=== PATIENT | male | born 1945 | race Caucasian/White ===

== ENCOUNTER 2018-06-13 05:30 | Inpatient (IN) | payer MEDICARE ==
[2018-06-13] MEDS ORDERED: NS 0.9% 1000 ML* 1,000 ML IV ONE ×2 (05:37→06:42)
--- NOTE | 2018-06-13 06:09 | ED ---
Abdominal Pain/Male - HPI Summary HPI Summary: Patient is a 72-year-old [id number] diabetic presenting to the ED with a five-day history of feeling ill. Symptoms began after eating some shrimp , however no one else who ate shrimp ended up until. His symptoms began as lower abdominal cramping and improved after 1 day. He then ate the shrimp again 2 days later and again started having lower abdominal cramping, however had a normal bowel movement that day. Denied any nausea or vomiting. Denies any worsening symptoms with food intake. Over the past 2 days he continues to have abdominal cramping with one loose stool early this morning around 2 AM. 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 He also is endorsing diaphoresis, but denies any chills or subjective fevers. is at bedside stating he has been breathing fairly shallowly. Patient is also endorsing urination every 1 hour for the past several days which is also not normal for him. Medications include Glucophage and metformin. He is also on a baby aspirin every other day. He states he has not taken his medications over the past few days. He does not check his sugars regularly and follows up with his PCP approximately every 2 years. He has not seen his PCP in a year and a half. He denies any burning with urination, urgency or hematuria. Denies any blood in the stool. He has never had anything like this before, denies any abdominal surgeries and denies any known allergies. Endorses decreased by mouth intake over the past 2 days. is also stating he has been coughing over the past few days with yellow productive sputum. - History of Current Complaint Chief Complaint: EDGeneral Stated Complaint: GENERAL ILLNESS Time Seen by Provider: 06/13/18 05:40 Hx Obtained From: Patient Onset/Duration: Gradual Onset Timing: Constant Severity Initially: Moderate Severity Currently: Moderate Pain Intensity: 0 Pain Scale Used: 0-10 Numeric Location: Other - diffuse lower abdominal pain and cramping without discrete tenderness Radiates: No Character: Cramping Aggravating Factor(s): Nothing Associated Signs And Symptoms: Positive: Diaphoresis, Urinary Symptoms, Decreased Appetite, Diarrhea - 1 episode early this morning. Negative: Fever, Cough, Chest Pain, Constipation, Blood in Stool, Nausea, Vomiting - Risk Factors Testicular Torsion: Negative Cardiac Risk Factors: Negative - Allergies/Home Medications Allergies/Adverse Reactions: Allergies Allergy/AdvReac Type Severity Reaction Status Date / Time No Known Allergies Allergy Verified 06/13/18 05:35 Home Medications: Home Medications Aspirin 81 mg CHEW TAB* [Aspirin Low Dose TAB*] 81 mg PO EVERY OTHER DAY [History Confirmed 06/13/18] glipiZIDE TAB* [Glucotrol TAB*] 5 mg PO BID 06/13/18 [History Confirmed 06/13/18 ] metFORMIN* [Glucophage 500 MG TAB *] 500 mg PO BID 06/13/18 [History Confirmed 06/13/18] PMH/Surg Hx/FS Hx/Imm Hx Previously Healthy: Yes - Immunization History Hx Pertussis Vaccination: No Immunizations Up to Date: Yes Infectious Disease History: No Infectious Disease History: Denies: Traveled Outside the [place] in Last 30 Days - Social History Occupation: Employed Full-time - patient is a burnette- works long hours Lives: With Family Alcohol Use: None Hx Substance Use: No Substance Use Type: Reports: None Hx Tobacco Use: No Smoking Status (MU): Never Smoked Tobacco Review of Systems Positive: Fatigue, Skin Diaphoresis. Negative: Fever - no known subjective fevers, Chills Negative: Erythema Negative: Sore Throat, Nasal Discharge Negative: Palpitations, Chest Pain Positive: Cough - cough with yellow sputum x 2 days. Negative: Shortness Of Breath Positive: Abdominal Pain - cramping, Diarrhea - 1 episode this morning. Negative: Vomiting, Nausea Positive: see HPI, frequency - every 1 hour. Negative: burning, dysuria, discharge, flank pain, incontinence, pain Positive: Arthralgia, Myalgia Negative: Rash, Bruising Positive: Weakness. Negative: Headache, Paresthesia, Numbness Negative: Anxious, Depressed All Other Systems Reviewed And Are Negative: Yes Physical Exam Triage Information Reviewed: Yes Vital Signs On Initial Exam: Initial Vitals Temp Pulse Resp BP Pulse Ox 100.1 F 123 18 132/70 94 06/13/18 05:32 06/13/18 05:32 06/13/18 05:32 06/13/18 05:32 06/13/18 05:32 Vital Signs Reviewed: Yes Appearance: Positive: Ill-Appearing, Pain Distress Skin: Positive: Diaphoretic Head/Face: Positive: Normal Head/Face Inspection Eyes: Positive: EOMI, VALERIE, Conjunctiva Clear Neck: Positive: Supple, No Lymphadenopathy Respiratory/Lung Sounds: Positive: Clear to Auscultation, Decreased Breath Sounds Cardiovascular: Positive: Pulses are Symmetrical in both Upper and Lower Extremities, Tachycardia Abdomen Description: Positive: Soft, Other: - tenderness throughout. Negative: No Organomegaly, CVA Tenderness (R), CVA Tenderness (L), Distended, McBurney's Point Tenderness, Splenomegaly Musculoskeletal: Positive: Normal, Strength/ROM Intact Neurological: Positive: Speech Normal Psychiatric: Positive: Normal, Affect/Mood Appropriate AVPU Assessment: Alert Diagnostics - Vital Signs Vital Signs Temp Pulse Resp BP Pulse Ox 06/13/18 05:32 100.1 F 123 18 132/70 94 - Laboratory Result Diagrams: 06/13/18 05:57 06/13/18 05:57 Lab Statement: Any lab studies that have been ordered have been reviewed, and results considered in the medical decision making process. Abdominal Pain Fem Course/Dx - Course Course Of Treatment: During the course of treatment, the patient is evaluated for lower abdominal cramping over the past 5 days after eating some shrimp. He endorses one loose stool. He endorses diaphoresis and urination every 1 hour. On arrival his vital signs show a temperature of 100.1, pulse rate of 123, respirations 18, PP 132/70 and O2 sat at 94. He is a known diabetic and takes metformin and Glucophage, however has not taken his medications in the past 2 days. 1 L fluids given and BG obtained which was 232. UA obtained. Chest x- ray obtained: No evidence of acute cardiopulmonary disease. Blood cultures obtained and are pending. Labs show: Elevated WBC at 17,000 with elevated CRP, BUN/CR and Lactic. On physical examination, patient appears slightly uncomfortable, but is pleasant and alert. Soft moist skin. Diffuse diaphoresis , no lesions. Conjunctiva pink with no redness or exudates. Dry mucosa. No lymphadenopathy throughout. Lungs are clear to auscultation but seemed diminished. No adventitious sounds. No JVD noted. Heart sounds present. RRR. Normal S1 and single S2. Carotids 2+ bilaterally without bruits. Bowel sounds diminished in all 4 quadrants. Slight pain on deep palpation of all 4 quadrants, negative obturators. Psoas not performed. No pain over McBurneys point. No abdominal distention or guarding. Peritoneal signs present. Discussed case with Dr. Mills. Dr. Mills agrees to a surgical consult. Discussed with Dr. Marcos who agrees to admit. Dr. Contreras, ED attending to see patient as well and a US of the gallbladder is ordered. GB US shows: The constellation of findings of the gallbladder is consistent with acute cholecystitis. Repeat troponin 0.11. - Diagnoses Differential Diagnosis/HQI/PQRI: Other - Acute cholecystitis, cholelithiasis, choledocholithiasis, gallbladder perforation Provider Diagnoses: Acute cholecystitis - Provider Notifications Discussed Care Of Patient With: Varghese Griffith - Surgical consult after admission Instructed by Provider To: Admit As Inpatient - Critical Care Time Critical Care Time: 30-74 min Discharge - Sign-Out/Discharge Documenting (check all that apply): Patient Departure - Discharge Plan Condition: Fair Disposition: ADMITTED TO [facility] Referrals: Papi Kaiser MD [Primary Care Provider] - - Billing Disposition and Condition Condition: FAIR Disposition: Admitted to [facility]
[2018-06-13 06:11] LABS: Hematocrit 41 % (42-52); Hemoglobin 13.5 g/dl (14.0-18.0); Mean Corpuscular HGB Conc 33 g/dl (31-36); Mean Corpuscular Hemoglobin 28 pg (27-31); Mean Corpuscular Volume 85 fL (80-94); Mean Platelet Volume 9.9 fL (7.4-10.4); Platelet Count 102 10^3/ul (150-450); Red Blood Count 4.78 10^6/ul (4.00-5.40); Red Cell Distribution Width 14 % (10.5-15); White Blood Count 16.9 10^3/ul (3.5-10.8)
[2018-06-13] MEDS ORDERED: Ciprofloxacin 400MG IVPREMIX(* 400 MG/200 ML BAG IVPB ONE (06:21)
[2018-06-13 06:23] LABS: INR 1.23 (0.77-1.02)
[2018-06-13 06:36] LABS: EGFR Non-African American 29.8 (>60)
[2018-06-13 06:46] LABS: ABS Basophils 0.1 10^3/ul (0-0.2); ABS Eosinophils 0.1 10^3/ul (0-0.6); ABS Lymphocytes 0.5 10^3/ul (1.0-4.8); ABS Monocytes 0.5 10^3/ul (0-0.8); ABS Neutrophils 15.7 10^3/ul (1.5-7.7); ABS Nucleated RBC 0 10^3/ul; Eosinophil % 0.7 %; Lymphocyte % 2.7 %; Nucleated Red Blood Cells % 0
[2018-06-13] MEDS ORDERED: metroNIDAZOLE IV 500 MG/100ML* 500 MG/100 ML BAG IVPB ONE (07:18)
[2018-06-13] MEDS ORDERED: Piperacillin/Tazobac ADVAN(*) 3.375 GM in NS 0.9% 100 ML* 100 ML IVPB ONE (07:23)
[2018-06-13] MEDS ORDERED: NS 0.9% 1000 ML* 1,300 ML IV ONE (07:46)
[2018-06-13] MEDS ORDERED: Dextrose 50% Syringe 50 ML* 25 GM/50 ML SYRINGE IV PUSH PRN (09:19)
[2018-06-13] MEDS: Piperacillin/Tazobac ADVAN(*) 3.375 GM in NS 0.9% 100 ML* 100 ML IVPB ONE ×2 (09:31→09:43)
[2018-06-13 09:53] LABS: Urine Appearance Clear; Urine Blood 2+ (Negative); Urine Color Amber; Urine Ketones Negative (Negative); Urine Protein 1+(30 mg/dL) (Negative); Urine Red Blood Cell 1+(3-5/hpf) (Absent); Urine Urobilinogen Negative (Negative); Urine White Blood Cell 1+(6-10/hpf) (Absent)
[2018-06-13] MEDS ORDERED: Magnesium Hydroxide LIQ* 30 ML UDC PO PRN (09:59)
[2018-06-13] MEDS ORDERED: Ondansetron INJ* 2 MG/ML VIAL IV PRN (09:59)
[2018-06-13] MEDS ORDERED: Al Hydrox/Mg Hydrox/Simet LIQ* 30 ML UDC PO PRN (09:59)
[2018-06-13] MEDS ORDERED: Zosyn per Pharmacy* NOTE FOLLOW UP SCH (10:00)
[2018-06-13] MEDS ORDERED: Magnesium Sulfate 2 GM IV* 2 GM/50 ML BAG IVPB ONE (10:09)
[2018-06-13] MEDS: Pantoprazole IV* 40 MG IV SCH (11:05)
[2018-06-13] MEDS: NS 0.9% 1000 ML* 1,000 ML IV SCH ×2 (11:06→20:24)
--- NOTE | 2018-06-13 11:47 | ECHO ---
Patient: MARIELA MICHAUD [facility] Rec#: [id number] : 1945 Date: 06/13/2018 Age: 72y Height: 180.34 cm / 71.0 in Weight: 108.86 kg / 239.9 lbs Sex: M BSA: 2.28 Room#: ED 3 Admit Date#: 06/13/2018 Type: Inpatient Referring: Yamilex Marcos MD Reading: Samson Bain MD Community Artist: Megan Amanda,ARYACS,RDMS CC: Papi Kaiser MD Transthoracic Echocardiogram Indication: Valvular disease, Elevated TROP BP: 129/73 HR: 95 Rhythm: NSR Findings History: DM, bicuspid AOV, trace , dilated AO. Technical Comments: The study quality is good. Left Ventricle: The left ventricular chamber size is normal. Mild concentric left ventricular hypertrophy is observed. Basal interventricular septum shows moderate thickening. Mild global hypokinesis of the left ventricle is observed. There is mildly decreased left ventricular systolic function. The estimated ejection fraction is 40-45%. There is a left ventricular septal wall motion abnormality observed, possibly due to the presence of a left bundle branch block. There is an E to A reversal in the mitral valve flow pattern suggestive of diastolic dysfunction. Left Atrium: The left atrial chamber size is normal. Right Ventricle: The right ventricular chamber size and systolic function are within normal limits. Right Atrium: The right atrial cavity size is normal. Aortic Valve: The aortic valve appears bicuspid. The aortic valve leaflets are moderately thickened. There is no evidence of aortic regurgitation. There is mild aortic stenosis. The mean gradient of the aortic valve is 8 mmHg. Mitral Valve: The mitral valve leaflets are mildly thickened. There is no evidence of mitral regurgitation. There is no evidence of mitral stenosis. Tricuspid Valve: The tricuspid valve leaflets are normal. There is trace tricuspid regurgitation. No pulmonary hypertension is noted. Pulmonic Valve: The pulmonic valve appears normal. There is a trace pulmonic regurgitation. Pericardium: There is no significant pericardial effusion. Aorta: There is no dilatation of the ascending aorta. There is mild dilatation of the aortic arch. There is moderate dilatation of the aortic root. Pulmonary Artery: The main pulmonary artery appears normal. Venous: The inferior vena cava appears normal in size. There is a greater than 50% respiratory change in the inferior vena cava dimension. Conclusions Mild concentric left ventricular hypertrophy is observed. Mild global hypokinesis of the left ventricle is observed. There is mildly decreased left ventricular systolic function. The estimated ejection fraction is 40-45%. There is a left ventricular septal wall motion abnormality observed, possibly due to the presence of a left bundle branch block. The right ventricular chamber size and systolic function are within normal limits. The aortic valve appears bicuspid. There is no evidence of aortic regurgitation. There is mild aortic stenosis. The mean gradient of the aortic valve is 8 mmHg. There is no evidence of mitral regurgitation. There is trace tricuspid regurgitation. There is no significant pericardial effusion. Compared to study of 10/25/14, there is little change. Previously to EF had been reported as normal but direct review of the 2 studies shows no difference. Mild LV dysfunction in both Measurements Name Value Normal Range RVIDd (AP) 2D 3.3 cm (0.9 - 2.6) RVDdMajor (2D) 3.5 cm (2.2 - 4.4) RAd ISD 4CH 4.7 cm (3.4 - 4.9) RA (A4C)W 4.5 cm (2.9 - 4.6) IVSd (2D) 1.6 cm (0.6 - 1) LVPWd (2D) 1.2 cm (0.6 - 1) LVIDd (2D) 4.8 cm (3.6 - 5.4) LVIDs (2D) 3.8 cm - LV FS (2D) 22 % (25 - 45) Aortic Annulus 2.7 cm (1.4 - 2.6) Ao root diameter (2D) 4.9 cm (2.1 - 3.5) Ascending Ao 3.3 cm (2.1 - 3.4) Aortic arch 3.9 cm (1.8 - 3.4) LA dimension (AP) 2D 3.7 cm (2.3 - 3.8) LAd ISD 4CH 4.9 cm (2.9 - 5.3) LA ISD 4CH W 4.6 cm (2.5 - 4.5) Name Value Normal Range LA ESV SP 4CH (A/L) 61.9 ml - LA ESV SP 2CH (A/L) 62.59 ml - LA ESV BP (A/L) 62.27 ml - LA ESV BP (A/L) index 27 ml/m2 - LA ESV SP 4CH (MOD) 57.35 ml - LA ESV SP 2CH (MOD) 58.48 ml - Name Value Normal Range MV E-wave Vmax 0.6 m/sec - MV deceleration time 92 msec - MV A-wave Vmax 1 m/sec - MV E:A ratio 0.6 ratio - LV septal e' Vmax 0.06 m/sec - LV lateral e' Vmax 0.06 m/sec - LV E:e' septal ratio 10 ratio - LV E:e' lateral ratio 10 ratio - Name Value Normal Range AV Vmax 1.8 m/sec - AV VTI 35 cm - AV peak gradient 13.5 mmHg - AV mean gradient 8 mmHg - LVOT diameter 2.3 cm - LVOT Vmax 0.7 m/sec - LVOT VTI 17.5 cm - LVOT peak gradient 2 mmHg - LVOT mean gradient 1.1 mmHg - DOI (VTI) 0.5 ratio - MONIKA (continuity Vmax) 1.6 cm2 - MONIKA (continuity VTI) 2.1 cm2 - KATIE Vmax 0.6 m/sec - Name Value Normal Range TR Vmax 2.5 m/sec - TR peak gradient 25 mmHg - RAP 3 mmHg - RVSP 28 mmHg - IVC diameter 2.1 cm - Name Value Normal Range PV Vmax 0.6 m/sec - PV peak gradient 1.4 mmHg -
[2018-06-13] MEDS: Insulin LISPRO* 1 UNITS UNIT SUBCUT SCH ×2 (12:07→16:33)
[2018-06-13] MEDS: ZOSYN 3.375 GM Q8H per EXTENDED INFUSION IVPB SCH ×4 (12:07→19:28)
--- NOTE | 2018-06-13 12:48 | PN ---
Sepsis Event Evaluation Date of Evaluation: 06/13/18 Time of Evaluation: 11:00 Current Stage of Sepsis: Severe Sepsis Vital Signs - Last 12 Hours: Vital Signs - 12 hr Temp Pulse Resp BP Pulse Ox 06/13/18 10:30 98.4 F 97 18 132/69 96 06/13/18 10:20 100 F 95 19 117/64 94 06/13/18 09:44 95 117/64 93 06/13/18 09:14 95 123/72 92 06/13/18 09:00 99 94 06/13/18 08:44 96 129/71 92 06/13/18 08:14 100 139/82 93 06/13/18 08:00 99 93 06/13/18 07:44 103 129/73 93 06/13/18 07:14 105 136/74 92 06/13/18 07:00 109 94 06/13/18 06:45 112 119/82 91 06/13/18 06:14 116 131/75 91 06/13/18 06:00 116 92 06/13/18 05:46 120 93 06/13/18 05:44 117 139/71 92 06/13/18 05:32 100.1 F 123 18 132/70 94 Lactic Acid: 06/13/18 06/13/18 05:57 11:05 Lactic Acid 2.4 H* 1.3 - Cardiopulmonary Exam Capillary Refill: Immediate Respiratory: Symmetrical Chest Expansion and Respiratory Effort Cardiovascular: NL Sounds; No Murmurs; No JVD, RRR - Peripheral Pulse Exam Radial Pulses: Bilateral Normal Pedal Pulses: Bilateral Normal Posterior Tibial Pulse: Bilateral Normal Femoral Pulses: Bilateral Normal - Skin Exam Skin Exam: Normal Turgor, Unremarkable - [place] Coma Scale Best Eye Response: 4 - Spontaneous Best Motor Response: 6 - Obeys Commands Best Verbal Response: 5 - Oriented - pt feels well, denies abd pain. Seen by surgical consult Coma Scale Total: 15 Assess/Plan/Problems-Billing Assessment:
[2018-06-13] MEDS: Acetaminophen TAB* 325 MG PO PRN (13:26)
[2018-06-13] MEDS: Heparin VIAL(*) 5000 UNITS/ML VIAL (FIVE THOUSAND) SUBCUT SCH (13:29)
--- NOTE | 2018-06-13 17:33 | PN ---
Progress Note - Progress Note Date of Service: 06/13/18 Note: See Consult from earlier today. Patient seen and examined. Studies reviewed. He has had symptoms for 5 days. He reports being "sore" but does not c/o abdominal pain. Vital Signs Temp 99.7 F 06/13/18 15:22 Pulse 117 06/13/18 15:22 Resp 28 06/13/18 15:22 BP 135/66 06/13/18 15:22 Pulse Ox 89 06/13/18 15:22 Gen: awake, alert Abd: obese, no scars, palpable RUQ mass c/w gallbladder. No peritoneal findings. Intake & Output 06/12/18 06/13/18 06/13/18 18:59 06:59 18:59 Intake Total 4038 Output Total 300 Balance 3738 Weight 240 lb 251 lb 14.4 oz Intake: IV Fluids 3553 IV FLUIDS AND ABX 253 IVPB 25 IV FLUIDS AND ABX 25 Oral 460 Output: Urine 300 Other: Estimated Void Small # Voids 1 A/P: 72 yo M with acute cholecystitis, sepsis. He appears somewhat improved after initial antibiotics and resuscitation. As he is not felt to be a candidate for GETA at this time, and given the duration of symptoms and initial septic picture, a percutaneous cholecystostomy seems the best option should his condition worsen or if he fails to improve.
[2018-06-13] MEDS ORDERED: Acetaminophen TAB* 325 MG PO ONE (19:10)
--- NOTE | 2018-06-13 19:19 | PN ---
Hospitalist Progress Note Date of Service: 06/13/18 Called to bedside by RN for change in status. Patient is tachypneic with temp > 103 rectal with increased WOB. No tachycardia noted, BP slightly lower than earlier. No changes in mentation, no lethargy noted. Placed on O2 2LNC for support, ABG ordered, no rales or rhonchi noted on exam. Will give 975mg tylenol now, continue IVF at 125ml/hr. Patient is on appropriate atbx therapy ( zosyn) for gram negative bacteremia with 2 of 4 bottles positive. Will redraw lactic acid now, cold packs applied to neck and axilla, appears more comfortable now. Discussed POC with patient and his and all questions answered. Will follow gas and labs. Coordinated with primary RN and staff.
[2018-06-13] MEDS: Propofol* 100 ML IV SCH ×2 (20:10→23:25)
--- NOTE | 2018-06-13 20:24 | HP ---
CC: Dr. Papi Kaiser; Dr. Griffith * HISTORY AND PHYSICAL: DATE OF ADMISSION: 06/13/18. PRIMARY CARE PROVIDER: Dr. Papi Kaiser. CHIEF COMPLAINT: Abdominal pain, and nausea and vomiting. 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 He got sick and threw up about 4 or 5 times on the Tuesday after Thanksgiving dinner, but then he somewhat recovered. He went to the same home to be a guest for another family dinner on Tuesday, 2 days after Thanksgiving, ate a roll shrimp again. Since then, he has been having abdominal cramping and intractable nausea and vomiting. He stated that he vomited all of the evening of Tuesday and all of Tuesday. On Tuesday, he was dry heaving mostly. Today, he came in to be evaluated after his was concerned that he has not been eating well despite that that his vomiting resolved. He has had loose bowel movements on a daily basis and denies diarrhea. He is going to be admitted with diagnosis of acute renal failure and dehydration , and likely sepsis due to gastrointestinal infection. PAST MEDICAL HISTORY: 1. History of bicuspid valve. 2. History of cataract surgery. 3. History of right ankle fracture in 2007, treated with a cast. 4. Diabetes type 2 since 1996. 5. Bicuspid aortic valve. 6. History of surgery on his scrotum likely hydrocele approximately over 20 years ago. MEDICATIONS: At home include: 1. Aspirin 81 mg every other day. 2. Metformin 500 mg b.i.d. 3. Glipizide 5 mg b.i.d. ALLERGIES: No known drug allergies. FAMILY HISTORY: Positive for father who of acute [place] at age of 78. Mother who had a history of diabetes and of old age at the age of 84. SOCIAL HISTORY: The patient denies any tobacco, alcohol or drug use. 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 His , Milli, is a surrogate. REVIEW OF SYSTEMS: Please see history of present illness. In addition to the above-mentioned, the patient stated that he had been going to the bathroom frequently to urinate, but he feels that it had been happening because he was restless and he could not sleep and every time he would get up, he decided to go to the bathroom to urinate just in case. He denies urinary urgency or burning with urination or pain with urination. He denies fevers. Currently, he denies abdominal pain, but he states that it is "sore." The patient denies any chest pain or shortness of breath. The noted that the patient had been coughing frequently after he was throwing up a lot. The cough had been nonproductive. All the remaining 12 systems were reviewed with the patient and were otherwise negative. PHYSICAL EXAMINATION GENERAL: The patient is a very pleasant 72-year-old male, who is in no acute distress. Alert, awake, and oriented x3. VITAL SIGNS: Blood pressure of 117/64, heart rate of 95 and regular, respiratory rate 18, oxygen saturation 93% on room air, temperature of 100.1. HEENT: Head: Atraumatic, normocephalic. Eyes: Pupils are equal, reactive to light and accommodation. Oropharynx is clear. Mucosa dry. NECK: Supple. No JVD. No bruits bilaterally. RESPIRATORY: Clear to auscultation bilaterally. CARDIOVASCULAR: Regular rate and rhythm. Tachycardia. No murmur. ABDOMEN: Slightly distended. Soft. Minimally tender in the right upper quadrant with no rebound, no guarding. Bowel sounds are present in all 4 quadrants. EXTREMITIES: There is trace bilateral ankle edema. Pulses are +2 bilaterally. There is no clubbing or cyanosis. NEUROLOGIC: On neuro evaluation, speech clear. Cranial nerves II through XII grossly intact. Motor strength is 5/5 bilaterally. PSYCHIATRIC EVALUATION: Oriented x3, with no evidence of anxiety or depression. SKIN: On evaluation of the skin, no ecchymotic areas or rashes noted. DIAGNOSTIC STUDIES/LAB DATA: Laboratory data showed a sodium of 128, potassium of 4.2, chloride 92, carbon dioxide 22, BUN is 45, creatinine 2.19. Lactic acid was 2.4, magnesium of 1.7, bilirubin of 1.2, troponin initially 0.51 , 3 hours later was 0.11. AST of 27, ALT of 31, alkaline phosphatase of 107, CPK 196, lipase 12. C-reactive protein 370. Urinalysis, positive blood, +1 protein, negative for esterase and nitrates, +1 wbc's, absent bacteria, positive for squamous epithelial cells. Gallbladder ultrasound, impression: "The constellation of findings that the gallbladder consistent with acute cholecystitis. Hepatomegaly, and hepatosteatosis." Furthermore, in the body of the report, it was noted that the patient has negative sonographic Mistry sign and there were noted to be dependent stones and sludge, and small volume of pericholecystic fluid, and the distended gallbladder wall, with thickened wall measuring up to 80 mm. There was also gas with the dependent portion of the gallbladder. CT of the abdomen and pelvis, impression, "Findings suggestive of acute calculous cholecystitis complicated with perforation. Colonic diverticulosis with pericolic fat colon stranding in the hepatic flexure, which may be originated from gallbladder, worsened acute diverticulitis. Enlarged prostate gland." The patient's EKG showed sinus tachycardia with a heart rate of 194 minutes with criteria for LVH as well as nonspecific intraventricular conduction delay. No significant ST changes. There were no old EKGs available for comparison. ASSESSMENT AND PLAN: A 72-year-old male with history of nausea, vomiting after eating a roll shrimp, presents to the hospital with complaints of mild abdominal cramping. 1. The patient is markedly dehydrated and has acute renal failure likely due to dehydration. That is also proven by hyponatremia and hypomagnesemia. We will institute intravenous hydration and monitor the patient's renal function in the morning. 2. The patient has tachycardia, leukocytosis, acute renal failure, and elevated troponin likely due to demand ischemia. At this point, a severe sepsis likely related to gastrointestinal infection. At this point, the patient 's abdominal tenderness is minimal on evaluation today. It appears that the CT of the abdomen showing a ruptured gallbladder may not be entirely correct. The gallbladder ultrasound shows thickened gallbladder wall and gallbladder stones. It is possible that the patient has cholecystitis, although once again his liver function tests are not indicative of acute cholecystitis and his tenderness on exam is minimal. It is also possible that the constellation of findings is related to an ongoing gastrointestinal infection. At this point, we will ask Dr. Griffith to see the patient for surgical evaluation. As per preliminary discussion, there was no indication for acute surgical intervention. The patient is going to be treated conservatively with intravenous fluids and Zosyn for antibiotics. Stool cultures and blood cultures are going to be obtained. The patient's lactic acid is going to be repeated. 3. In regard to the patient's elevated troponin, the patient denies any chest pain. His EKG shows no acute changes. It is likely related to demand ischemia. His troponin already peaked at 0.5 at admission. We will follow up with transesophageal echocardiogram and continue monitoring on ekg monitor bed. 4. The patient's hypomagnesemia is going to be replaced intravenously. 5. The patient is going to be placed currently on sips of clears. For GI prophylaxis, he is going to be placed on Protonix on a daily basis. 6. For DVT prophylaxis, the patient is going to be placed on heparin subcutaneously. 7. For his diabetes, we will place him on insulin sliding scale and hold his oral diabetic agents. 8. The patient's code status is full and his surrogate is his . TIME SPENT: Approximately 70 minutes was spent on the admission of this patient , more than half of that time was spent [id number] with the patient during the interview and physical exam. [id number]/[facility] #: [id number] TEJA
--- NOTE | 2018-06-13 20:42 | CONS ---
CC: Papi Kaiser MD * CONSULTATION NOTE: DATE OF CONSULT: 06/13/18 ATTENDING SURGEON: Dr. Varghese Griffith. (DICTATED BY JARRED CAMARENA) CHIEF COMPLAINT: Abdominal pain. 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 He was without symptoms on Tuesday, but had some additional shrimp on Tuesday and about 15 minutes later was experiencing the same lower abdominal crampy pain with associated vomiting. The vomiting continued through Tuesday and into part of Tuesday. He felt very weak. He slept through most of the day on Tuesday. He has been anorexic and had little to eat, though has been drinking fluids. He has felt a mild fever and/or chills. He states he has had normal bowel movement as recently as early this morning. His only other recent new symptom is some cough productive of dark phlegm. He does not recall having any similar symptoms in the past, though his reminds him that he did have similar symptoms about two years ago after ingesting shellfish. There is no known family history of gallbladder disease. He has not had any prior abdominal surgeries. He has not had a prior screening colonoscopy. PAST MEDICAL HISTORY: Type 2 diabetes for at least 10 years. He is unsure of his last A1c. He is obese. His only surgeries have been tonsillectomy, spermatocelectomy, and bilateral cataract surgery. CURRENT MEDICATIONS: Aspirin 81 mg every other day, glipizide 5 mg b.i.d., metformin 500 mg b.i.d. ALLERGIES: Drug allergies none known. FAMILY HISTORY: Negative for anesthesia problems, bleeding or clotting disorders. SOCIAL HISTORY: The patient is . His accompanies him. He continues to work as a burnette. He denies use of tobacco or alcohol. REVIEW OF SYSTEMS: General: No additions to the HPI. HEENT: No problems reported. No recent changes in vision. Cardiovascular: No chest pain, palpitations. He states that he has been told that he has a two leaflet valve, presumably aortic from evaluation many years ago related to a murmur. No other recent cardiology evaluations. No history of hypertension. Respiratory: No history of asthma, chronic cough, COPD, or shortness of breath, though he does state that with the acute episode he has noticed some difficulty catching his breath. GI: As above per HPI. No additions. : He states that he had been urinating frequently, but without dysuria or hematuria. I did not ask him regarding the color of urine. Musculoskeletal: No problems reported. Neurological: No problems reported. PHYSICAL EXAMINATION: Height 6 feet, weight 240 pounds, temperature 100.2, blood pressure 117/64, pulse ranging from 95 to 100, and respirations 18, room air saturation 92 to 94%. General: Well-nourished obese male sitting up in the chair and in no acute distress. He appears fairly comfortable. Skin: Warm and dry. No suspicious rashes or lesions noted. HEENT: Pupils equal, round, reactive. EOMs intact. No conjunctival pallor, scleral icterus. Oropharynx: Mucous membranes moist. Teeth in fair to good repair. No intraoral lesions. Neck: No lymphadenopathy, thyromegaly or masses. Heart: Mildly tachycardic. There is a systolic murmur heard best at the right second interspace. Lungs: Clear to auscultation with decreased breath sounds at both bases, right greater than left. No wheezes. Abdomen: Obese. Bowel sounds hypoactive, soft with only very mild tenderness in the right upper quadrant and no tenderness elsewhere. No palpable masses or organomegaly, though exam is limited. Negative Mistry's sign. Genitalia: Not examined. Rectal: Not done. Back: No spinous processes or CVA tenderness. Extremities: No edema. Neurological: Grossly intact. LABORATORY DATA: White blood cell count 16,900, hemoglobin 13.5, platelets 102. Chemistries: Sodium and chloride both slightly low at 128 and 92. Potassium normal at 4.2. BUN and creatinine are elevated at 45 and 2.19. Glucose is elevated at 287. Lactic acid mildly elevated at 2.4. Magnesium slightly low at 1.7. Total bilirubin mildly elevated at 1.7. Total bilirubin mildly elevated 1.2, but normal on repeat. Alkaline phosphatase mildly elevated at 107. Transaminases are normal. Troponin mildly elevated at 0.51 with repeat 0.11. CRP 371. Amylase and lipase were normal. IMAGING: Includes CT scan which was reviewed personally and by Dr. Griffith, showing air within the gallbladder and apparent gallbladder wall thickening and pericholecystic inflammation. There is a question of some free air outside of the gallbladder. There is apparent colonic diverticulosis, but without clear diverticulitis. Ultrasound confirms the presence of stones and sludge in the gallbladder, as well as air and pericholecystic fluid. Gallbladder wall was thickened at 8 mm. The ducts were of normal size. Liver was enlarged with fatty changes. IMPRESSION: Acute calculous cholecystitis. PLAN: Case was discussed with Dr. Griffith and Dr. Marcos. For the present time, he will be hydrated and treated with IV Zosyn with minimal oral intake. He will also be seen by Cardiology. Plan will likely include recommendation for cholecystectomy pending outcome of the additional evaluations. We will follow closely. JARRED CAMARENA [id number]/[facility] #: [id number] MTDJorge Luis
[2018-06-13] MEDS ORDERED: NS 0.9% 1000 ML* 1,000 ML IV SCH (20:50)
[2018-06-13 21:11] LABS: EGFR Non-African American 24.8 (>60)
[2018-06-13 21:14] LABS: Hematocrit 34 % (42-52); Hemoglobin 11.3 g/dl (14.0-18.0); Mean Corpuscular HGB Conc 33 g/dl (31-36); Mean Corpuscular Hemoglobin 28 pg (27-31); Mean Corpuscular Volume 85 fL (80-94); Mean Platelet Volume 10.4 fL (7.4-10.4); Platelet Count 65 10^3/ul (150-450); Red Blood Count 3.98 10^6/ul (4.00-5.40); Red Cell Distribution Width 14 % (10.5-15); White Blood Count 19.4 10^3/ul (3.5-10.8)
--- NOTE | 2018-06-13 21:21 | PN ---
Progress Note - Progress Note Date of Service: 06/13/18 Note: Dr. Griffith reached out regarding concern that this patient needed IR guided drainage this evening due to concern for his clinical deterioration. Patient transferred to ICU earlier by Marie Rosas NP. On my evaluation, patient more tachpyneic. CXR shows pulmonary edema. Patient on vapotherm. Denying Shortness of breath. States is abdominal pain somewhat improved. Discussed with Dr. Brito that patient requires IR guided drainage for sepsis/bacteremia , lactic acidosis and clinically deteriorating. Spoke with Dr. Martin regarding his cardiac risk and discussed if procedure is urgent and potentially life saving then Dr. Brito should proceed. Due to patients tenuous respiratory status he will require intubation for moderate sedation and we will leave him intubated overnight to allow for aggressive fluid rescucitation. Repeat labs are pending. I spoke with Dr. Baker who is in agreement of this plan. Patient awake and able to answer questions and speak full sentences. His is also at the bedside. Both are agreeable and aware of plan.
[2018-06-13] MEDS ORDERED: Succinylcholine* 20 MG/ML 10 ML VIAL ONE ×2 (21:42→22:05)
[2018-06-13 21:43] LABS: ABS Basophils 0 10^3/ul (0-0.2); ABS Neutrophils 17.8 10^3/ul (1.5-7.7); Monocytes % 5 %
[2018-06-13] MEDS ORDERED: Propofol* 100 ML ONE ×2 (22:03→23:27)
[2018-06-13] MEDS ORDERED: Etomidate* 2 MG/ML 20 ML VIAL (40 MG) ONE (22:05)
[2018-06-13] MEDS ORDERED: fentaNYL* 50 MCG/ML 2 ML VIAL (100 MCG VIAL) ONE (22:58)
[2018-06-13] MEDS ORDERED: Norepinephrine VIAL* 4 MG in NS 0.9% 250 ML* 246 ML IV SCH (23:00)
[2018-06-13] MEDS ORDERED: fentaNYL* 50 MCG/ML 2 ML VIAL (100 MCG VIAL) IV SLOW PU PRN (23:07)
[2018-06-13] MEDS ORDERED: NS 0.9% 250 ML* 246 ML with Norepinephrine VIAL* 4 MG IV SCH ×2 (23:45)
--- NOTE | 2018-06-13 23:47 | CONS ---
CARDIOLOGY CONSULTATION: DATE OF CONSULT: 06/13/18 INDICATION FOR CONSULTATION: Bicuspid aortic valve, abnormal troponin, preop for gallbladder. HISTORY OF PRESENT ILLNESS: The patient is a 72-year-old gentleman with a very little past medical history, who came to the emergency room because of 3 days of nausea and vomiting. The patient states that he ate some shrimp that he thought was bad at Thanksgiving and he has been vomiting ever since. He has been having right upper quadrant pain and fevers. In speaking with the patient , the patient does have a history of a bicuspid aortic valve. The patient denies any cardiac symptoms in the past 2 years. He denies any chest pain, shortness of breath, no orthopnea or PND, no palpitations, no lightheadedness, dizziness or syncope. The patient did have an echocardiogram in 2014, which showed a bicuspid aortic valve with minimal aortic stenosis and what was reported his ejection fraction is 60%; however, in reevaluation of those original images in 2015, his ejection fraction then was 45%. PAST MEDICAL HISTORY: Unremarkable. He does have a history of diabetes. PAST SURGICAL HISTORY: Cataract surgery. OUTPATIENT MEDICATIONS: 1. Aspirin 81 mg a day. 2. Glipizide 5 mg b.i.d. 3. Metformin 500 mg b.i.d. ALLERGIES: No known drug allergies. FAMILY HISTORY: No family history of early coronary artery disease or cardiac arrhythmias. 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 REVIEW OF SYSTEMS: Positive for fevers and chills, positive for nausea and vomiting, positive for changes in weight. Negative for rash, negative for shortness of breath. PHYSICAL EXAM: Height is 5 feet 11 inches, weight 251 pounds, temperature of 100.4, heart rate 97, respiratory rate 28, oxygen saturation 96% on room air, blood pressure 132/69. Sclerae anicteric. Oropharynx is pink without erythema. Carotids are 2+ without bruits. JVD is normal. Thyroid is normal. Cardiac Exam: S1, S2 with a faint 1/6 systolic ejection murmur. No diastolic murmur. PMI is normal. Lungs have mildly decreased breath sounds at the bases. Upper lung rosas were clear. There is no dullness to percussion. Abdomen is mildly tender, decreased bowel sounds. Extremity showed no edema. He has 2+ pulses throughout. The patient is awake, alert, and oriented. He moves all 4 extremities equally. DIAGNOSTIC STUDIES/LAB DATA: EKG demonstrates normal sinus rhythm with LVH and interventricular conduction delay. Laboratory studies: Sodium 128, potassium 4.2, BUN 45, creatinine 2.1, AST and ALT are within normal limits. Initial troponin level is 0.51, second troponin 0.11. Lipase is normal. White count is 16.9, hemoglobin 13, hematocrit 41, platelet count 102. IMPRESSION AND PLAN: This is a 72-year-old gentleman with a little past medical history except for diabetes. He is admitted to the hospital with what presumed to be cholecystitis. The patient is potentially going to the operating room tomorrow for a cholecystectomy. The patient has a known bicuspid aortic valve. His echocardiogram today does not show any significant change in his aortic stenosis. He has a [id number] aortic stenosis. The patient has mildly decreased LV systolic function. Ejection fraction of 45%. The patient's baseline EKG is abnormal. Given his history of diabetes, abnormal troponin level, and abnormal EKG, it is my recommendation that the patient undergo chemical nuclear stress test tomorrow morning prior to going to the operating room. I want to make sure he does not have any large areas of ischemia prior to going to the operating room. Further recommendations pending results of his testing. Case was discussed with Dr. Yamilex Marcos. [id number]/[facility] #: [id number] TEJA
[2018-06-14] MEDS ORDERED: Magnesium Sulfate 2 GM IV* 2 GM/50 ML BAG IVPB ONE (00:43)
[2018-06-14] MEDS ORDERED: KCL 20 MEQ/100 ML IVPREMIX* 20 MEQ/100 ML BAG IV ONE (00:43)
[2018-06-14] MEDS: Heparin VIAL(*) 5000 UNITS/ML VIAL (FIVE THOUSAND) SUBCUT SCH ×4 (01:50→21:12)
[2018-06-14] MEDS: Propofol* 100 ML IV SCH ×5 (01:55→20:35)
[2018-06-14] MEDS: ZOSYN 3.375 GM Q8H per EXTENDED INFUSION IVPB SCH ×2 (03:44)
[2018-06-14] MEDS: Chlorhexidine MOUTHWASH 0.12%* 15 ML UDC TOPICAL SCH ×6 (03:44→20:00)
[2018-06-14] MEDS ORDERED: NS 0.9% 1000 ML* 1,000 ML IV SCH (06:19)
[2018-06-14 06:22] LABS: ABS Basophils 0.1 10^3/ul (0-0.2); ABS Eosinophils 0.1 10^3/ul (0-0.6); ABS Monocytes 1.3 10^3/ul (0-0.8); ABS Neutrophils 21.1 10^3/ul (1.5-7.7); ABS Nucleated RBC 0 10^3/ul; Eosinophil % 0.3 %; Hematocrit 39 % (42-52); Hemoglobin 12.6 g/dl (14.0-18.0); Lymphocyte % 4.1 %; Mean Corpuscular HGB Conc 32 g/dl (31-36); Mean Corpuscular Hemoglobin 28 pg (27-31); Mean Corpuscular Volume 88 fL (80-94); Mean Platelet Volume 10.7 fL (7.4-10.4); Nucleated Red Blood Cells % 0; Platelet Count 73 10^3/ul (150-450); Red Blood Count 4.45 10^6/ul (4.00-5.40); Red Cell Distribution Width 15 % (10.5-15); White Blood Count 23.5 10^3/ul (3.5-10.8)
[2018-06-14] MEDS ORDERED: Sodium Bicarbonate 8.4% IV* 75 MEQ in NS 0.45% 1000 ML BAG* 1,000 ML IV SCH ×2 (07:30→08:00)
--- NOTE | 2018-06-14 07:55 | PN ---
Progress Note - Progress Note Date of Service: 06/14/18 SOAP: Subjective: Intubated and sedated. at bedside. He had perc drain placed at bedside by Dr. Brito. On Levophed at 5 mcg. Objective: Vital Signs Temp 99.1 F 06/14/18 07:30 Pulse 92 06/14/18 07:30 Resp 20 06/14/18 07:00 BP 123/73 06/14/18 07:30 Pulse Ox 98 06/14/18 07:39 Gen: on vent Abd: obese, soft, pigtail in RUQ draining brown-red thin fluid. Intake & Output 06/13/18 06/14/18 06/14/18 18:59 06:59 18:59 Intake Total 4038 3079 Output Total 300 362 50 Balance 3738 2717 -50 Weight 251 lb 14.4 oz 262 lb 12.656 oz Intake: IV Fluids 3553 2190 K 110 Mag 73 NS 253 2007 IVPB 25 223 NS 25 223 Medicated IV 666 CC - Norepinephrine/ 313 Levophed CC - Propofol/Diprivan 353 Oral 460 Output: Abdominal Drain 40 Urine 300 20 Rubio 302 50 Other: Estimated Void Small # Voids 1 Active Medications Generic Name Dose Route Start Last Admin Trade Name Freq PRN Reason Stop Dose Admin Acetaminophen 650 mg 06/13/18 09:59 06/13/18 13:26 Tylenol Tab* PO 650 mg Q4H PRN Administration FEVER/PAIN Al Hydrox/Mg Hydrox/Simethicone 30 ml 06/13/18 09:59 Maalox Plus* PO Q6H PRN INDIGESTION Aspirin 81 mg 06/15/18 09:00 Aspirin 81 Mg Chew Tab* PO EVERY OTHER DAY NAVEEN Chlorhexidine Gluconate 15 ml 06/13/18 23:45 06/14/18 03:44 Peridex Mouth Wash 0.12%* TOPICAL 15 ml Q4H NAVEEN Administration Dextrose 12.5 gm 06/13/18 09:19 D50w Syringe 50 Ml* IV PUSH .FOR FS < 60 - SS PRN FS < 60 Fentanyl Citrate 50 mcg 06/13/18 23:07 Fentanyl* IV SLOW PU Q2H PRN PAIN Heparin Sodium (Porcine) 5,000 units 06/13/18 14:00 06/14/18 06:38 Heparin Vial(*) SUBCUT 5,000 units Q8HR NAVEEN Administration Piperacillin Sod/Tazobactam 100 mls @ 25 mls/hr 06/13/18 12:00 06/14/18 03:44 Sod 3.375 gm/ Sodium Chloride IVPB 25 mls/hr Q8H NAVEEN Administration Norepinephrine Bitartrate 4 mg 250 mls @ 18.75 mls/hr 06/13/18 23:45 03:45 / Sodium Chloride IV 18.75 mls/hr .INITIAL RATE NAVEEN Administration Protocol 5 MCG/MIN Propofol 100 mls @ 13.711 mls/hr 06/13/18 23:45 06/14/18 05:59 Diprivan* IV 20.5 mls/hr .(Initial Rate) NAVEEN Administration Protocol 20 MCG/KG/MIN Sodium Chloride 1,000 mls @ 100 mls/hr 06/14/18 06:19 Ns 0.9% 1000 Ml* IV PER RATE [facility] Sodium Bicarbonate 75 meq/ 1,075 mls @ 75 mls/hr 06/14/18 08:00 Sodium Chloride IV Q14H [facility] Insulin Human Lispro 0 units 06/13/18 11:30 06/13/18 16:33 Humalog* SUBCUT Not Given AC [facility] Protocol Magnesium Hydroxide 30 ml 06/13/18 09:59 Milk Of Magnesia Liq* PO Q4H PRN CONSTIPATION Ondansetron HCl 4 mg 06/13/18 09:59 06/13/18 13:29 Zofran Inj* IV 4 mg Q6H PRN Administration NAUSEA/VOMITING Pantoprazole Sodium 40 mg 06/13/18 11:00 06/13/18 11:05 Protonix Iv* IV 40 mg DAILY [facility] Administration Pharmacy Consult 1 note 06/13/18 10:00 Zosyn Per Pharmacy* FOLLOW UP .ZOSYN PER PHARMACY [facility] Laboratory Results - last 24 hr 06/13/18 06/13/18 06/13/18 05:57 07:39 09:36 WBC RBC Hgb Hct MCV MCH MCHC RDW Plt Count MPV Neut % (Auto) Lymph % (Auto) [place] % (Auto) Eos % (Auto) Baso % (Auto) Absolute Neuts (auto) Absolute Lymphs (auto) Absolute Monos (auto) Absolute Eos (auto) Absolute Basos (auto) Absolute Nucleated RBC Neutrophils % Lymphocytes % Monocytes % Eosinophils % Basophils % Nucleated RBC % Abs Neuts (Manual) Abs Lymphs (Manual) Abs Monocytes (Manual) Absolute Eos (Manual) Abs Basophils (Manual) Normal RBC Morphology Patient Temperature ABG pH ABG pH (Temp Correct) ABG pCO2 ABG pCO2 (Temp Corrct ABG pO2 ABG pO2 (Temp Correct ABG HCO3 ABG O2 Saturation ABG Base Excess Respiration Rate O2 Delivery Device Ventilator Type Vent Mode FiO2 Inspiratory Time PEEP Pressure Support Pressure Control EPAP IPAP BiPAP Sodium 128 L Potassium 4.2 Chloride 92 L Carbon Dioxide 22 Anion Gap 14 H BUN 45 H Creatinine 2.19 H Est GFR ( Amer) 36.1 Est GFR (Non-Af Amer) 29.8 BUN/Creatinine Ratio 20.5 H Glucose 287 H POC Glucose (mg/dL) Lactic Acid Calcium 8.7 Magnesium 1.7 L Total Bilirubin 1.20 H 0.90 Direct Bilirubin 0.20 H Indirect Bilirubin 0.7 AST 27 ALT 31 Alkaline Phosphatase 107 H Total Creatine Kinase 196 Troponin I 0.51 H* 0.11 H* C-Reactive Protein 370.72 H Total Protein 6.4 Albumin 3.3 Globulin 3.1 Albumin/Globulin Ratio 1.1 Amylase 10 L Lipase 12 Urine Color [place] Urine Appearance Clear Urine pH 5.0 Ur Specific [place] 1.010 Urine Protein 1+(30 mg/dl) A Urine Ketones Negative Urine Blood 2+ A Urine Nitrate Negative Urine Bilirubin Negative Urine Urobilinogen Negative Ur Leukocyte Esterase Negative Urine WBC (Auto) 1+(6-10/hpf) A Urine RBC (Auto) 1+(3-5/hpf) A Ur Squamous Epith Cells Present A Amorphous Crystals Present A Urine Bacteria Absent Urine Glucose 1+(50 mg/dl) A 06/13/18 06/13/18 06/13/18 11:05 11:21 16:29 WBC RBC Hgb Hct MCV MCH MCHC RDW Plt Count MPV Neut % (Auto) Lymph % (Auto) [place] % (Auto) Eos % (Auto) Baso % (Auto) Absolute Neuts (auto) Absolute Lymphs (auto) Absolute Monos (auto) Absolute Eos (auto) Absolute Basos (auto) Absolute Nucleated RBC Neutrophils % Lymphocytes % Monocytes % Eosinophils % Basophils % Nucleated RBC % Abs Neuts (Manual) Abs Lymphs (Manual) Abs Monocytes (Manual) Absolute Eos (Manual) Abs Basophils (Manual) Normal RBC Morphology Patient Temperature ABG pH ABG pH (Temp Correct) ABG pCO2 ABG pCO2 (Temp Corrct ABG pO2 ABG pO2 (Temp Correct ABG HCO3 ABG O2 Saturation ABG Base Excess Respiration Rate O2 Delivery Device Ventilator Type Vent Mode FiO2 Inspiratory Time PEEP Pressure Support Pressure Control EPAP IPAP BiPAP Sodium Potassium Chloride Carbon Dioxide Anion Gap BUN Creatinine Est GFR ( Amer) Est GFR (Non-Af Amer) BUN/Creatinine Ratio Glucose POC Glucose (mg/dL) 228 H 150 H Lactic Acid 1.3 Calcium Magnesium Total Bilirubin Direct Bilirubin Indirect Bilirubin AST ALT Alkaline Phosphatase Total Creatine Kinase Troponin I C-Reactive Protein Total Protein Albumin Globulin Albumin/Globulin Ratio Amylase Lipase Urine Color Urine Appearance Urine pH Ur Specific [place] Urine Protein Urine Ketones Urine Blood Urine Nitrate Urine Bilirubin Urine Urobilinogen Ur Leukocyte Esterase Urine WBC (Auto) Urine RBC (Auto) Ur Squamous Epith Cells Amorphous Crystals Urine Bacteria Urine Glucose 06/13/18 06/13/18 06/13/18 19:03 19:17 20:05 WBC RBC Hgb Hct MCV MCH MCHC RDW Plt Count MPV Neut % (Auto) Lymph % (Auto) [place] % (Auto) Eos % (Auto) Baso % (Auto) Absolute Neuts (auto) Absolute Lymphs (auto) Absolute Monos (auto) Absolute Eos (auto) Absolute Basos (auto) Absolute Nucleated RBC Neutrophils % Lymphocytes % Monocytes % Eosinophils % Basophils % Nucleated RBC % Abs Neuts (Manual) Abs Lymphs (Manual) Abs Monocytes (Manual) Absolute Eos (Manual) Abs Basophils (Manual) Normal RBC Morphology Patient Temperature Not Reportable ABG pH 7.46 H ABG pH (Temp Correct) Not Reportable ABG pCO2 24 L ABG pCO2 (Temp Corrct Not Reportable ABG pO2 56 L* ABG pO2 (Temp Correct Not Reportable ABG HCO3 20.9 ABG O2 Saturation 93.7 L ABG Base Excess -5.0 L Respiration Rate Not Reportable O2 Delivery Device nasal cannula Ventilator Type Not Reportable Vent Mode Not Reportable FiO2 28 Inspiratory Time Not Reportable PEEP Not Reportable Pressure Support Not Reportable Pressure Control Not Reportable EPAP Not Reportable IPAP Not Reportable BiPAP Not Reportable Sodium Potassium Chloride Carbon Dioxide Anion Gap BUN Creatinine Est GFR ( Amer) Est GFR (Non-Af Amer) BUN/Creatinine Ratio Glucose POC Glucose (mg/dL) 170 H Lactic Acid 3.0 H* Calcium Magnesium Total Bilirubin Direct Bilirubin Indirect Bilirubin AST ALT Alkaline Phosphatase Total Creatine Kinase Troponin I C-Reactive Protein Total Protein Albumin Globulin Albumin/Globulin Ratio Amylase Lipase Urine Color Urine Appearance Urine pH Ur Specific [place] Urine Protein Urine Ketones Urine Blood Urine Nitrate Urine Bilirubin Urine Urobilinogen Ur Leukocyte Esterase Urine WBC (Auto) Urine RBC (Auto) Ur Squamous Epith Cells Amorphous Crystals Urine Bacteria Urine Glucose 06/13/18 06/13/18 06/14/18 20:57 20:57 00:40 WBC 19.4 H RBC 3.98 L Hgb 11.3 L Hct 34 L MCV 85 MCH 28 MCHC 33 RDW 14 Plt Count 65 L MPV 10.4 Neut % (Auto) Not Reportable Lymph % (Auto) Not Reportable [place] % (Auto) Not Reportable Eos % (Auto) Not Reportable Baso % (Auto) Not Reportable Absolute Neuts (auto) Not Reportable Absolute Lymphs (auto) Not Reportable Absolute Monos (auto) Not Reportable Absolute Eos (auto) Not Reportable Absolute Basos (auto) Not Reportable Absolute Nucleated RBC Not Reportable Neutrophils % 92 Lymphocytes % 3 Monocytes % 5 Eosinophils % 0 Basophils % 0 Nucleated RBC % Not Reportable Abs Neuts (Manual) 17.8 H Abs Lymphs (Manual) 0.6 L Abs Monocytes (Manual) 1.0 H Absolute Eos (Manual) 0 Abs Basophils (Manual) 0 Normal RBC Morphology Normal Patient Temperature Not Reportable ABG pH 7.20 L ABG pH (Temp Correct) Not Reportable ABG pCO2 33 L ABG pCO2 (Temp Corrct Not Reportable ABG pO2 179 H ABG pO2 (Temp Correct Not Reportable ABG HCO3 14.0 L ABG O2 Saturation 98.5 H ABG Base Excess -14.0 L Respiration Rate 12 O2 Delivery Device vent Ventilator Type 500 Vent Mode cmv FiO2 60 Inspiratory Time Not Reportable PEEP 5 Pressure Support Not Reportable Pressure Control Not Reportable EPAP Not Reportable IPAP Not Reportable BiPAP Not Reportable Sodium 135 Potassium 3.1 L Chloride 104 Carbon Dioxide 14 L* Anion Gap 17 H BUN 51 H Creatinine 2.57 H Est GFR ( Amer) 30.0 Est GFR (Non-Af Amer) 24.8 BUN/Creatinine Ratio 19.8 Glucose 179 H POC Glucose (mg/dL) Lactic Acid Calcium 6.8 L Magnesium 1.7 L Total Bilirubin Direct Bilirubin Indirect Bilirubin AST ALT Alkaline Phosphatase Total Creatine Kinase Troponin I C-Reactive Protein Total Protein Albumin Globulin Albumin/Globulin Ratio Amylase Lipase Urine Color Urine Appearance Urine pH Ur Specific [place] Urine Protein Urine Ketones Urine Blood Urine Nitrate Urine Bilirubin Urine Urobilinogen Ur Leukocyte Esterase Urine WBC (Auto) Urine RBC (Auto) Ur Squamous Epith Cells Amorphous Crystals Urine Bacteria Urine Glucose 06/14/18 06/14/18 06/14/18 01:26 05:40 05:40 WBC 23.5 H RBC 4.45 Hgb 12.6 L Hct 39 L MCV 88 MCH 28 MCHC 32 RDW 15 Plt Count 73 L MPV 10.7 H Neut % (Auto) 89.8 Lymph % (Auto) 4.1 [place] % (Auto) 5.5 Eos % (Auto) 0.3 Baso % (Auto) 0.3 Absolute Neuts (auto) 21.1 H Absolute Lymphs (auto) 1.0 Absolute Monos (auto) 1.3 H Absolute Eos (auto) 0.1 Absolute Basos (auto) 0.1 Absolute Nucleated RBC 0 Neutrophils % Lymphocytes % Monocytes % Eosinophils % Basophils % Nucleated RBC % 0 Abs Neuts (Manual) Abs Lymphs (Manual) Abs Monocytes (Manual) Absolute Eos (Manual) Abs Basophils (Manual) Normal RBC Morphology Patient Temperature ABG pH ABG pH (Temp Correct) ABG pCO2 ABG pCO2 (Temp Corrct ABG pO2 ABG pO2 (Temp Correct ABG HCO3 ABG O2 Saturation ABG Base Excess Respiration Rate O2 Delivery Device Ventilator Type Vent Mode FiO2 Inspiratory Time PEEP Pressure Support Pressure Control EPAP IPAP BiPAP Sodium 128 L Potassium TNP Chloride 99 L Carbon Dioxide 12 L* Anion Gap 17 H BUN 64 H Creatinine 3.56 H Est GFR ( Amer) 20.6 Est GFR (Non-Af Amer) 17.0 BUN/Creatinine Ratio 18.0 Glucose 287 H POC Glucose (mg/dL) Lactic Acid 2.1 H* Calcium 7.9 L Magnesium Total Bilirubin 1.20 H Direct Bilirubin TNP Indirect Bilirubin Not Reportable AST TNP ALT 61 H Alkaline Phosphatase 88 Total Creatine Kinase Troponin I C-Reactive Protein Total Protein 5.7 L Albumin 2.9 L Globulin 2.8 Albumin/Globulin Ratio 1.0 Amylase Lipase Urine Color Urine Appearance Urine pH Ur Specific [place] Urine Protein Urine Ketones Urine Blood Urine Nitrate Urine Bilirubin Urine Urobilinogen Ur Leukocyte Esterase Urine WBC (Auto) Urine RBC (Auto) Ur Squamous Epith Cells Amorphous Crystals Urine Bacteria Urine Glucose 06/14/18 06:20 WBC RBC Hgb Hct MCV MCH MCHC RDW Plt Count MPV Neut % (Auto) Lymph % (Auto) [place] % (Auto) Eos % (Auto) Baso % (Auto) Absolute Neuts (auto) Absolute Lymphs (auto) Absolute Monos (auto) Absolute Eos (auto) Absolute Basos (auto) Absolute Nucleated RBC Neutrophils % Lymphocytes % Monocytes % Eosinophils % Basophils % Nucleated RBC % Abs Neuts (Manual) Abs Lymphs (Manual) Abs Monocytes (Manual) Absolute Eos (Manual) Abs Basophils (Manual) Normal RBC Morphology Patient Temperature ABG pH ABG pH (Temp Correct) ABG pCO2 ABG pCO2 (Temp Corrct ABG pO2 ABG pO2 (Temp Correct ABG HCO3 ABG O2 Saturation ABG Base Excess Respiration Rate O2 Delivery Device Ventilator Type Vent Mode FiO2 Inspiratory Time PEEP Pressure Support Pressure Control EPAP IPAP BiPAP Sodium Potassium 4.7 Chloride Carbon Dioxide Anion Gap BUN Creatinine Est GFR ( Amer) Est GFR (Non-Af Amer) BUN/Creatinine Ratio Glucose POC Glucose (mg/dL) Lactic Acid Calcium Magnesium Total Bilirubin Direct Bilirubin 0.70 H Indirect Bilirubin AST 70 H ALT Alkaline Phosphatase Total Creatine Kinase Troponin I C-Reactive Protein Total Protein Albumin Globulin Albumin/Globulin Ratio Amylase Lipase Urine Color Urine Appearance Urine pH Ur Specific [place] Urine Protein Urine Ketones Urine Blood Urine Nitrate Urine Bilirubin Urine Urobilinogen Ur Leukocyte Esterase Urine WBC (Auto) Urine RBC (Auto) Ur Squamous Epith Cells Amorphous Crystals Urine Bacteria Urine Glucose Assessment: Acute cholecystitis with sepsis appears improved after drain placement and ventilator support. Poorly controlled diabetes. Cardiac disease. Plan: Continue drain and IV abx. Should he fail to improve further, surgical intervention may yet be required. Await Cardiology and CCM input. Will continue to follow.
[2018-06-14] MEDS: Insulin LISPRO* 1 UNITS UNIT SUBCUT SCH ×4 (08:01→20:00)
[2018-06-14] MEDS: Pantoprazole IV* 40 MG IV SCH (08:02)
[2018-06-14] MEDS ORDERED: D5W 1000 ML BAG* 850 ML with Sodium Bicarbonate 8.4% IV* 150 MEQ IV SCH ×2 (11:00)
[2018-06-14] MEDS: Sodium Bicarbonate 8.4% IV* 150 MEQ in D5W 1000 ML BAG* 850 ML IV SCH ×2 (11:44→21:18)
[2018-06-14] MEDS ORDERED: Insulin NPH(*) 1 UNITS UNIT SUBCUT ONE (12:05)
[2018-06-14] MEDS: fentaNYL* 50 MCG/ML 2 ML VIAL (100 MCG VIAL) IV SLOW PU PRN ×4 (12:22→21:38)
[2018-06-14] MEDS ORDERED: Albuterol 2.5 MG/3 ML NEB.SOL* (0.083%) INH PRN (12:39)
--- NOTE | 2018-06-14 13:18 | CONSULT ---
Consult Consult: Consultation Note -- Critical Care Requesting Physician: Dr Irina Nichole Reason for consult: respiratory failure, septic shock Limitations in history/physical: intubated, history from family and chart Date of consult: 06/14/2018 HPI: 72y M w/pmhx of DM, Bicuspid aortic valve; comes to ER 06/13 by for abd pain x6 days, episodes of nausea/vom. Started with eating shrimp 7 days back , then reoccurred after eating shrimp again. No fever/chills/cough/sputum. No diarrhea. After increasing abd pain for days, brought to ER and found to have Acute calculous cholecystitis on CT imaging. He was admitted to medical floor. Surgery consult done. He developed increasing fever, tachycardia, hypotension, respiratory distress, started on sepsis protocol, IV pressors. He was deemed a candidate for percutaneous ade drain as surgery may be higher risk at this time. He was intubated for the procedure. A bedside Ade drain was placed by IR. Overnight remains intubated, sedated, off levophed this morning. Family at bedside. ROS: limited ROS due to intubated state PMHx: DM, Bicuspid aortic valve PSHx: cataract surgery, right ankle fracture, surgery on scrotum Family History: Father of [place] 78yrs; mother - [place] Social History: Alcohol-none, Smoking-none, Drug use-none; [place], lives with family Allergies: NKDA Home Medications: Aspirin 81 mg CHEW TAB* [Aspirin Low Dose TAB*] 81 mg PO EVERY OTHER DAY [History Confirmed 06/13/18] glipiZIDE TAB* [Glucotrol TAB*] 5 mg PO BID 06/13/18 [History Confirmed 06/13/18 ] metFORMIN* [Glucophage 500 MG TAB *] 500 mg PO BID 06/13/18 [History Confirmed 06/13/18] Tele: NSR Vitals: Vital Signs Temp 99.1 F 06/14/18 13:15 Pulse 93 06/14/18 13:15 Resp 22 06/14/18 13:00 BP 104/63 06/14/18 13:15 Pulse Ox 99 06/14/18 13:15 Intake & Output 06/13/18 06/14/18 06/14/18 18:59 06:59 18:59 Intake Total 4038 3079 817 Output Total 300 362 231 Balance 0348 8222 586 Weight 114.26 kg 119.2 kg Intake: IV Fluids 3553 2190 817 K 110 Mag 73 NS 253 2007 611 Sodium Bicarb 139 zosyn 67 IVPB 25 223 NS 25 223 Medicated IV 666 CC - Norepinephrine/ 313 Levophed CC - Propofol/Diprivan 353 Oral 460 Output: Abdominal Drain 40 Urine 300 20 Rubio 302 231 Other: Estimated Void Small # Voids 1 O2/Vent: AC 40% Infusions: d5+bicarb, propofol Current Medications: Acetaminophen (Tylenol Tab*) 650 mg PO Q4H PRN PRN Reason: FEVER/PAIN Last Admin: 06/13/18 13:26 Dose: 650 mg Al Hydrox/Mg Hydrox/Simethicone (Maalox Plus*) 30 ml PO Q6H PRN PRN Reason: INDIGESTION Albuterol (Ventolin 2.5 Mg/3 Ml Neb.Freya*) 2.5 mg INH Q4H PRN PRN Reason: SOB/WHEEZING Aspirin (Aspirin 81 Mg Chew Tab*) 81 mg PO EVERY OTHER DAY [facility] Chlorhexidine Gluconate (Peridex Mouth Wash 0.12%*) 15 ml TOPICAL Q4H [facility] Last Admin: 06/14/18 11:44 Dose: 15 ml Dextrose (D50w Syringe 50 Ml*) 12.5 gm IV PUSH .FOR FS < 60 - SS PRN PRN Reason: FS < 60 Fentanyl Citrate (Fentanyl*) 25 mcg IV SLOW PU Q1H PRN PRN Reason: PAIN Last Admin: 06/14/18 12:22 Dose: 25 mcg Heparin Sodium (Porcine) (Heparin Vial(*)) 5,000 units SUBCUT Q8HR [facility] Last Admin: 06/14/18 06:38 Dose: 5,000 units Norepinephrine Bitartrate 4 mg (/ Sodium Chloride) 250 mls @ 18.75 mls/hr IV .INITIAL RATE [facility]; Protocol Last Admin: 06/14/18 03:45 Dose: 18.75 mls/hr Propofol (Diprivan*) 100 mls @ 13.711 mls/hr IV .(Initial Rate) [facility]; Protocol Last Admin: 06/14/18 09:25 Dose: 30.8 mls/hr Piperacillin Sod/Tazobactam (Sod 3.375 gm/ Sodium Chloride) 100 mls @ 25 mls/ hr IVPB Q12H [facility] Sodium Bicarbonate 150 meq/ (Dextrose) 1,000 mls @ 100 mls/hr IV Q10H [facility] Last Admin: 06/14/18 11:44 Dose: 100 mls/hr Insulin Human Lispro (Humalog*) 0 units SUBCUT Q6H [facility]; Protocol Magnesium Hydroxide (Milk Of Magnesia Liq*) 30 ml PO Q4H PRN PRN Reason: CONSTIPATION Ondansetron HCl (Zofran Inj*) 4 mg IV Q6H PRN PRN Reason: NAUSEA/VOMITING Last Admin: 06/13/18 13:29 Dose: 4 mg Pantoprazole Sodium (Protonix Iv*) 40 mg IV DAILY [facility] Last Admin: 06/14/18 08:02 Dose: 40 mg Pharmacy Consult (Zosyn Per Pharmacy*) 1 note FOLLOW UP .ZOSYN PER PHARMACY [facility] Physical Exam: General: intubated, sedated, no diaphoresis Head: normocephalic, atraumatic HEENT: no pallor, no icterus, moist mucous membranes Neck: soft, supple, no jvd CVS: normal rate, regular, no murmur Resp: bilateral air entry, no rhales, no wheeze, no rhonchi, no acc muscle use Abdomen: soft, RUQ ade drain+, nontender, nondistended, bowel sounds present Ext: pulses+, warm, no edema Skin: intact Neuro: intubated, sedated; more alert on less sedation, follows commands, moves all ext Labs: Laboratory Results - last 24 hr 06/13/18 06/13/18 06/13/18 05:57 16:29 19:03 WBC RBC Hgb Hct MCV MCH MCHC RDW Plt Count MPV Neut % (Auto) Lymph % (Auto) Wilkin % (Auto) Eos % (Auto) Baso % (Auto) Absolute Neuts (auto) Absolute Lymphs (auto) Absolute Monos (auto) Absolute Eos (auto) Absolute Basos (auto) Absolute Nucleated RBC Neutrophils % Lymphocytes % Monocytes % Eosinophils % Basophils % Nucleated RBC % Abs Neuts (Manual) Abs Lymphs (Manual) Abs Monocytes (Manual) Absolute Eos (Manual) Abs Basophils (Manual) Normal RBC Morphology Hem Pathologist Commnt Patient Temperature ABG pH ABG pH (Temp Correct) ABG pCO2 ABG pCO2 (Temp Corrct ABG pO2 ABG pO2 (Temp Correct ABG HCO3 ABG O2 Saturation ABG Base Excess Respiration Rate O2 Delivery Device Ventilator Type Vent Mode FiO2 Inspiratory Time PEEP Pressure Support Pressure Control EPAP IPAP BiPAP Sodium 128 L Potassium 4.2 Chloride 92 L Carbon Dioxide 22 Anion Gap 14 H BUN 45 H Creatinine 2.19 H Est GFR ( Amer) 36.1 Est GFR (Non-Af Amer) 29.8 BUN/Creatinine Ratio 20.5 H Glucose 287 H POC Glucose (mg/dL) 150 H 170 H Lactic Acid Calcium 8.7 Magnesium 1.7 L Total Bilirubin 1.20 H Direct Bilirubin Indirect Bilirubin AST 27 ALT 31 Alkaline Phosphatase 107 H Total Creatine Kinase 196 Troponin I 0.51 H* C-Reactive Protein 370.72 H Total Protein 6.4 Albumin 3.3 Globulin 3.1 Albumin/Globulin Ratio 1.1 Amylase 10 L Lipase 12 06/13/18 06/13/18 06/13/18 19:17 20:05 20:57 WBC RBC Hgb Hct MCV MCH MCHC RDW Plt Count MPV Neut % (Auto) Lymph % (Auto) Wilkin % (Auto) Eos % (Auto) Baso % (Auto) Absolute Neuts (auto) Absolute Lymphs (auto) Absolute Monos (auto) Absolute Eos (auto) Absolute Basos (auto) Absolute Nucleated RBC Neutrophils % Lymphocytes % Monocytes % Eosinophils % Basophils % Nucleated RBC % Abs Neuts (Manual) Abs Lymphs (Manual) Abs Monocytes (Manual) Absolute Eos (Manual) Abs Basophils (Manual) Normal RBC Morphology Hem Pathologist Commnt Patient Temperature Not Reportable ABG pH 7.46 H ABG pH (Temp Correct) Not Reportable ABG pCO2 24 L ABG pCO2 (Temp Corrct Not Reportable ABG pO2 56 L* ABG pO2 (Temp Correct Not Reportable ABG HCO3 20.9 ABG O2 Saturation 93.7 L ABG Base Excess -5.0 L Respiration Rate Not Reportable O2 Delivery Device nasal cannula Ventilator Type Not Reportable Vent Mode Not Reportable FiO2 28 Inspiratory Time Not Reportable PEEP Not Reportable Pressure Support Not Reportable Pressure Control Not Reportable EPAP Not Reportable IPAP Not Reportable BiPAP Not Reportable Sodium 135 Potassium 3.1 L Chloride 104 Carbon Dioxide 14 L* Anion Gap 17 H BUN 51 H Creatinine 2.57 H Est GFR ( Amer) 30.0 Est GFR (Non-Af Amer) 24.8 BUN/Creatinine Ratio 19.8 Glucose 179 H POC Glucose (mg/dL) Lactic Acid 3.0 H* Calcium 6.8 L Magnesium 1.7 L Total Bilirubin Direct Bilirubin Indirect Bilirubin AST ALT Alkaline Phosphatase Total Creatine Kinase Troponin I C-Reactive Protein Total Protein Albumin Globulin Albumin/Globulin Ratio Amylase Lipase 06/13/18 06/14/18 06/14/18 20:57 00:40 01:26 WBC 19.4 H RBC 3.98 L Hgb 11.3 L Hct 34 L MCV 85 MCH 28 MCHC 33 RDW 14 Plt Count 65 L MPV 10.4 Neut % (Auto) Not Reportable Lymph % (Auto) Not Reportable Wilkin % (Auto) Not Reportable Eos % (Auto) Not Reportable Baso % (Auto) Not Reportable Absolute Neuts (auto) Not Reportable Absolute Lymphs (auto) Not Reportable Absolute Monos (auto) Not Reportable Absolute Eos (auto) Not Reportable Absolute Basos (auto) Not Reportable Absolute Nucleated RBC Not Reportable Neutrophils % 92 Lymphocytes % 3 Monocytes % 5 Eosinophils % 0 Basophils % 0 Nucleated RBC % Not Reportable Abs Neuts (Manual) 17.8 H Abs Lymphs (Manual) 0.6 L Abs Monocytes (Manual) 1.0 H Absolute Eos (Manual) 0 Abs Basophils (Manual) 0 Normal RBC Morphology Normal Hem Pathologist Commnt Patient Temperature Not Reportable ABG pH 7.20 L ABG pH (Temp Correct) Not Reportable ABG pCO2 33 L ABG pCO2 (Temp Corrct Not Reportable ABG pO2 179 H ABG pO2 (Temp Correct Not Reportable ABG HCO3 14.0 L ABG O2 Saturation 98.5 H ABG Base Excess -14.0 L Respiration Rate 12 O2 Delivery Device vent Ventilator Type 500 Vent Mode cmv FiO2 60 Inspiratory Time Not Reportable PEEP 5 Pressure Support Not Reportable Pressure Control Not Reportable EPAP Not Reportable IPAP Not Reportable BiPAP Not Reportable Sodium Potassium Chloride Carbon Dioxide Anion Gap BUN Creatinine Est GFR ( Amer) Est GFR (Non-Af Amer) BUN/Creatinine Ratio Glucose POC Glucose (mg/dL) Lactic Acid 2.1 H* Calcium Magnesium Total Bilirubin Direct Bilirubin Indirect Bilirubin AST ALT Alkaline Phosphatase Total Creatine Kinase Troponin I C-Reactive Protein Total Protein Albumin Globulin Albumin/Globulin Ratio Amylase Lipase 06/14/18 06/14/18 06/14/18 05:40 05:40 06:20 WBC 23.5 H RBC 4.45 Hgb 12.6 L Hct 39 L MCV 88 MCH 28 MCHC 32 RDW 15 Plt Count 73 L MPV 10.7 H Neut % (Auto) 89.8 Lymph % (Auto) 4.1 Wilkin % (Auto) 5.5 Eos % (Auto) 0.3 Baso % (Auto) 0.3 Absolute Neuts (auto) 21.1 H Absolute Lymphs (auto) 1.0 Absolute Monos (auto) 1.3 H Absolute Eos (auto) 0.1 Absolute Basos (auto) 0.1 Absolute Nucleated RBC 0 Neutrophils % Lymphocytes % Monocytes % Eosinophils % Basophils % Nucleated RBC % 0 Abs Neuts (Manual) Abs Lymphs (Manual) Abs Monocytes (Manual) Absolute Eos (Manual) Abs Basophils (Manual) Normal RBC Morphology Hem Pathologist Commnt Patient Temperature ABG pH ABG pH (Temp Correct) ABG pCO2 ABG pCO2 (Temp Corrct ABG pO2 ABG pO2 (Temp Correct ABG HCO3 ABG O2 Saturation ABG Base Excess Respiration Rate O2 Delivery Device Ventilator Type Vent Mode FiO2 Inspiratory Time PEEP Pressure Support Pressure Control EPAP IPAP BiPAP Sodium 128 L Potassium TNP 4.7 Chloride 99 L Carbon Dioxide 12 L* Anion Gap 17 H BUN 64 H Creatinine 3.56 H Est GFR ( Amer) 20.6 Est GFR (Non-Af Amer) 17.0 BUN/Creatinine Ratio 18.0 Glucose 287 H POC Glucose (mg/dL) Lactic Acid Calcium 7.9 L Magnesium Total Bilirubin 1.20 H Direct Bilirubin TNP 0.70 H Indirect Bilirubin Not Reportable AST TNP 70 H ALT 61 H Alkaline Phosphatase 88 Total Creatine Kinase Troponin I C-Reactive Protein Total Protein 5.7 L Albumin 2.9 L Globulin 2.8 Albumin/Globulin Ratio 1.0 Amylase Lipase 06/14/18 06/14/18 06/14/18 07:54 10:17 10:38 WBC RBC Hgb Hct MCV MCH MCHC RDW Plt Count MPV Neut % (Auto) Lymph % (Auto) Wilkin % (Auto) Eos % (Auto) Baso % (Auto) Absolute Neuts (auto) Absolute Lymphs (auto) Absolute Monos (auto) Absolute Eos (auto) Absolute Basos (auto) Absolute Nucleated RBC Neutrophils % Lymphocytes % Monocytes % Eosinophils % Basophils % Nucleated RBC % Abs Neuts (Manual) Abs Lymphs (Manual) Abs Monocytes (Manual) Absolute Eos (Manual) Abs Basophils (Manual) Normal RBC Morphology Hem Pathologist Commnt Patient Temperature Not Reportable ABG pH 7.29 L ABG pH (Temp Correct) Not Reportable ABG pCO2 35 ABG pCO2 (Temp Corrct Not Reportable ABG pO2 201 H ABG pO2 (Temp Correct Not Reportable ABG HCO3 18.0 L ABG O2 Saturation 98.6 H ABG Base Excess -8.9 L Respiration Rate 20 O2 Delivery Device Ventilator Type Not Reportable Vent Mode cmv FiO2 50 Inspiratory Time 0.8 PEEP 5 Pressure Support Not Reportable Pressure Control Not Reportable EPAP Not Reportable IPAP Not Reportable BiPAP Not Reportable Sodium Potassium Chloride Carbon Dioxide Anion Gap BUN Creatinine Est GFR ( Amer) Est GFR (Non-Af Amer) BUN/Creatinine Ratio Glucose POC Glucose (mg/dL) 252 H Lactic Acid 1.1 Calcium Magnesium Total Bilirubin Direct Bilirubin Indirect Bilirubin AST ALT Alkaline Phosphatase Total Creatine Kinase Troponin I C-Reactive Protein Total Protein Albumin Globulin Albumin/Globulin Ratio Amylase Lipase 06/14/18 11:30 WBC RBC Hgb Hct MCV MCH MCHC RDW Plt Count MPV Neut % (Auto) Lymph % (Auto) Wilkin % (Auto) Eos % (Auto) Baso % (Auto) Absolute Neuts (auto) Absolute Lymphs (auto) Absolute Monos (auto) Absolute Eos (auto) Absolute Basos (auto) Absolute Nucleated RBC Neutrophils % Lymphocytes % Monocytes % Eosinophils % Basophils % Nucleated RBC % Abs Neuts (Manual) Abs Lymphs (Manual) Abs Monocytes (Manual) Absolute Eos (Manual) Abs Basophils (Manual) Normal RBC Morphology Hem Pathologist Commnt Patient Temperature ABG pH ABG pH (Temp Correct) ABG pCO2 ABG pCO2 (Temp Corrct ABG pO2 ABG pO2 (Temp Correct ABG HCO3 ABG O2 Saturation ABG Base Excess Respiration Rate O2 Delivery Device Ventilator Type Vent Mode FiO2 Inspiratory Time PEEP Pressure Support Pressure Control EPAP IPAP BiPAP Sodium Potassium Chloride Carbon Dioxide Anion Gap BUN Creatinine Est GFR ( Amer) Est GFR (Non-Af Amer) BUN/Creatinine Ratio Glucose POC Glucose (mg/dL) 230 H Lactic Acid Calcium Magnesium Total Bilirubin Direct Bilirubin Indirect Bilirubin AST ALT Alkaline Phosphatase Total Creatine Kinase Troponin I C-Reactive Protein Total Protein Albumin Globulin Albumin/Globulin Ratio Amylase Lipase Microbiology 06/13/18 05:57 Aerobic Blood Culture - Preliminary Blood Venous Citrobacter Koseri Anaerobic Blood Culture - Preliminary Citrobacter Koseri#2 Escherichia Coli 06/13/18 06:10 Aerobic Blood Culture - Preliminary Blood Venous Citrobacter Koseri Anaerobic Blood Culture - Preliminary Citrobacter Koseri#2 06/13/18 09:36 Urine Culture - Final Urine No Growth (<1,000 CFU/mL) 06/13/18 23:30 Gram Stain - Final Gallbladder Fluid 06/13/18 20:57 Nasal Screen MRSA (PCR) - Final Nasal Mrsa Not Detected Imaging: TTE 06/13 bicuspid aortic valve, LVEF 40-45% CT abd/pelvis 1`08/13 acute calc ade, ?perforation; reviewed report cxr 06/13 ett above nayely, no infiltrate noted Assessment: 72y M w/pmhx of DM, Bicuspid aortic valve; comes to ER 06/13 by for abd pain x6 days, episodes of nausea/vom. Started with eating shrimp 7 days back, then reoccurred after eating shrimp again. No fever/chills/cough/ sputum. No diarrhea. After increasing abd pain for days, brought to ER and found to have Acute calculous cholecystitis on CT imaging. He was admitted to medical floor. Surgery consult done. He developed increasing fever, tachycardia , hypotension, respiratory distress, started on sepsis protocol, IV pressors. He was deemed a candidate for percutaneous ade drain as surgery may be higher risk at this time. He was intubated for the procedure. A bedside Ade drain was placed 06/13 by IR. -Severe Sepsis with Shock -Acute calculous cholecystitis -Gram negative bacteremia with E.coli and Citrobacter -Acute Respiratory failure 2/2 to increased metabolic demands -JUAN -Metabolic acidosis -Thrombocytopenia Bicuspid Aortic Valve Mild-Mod LV systolic dysfunction DM Plan: Neuro- on propofol; weaned and off and follows all commands. Mild sedation while intubated. Pain control. Delirium prec. CVS- Severe Sepsis with Shock 2/2 to cholecystitis. Off levophed. IVF d5w+ bicarb. HR/BP/Maps stable. Making urine but slow. IV abx for bacteremia. TTE noted bicuspid aortic valve without vegetations, mild/mod LV dysfunction. Repeat Blood cultures tomorrow. EKG noted without overt ischemic changes. No immediate plan for OR; may need cardiology clearance in the future. Cont asa. Resp- intubated on 40% fio2. CPAP trial performed but remains tachypneic to 30. ABG with more metabolic acidosis with some resp compenstation. No plan on extubation today 2/2 to metabolic demands/tachypnea. Minimal secretions being suctioned. VAP bundle. Bronchodilators PRN. ID- tmax 103, now 99. Wbc upto 23. LA improved. Blood culture /2 Citrobacter+, E.coli+. s/p Right Ade drain 06/13 for acute calculous cholecystitis. IV zosyn (day#2). Will repeat Blood cultures tomorrow. GI- NPO. NGT+. Right Ade drain+. Mild Right sided tenderness+. No bowel movements today. IV abx. Surgery consult reviewed. Reviewed CT images, no clear perforation noted. Renal- JUAN, likely from hypovolemia + septic ATN + hypotension. Metabolic acidosis+, LA normalized. Potassium ok. Borderline oliguria. Off pressors. Cont d5w + 150meq bicarn at 100cc/hr. Rubio+. Check BMP 6pm. Heme- hg stable. Thrombocytopenia+, may be from sepsis. No bleeding noted. Cont heparin sq/SCDs Endo- fingerstick q6h; lispro sq q6h. NPH 5u x1 now. Musculsk- pressure ulcer prophylaxis. Bedrest. Wounds- none Nutrition- NPO DVT prophylaxis: scds/heparin sq GI prophylaxis: ppi Central Line: no Arterial Line: no Rubio Cathetor: yes Disposition: ICU Code Status: full code Total Critical Care time is 60 minutes, excluding procedures/teaching Jeferson Hawkins MD Type Disk Quality Control Supervisor (Electronically Signed)
[2018-06-14 13:58] LABS: INR 1.05 (0.77-1.02)
[2018-06-14] MEDS: ZOSYN 3.375 GM Q12H per EXTENDED INFUSION IVPB SCH ×2 (15:34)
[2018-06-14] MEDS ORDERED: Haloperidol INJ IV/IM* 5 MG/ML AMP IV SLOW PU PRN (18:19)
[2018-06-14 18:41] LABS: EGFR Non-African American 13.5 (>60)
[2018-06-15] MEDS: Propofol* 100 ML IV SCH ×2 (01:44→04:55)
[2018-06-15] MEDS: fentaNYL* 50 MCG/ML 2 ML VIAL (100 MCG VIAL) IV SLOW PU PRN (01:53)
[2018-06-15] MEDS: Insulin LISPRO* 1 UNITS UNIT SUBCUT SCH ×4 (03:10→23:51)
[2018-06-15] MEDS: Chlorhexidine MOUTHWASH 0.12%* 15 ML UDC TOPICAL SCH ×3 (03:12→08:37)
[2018-06-15] MEDS: ZOSYN 3.375 GM Q12H per EXTENDED INFUSION IVPB SCH ×4 (03:55→16:00)
[2018-06-15] MEDS: Heparin VIAL(*) 5000 UNITS/ML VIAL (FIVE THOUSAND) SUBCUT SCH ×3 (04:55→21:09)
[2018-06-15 05:25] LABS: Hematocrit 33 % (42-52); Hemoglobin 10.9 g/dl (14.0-18.0); Mean Corpuscular HGB Conc 33 g/dl (31-36); Mean Corpuscular Hemoglobin 28 pg (27-31); Mean Corpuscular Volume 85 fL (80-94); Mean Platelet Volume 10.5 fL (7.4-10.4); Platelet Count 64 10^3/ul (150-450); Red Blood Count 3.85 10^6/ul (4.00-5.40); Red Cell Distribution Width 14 % (10.5-15); White Blood Count 11.8 10^3/ul (3.5-10.8)
[2018-06-15] MEDS: Sodium Bicarbonate 8.4% IV* 150 MEQ in D5W 1000 ML BAG* 850 ML IV SCH (08:34)
[2018-06-15] MEDS: Pantoprazole IV* 40 MG IV SCH (08:36)
[2018-06-15] MEDS: Aspirin 81 mg CHEW TAB* 81 MG TAB.CHEW PO SCH (08:42)
[2018-06-15] MEDS ORDERED: Insulin GLARGINE(*) 1 UNITS UNIT SUBCUT SCH (10:00)
--- NOTE | 2018-06-15 11:37 | PN ---
Progress Note - Progress Note Date of Service: 06/15/18 Note: Progress Note -- Critical Care 24hour events: -remains intubated; off prop and awake/alert -tmax 99 -making urine, no pressors -no other events noted; family at bedside Tele: NSR Vitals: Vital Signs Temp 99.1 F 06/15/18 10:01 Pulse 80 06/15/18 10:01 Resp 22 06/15/18 10:00 BP 117/67 06/15/18 10:00 Pulse Ox 97 06/15/18 10:01 Intake & Output 06/14/18 06/15/18 06/15/18 18:59 06:59 18:59 Intake Total 1304 1969 40 Output Total 416 595 290 Balance 888 1374 -250 Weight 119.9 kg Intake: IV Fluids 1021 1537 D5 Sodium bicarb 204 1537 NS 611 Sodium Bicarb 139 zosyn 67 IVPB 130 zosyn 130 Medicated IV 283 302 CC - Norepinephrine/ 86 Levophed CC - Propofol/Diprivan 197 302 Tube Feeding Flush Amount 40 Output: [place] 416 595 290 O2/Vent: AC 40% Infusions: d5+bicarb, propofol Current Medications: Acetaminophen (Tylenol Tab*) 650 mg PO Q4H PRN PRN Reason: FEVER/PAIN Last Admin: 06/13/18 13:26 Dose: 650 mg Al Hydrox/Mg Hydrox/Simethicone (Maalox Plus*) 30 ml PO Q6H PRN PRN Reason: INDIGESTION Albuterol (Ventolin 2.5 Mg/3 Ml Neb.Freya*) 2.5 mg INH Q4H PRN PRN Reason: SOB/WHEEZING Aspirin (Aspirin 81 Mg Chew Tab*) 81 mg PO EVERY OTHER DAY [facility] Last Admin: 06/15/18 08:42 Dose: 81 mg Chlorhexidine Gluconate (Peridex Mouth Wash 0.12%*) 15 ml TOPICAL Q4H [facility] Last Admin: 06/15/18 08:37 Dose: 15 ml Dextrose (D50w Syringe 50 Ml*) 12.5 gm IV PUSH .FOR FS < 60 - SS PRN PRN Reason: FS < 60 Fentanyl Citrate (Fentanyl*) 25 mcg IV SLOW PU Q1H PRN PRN Reason: PAIN Last Admin: 06/15/18 01:53 Dose: 25 mcg Haloperidol Lactate (Haldol Inj Iv/Im*) 5 mg IV SLOW PU Q6H PRN PRN Reason: AGITATION Heparin Sodium (Porcine) (Heparin Vial(*)) 5,000 units SUBCUT Q8HR [facility] Last Admin: 06/15/18 04:55 Dose: 5,000 units Norepinephrine Bitartrate 4 mg (/ Sodium Chloride) 250 mls @ 18.75 mls/hr IV .INITIAL RATE NAVEEN; Protocol Last Admin: 06/14/18 03:45 Dose: 18.75 mls/hr Propofol (Diprivan*) 100 mls @ 13.711 mls/hr IV .(Initial Rate) NAVEEN; Protocol Last Admin: 06/15/18 04:55 Dose: 20.5 mls/hr Piperacillin Sod/Tazobactam (Sod 3.375 gm/ Sodium Chloride) 100 mls @ 25 mls/ hr IVPB Q12H [facility] Last Admin: 06/15/18 03:55 Dose: 25 mls/hr Sodium Bicarbonate 150 meq/ (Dextrose) 1,000 mls @ 100 mls/hr IV Q10H [facility] Last Admin: 06/15/18 08:34 Dose: 100 mls/hr Insulin Glargine (Lantus(*)) 8 units SUBCUT Q24H [facility] Last Admin: 06/15/18 10:43 Dose: 8 units Insulin Human Lispro (Humalog*) 0 units SUBCUT Q6HR [facility]; Protocol Last Admin: 06/15/18 10:46 Dose: 2 units Magnesium Hydroxide (Milk Of Magnesia Liq*) 30 ml PO Q4H PRN PRN Reason: CONSTIPATION Ondansetron HCl (Zofran Inj*) 4 mg IV Q6H PRN PRN Reason: NAUSEA/VOMITING Last Admin: 06/13/18 13:29 Dose: 4 mg Pantoprazole Sodium (Protonix Iv*) 40 mg IV DAILY [facility] Last Admin: 06/15/18 08:36 Dose: 40 mg Pharmacy Consult (Zosyn Per Pharmacy*) 1 note FOLLOW UP .ZOSYN PER PHARMACY [facility] Physical Exam: General: intubated, no diaphoresis Head: normocephalic, atraumatic HEENT: no pallor, no icterus, moist mucous membranes Neck: soft, supple, no jvd CVS: normal rate, regular, no murmur Resp: bilateral air entry, no rhales, no wheeze, no rhonchi, no acc muscle use Abdomen: soft, RUQ ade drain+, RUQ tenderness+ nondistended, bowel sounds present Ext: pulses+, warm, no edema Skin: intact Neuro: intubated, alert , follows commands, moves all ext Labs: Laboratory Results - last 24 hr 06/14/18 06/14/18 06/14/18 11:30 13:29 13:29 WBC RBC Hgb Hct MCV MCH MCHC RDW Plt Count MPV INR (Anticoag Therapy) 1.05 H Patient Temperature ABG pH ABG pH (Temp Correct) ABG pCO2 ABG pCO2 (Temp Corrct ABG pO2 ABG pO2 (Temp Correct ABG HCO3 ABG O2 Saturation ABG Base Excess Respiration Rate Ventilator Type Vent Mode FiO2 Inspiratory Time PEEP Pressure Support Pressure Control EPAP IPAP BiPAP Sodium Potassium Chloride Carbon Dioxide Anion Gap BUN Creatinine Est GFR ( Amer) Est GFR (Non-Af Amer) BUN/Creatinine Ratio Glucose POC Glucose (mg/dL) 230 H Lactic Acid 1.1 Calcium Magnesium Total Bilirubin Direct Bilirubin Indirect Bilirubin AST ALT Alkaline Phosphatase Total Protein Albumin Globulin Albumin/Globulin Ratio 06/14/18 06/14/18 06/14/18 13:30 17:45 19:53 WBC RBC Hgb Hct MCV MCH MCHC RDW Plt Count MPV INR (Anticoag Therapy) Patient Temperature ABG pH ABG pH (Temp Correct) ABG pCO2 ABG pCO2 (Temp Corrct ABG pO2 ABG pO2 (Temp Correct ABG HCO3 ABG O2 Saturation ABG Base Excess Respiration Rate Ventilator Type Vent Mode FiO2 Inspiratory Time PEEP Pressure Support Pressure Control EPAP IPAP BiPAP Sodium 132 L Potassium 3.9 Chloride 101 Carbon Dioxide 19 L Anion Gap 12 H BUN 76 H Creatinine 4.34 H Est GFR ( Amer) 16.4 Est GFR (Non-Af Amer) 13.5 BUN/Creatinine Ratio 17.5 Glucose 238 H POC Glucose (mg/dL) 216 H 226 H Lactic Acid Calcium 7.4 L Magnesium Total Bilirubin Direct Bilirubin Indirect Bilirubin AST ALT Alkaline Phosphatase Total Protein Albumin Globulin Albumin/Globulin Ratio 06/15/18 06/15/18 06/15/18 03:07 05:12 05:12 WBC 11.8 H RBC 3.85 L Hgb 10.9 L Hct 33 L MCV 85 MCH 28 MCHC 33 RDW 14 Plt Count 64 L MPV 10.5 H INR (Anticoag Therapy) Patient Temperature ABG pH ABG pH (Temp Correct) ABG pCO2 ABG pCO2 (Temp Corrct ABG pO2 ABG pO2 (Temp Correct ABG HCO3 ABG O2 Saturation ABG Base Excess Respiration Rate Ventilator Type Vent Mode FiO2 Inspiratory Time PEEP Pressure Support Pressure Control EPAP IPAP BiPAP Sodium 131 L Potassium 3.7 Chloride 101 Carbon Dioxide 22 Anion Gap 8 BUN 92 H Creatinine 4.82 H Est GFR ( Amer) 14.5 Est GFR (Non-Af Amer) 12.0 BUN/Creatinine Ratio 19.1 Glucose 256 H POC Glucose (mg/dL) 253 H Lactic Acid Calcium 7.3 L Magnesium 3.1 H Total Bilirubin 1.10 H Direct Bilirubin 0.70 H Indirect Bilirubin 0.4 AST 36 ALT 44 Alkaline Phosphatase 222 H Total Protein 4.9 L Albumin 2.3 L Globulin 2.6 Albumin/Globulin Ratio 0.9 L 06/15/18 06/15/18 06:15 10:33 WBC RBC Hgb Hct MCV MCH MCHC RDW Plt Count MPV INR (Anticoag Therapy) Patient Temperature Not Reportable ABG pH 7.41 ABG pH (Temp Correct) Not Reportable ABG pCO2 35 ABG pCO2 (Temp Corrct Not Reportable ABG pO2 128 H ABG pO2 (Temp Correct Not Reportable ABG HCO3 23.3 ABG O2 Saturation 98.0 ABG Base Excess -2.0 Respiration Rate 20 Ventilator Type 500 Vent Mode Cmv FiO2 40 Inspiratory Time Not Reportable PEEP 5 Pressure Support Not Reportable Pressure Control Not Reportable EPAP Not Reportable IPAP Not Reportable BiPAP Not Reportable Sodium Potassium Chloride Carbon Dioxide Anion Gap BUN Creatinine Est GFR ( Amer) Est GFR (Non-Af Amer) BUN/Creatinine Ratio Glucose POC Glucose (mg/dL) 235 H Lactic Acid Calcium Magnesium Total Bilirubin Direct Bilirubin Indirect Bilirubin AST ALT Alkaline Phosphatase Total Protein Albumin Globulin Albumin/Globulin Ratio Microbiology 06/13/18 05:57 Aerobic Blood Culture - Preliminary Blood Venous Citrobacter Koseri Anaerobic Blood Culture - Preliminary Citrobacter Koseri#2 Escherichia Coli 06/13/18 06:10 Aerobic Blood Culture - Preliminary Blood Venous Citrobacter Koseri Anaerobic Blood Culture - Preliminary Citrobacter Koseri#2 06/13/18 09:36 Urine Culture - Final Urine No Growth (<1,000 CFU/mL) 06/13/18 23:30 Gram Stain - Final Gallbladder Fluid Imaging: TTE 06/13 bicuspid aortic valve, LVEF 40-45% CT abd/pelvis 1`08/13 acute calc ade, ?perforation; reviewed report cxr 06/13 ett above nayely, no infiltrate noted Assessment: 72y M w/pmhx of DM, Bicuspid aortic valve; comes to ER 06/13 by for abd pain x6 days, episodes of nausea/vom. Started with eating shrimp 7 days back, then reoccurred after eating shrimp again. No fever/chills/cough/ sputum. No diarrhea. After increasing abd pain for days, brought to ER and found to have Acute calculous cholecystitis on CT imaging. He was admitted to medical floor. Surgery consult done. He developed increasing fever, tachycardia , hypotension, respiratory distress, started on sepsis protocol, IV pressors. He was deemed a candidate for percutaneous ade drain as surgery may be higher risk at this time. He was intubated for the procedure. A bedside Ade drain was placed 06/13 by IR. -Severe Sepsis with Shock -Acute calculous cholecystitis -Gram negative bacteremia with E.coli and Citrobacter -Acute Respiratory failure 2/2 to increased metabolic demands -JUAN -Metabolic acidosis -Thrombocytopenia Bicuspid Aortic Valve Mild-Mod LV systolic dysfunction DM Plan: Neuro- off propofol; follows commands, moves all ext. Pain control. Delirium prec. CVS- Severe Sepsis with Shock 2/2 to cholecystitis. BP stable, no pressors. change d5-bicarb to NS. Good urine output. IV abx for bacteremia. TTE 06/13 noted bicuspid aortic valve without vegetations, mild/mod LV dysfunction. Repeat blood cultures today. No immediate plan for OR; may need cardiology clearance in the future. Cont asa. Resp- intubated on 40% fio2. doing well on CPAP trial, for extubation this mroning. Minimal secretions being suctioned. VAP bundle. Bronchodilators PRN. ID- tmax 99, now 99. Wbc jun to 11. Blood culture 2/2 Citrobacter+, E.coli+. s /p Right Ade drain 06/13 for acute calculous cholecystitis. IV zosyn (day#3). Repeat Blood cultures today. Pending sensitivities for organisms. GI- NPO. NGT+. Right Ade drain+. Mild Right sided tenderness+. No bowel movements today. IV abx. Surgery followup. no immediate plan for OR. Possible clear liquid if okay with surgery later today/tomorrow. Renal- JUAN, CR still rising, Bicarb improved, K okay. Making more urine now. likely ATN resolving. Change bicarb to NS 75cc/hr. magaña+_ Heme- hg stable. Thrombocytopenia+, 60s, may be from sepsis. No bleeding noted. Cont heparin sq/SCDs Endo- fingerstick q6h; lispro sq q6h. Start lantus 8u qdaily for now. Musculsk- pressure ulcer prophylaxis. Bedrest. Wounds- none Nutrition- NPO DVT prophylaxis: scds/heparin sq GI prophylaxis: ppi Central Line: no Arterial Line: no [place] Cathetor: yes Disposition: ICU Code Status: full code Total Critical Care time is 40 minutes, excluding procedures/teaching Jeferson Hawkins MD Trouble Locater (Electronically Signed)
[2018-06-15] MEDS: NS 0.9% 1000 ML* 1,000 ML IV SCH (12:02)
[2018-06-15] MEDS: Melatonin 3 MG TAB PO PRN (21:09)
[2018-06-16] MEDS: NS 0.9% 1000 ML* 1,000 ML IV SCH (00:51)
[2018-06-16] MEDS: ZOSYN 3.375 GM Q12H per EXTENDED INFUSION IVPB SCH ×2 (03:33)
[2018-06-16 05:03] LABS: Hematocrit 36 % (42-52); Mean Corpuscular HGB Conc 33 g/dl (31-36); Mean Corpuscular Hemoglobin 28 pg (27-31); Mean Corpuscular Volume 85 fL (80-94); Mean Platelet Volume 9.9 fL (7.4-10.4); Platelet Count 92 10^3/ul (150-450); Red Blood Count 4.26 10^6/ul (4.00-5.40); Red Cell Distribution Width 14 % (10.5-15); White Blood Count 13.8 10^3/ul (3.5-10.8)
[2018-06-16 05:18] LABS: EGFR Non-African American 12.1 (>60)
[2018-06-16] MEDS: Heparin VIAL(*) 5000 UNITS/ML VIAL (FIVE THOUSAND) SUBCUT SCH ×3 (06:40→23:09)
[2018-06-16] MEDS: Insulin LISPRO* 1 UNITS UNIT SUBCUT SCH ×5 (06:40→23:09)
[2018-06-16] MEDS ORDERED: Furosemide IV* 10 MG/ML 2 ML VIAL (20 MG) IV ONE (08:38)
[2018-06-16] MEDS: Pantoprazole IV* 40 MG IV SCH (08:46)
--- NOTE | 2018-06-16 09:06 | PN ---
Progress Note - Progress Note Date of Service: 06/16/18 Note: Progress Note -- Critical Care 24hour events: -extubated yesterday; awake, alert -overnight progressive hypoxia requiring increasing O2 requirements, placed on NC, then hiflow, now on NIV 80% 04/21 -awake,alert, mild tachypnea, sats 98%; no cough/sputum -denies abd pain/n/v; tolerating po liquids yesterday Tele: NSR Vitals: Vital Signs Temp 99.1 F 06/16/18 08:01 Pulse 84 06/16/18 08:01 Resp 31 06/16/18 08:01 BP 132/78 06/16/18 08:00 Pulse Ox 97 06/16/18 08:01 Intake & Output 06/15/18 06/16/18 06/16/18 18:59 06:59 18:59 Intake Total 763 2012 Output Total 1220 1450 225 Balance -457 563 -225 Weight 122.3 kg Intake: IV Fluids 653 1419 D5 Sodium bicarb 653 NS 1353 zosyn 66 IVPB 114 zosyn 114 Medicated IV 70 CC - Propofol/Diprivan 70 Oral 480 Tube Feeding Flush Amount 40 Output: Abdominal Drain 70 50 Urine 350 [place] 1150 1050 225 O2/Vent: NIV 04/21 80% Infusions: NS infusion now stopped Current Medications: Acetaminophen (Tylenol Tab*) 650 mg PO Q4H PRN PRN Reason: FEVER/PAIN Last Admin: 06/13/18 13:26 Dose: 650 mg Al Hydrox/Mg Hydrox/Simethicone (Maalox Plus*) 30 ml PO Q6H PRN PRN Reason: INDIGESTION Albuterol (Ventolin 2.5 Mg/3 Ml Neb.Freya*) 2.5 mg INH Q4H PRN PRN Reason: SOB/WHEEZING Aspirin (Aspirin 81 Mg Chew Tab*) 81 mg PO EVERY OTHER DAY [facility] Last Admin: 06/15/18 08:42 Dose: 81 mg Dextrose (D50w Syringe 50 Ml*) 12.5 gm IV PUSH .FOR FS < 60 - SS PRN PRN Reason: FS < 60 Furosemide (Lasix Iv*) 40 mg IV BID [facility] Heparin Sodium (Porcine) (Heparin Vial(*)) 5,000 units SUBCUT Q8HR [facility] Last Admin: 06/16/18 06:40 Dose: 5,000 units Ceftriaxone Sodium 1 gm/ (Sodium Chloride) 50 mls @ 200 mls/hr IVPB Q24H [facility] Insulin Glargine (Lantus(*)) 8 units SUBCUT Q24H [facility] Last Admin: 06/15/18 10:43 Dose: 8 units Insulin Human Lispro (Humalog*) 0 units SUBCUT Q6HR [facility]; Protocol Last Admin: 06/16/18 06:40 Dose: 1 units Magnesium Hydroxide (Milk Of Magndoris Liq*) 30 ml PO Q4H PRN PRN Reason: CONSTIPATION Melatonin (Melatonin) 3 mg PO BEDTIME PRN; Protocol PRN Reason: SLEEP Last Admin: 06/15/18 21:09 Dose: 3 mg Ondansetron HCl (Zofran Inj*) 4 mg IV Q6H PRN PRN Reason: NAUSEA/VOMITING Last Admin: 06/13/18 13:29 Dose: 4 mg Pantoprazole Sodium (Protonix Iv*) 40 mg IV DAILY [facility] Last Admin: 06/16/18 08:46 Dose: 40 mg Physical Exam: General: awake, alert, mild tachypnea, no diaphoresis Head: normocephalic, atraumatic HEENT: no pallor, no icterus, moist mucous membranes Neck: soft, supple, no jvd CVS: normal rate, regular, no murmur Resp: bilateral air entry, + bilateral rhales, no wheeze, no rhonchi, no acc muscle use Abdomen: soft, RUQ ade drain+, RUQ tenderness+, nondistended, bowel sounds present Ext: pulses+, warm, no edema Skin: intact Neuro: awake/alert, oriented x3, moving all ext alert , follows commands Labs: Laboratory Results - last 24 hr 06/13/18 06/15/18 06/15/18 05:57 10:33 17:24 WBC RBC Hgb Hct MCV MCH MCHC RDW Plt Count MPV Sodium 128 L Potassium 4.2 Chloride 92 L Carbon Dioxide 22 Anion Gap 14 H BUN 45 H Creatinine 2.19 H Est GFR ( Amer) 36.1 Est GFR (Non-Af Amer) 29.8 BUN/Creatinine Ratio 20.5 H Glucose 287 H POC Glucose (mg/dL) 235 H 283 H Calcium 8.7 Magnesium 1.7 L Total Bilirubin 1.20 H AST 27 ALT 31 Alkaline Phosphatase 107 H Total Creatine Kinase 196 Troponin I 0.51 H* C-Reactive Protein 370.72 H Total Protein 6.4 Albumin 3.3 Globulin 3.1 Albumin/Globulin Ratio 1.1 Amylase 10 L Lipase 12 06/15/18 06/16/18 06/16/18 23:44 04:50 04:50 WBC 13.8 H RBC 4.26 Hgb 12.0 L Hct 36 L MCV 85 MCH 28 MCHC 33 RDW 14 Plt Count 92 L MPV 9.9 Sodium 134 L Potassium 3.8 Chloride 102 Carbon Dioxide 21 L Anion Gap 11 BUN 100 H Creatinine 4.79 H Est GFR ( Amer) 14.6 Est GFR (Non-Af Amer) 12.1 BUN/Creatinine Ratio 20.9 H Glucose 207 H POC Glucose (mg/dL) 248 H Calcium 7.4 L Magnesium 3.0 H Total Bilirubin AST ALT Alkaline Phosphatase Total Creatine Kinase Troponin I C-Reactive Protein Total Protein Albumin Globulin Albumin/Globulin Ratio Amylase Lipase 06/16/18 06:13 WBC RBC Hgb Hct MCV MCH MCHC RDW Plt Count MPV Sodium Potassium Chloride Carbon Dioxide Anion Gap BUN Creatinine Est GFR ( Amer) Est GFR (Non-Af Amer) BUN/Creatinine Ratio Glucose POC Glucose (mg/dL) 195 H Calcium Magnesium Total Bilirubin AST ALT Alkaline Phosphatase Total Creatine Kinase Troponin I C-Reactive Protein Total Protein Albumin Globulin Albumin/Globulin Ratio Amylase Lipase Imaging: TTE 06/13 bicuspid aortic valve, LVEF 40-45% CT abd/pelvis 1`08/13 acute calc ade, ?perforation; reviewed report cxr 06/13 ett above nayely, no infiltrate noted cxr 06/16 - bilateral infiltrates noted, consistent with pulm edema (reviewed official report) Assessment: 72y M w/pmhx of DM, Bicuspid aortic valve; comes to ER 06/13 by for abd pain x6 days, episodes of nausea/vom. Started with eating shrimp 7 days back, then reoccurred after eating shrimp again. No fever/chills/cough/ sputum. No diarrhea. After increasing abd pain for days, brought to ER and found to have Acute calculous cholecystitis on CT imaging. He was admitted to medical floor. Surgery consult done. He developed increasing fever, tachycardia , hypotension, respiratory distress, started on sepsis protocol, IV pressors. He was deemed a candidate for percutaneous ade drain as surgery may be higher risk at this time. He was intubated for the procedure. A bedside Ade drain was placed 06/13 by IR. -Severe Sepsis with Shock. improved -Acute calculous cholecystitis -E.coli and Citrobacter Bacteremia -acute hypoxic respiratory failure -Pulmonary edema -acute decompensated LV systolic/diastolic heart failure -JUAN -Metabolic acidosis -Thrombocytopenia Bicuspid Aortic Valve Mild-Mod LV systolic dysfunction DM Plan: Neuro- awake/alert. Pain control prn. Delirium prec. CVS- Severe Sepsis; BP stable. d/c IVF. Pulm congestion on CXR with increased oxygen requirements. IV lasix 60mg x1, then 40mg IV bid. Improving urine output. IV abx for bacteremia. TTE 06/13 noted bicuspid aortic valve without vegetations, mild/mod LV dysfunction. Cont asa. Resp- on NIV 80%, peep 5; comfortable, no immediate need for intubation. CXR with bilateral interstitial congestion/edema. IV lasix. Maintain NIV and wean to NC/hiflow as tolerated. Bronchodilators PRN. ID- tmax 99. Wbc 13. Blood culture 2/2 Citrobacter+, E.coli+. Repeat cultures today. s/p Right Ade drain 06/13 for acute calculous cholecystitis. IV zosyn ( day#4), change to Ceftriaxone 1gm daily. GI- -NPO while on NIV. If off NIV and resp status stable, resume clear liquid diet, can attempt advancement alter to full liquid. -Right Ade drain+. Mild Right sided tenderness+. No bowel movements today. IV abx. Surgery followup. No immediate plan for OR. Renal- JUAN, CR plateued. K okay, mild nongap acidosis. Pulm edema on CXR, positive fluid balance. D/C IVF. IV lasix 60mg x1, then 40mg IV bid. Heme- hg stable. Thrombocytopenia+ improving, 90s. No bleeding noted. Cont heparin sq/SCDs Endo- fingerstick q6h; lispro sq q6h. increase lantus to 12u daily; plan to restart metformin/glipizide once discharged, but may need some insulin also. Musculsk- pressure ulcer prophylaxis. Bedrest, oob to chair today. Wounds- none Nutrition- NPO, clear liquid once off NIV, possible advancement to full liquid DVT prophylaxis: scds/heparin sq GI prophylaxis: h2b Central Line: no Arterial Line: no [place] Cathetor: yes Disposition: ICU Code Status: full code Total Critical Care time is 40 minutes, excluding procedures/teaching Jeferson Hawkins MD Pediatric Nephrologist (Electronically Signed)
[2018-06-16] MEDS: Furosemide IV* 10 MG/ML VIAL (40 MG) IV SCH ×2 (09:08→20:04)
[2018-06-16] MEDS ORDERED: Insulin GLARGINE(*) 1 UNITS UNIT SUBCUT SCH (09:10)
[2018-06-16] MEDS ORDERED: Morphine VIAL* 4 MG/ML VIAL (1 ml vial) IV ONE (09:30)
[2018-06-16] MEDS ORDERED: Morphine VIAL* 4 MG/ML VIAL (1 ml vial) ONE (09:32)
--- NOTE | 2018-06-16 12:37 | PN ---
Progress Note - Progress Note Date of Service: 06/16/18 SOAP: Subjective:s/p ultrasound guided percutaneous cholecystostomy 06/13/18;acute calculous cholecystitis with sepsis no abdominal pain at present,tolerated liquids yesterday [] Objective: Vital Signs Temp 99.1 F 06/16/18 11:01 Pulse 82 06/16/18 11:01 Resp 26 06/16/18 11:01 BP 124/68 06/16/18 11:00 Pulse Ox 96 06/16/18 11:01 Intake & Output 06/15/18 06/16/18 06/16/18 18:59 06:59 18:59 Intake Total 763 2012 Output Total 1220 1450 990 Balance -457 563 -990 Weight 269 lb 10.005 oz Intake: IV Fluids 653 1419 D5 Sodium bicarb 653 NS 1353 zosyn 66 IVPB 114 zosyn 114 Medicated IV 70 CC - Propofol/Diprivan 70 Oral 480 Tube Feeding Flush Amount 40 Output: Abdominal Drain 70 50 Urine 350 Rubio 1150 1050 990 Abd:+bs,soft,nondistended,drain RUQ with bilious fluid,mild tenderness,no guarding [] Assessment:continue perc drain for approximately [address] Griffith [] Plan:outpatient followup with Dr Griffith after discharge []
[2018-06-16] MEDS: cefTRIAXone(*) 1 GM in NS 0.9% 50 ML* 50 ML IVPB SCH (17:15)
[2018-06-16] MEDS: Melatonin 3 MG TAB PO PRN (20:04)
[2018-06-17 05:54] LABS: Hematocrit 35 % (42-52); Hemoglobin 11.9 g/dl (14.0-18.0); Mean Corpuscular HGB Conc 34 g/dl (31-36); Mean Corpuscular Hemoglobin 28 pg (27-31); Mean Corpuscular Volume 84 fL (80-94); Mean Platelet Volume 9.7 fL (7.4-10.4); Platelet Count 114 10^3/ul (150-450); Red Blood Count 4.21 10^6/ul (4.00-5.40); Red Cell Distribution Width 14 % (10.5-15)
[2018-06-17 06:10] LABS: EGFR Non-African American 13.7 (>60)
[2018-06-17] MEDS: Heparin VIAL(*) 5000 UNITS/ML VIAL (FIVE THOUSAND) SUBCUT SCH ×3 (06:32→21:29)
[2018-06-17] MEDS: Insulin LISPRO* 1 UNITS UNIT SUBCUT SCH ×4 (06:32→22:49)
[2018-06-17] MEDS: Famotidine TAB* 20 MG PO SCH (08:53)
[2018-06-17] MEDS: Furosemide IV* 10 MG/ML VIAL (40 MG) IV SCH ×2 (08:54→21:29)
[2018-06-17] MEDS: Aspirin 81 mg CHEW TAB* 81 MG TAB.CHEW PO SCH (08:54)
[2018-06-17] MEDS ORDERED: Potassium Chlor TAB* 20 MEQ TAB.ER PO ONE ×2 (08:55→22:35)
[2018-06-17] MEDS: Insulin GLARGINE(*) 1 UNITS UNIT SUBCUT SCH (09:25)
--- NOTE | 2018-06-17 10:04 | PN ---
Progress Note - Progress Note Date of Service: 06/17/18 Note: Surgery progress note S: Patient is a 72 yo M with acute cholecystitis, sepsis, s/p placement of cholecystostomy tube. Doing well. Tolerating diet. Has no complaints of pain. O: Vital Signs - 24 hr 06/16/18 06/16/18 06/16/18 11:00 11:01 12:00 Temperature 99.1 F 99.1 F 99.3 F Pulse Rate 83 82 88 Respiratory 32 26 32 Rate Blood Pressure 124/68 126/79 (mmHg) O2 Sat by Pulse 95 96 88 Oximetry 06/16/18 06/16/18 06/16/18 12:01 12:58 13:00 Temperature 99.3 F 99.3 F Pulse Rate 87 84 Respiratory 34 33 36 Rate Blood Pressure 140/76 (mmHg) O2 Sat by Pulse 89 94 Oximetry 06/16/18 06/16/18 06/16/18 13:01 14:00 14:01 Temperature 99.3 F 99.7 F 99.7 F Pulse Rate 85 86 83 Respiratory 35 30 30 Rate Blood Pressure 130/76 (mmHg) O2 Sat by Pulse 94 93 94 Oximetry 06/16/18 06/16/18 06/16/18 15:00 15:01 16:00 Temperature 100.2 F 100.2 F 100.2 F Pulse Rate 87 86 86 Respiratory 34 32 34 Rate Blood Pressure 135/68 134/72 (mmHg) O2 Sat by Pulse 97 98 96 Oximetry 06/16/18 06/16/18 06/16/18 16:01 17:00 17:01 Temperature 100.2 F 100.4 F 100.4 F Pulse Rate 86 87 88 Respiratory 30 33 35 Rate Blood Pressure 138/72 (mmHg) O2 Sat by Pulse 96 97 96 Oximetry 06/16/18 06/16/18 06/16/18 18:00 18:01 19:00 Temperature Pulse Rate 89 87 Respiratory 42 35 25 Rate Blood Pressure 148/78 (mmHg) O2 Sat by Pulse 96 94 Oximetry 06/16/18 06/16/18 06/16/18 19:01 19:25 20:00 Temperature 100.6 F 100.4 F Pulse Rate 91 90 90 Respiratory 34 43 33 Rate Blood Pressure 114/54 142/76 (mmHg) O2 Sat by Pulse 94 93 95 Oximetry 06/16/18 06/16/1818 21:00 22:00 23:00 Temperature 100.6 F 100.0 F 100.0 F Pulse Rate 89 89 83 Respiratory 35 29 35 Rate Blood Pressure 131/78 117/55 141/71 (mmHg) O2 Sat by Pulse 98 96 98 Oximetry 06/17/18 06/17/18 06/17/18 00:00 01:00 02:00 Temperature 99.9 F 99.9 F 99.7 F Pulse Rate 86 92 85 Respiratory 32 20 32 Rate Blood Pressure 130/68 142/72 144/74 (mmHg) O2 Sat by Pulse 95 96 94 Oximetry 06/17/18 06/17/18 06/17/18 03:00 04:00 04:01 Temperature 99.7 F 99.7 F Pulse Rate 84 78 Respiratory 23 23 31 Rate Blood Pressure 135/72 118/85 (mmHg) O2 Sat by Pulse 95 97 Oximetry 06/17/18 06/17/18 06/17/18 05:00 05:52 06:00 Temperature 99.7 F 99.7 F Pulse Rate 77 79 Respiratory 23 27 27 Rate Blood Pressure 125/64 126/72 (mmHg) O2 Sat by Pulse 99 93 Oximetry 06/17/18 06/17/18 06/17/18 07:00 07:01 08:00 Temperature 99.5 F 99.5 F 99.3 F Pulse Rate 76 77 82 Respiratory 24 24 28 Rate Blood Pressure 133/70 (mmHg) O2 Sat by Pulse 97 96 91 Oximetry 06/17/18 08:02 Temperature 99.3 F Pulse Rate 82 Respiratory 26 Rate Blood Pressure 140/79 (mmHg) O2 Sat by Pulse 92 Oximetry Intake & Output 06/16/18 06/17/18 06/17/18 22:59 06:59 14:59 Intake Total 50 1600 Output Total 2802014 Balance -2750 -415 -675 Weight 272 lb 4.334 oz Intake: IVPB 50 Rocephin 50 Oral 1600 Output: Abdominal Drain 20 Rubio [id number] Other: Date of Last Bowel 06/17/18 06/17/18 Movement # Bowel Movements 1 1 Estimated Stool Amount Large Large Laboratory Results - last 24 hr 06/16/18 06/16/18 06/16/18 04:50 12:00 18:04 WBC RBC Hgb Hct MCV MCH MCHC RDW Plt Count MPV Sodium Potassium Chloride Carbon Dioxide Anion Gap BUN Creatinine Est GFR ( Amer) Est GFR (Non-Af Amer) BUN/Creatinine Ratio Glucose POC Glucose (mg/dL) 215 H 242 H Hemoglobin A1c 7.9 H Calcium Magnesium 06/16/18 06/17/18 06/17/18 23:03 05:42 05:42 WBC 14.0 H RBC 4.21 Hgb 11.9 L Hct 35 L MCV 84 MCH 28 MCHC 34 RDW 14 Plt Count 114 L MPV 9.7 Sodium 133 L Potassium 3.5 Chloride 101 Carbon Dioxide 23 Anion Gap 9 BUN 103 H Creatinine 4.29 H Est GFR ( Amer) 16.6 Est GFR (Non-Af Amer) 13.7 BUN/Creatinine Ratio 24.0 H Glucose 223 H POC Glucose (mg/dL) 274 H Hemoglobin A1c Calcium 7.5 L Magnesium 2.7 Objective: Abd- soft, non tender, cholecystostomy tube in place with bilious drainage A/P: 72 M with acute cholecystitis, sepsis recovering after placement of cholecystostomy tube. - Advance diet to regular - Continue abx - Continue cholecystostomy tube to gravity drainage - Continue to trend WBC, remains stable - Patient to follow up with Dr. Griffith as an outpatient
--- NOTE | 2018-06-17 10:21 | PN ---
Progress Note - Progress Note Date of Service: 06/17/18 Note: Progress Note -- Critical Care 24hour events: -on hiflow 70% 40lpm; feels better; taking po intake -in chair, no cough/cp/sputum prod -tolerating po intake -no abd pain; tmax 99 Tele: NSR Vitals: Vital Signs Temp 99.3 F 06/17/18 08:02 Pulse 82 06/17/18 08:02 Resp 26 06/17/18 08:02 BP 140/79 06/17/18 08:02 Pulse Ox 92 06/17/18 08:02 Intake & Output 06/16/18 06/17/18 06/17/18 18:59 06:59 18:59 Intake Total 50 1600 Output Total 3325 3880 673 Balance -6975 -8972 -139 Weight 123.5 kg Intake: IVPB 50 Rocephin 50 Oral 1600 Output: Abdominal Drain 20 [place] [phone] Other: Date of Last Bowel 06/17/18 06/17/18 Movement # Bowel Movements 1 1 Estimated Stool Amount Large Large O2/Vent: hiflow 70% 40lpm Infusions: heplock Current Medications: Acetaminophen (Tylenol Tab*) 650 mg PO Q4H PRN PRN Reason: FEVER/PAIN Last Admin: 06/13/18 13:26 Dose: 650 mg Al Hydrox/Mg Hydrox/Simethicone (Maalox Plus*) 30 ml PO Q6H PRN PRN Reason: INDIGESTION Albuterol (Ventolin 2.5 Mg/3 Ml Neb.Freya*) 2.5 mg INH Q4H PRN PRN Reason: SOB/WHEEZING Aspirin (Aspirin 81 Mg Chew Tab*) 81 mg PO EVERY OTHER DAY [facility] Last Admin: 06/17/18 08:54 Dose: 81 mg Dextrose (D50w Syringe 50 Ml*) 12.5 gm IV PUSH .FOR FS < 60 - SS PRN PRN Reason: FS < 60 Famotidine (Pepcid Tab*) 20 mg PO DAILY [facility] Last Admin: 06/17/18 08:53 Dose: 20 mg Furosemide (Lasix Iv*) 40 mg IV BID [facility] Last Admin: 06/17/18 08:54 Dose: 40 mg Heparin Sodium (Porcine) (Heparin Vial(*)) 5,000 units SUBCUT Q8HR [facility] Last Admin: 06/17/18 06:32 Dose: 5,000 units Ceftriaxone Sodium 1 gm/ (Sodium Chloride) 50 mls @ 200 mls/hr IVPB Q24H [facility] Last Admin: 06/16/18 17:15 Dose: 200 mls/hr Insulin Glargine (Lantus(*)) 20 units SUBCUT Q24H [facility] Last Admin: 06/17/18 09:25 Dose: 20 units Insulin Human Lispro (Humalog*) 0 units SUBCUT Q6HR [facility]; Protocol Last Admin: 06/17/18 06:32 Dose: 2 units Magnesium Hydroxide (Milk Of Magndoris Liq*) 30 ml PO Q4H PRN PRN Reason: CONSTIPATION Melatonin (Melatonin) 3 mg PO BEDTIME PRN; Protocol PRN Reason: SLEEP Last Admin: 06/16/18 20:04 Dose: 3 mg Ondansetron HCl (Zofran Inj*) 4 mg IV Q6H PRN PRN Reason: NAUSEA/VOMITING Last Admin: 06/13/18 13:29 Dose: 4 mg Physical Exam: General: awake, alert, mild tachypnea, no diaphoresis Head: normocephalic, atraumatic HEENT: no pallor, no icterus, moist mucous membranes Neck: soft, supple, no jvd CVS: normal rate, regular, no murmur Resp: bilateral air entry, + bilateral rhales, no wheeze, no rhonchi, no acc muscle use Abdomen: soft, RUQ ade drain+, RUQ tenderness+ mild, nondistended, bowel sounds present Ext: pulses+, warm, no edema Skin: intact Neuro: awake/alert, oriented x3, moving all ext alert , follows commands Labs: Laboratory Results - last 24 hr 06/16/18 06/16/18 06/16/18 04:50 12:00 18:04 WBC RBC Hgb Hct MCV MCH MCHC RDW Plt Count MPV Sodium Potassium Chloride Carbon Dioxide Anion Gap BUN Creatinine Est GFR ( Amer) Est GFR (Non-Af Amer) BUN/Creatinine Ratio Glucose POC Glucose (mg/dL) 215 H 242 H Hemoglobin A1c 7.9 H Calcium Magnesium 06/16/18 06/17/18 06/17/18 23:03 05:42 05:42 WBC 14.0 H RBC 4.21 Hgb 11.9 L Hct 35 L MCV 84 MCH 28 MCHC 34 RDW 14 Plt Count 114 L MPV 9.7 Sodium 133 L Potassium 3.5 Chloride 101 Carbon Dioxide 23 Anion Gap 9 BUN 103 H Creatinine 4.29 H Est GFR ( Amer) 16.6 Est GFR (Non-Af Amer) 13.7 BUN/Creatinine Ratio 24.0 H Glucose 223 H POC Glucose (mg/dL) 274 H Hemoglobin A1c Calcium 7.5 L Magnesium 2.7 Imaging: TTE 06/13 bicuspid aortic valve, LVEF 40-45% CT abd/pelvis 1 acute calc ade, ?perforation; reviewed report cxr 06/13 ett above nayely, no infiltrate noted cxr 06/16 - bilateral infiltrates noted, consistent with pulm edema (reviewed official report) cxr 06/17 - bilater pulm congestion, similar/improved slightly from yesterday Assessment: 72y M w/pmhx of DM, Bicuspid aortic valve; comes to ER 06/13 by for abd pain x6 days, episodes of nausea/vom. Started with eating shrimp 7 days back, then reoccurred after eating shrimp again. No fever/chills/cough/ sputum. No diarrhea. After increasing abd pain for days, brought to ER and found to have Acute calculous cholecystitis on CT imaging. He was admitted to medical floor. Surgery consult done. He developed increasing fever, tachycardia , hypotension, respiratory distress, started on sepsis protocol, IV pressors. He was deemed a candidate for percutaneous ade drain as surgery may be higher risk at this time. He was intubated for the procedure. A bedside Ade drain was placed 06/13 by IR. -Severe Sepsis with Shock. improved -Acute calculous cholecystitis -E.coli and Citrobacter Bacteremia -acute hypoxic respiratory failure -Pulmonary edema -acute decompensated LV systolic/diastolic heart failure -JUAN -Metabolic acidosis -Thrombocytopenia Bicuspid Aortic Valve Mild-Mod LV systolic dysfunction DM Plan: Neuro- awake/alert. Pain control prn. Delirium prec. CVS- Severe Sepsis; BP stable. d/c IVF. Pulm congestion on CXR. GOod urine output, cont lasix 40mg IV bid. IV abx for bacteremia. TTE 06/13 noted bicuspid aortic valve without vegetations, mild/mod LV dysfunction. Cont asa. Resp- on hiflow 70% 40lpm; cont to wean donw. no immediate need for intubation. CXR with bilateral interstitial congestion/edema. IV lasix. Bronchodilators PRN. ID- tmax 99. Wbc 14. Blood culture /2 Citrobacter+, E.coli+. Repeat cultures sent, neg so far 1 day. s/p Right Ade drain 06/13 for acute calculous cholecystitis. IV Ceftriaxone 1gm daily (day#5) GI- -toelrating full liquid diet; advance to diabetic regular consistency. -Right Ade drain+. Mild Right sided tenderness+. No bowel movements yet. IV abx. Surgery followup, plan for cholecystectomy in 2 weeks, maintain Ade drain -IV abx Renal- JUAN, CR dwontrending. K okay, no acidosis. Cont lasix 40mg IV bid today. good urine output, neg balance. Pulm edema on CXR. maintain magaña today. Heme- hg stable. Thrombocytopenia+ improving. No bleeding noted. Cont heparin sq /SCDs Endo- fingerstick achs; lispro sq achs. increase lantus to 20u daily; plan to restart metformin/glipizide once discharged, but may need insulin also at home. Musculsk- pressure ulcer prophylaxis. oob to chair Wounds- none Nutrition- diabetic, regular consistency. DVT prophylaxis: scds/heparin sq GI prophylaxis: h2b Central Line: no Arterial Line: no [place] Cathetor: yes Disposition: ICU Code Status: full code Total Critical Care time is 40 minutes, excluding procedures/teaching Jeferson Hawkins MD Manager [employer] (Electronically Signed)
[2018-06-17] MEDS: cefTRIAXone(*) 1 GM in NS 0.9% 50 ML* 50 ML IVPB SCH (15:57)
[2018-06-17] MEDS: Acetaminophen TAB* 325 MG PO PRN (19:39)
[2018-06-17 22:11] LABS: EGFR Non-African American 15.3 (>60)
[2018-06-18] MEDS: Heparin VIAL(*) 5000 UNITS/ML VIAL (FIVE THOUSAND) SUBCUT SCH ×3 (05:37→23:08)
[2018-06-18] MEDS: Insulin LISPRO* 1 UNITS UNIT SUBCUT SCH ×4 (05:37→20:34)
[2018-06-18 05:56] LABS: Hematocrit 34 % (42-52); Hemoglobin 11.4 g/dl (14.0-18.0); Mean Corpuscular HGB Conc 34 g/dl (31-36); Mean Corpuscular Hemoglobin 28 pg (27-31); Mean Corpuscular Volume 84 fL (80-94); Mean Platelet Volume 9.8 fL (7.4-10.4); Platelet Count 185 10^3/ul (150-450); Red Blood Count 4.05 10^6/ul (4.00-5.40); Red Cell Distribution Width 14 % (10.5-15); White Blood Count 18.9 10^3/ul (3.5-10.8)
[2018-06-18 06:16] LABS: EGFR Non-African American 15.8 (>60)
[2018-06-18] MEDS: Famotidine TAB* 20 MG PO SCH (09:30)
[2018-06-18] MEDS: Furosemide IV* 10 MG/ML VIAL (40 MG) IV SCH ×2 (09:53→19:04)
[2018-06-18] MEDS: Insulin GLARGINE(*) 1 UNITS UNIT SUBCUT SCH ×2 (09:53→19:04)
--- NOTE | 2018-06-18 10:49 | PN ---
Progress Note - Progress Note Date of Service: 06/18/18 Note: Progress Note -- Critical Care 24hour events: -off hiflow, on NC 5L; no resp distress/cough/sob/cp -feels good, tolerating po intake -watery stool now -tmax 100.8 yesterday, but downtrended back to 98 now -no abd pain/n/v -ade drain in place but no tmuch output from yesterday to today Tele: NSR Vitals: Vital Signs Temp 98.8 F 06/18/18 10:01 Pulse 84 06/18/18 10:01 Resp 22 06/18/18 10:01 BP 142/73 06/18/18 10:00 Pulse Ox 96 06/18/18 10:01 Intake & Output 06/17/18 06/18/18 06/18/18 18:59 06:59 18:59 Intake Total 440 1433 Output Total 3675 2715 550 Balance -3235 -1282 -550 Weight 117.9 kg Intake: IV Fluids 23 NS 23 IVPB 50 Rocephin 50 Oral 440 1360 Output: Urine 350 [place] 3325 2715 550 Other: Date of Last Bowel 06/17/18 Movement # Bowel Movements 1 Estimated Stool Amount Large O2/Vent: NC 5 L Infusions: heplock Current Medications: Acetaminophen (Tylenol Tab*) 650 mg PO Q4H PRN PRN Reason: FEVER/PAIN Last Admin: 06/17/18 19:39 Dose: 650 mg Al Hydrox/Mg Hydrox/Simethicone (Maalox Plus*) 30 ml PO Q6H PRN PRN Reason: INDIGESTION Albuterol (Ventolin 2.5 Mg/3 Ml Neb.Freya*) 2.5 mg INH Q4H PRN PRN Reason: SOB/WHEEZING Aspirin (Aspirin 81 Mg Chew Tab*) 81 mg PO EVERY OTHER DAY [facility] Last Admin: 06/17/18 08:54 Dose: 81 mg Dextrose (D50w Syringe 50 Ml*) 12.5 gm IV PUSH .FOR FS < 60 - SS PRN PRN Reason: FS < 60 Famotidine (Pepcid Tab*) 20 mg PO DAILY [facility] Last Admin: 06/18/18 09:30 Dose: 20 mg Furosemide (Lasix Iv*) 40 mg IV DAILY [facility] Last Admin: 06/18/18 09:53 Dose: 40 mg Heparin Sodium (Porcine) (Heparin Vial(*)) 5,000 units SUBCUT Q8HR [facility] Last Admin: 06/18/18 05:37 Dose: 5,000 units Ceftriaxone Sodium 1 gm/ (Sodium Chloride) 50 mls @ 200 mls/hr IVPB Q24H [facility] Last Admin: 06/17/18 15:57 Dose: 200 mls/hr Insulin Glargine (Lantus(*)) 26 units SUBCUT QAM [facility] Last Admin: 06/18/18 09:53 Dose: 26 units Insulin Human Lispro (Humalog*) 0 units SUBCUT Q6HR [facility]; Protocol Last Admin: 06/18/18 05:37 Dose: 2 units Magnesium Hydroxide (Milk Of Magndoris Liq*) 30 ml PO Q4H PRN PRN Reason: CONSTIPATION Melatonin (Melatonin) 3 mg PO BEDTIME PRN; Protocol PRN Reason: SLEEP Last Admin: 06/16/18 20:04 Dose: 3 mg Ondansetron HCl (Zofran Inj*) 4 mg IV Q6H PRN PRN Reason: NAUSEA/VOMITING Last Admin: 06/13/18 13:29 Dose: 4 mg Physical Exam: General: awake, alert, no distress Head: normocephalic, atraumatic HEENT: no pallor, no icterus, moist mucous membranes Neck: soft, supple, no jvd CVS: normal rate, regular, no murmur Resp: bilateral air entry, minimal/no rhales, no wheeze, no rhonchi, no acc muscle use Abdomen: soft, RUQ ade drain+, no tenderness, nondistended, bowel sounds present Ext: pulses+, warm, no edema Skin: intact Neuro: awake/alert, oriented x3, moving all ext alert , follows commands Labs: Laboratory Results - last 24 hr 06/17/18 06/17/18 06/17/18 11:51 18:35 21:45 WBC RBC Hgb Hct MCV MCH MCHC RDW Plt Count MPV Sodium 131 L Potassium 3.4 L Chloride 98 L Carbon Dioxide 23 Anion Gap 10 BUN 109 H Creatinine 3.90 H Est GFR ( Amer) 18.5 Est GFR (Non-Af Amer) 15.3 BUN/Creatinine Ratio 27.9 H Glucose 332 H POC Glucose (mg/dL) 254 H 220 H Calcium 7.5 L Magnesium 2.6 06/18/18 06/18/18 06/18/18 05:27 05:30 05:47 WBC 18.9 H RBC 4.05 Hgb 11.4 L Hct 34 L MCV 84 MCH 28 MCHC 34 RDW 14 Plt Count 185 MPV 9.8 Sodium 134 L Potassium 3.6 Chloride 100 L Carbon Dioxide 24 Anion Gap 10 BUN 108 H Creatinine 3.80 H Est GFR ( Amer) 19.1 Est GFR (Non-Af Amer) 15.8 BUN/Creatinine Ratio 28.4 H Glucose 230 H POC Glucose (mg/dL) 221 H Calcium 7.5 L Magnesium Imaging: TTE 06/13 bicuspid aortic valve, LVEF 40-45% CT abd/pelvis 1 acute calc ade, ?perforation; reviewed report cxr 06/13 ett above nayely, no infiltrate noted cxr 06/16 - bilateral infiltrates noted, consistent with pulm edema (reviewed official report) cxr 06/17 - bilater pulm congestion, similar/improved slightly from yesterday Assessment: 72y M w/pmhx of DM, Bicuspid aortic valve; comes to ER 06/13 by for abd pain x6 days, episodes of nausea/vom. Started with eating shrimp 7 days back, then reoccurred after eating shrimp again. No fever/chills/cough/ sputum. No diarrhea. After increasing abd pain for days, brought to ER and found to have Acute calculous cholecystitis on CT imaging. He was admitted to medical floor. Surgery consult done. He developed increasing fever, tachycardia , hypotension, respiratory distress, started on sepsis protocol, IV pressors. He was deemed a candidate for percutaneous ade drain as surgery may be higher risk at this time. He was intubated for the procedure. A bedside Ade drain was placed 06/13 by IR. -Severe Sepsis with Shock. improved -Acute calculous cholecystitis -E.coli and Citrobacter Bacteremia -acute hypoxic respiratory failure -Pulmonary edema -acute decompensated LV systolic/diastolic heart failure -JUAN -Metabolic acidosis -Thrombocytopenia Bicuspid Aortic Valve Mild-Mod LV systolic dysfunction DM Plan: Neuro- awake/alert. Pain control prn. Delirium prec. CVS- Severe Sepsis; BP stable. no ivf. Pulm congestion on CXR. GOod urine output , cont lasix 40mg IV daily. IV abx for bacteremia. TTE 06/13 noted bicuspid aortic valve without vegetations, mild/mod LV dysfunction. Cont asa. Resp- on NC 5 L; cont to wean down. IV diuretics. Bronchodilators PRN. ID- tmax 100.8->98. Wbc 18. Blood culture /2 Citrobacter+, E.coli+. Repeat cultures neg so far. s/p Right Ade drain 06/13 for acute calculous cholecystitis. Now with loose/watery stool, but abd pain resolved/not distended. IV Ceftriaxone 1gm daily (day#6). Send stool c.diff given wbc elevation/low grade temps/watery stools. GI- -toelrating regular diabetic diet. -loose watery stool; abd soft; send c.diff. Ade drain+ but minimal output, will have surgery eval to see if obstructed. -Surgery followup, plan for cholecystectomy in 2 weeks -IV abx Renal- JUAN, CR downtrending. K okay, no acidosis. Cont lasix 40mg IV daily. good urine output, neg balance. maintain magaña today, possible d/c tomorrow. Heme- hg stable. Thrombocytopenia+ improved, likely from sepsis. Cont heparin sq /SCDs Endo- fingerstick achs; lispro sq achs. increase lantus to 26u daily; holding metformin/glipizide. diabetic diet. no steroids. Musculsk- pressure ulcer prophylaxis. oob to chair/ambulate. pt/ot Wounds- none Nutrition- diabetic, regular consistency. DVT prophylaxis: scds/heparin sq GI prophylaxis: h2b Central Line: no Arterial Line: no [place] Cathetor: yes Disposition: ICU, if improving, possible transfer to surgical floor tomorrow. Code Status: full code Total Critical Care time is 40 minutes, excluding procedures/teaching Jeferson Hawkins MD [employer]maker [employer] (Electronically Signed)
[2018-06-18] MEDS: cefTRIAXone(*) 1 GM in NS 0.9% 50 ML* 50 ML IVPB SCH (15:45)
[2018-06-18] MEDS ORDERED: Dextrose 50% Syringe 50 ML* 25 GM/50 ML SYRINGE IV PUSH PRN (19:58)
[2018-06-19] MEDS: Heparin VIAL(*) 5000 UNITS/ML VIAL (FIVE THOUSAND) SUBCUT SCH ×3 (06:11→21:52)
[2018-06-19 06:20] LABS: EGFR Non-African American 16.3 (>60)
[2018-06-19 06:41] LABS: Hematocrit 33 % (42-52); Hemoglobin 11.3 g/dl (14.0-18.0); Mean Corpuscular HGB Conc 34 g/dl (31-36); Mean Corpuscular Hemoglobin 28 pg (27-31); Mean Corpuscular Volume 84 fL (80-94); Mean Platelet Volume 9.1 fL (7.4-10.4); Platelet Count 276 10^3/ul (150-450); Red Blood Count 3.98 10^6/ul (4.00-5.40); Red Cell Distribution Width 14 % (10.5-15); White Blood Count 23.2 10^3/ul (3.5-10.8)
[2018-06-19] MEDS: Insulin GLARGINE(*) 1 UNITS UNIT SUBCUT SCH (08:49)
[2018-06-19] MEDS: Famotidine TAB* 20 MG PO SCH (08:50)
[2018-06-19] MEDS: Furosemide IV* 10 MG/ML VIAL (40 MG) IV SCH (08:50)
[2018-06-19] MEDS: Aspirin 81 mg CHEW TAB* 81 MG TAB.CHEW PO SCH (08:50)
[2018-06-19] MEDS: Insulin LISPRO* 1 UNITS UNIT SUBCUT SCH ×4 (08:50→21:22)
[2018-06-19] MEDS ORDERED: Furosemide IV* 10 MG/ML VIAL (40 MG) IV SCH (09:00)
[2018-06-19] MEDS: metroNIDAZOLE TAB* 250 MG PO SCH ×2 (12:45→21:21)
[2018-06-19] MEDS: Cefepime 2 GM in Dextrose(*) 2 GM/50 ML BAG IV SCH (13:07)
--- NOTE | 2018-06-19 16:00 | CONS ---
CONSULTATION REPORT: DATE OF CONSULT: 06/19/18 REQUESTING PROVIDER: Velma Rosas NP CONSULTING SERVICE: Infectious Disease. REASON FOR CONSULT: Cholecystitis, leukocytosis. IMPRESSION: 1. Septic shock due to calculous cholecystitis and gangrenous cholecystitis with Citrobacter and E. coli bacteremia, status post cholecystostomy tube, gallbladder cultures growing Citrobacter, Enterococcus, and E. coli. Blood cultures cleared rapidly. His symptoms improved rapidly after drainage and he is recovering currently. 2. Leukocytosis. White count originally was 17,000 on admission, up to 23,000 the next day, down to 11,000 after procedure and is up to 23,000 again. He is asymptomatic. He is having some loose stools. He had a C. diff test that was negative. It is possible he has developed a small abscess. 3. Obesity. RECOMMENDATIONS: 1. I will add Flagyl 500 mg by mouth twice daily to cover some of the anaerobes that can be associated with cholecystitis and change ceftriaxone to cefepime as there is inducible resistance with Citrobacter that expresses an AmpC enzyme to ceftriaxone. 2. If his white count keep rising, we will consider CT abdomen to evaluate for abscess formation. HISTORY OF PRESENT ILLNESS: This 72-year-old man admitted on 06/13/18 with a few days of right upper quadrant pain, anorexia, found to have a perforated and infected gallbladder. Blood cultures results as above. He was started on Zosyn. He is initially on pressors. Had a percutaneous drain of the gallbladder with significant improvement. He was intubated initially, extubated successfully. He feels well today. He has no abdominal pain. He had had some loose stools for the past 2 to 3 days that was liquid and multiple times per day. His C. diff test was negative. Today, he has had soft, semi- formed stools. No abdominal pain. No fevers in the last 48 hours. His white count had come down after the drainage procedure, but has got back up to about 23,000 today, mostly neutrophils. PAST MEDICAL HISTORY: 1. Bicuspid aortic valve. 2. Status post cataract surgery. 3. Right ankle fracture 2017, treated with casting . 4. Type 2 diabetes. 5. Status post hydrocele repair. MEDICATIONS: 1. Albuterol. 2. Aspirin. 3. Ceftriaxone 1 g a day. 4. Melatonin. 5. Insulin glargine. 6. Heparin subcutaneous injection. 7. Lasix. ALLERGIES: No known drug allergies. SOCIAL HISTORY: [place] is [place], [place]. No travel or sick contacts. Nonsmoker. FAMILY HISTORY: Father of heart attack at 78. Mother had diabetes and at age 84. REVIEW OF SYSTEMS: A 14-point review of systems was all negative, except as noted above in the history of present illness. PHYSICAL EXAM: Vital Signs: Temperature 37, heart rate 80, respiratory rate 18 , blood pressure 142/72, oxygen saturation 95% on room air. In general, he is awake, not in distress. Neurologic: He is oriented x3. Follows all commands. Moves all his extremities. HEENT: There is no conjunctival hemorrhage. Oropharynx: Without lesions. Neck is supple without mass. Heart is regular rate and rhythm with 2/6 systolic murmur. Lungs are clear to auscultation bilaterally. Abdomen: Soft, nontender, nondistended. There are bowel sounds present, though decreased. There is a right upper quadrant drain with serous fluid. Skin: There are no rashes or splinter hemorrhages. Musculoskeletal: There is no spine tenderness to palpation. There is +1 bilateral lower extremity edema. LABORATORY DATA: White blood cell count 23, hemoglobin 11, platelets 276. Creatinine 3.7, BUN 109, creatinine down from 4.8 on 06/16/18. Please see impressions and recommendations outlined above. Thanks for asking me to see Mr. Cordero in consultation. [id number]/[facility] #: [id number] [facility] DIVISIONJorge Luis
--- NOTE | 2018-06-19 17:38 | PN ---
Subjective Date of Service: 06/19/18 Interval History: Patient seen and examined. Ambulatory with walker, denies fevers or chills, no SOB, no abdominal pain, no n/v/d. Objective Active Medications: Acetaminophen (Tylenol Tab*) 650 mg PO Q4H PRN PRN Reason: FEVER/PAIN Last Admin: 06/17/18 19:39 Dose: 650 mg Al Hydrox/Mg Hydrox/Simethicone (Maalox Plus*) 30 ml PO Q6H PRN PRN Reason: INDIGESTION Albuterol (Ventolin 2.5 Mg/3 Ml Neb.Freya*) 2.5 mg INH Q4H PRN PRN Reason: SOB/WHEEZING Aspirin (Aspirin 81 Mg Chew Tab*) 81 mg PO EVERY OTHER DAY [facility] Last Admin: 06/19/18 08:50 Dose: 81 mg Dextrose (D50w Syringe 50 Ml*) 12.5 gm IV PUSH .FOR FS < 60 - SS PRN PRN Reason: FS < 60 Famotidine (Pepcid Tab*) 20 mg PO DAILY [facility] Last Admin: 06/19/18 08:50 Dose: 20 mg Furosemide (Lasix Iv*) 40 mg IV DAILY [facility] Last Admin: 06/19/18 08:50 Dose: 40 mg Heparin Sodium (Porcine) (Heparin Vial(*)) 5,000 units SUBCUT Q8HR [facility] Last Admin: 06/19/18 14:23 Dose: 5,000 units Cefepime HCl (Maxipime 2 Gm In Dextrose Duplex (*)) 2 gm in 50 mls @ 100 mls/ hr IV Q24H [facility] Last Admin: 06/19/18 13:07 Dose: 100 mls/hr Insulin Glargine (Lantus(*)) 30 units SUBCUT QAM [facility] Insulin Human Lispro (Humalog*) 0 units SUBCUT FS ACHS ICU [facility]; Protocol Last Admin: 06/19/18 12:45 Dose: 10 unit Magnesium Hydroxide (Milk Of Magnesia Liq*) 30 ml PO Q4H PRN PRN Reason: CONSTIPATION Melatonin (Melatonin) 3 mg PO BEDTIME PRN; Protocol PRN Reason: SLEEP Last Admin: 06/16/18 20:04 Dose: 3 mg Metronidazole (Flagyl Tab*) 500 mg PO BID [facility] Last Admin: 06/19/18 12:45 Dose: 500 mg Ondansetron HCl (Zofran Inj*) 4 mg IV Q6H PRN PRN Reason: NAUSEA/VOMITING Last Admin: 06/13/18 13:29 Dose: 4 mg Vital Signs - 8 hr 06/19/18 06/19/18 06/19/18 11:20 15:20 16:00 Temperature 97.7 F 98.0 F Pulse Rate 92 84 Respiratory 18 18 Rate Blood Pressure 138/62 136/67 (mmHg) O2 Sat by Pulse 96 97 97 Oximetry Oxygen Devices in Use Now: None Appearance: alert, well appearing, NAD Eyes: No Scleral Icterus, PERRLA Ears/Nose/Mouth/Throat: NL Teeth, Lips, Gums, Mucous Membranes Moist Neck: NL Appearance and Movements; NL JVP, Trachea Midline Respiratory: Symmetrical Chest Expansion and Respiratory Effort, Clear to Auscultation Cardiovascular: NL Sounds; No Murmurs; No JVD, RRR Abdominal: NL Sounds; No Tenderness; No Distention, - - perc drain dressing CDI Extremities: No Edema, No Clubbing, Cyanosis Skin: No Rash or Ulcers Neurological: Alert and Oriented x 3, - Nutrition: Taking PO's Result Diagrams: 06/19/18 06:27 06/19/18 05:29 Microbiology and Other Data: Microbiology 06/16/18 09:04 Aerobic Blood Culture - Preliminary Blood Venous No Growth Day 3 Anaerobic Blood Culture - Preliminary No Growth Day 3 06/16/18 09:04 Aerobic Blood Culture - Preliminary Blood Venous No Growth Day 3 Anaerobic Blood Culture - Preliminary No Growth Day 3 06/18/18 10:15 Stool Gross Appearance - Final Stool C. difficile DNA Amplification - Final 027 Presumptive NEGATIVE Toxigenic C.diff NEGATIVE Stool Lactoferrin - Final 06/13/18 23:30 Gram Stain - Final Gallbladder Fluid Body Fluid Culture - Final Citrobacter Koseri Enterococcus Faecium Escherichia Coli 06/13/18 05:57 Aerobic Blood Culture - Final Blood Venous Citrobacter Koseri Escherichia Coli Anaerobic Blood Culture - Final Citrobacter Koseri#2 Escherichia Coli 06/13/18 06:10 Aerobic Blood Culture - Final Blood Venous Citrobacter Koseri Escherichia Coli Anaerobic Blood Culture - Final Citrobacter Koseri#2 Escherichia Coli 06/13/18 09:36 Urine Culture - Final Urine No Growth (<1,000 CFU/mL) 06/13/18 20:57 Nasal Screen MRSA (PCR) - Final Nasal Mrsa Not Detected Assess/Plan/Problems-Billing Assessment: 72y M w/pmhx of DM, Bicuspid aortic valve; presenting to the ER 06/13 by for abd pain x6 days with concurrent nausea/vomiting, diagnosed with acute calculous cholecystitis on CT imaging. Hospital course complicated by fever, tachycardia, hypotension, respiratory distress, started on sepsis protocol, and IV pressors. Percutaneous rene drain placed in 06/13 by IR. - Patient Problems (1) Acute calculous cholecystitis Code(s): K80.00 - CALCULUS OF GALLBLADDER W ACUTE CHOLECYST W/O OBSTRUCTION SNOMED Code(s): 86220451 Comment: - Perc drain placed - Surgery and ID following - Will need cholecystectomy in a few weeks - Continue cefepime and flagyl as per ID - May need repeat US in AM, and WBCs rising (2) Septic shock Current Visit: Yes Status: Acute Code(s): A41.9 - SEPSIS, UNSPECIFIED ORGANISM; R65.21 - SEVERE SEPSIS WITH SEPTIC SHOCK SNOMED Code(s): 65690160 Comment: - Ecoli and citrobacter bacteremia, now resolved - Required pressors in ICU - Subsequent respiratory failure, renal failure and acute heart failure all resolving - Now on room air - Continue atbx as per ID (3) JUAN (acute kidney injury) Code(s): N17.9 - ACUTE KIDNEY FAILURE, UNSPECIFIED SNOMED Code(s): 91646455 Comment: - In setting of septic shock/hypoperfusion with pulmonary edema - Follow renal function, beginning to trend down - Continue lasix (4) Diabetes Code(s): E11.9 - TYPE 2 DIABETES MELLITUS WITHOUT COMPLICATIONS SNOMED Code(s) : 96560886 Comment: - Sugars high today - Increased lantus today, continue lispro SS (5) DVT prophylaxis Code(s): ABW8389 - SNOMED Code(s): 064997011 Comment: - Continue heparin SQ (6) Full code status Code(s): Z78.9 - OTHER SPECIFIED HEALTH STATUS SNOMED Code(s): 848263976 Status and Disposition: Inpatient, dispo TBD, likely home, may need IV atbx at discharge. Will defer to ID for recs.
[2018-06-20 05:36] LABS: Hematocrit 34 % (42-52); Hemoglobin 11.4 g/dl (14.0-18.0); Mean Corpuscular HGB Conc 34 g/dl (31-36); Mean Corpuscular Hemoglobin 29 pg (27-31); Mean Corpuscular Volume 85 fL (80-94); Mean Platelet Volume 8.7 fL (7.4-10.4); Platelet Count 351 10^3/ul (150-450); Red Blood Count 4.02 10^6/ul (4.00-5.40); Red Cell Distribution Width 14 % (10.5-15); White Blood Count 22.7 10^3/ul (3.5-10.8)
[2018-06-20] MEDS: Heparin VIAL(*) 5000 UNITS/ML VIAL (FIVE THOUSAND) SUBCUT SCH ×3 (05:51→21:29)
[2018-06-20 05:54] LABS: EGFR Non-African American 18.3 (>60)
[2018-06-20] MEDS: Furosemide IV* 10 MG/ML VIAL (40 MG) IV SCH (08:32)
[2018-06-20] MEDS: Famotidine TAB* 20 MG PO SCH (08:33)
[2018-06-20] MEDS: metroNIDAZOLE TAB* 250 MG PO SCH ×2 (08:33→21:30)
[2018-06-20] MEDS: Insulin GLARGINE(*) 1 UNITS UNIT SUBCUT SCH (10:07)
[2018-06-20] MEDS: Insulin LISPRO* 1 UNITS UNIT SUBCUT SCH ×4 (10:10→21:27)
[2018-06-20] MEDS: Cefepime 2 GM in Dextrose(*) 2 GM/50 ML BAG IV SCH (12:25)
--- NOTE | 2018-06-20 20:03 | PN ---
Subjective Date of Service: 06/20/18 Interval History: Patient seen and examined. WBC remain elevated, per patient, drain with no output. He is frustrated and wants to go home. Explained at length to him and his that US will be completed to assess for abscess and evaluate drain. He denies fever or chills, no nausea or vomiting. Tolerating meals. Objective Active Medications: Acetaminophen (Tylenol Tab*) 650 mg PO Q4H PRN PRN Reason: FEVER/PAIN Last Admin: 06/17/18 19:39 Dose: 650 mg Al Hydrox/Mg Hydrox/Simethicone (Maalox Plus*) 30 ml PO Q6H PRN PRN Reason: INDIGESTION Albuterol (Ventolin 2.5 Mg/3 Ml Neb.Freya*) 2.5 mg INH Q4H PRN PRN Reason: SOB/WHEEZING Aspirin (Aspirin 81 Mg Chew Tab*) 81 mg PO EVERY OTHER DAY [facility] Last Admin: 06/19/18 08:50 Dose: 81 mg Dextrose (D50w Syringe 50 Ml*) 12.5 gm IV PUSH .FOR FS < 60 - SS PRN PRN Reason: FS < 60 Famotidine (Pepcid Tab*) 20 mg PO DAILY [facility] Last Admin: 06/20/18 08:33 Dose: 20 mg Heparin Sodium (Porcine) (Heparin Vial(*)) 5,000 units SUBCUT Q8HR [facility] Last Admin: 06/20/18 15:20 Dose: 5,000 units Cefepime HCl (Maxipime 2 Gm In Dextrose Duplex (*)) 2 gm in 50 mls @ 100 mls/ hr IV Q24H [facility] Last Admin: 06/20/18 12:25 Dose: 100 mls/hr Insulin Glargine (Lantus(*)) 30 units SUBCUT QAM [facility] Last Admin: 06/20/18 10:07 Dose: 30 units Insulin Human Lispro (Humalog*) 0 units SUBCUT FS ACHS ICU [facility]; Protocol Last Admin: 06/20/18 18:25 Dose: 6 unit Magnesium Hydroxide (Milk Of Magnesia Liq*) 30 ml PO Q4H PRN PRN Reason: CONSTIPATION Melatonin (Melatonin) 3 mg PO BEDTIME PRN; Protocol PRN Reason: SLEEP Last Admin: 06/16/18 20:04 Dose: 3 mg Metronidazole (Flagyl Tab*) 500 mg PO BID [facility] Last Admin: 06/20/18 08:33 Dose: 500 mg Ondansetron HCl (Zofran Inj*) 4 mg IV Q6H PRN PRN Reason: NAUSEA/VOMITING Last Admin: 06/13/18 13:29 Dose: 4 mg Vital Signs - 8 hr 06/20/18 06/20/18 16:00 16:26 Temperature 97.6 F Pulse Rate 81 Respiratory 18 Rate Blood Pressure 137/62 (mmHg) O2 Sat by Pulse 96 96 Oximetry Oxygen Devices in Use Now: None Appearance: alert, NAD Eyes: No Scleral Icterus, PERRLA Ears/Nose/Mouth/Throat: NL Teeth, Lips, Gums, Mucous Membranes Moist Neck: NL Appearance and Movements; NL JVP, Trachea Midline Respiratory: Symmetrical Chest Expansion and Respiratory Effort, Clear to Auscultation Cardiovascular: NL Sounds; No Murmurs; No JVD, RRR, No Edema Abdominal: NL Sounds; No Tenderness; No Distention, - - dressing CDI Extremities: No Edema, No Clubbing, Cyanosis Skin: No Rash or Ulcers Neurological: Alert and Oriented x 3, NL Gait Nutrition: Taking PO's Result Diagrams: 06/20/18 05:00 06/20/18 05:00 Microbiology and Other Data: Microbiology 06/16/18 09:04 Aerobic Blood Culture - Preliminary Blood Venous No Growth Day 3 Anaerobic Blood Culture - Preliminary No Growth Day 3 06/16/18 09:04 Aerobic Blood Culture - Preliminary Blood Venous No Growth Day 3 Anaerobic Blood Culture - Preliminary No Growth Day 3 06/18/18 10:15 Stool Gross Appearance - Final Stool C. difficile DNA Amplification - Final 027 Presumptive NEGATIVE Toxigenic C.diff NEGATIVE Stool Lactoferrin - Final 06/13/18 23:30 Gram Stain - Final Gallbladder Fluid Body Fluid Culture - Final Citrobacter Koseri Enterococcus Faecium Escherichia Coli 06/13/18 05:57 Aerobic Blood Culture - Final Blood Venous Citrobacter Koseri Escherichia Coli Anaerobic Blood Culture - Final Citrobacter Koseri#2 Escherichia Coli 06/13/18 06:10 Aerobic Blood Culture - Final Blood Venous Citrobacter Koseri Escherichia Coli Anaerobic Blood Culture - Final Citrobacter Koseri#2 Escherichia Coli 06/13/18 09:36 Urine Culture - Final Urine No Growth (<1,000 CFU/mL) 06/13/18 20:57 Nasal Screen MRSA (PCR) - Final Nasal Mrsa Not Detected Diagnostic Imaging: Patient Name: MARIELA MICHAUD Medical Record#: [id number] Ordering Physician: Velma Rosas NP Acct.#: [id number] : 1945 Age: 73 Sex: M Location: SURGICAL STAY UNIT Exam Date: 06/20/18 1258 ADM Status: ADM IN Order Information: US GALL BLADDER Accession Number: [id number] CPT: 74435 Indication: Leukocytosis. Real-time sonography of the right upper quadrant was performed. The liver is enlarged measuring 22 cm in length. It is diffusely increased in echogenicity consistent with hepatic steatosis. There may be an area of focal fatty sparing adjacent to the gallbladder fossa. The previously identified cholecystostomy tube is now present. The gallbladder demonstrates multiple gallstones with gallbladder wall thickening measuring up to 6 mm. Common duct measures up to 0.4 cm. The right kidney measures 12.8 x 5.5 x 5.6 cm. No hydronephrosis is noted. Evaluation of the pancreas is limited. Aorta and inferior vena cava are otherwise unremarkable. IMPRESSION: Enlarged echogenic liver consistent with hepatic steatosis. There is thickened gallbladder wall with cholelithiasis. Previously identified cholecystostomy tube is not identified. Underlying infection is not excluded. <Electronically signed by Dorota Barriga MD in [place]> 06/20/18 1543 Dictated By: Dorota Barriga MD Dictated Date/Time: 06/20/18 1543 Transcribed Date/Time: 06/20/18 1538 Copy to: Assess/Plan/Problems-Billing Assessment: 72y M w/pmhx of DM, Bicuspid aortic valve; presenting to the ER 06/13 by for abd pain x6 days with concurrent nausea/vomiting, diagnosed with acute calculous cholecystitis on CT imaging. Hospital course complicated by fever, tachycardia, hypotension, respiratory distress, started on sepsis protocol, and IV pressors. Percutaneous rene drain placed in 06/13 by IR. - Patient Problems (1) Acute calculous cholecystitis Code(s): K80.00 - CALCULUS OF GALLBLADDER W ACUTE CHOLECYST W/O OBSTRUCTION SNOMED Code(s): 14196481 Comment: - Perc drain placed but not identified on today's US - Surgery and ID following - Will need cholecystectomy in a few weeks - Continue cefepime and flagyl as per ID - Plan for reinsertion tomorrow (2) Septic shock Current Visit: Yes Status: Acute Code(s): A41.9 - SEPSIS, UNSPECIFIED ORGANISM; R65.21 - SEVERE SEPSIS WITH SEPTIC SHOCK SNOMED Code(s): 97083417 Comment: - Ecoli and citrobacter bacteremia, now resolved - Required pressors in ICU - Subsequent respiratory failure, renal failure and acute heart failure all resolving - DC lasix, patient euvolemic - Now on room air - Continue atbx as per ID (3) JUAN (acute kidney injury) Code(s): N17.9 - ACUTE KIDNEY FAILURE, UNSPECIFIED SNOMED Code(s): 26284022 Comment: - In setting of septic shock/hypoperfusion with pulmonary edema - Follow renal function, beginning to trend down - Lasix DCd today (4) Diabetes Code(s): E11.9 - TYPE 2 DIABETES MELLITUS WITHOUT COMPLICATIONS SNOMED Code(s) : 50143866 Comment: - Sugars high today - Increased lantus, continue lispro SS - Consider consult with endocrine before discharge to plan outpatient diabetes management (5) DVT prophylaxis Code(s): UHH2660 - SNOMED Code(s): 914295470 Comment: - Continue heparin SQ (6) Full code status Code(s): Z78.9 - OTHER SPECIFIED HEALTH STATUS SNOMED Code(s): 741763933 Status and Disposition: Inpatient, plan for DC to home when clear by surgery and ID and antibiotic plan in place (infusion vs. oral).
[2018-06-21] MEDS: Heparin VIAL(*) 5000 UNITS/ML VIAL (FIVE THOUSAND) SUBCUT SCH (05:52)
[2018-06-21 06:02] LABS: Hematocrit 34 % (42-52); Hemoglobin 11.2 g/dl (14.0-18.0); Mean Corpuscular HGB Conc 33 g/dl (31-36); Mean Corpuscular Hemoglobin 28 pg (27-31); Mean Corpuscular Volume 84 fL (80-94); Mean Platelet Volume 8.6 fL (7.4-10.4); Platelet Count 420 10^3/ul (150-450); Red Blood Count 3.97 10^6/ul (4.00-5.40); Red Cell Distribution Width 14 % (10.5-15); White Blood Count 24.5 10^3/ul (3.5-10.8)
[2018-06-21 07:42] LABS: Monocytes % 8 %
[2018-06-21 07:48] LABS: ABS Neutrophils 17.4 10^3/ul (1.5-7.7)
[2018-06-21] MEDS: Insulin LISPRO* 1 UNITS UNIT SUBCUT SCH ×4 (08:40→22:16)
[2018-06-21] MEDS: Insulin GLARGINE(*) 1 UNITS UNIT SUBCUT SCH (08:40)
[2018-06-21] MEDS: Famotidine TAB* 20 MG PO SCH (08:41)
[2018-06-21] MEDS: Aspirin 81 mg CHEW TAB* 81 MG TAB.CHEW PO SCH (08:41)
[2018-06-21] MEDS: metroNIDAZOLE TAB* 250 MG PO SCH ×2 (08:41→22:16)
--- NOTE | 2018-06-21 08:57 | PN ---
Subjective Date of Service: 06/21/18 Interval History: Pt reports he feels well. He denies any fever/chills. No abdominal pain, nausea , vomiting, diarrhea. Tolerating PO well. He hopes to go home soon. We discussed the need for replacement of drain - at bedside. They agree with the plan. Objective Active Medications: Acetaminophen (Tylenol Tab*) 650 mg PO Q4H PRN PRN Reason: FEVER/PAIN Last Admin: 06/17/18 19:39 Dose: 650 mg Al Hydrox/Mg Hydrox/Simethicone (Maalox Plus*) 30 ml PO Q6H PRN PRN Reason: INDIGESTION Albuterol (Ventolin 2.5 Mg/3 Ml Neb.Freya*) 2.5 mg INH Q4H PRN PRN Reason: SOB/WHEEZING Aspirin (Aspirin 81 Mg Chew Tab*) 81 mg PO EVERY OTHER DAY [facility] Last Admin: 06/21/18 08:41 Dose: 81 mg Dextrose (D50w Syringe 50 Ml*) 12.5 gm IV PUSH .FOR FS < 60 - SS PRN PRN Reason: FS < 60 Famotidine (Pepcid Tab*) 20 mg PO DAILY [facility] Last Admin: 06/21/18 08:41 Dose: 20 mg Heparin Sodium (Porcine) (Heparin Vial(*)) 5,000 units SUBCUT Q8HR [facility] Last Admin: 06/21/18 05:52 Dose: 5,000 units Cefepime HCl (Maxipime 2 Gm In Dextrose Duplex (*)) 2 gm in 50 mls @ 100 mls/ hr IV Q24H [facility] Last Admin: 06/20/18 12:25 Dose: 100 mls/hr Insulin Glargine (Lantus(*)) 30 units SUBCUT QAM [facility] Last Admin: 06/21/18 08:40 Dose: 30 units Insulin Human Lispro (Humalog*) 0 units SUBCUT FS ACHS ICU [facility]; Protocol Last Admin: 06/21/18 08:40 Dose: 4 unit Magnesium Hydroxide (Milk Of Magnesia Liq*) 30 ml PO Q4H PRN PRN Reason: CONSTIPATION Melatonin (Melatonin) 3 mg PO BEDTIME PRN; Protocol PRN Reason: SLEEP Last Admin: 06/16/18 20:04 Dose: 3 mg Metronidazole (Flagyl Tab*) 500 mg PO BID [facility] Last Admin: 06/21/18 08:41 Dose: 500 mg Ondansetron HCl (Zofran Inj*) 4 mg IV Q6H PRN PRN Reason: NAUSEA/VOMITING Last Admin: 06/13/18 13:29 Dose: 4 mg Vital Signs - 8 hr 06/21/18 06/21/18 06/21/18 03:43 04:41 07:27 Temperature 98.6 F 97.3 F Pulse Rate 77 80 78 Respiratory 18 20 16 Rate Blood Pressure 145/76 134/58 (mmHg) O2 Sat by Pulse 96 98 98 Oximetry Oxygen Devices in Use Now: None Appearance: well developed 73 yo male sitting up in a chair A+Ox3 in NAD Eyes: No Scleral Icterus, PERRLA Ears/Nose/Mouth/Throat: Clear Oropharnyx, Mucous Membranes Moist Neck: NL Appearance and Movements; NL JVP Respiratory: Symmetrical Chest Expansion and Respiratory Effort, Clear to Auscultation Cardiovascular: NL Sounds; No Murmurs; No JVD, RRR, No Edema Abdominal: NL Sounds; No Tenderness; No Distention, - - no guarding - drain in place - no drainage noted. Extremities: No Edema, No Clubbing, Cyanosis Skin: No Rash or Ulcers, No Nodules or Sclerosis Neurological: Alert and Oriented x 3, NL Sensation, NL Gait, NL Muscle Strength and Tone Lines/Tubes/Other Access: Clean, Dry and Intact Peripheral IV, Clean, Dry and Intact Other Access - GB drain placed - small amount of bile noted in bag Result Diagrams: 06/21/18 05:49 06/21/18 05:49 Microbiology and Other Data: Microbiology 06/16/18 09:04 Aerobic Blood Culture - Preliminary Blood Venous No Growth Day 3 Anaerobic Blood Culture - Preliminary No Growth Day 3 06/16/18 09:04 Aerobic Blood Culture - Preliminary Blood Venous No Growth Day 3 Anaerobic Blood Culture - Preliminary No Growth Day 3 06/18/18 10:15 Stool Gross Appearance - Final Stool C. difficile DNA Amplification - Final 027 Presumptive NEGATIVE Toxigenic C.diff NEGATIVE Stool Lactoferrin - Final 06/13/18 23:30 Gram Stain - Final Gallbladder Fluid Body Fluid Culture - Final Citrobacter Koseri Enterococcus Faecium Escherichia Coli 06/13/18 05:57 Aerobic Blood Culture - Final Blood Venous Citrobacter Koseri Escherichia Coli Anaerobic Blood Culture - Final Citrobacter Koseri#2 Escherichia Coli 06/13/18 06:10 Aerobic Blood Culture - Final Blood Venous Citrobacter Koseri Escherichia Coli Anaerobic Blood Culture - Final Citrobacter Koseri#2 Escherichia Coli 06/13/18 09:36 Urine Culture - Final Urine No Growth (<1,000 CFU/mL) 06/13/18 20:57 Nasal Screen MRSA (PCR) - Final Nasal Mrsa Not Detected Diagnostic Imaging: Patient Name: MARIELA MICHAUD Medical Record#: [id number] Ordering Physician: Velma Rosas BILLING CONTROL CLERK Acct.#: [id number] : 1945 Age: 73 Sex: M Location: SURGICAL STAY UNIT Exam Date: 06/20/18 1258 ADM Status: ADM IN Order Information: US GALL BLADDER Accession Number: [id number] CPT: 93900 Indication: Leukocytosis. Real-time sonography of the right upper quadrant was performed. The liver is enlarged measuring 22 cm in length. It is diffusely increased in echogenicity consistent with hepatic steatosis. There may be an area of focal fatty sparing adjacent to the gallbladder fossa. The previously identified cholecystostomy tube is now present. The gallbladder demonstrates multiple gallstones with gallbladder wall thickening measuring up to 6 mm. Common duct measures up to 0.4 cm. The right kidney measures 12.8 x 5.5 x 5.6 cm. No hydronephrosis is noted. Evaluation of the pancreas is limited. Aorta and inferior vena cava are otherwise unremarkable. IMPRESSION: Enlarged echogenic liver consistent with hepatic steatosis. There is thickened gallbladder wall with cholelithiasis. Previously identified cholecystostomy tube is not identified. Underlying infection is not excluded. <Electronically signed by Dorota Barriga MD in [place]> 06/20/18 154 Dictated By: Dorota Barriga MD Dictated Date/Time: 06/20/181542 Transcribed Date/Time: 06/20/18 1538 Copy to: Assess/Plan/Problems-Billing Assessment: 72y M w/pmhx of DM, Bicuspid aortic valve; presenting to the ER 06/13 by for abd pain x6 days with concurrent nausea/vomiting, diagnosed with acute calculous cholecystitis on CT imaging. Hospital course complicated by fever, tachycardia, hypotension, respiratory distress, started on sepsis protocol, and IV pressors. Percutaneous rene drain placed in 06/13 by IR. Patient now improving. - Patient Problems (1) Acute calculous cholecystitis Comment: - Perc drain placed but not identified on US yesterday - Surgery and ID following - Will need cholecystectomy in a 6-8 weeks - will need cardiac work-up prior to surgery - Continue cefepime and flagyl as per ID - Plan for reinsertion today - NPO - last dose of heparin at 0600 and was given baby ASA this am - discussed with radiology practitioner assistant. (2) Septic shock Comment: - Ecoli and citrobacter bacteremia, now resolved - repeat BC negative - Required pressors in ICU - Subsequent respiratory failure, renal failure and acute heart failure all resolving - DC lasix, patient euvolemic - Now on room air - Continue atbx as per ID (3) JUAN (acute kidney injury) Comment: - In setting of septic shock/hypoperfusion with pulmonary edema - Follow renal function, beginning to trend down - Lasix DCd (4) Diabetes Comment: - Sugars improving - continue lantus, continue lispro SS - Consider consult with endocrine before discharge to plan outpatient diabetes management (5) Full code status (6) DVT prophylaxis Comment: - Continue heparin SQ - hold HSQ for IR procedure Status and Disposition: Inpatient, plan for DC to home when clinically stable.
--- NOTE | 2018-06-21 10:09 | PN ---
Progress Note - Progress Note Date of Service: 06/21/18 SOAP: Subjective: Feeling well. Denies N/V/abd pain. NPO now in anticipation of perc drain. Objective: Vital Signs Temp 97.3 F 06/21/18 07:27 Pulse 78 06/21/18 07:27 Resp 16 06/21/18 08:00 BP 134/58 06/21/18 07:27 Pulse Ox 98 06/21/18 07:27 Gen: sitting in chair; NAD. Abd: Obese, soft, NT, no mass; drain in RUQ c\ bile in bag. US images reviewed and drain not visible. Intake & Output 06/20/18 06/21/18 06/21/18 18:59 06:59 18:59 Intake Total 440 1160 Output Total 350 Balance 440 810 Intake: Oral 440 1160 Output: Urine 350 Other: Estimated Void Medium Small # Voids 3 1 Laboratory Results - last 24 hr 06/20/18 06/20/18 06/20/18 12:55 16:53 21:11 WBC RBC Hgb Hct MCV MCH MCHC RDW Plt Count MPV Neut % (Auto) Lymph % (Auto) Haakon % (Auto) Eos % (Auto) Baso % (Auto) Absolute Neuts (auto) Absolute Lymphs (auto) Absolute Monos (auto) Absolute Eos (auto) Absolute Basos (auto) Absolute Nucleated RBC Immature Gran % Neutrophils % Band Neutrophils % Lymphocytes % Monocytes % Eosinophils % Metamyelocytes % Myelocytes % Nucleated RBC % Abs Neuts (Manual) Abs Lymphs (Manual) Abs Monocytes (Manual) Absolute Eos (Manual) Normal RBC Morphology Sodium Potassium Chloride Carbon Dioxide Anion Gap BUN Creatinine Est GFR ( Amer) Est GFR (Non-Af Amer) BUN/Creatinine Ratio Glucose POC Glucose (mg/dL) 291 H 259 H 276 H Calcium Total Bilirubin AST ALT Alkaline Phosphatase Total Protein Albumin Globulin Albumin/Globulin Ratio 06/21/18 06/21/18 06/21/18 05:49 05:49 07:56 WBC 24.5 H RBC 3.97 L Hgb 11.2 L Hct 34 L MCV 84 MCH 28 MCHC 33 RDW 14 Plt Count 420 MPV 8.6 Neut % (Auto) Not Reportable Lymph % (Auto) Not Reportable Haakon % (Auto) Not Reportable Eos % (Auto) Not Reportable Baso % (Auto) Not Reportable Absolute Neuts (auto) Not Reportable Absolute Lymphs (auto) Not Reportable Absolute Monos (auto) Not Reportable Absolute Eos (auto) Not Reportable Absolute Basos (auto) Not Reportable Absolute Nucleated RBC Not Reportable Immature Gran % 10 H Neutrophils % 71 Band Neutrophils % 1 Lymphocytes % 10 Monocytes % 8 Eosinophils % 1 Metamyelocytes % 4 H Myelocytes % 5 H Nucleated RBC % Not Reportable Abs Neuts (Manual) 17.4 H Abs Lymphs (Manual) 2.5 Abs Monocytes (Manual) 2.0 H Absolute Eos (Manual) 0.2 Normal RBC Morphology Normal Sodium 139 Potassium 4.1 Chloride 109 Carbon Dioxide 21 L Anion Gap 9 BUN 90 H Creatinine 2.74 H Est GFR ( Amer) 27.8 Est GFR (Non-Af Amer) 23.0 BUN/Creatinine Ratio 32.8 H Glucose 215 H POC Glucose (mg/dL) 218 H Calcium 7.9 L Total Bilirubin 0.60 AST 12 L ALT 18 Alkaline Phosphatase 69 Total Protein 5.2 L Albumin 2.4 L Globulin 2.8 Albumin/Globulin Ratio 0.9 L Assessment: Acute calculous cholecystitis, sepsis=> better after perc drain. Incr WBCs over past few days likely due to drain having been displaced from GB. Non- toxic. Plan: Perc drain to be replaced today. Home with drain when able, on abx as per ID. Outpatient f/u at [facility] 1 week after d/c; for consideration of lap rene (6- 8weeks). Decision on surgery will depend on Cardiac testing/eval.
[2018-06-21 11:23] LABS: INR 1.11 (0.77-1.02)
[2018-06-21] MEDS: Cefepime 2 GM in Dextrose(*) 2 GM/50 ML BAG IV SCH (11:25)
[2018-06-21] MEDS ORDERED: Midazolam* 1 MG/ML 2 ML VIAL (2 MG) ONE (12:51)
[2018-06-21] MEDS ORDERED: fentaNYL* 50 MCG/ML 2 ML VIAL (100 MCG VIAL) ONE (12:51)
[2018-06-21] MEDS ORDERED: ceFAZolin 1 GM* X ONE DOSE (AddVan) IVPB ×2 (15:00)
[2018-06-22 06:10] LABS: Hematocrit 34 % (42-52); Hemoglobin 11.2 g/dl (14.0-18.0); Mean Corpuscular HGB Conc 33 g/dl (31-36); Mean Corpuscular Hemoglobin 28 pg (27-31); Mean Corpuscular Volume 85 fL (80-94); Mean Platelet Volume 8.5 fL (7.4-10.4); Platelet Count 461 10^3/ul (150-450); Red Blood Count 3.94 10^6/ul (4.00-5.40); Red Cell Distribution Width 14 % (10.5-15); White Blood Count 24.1 10^3/ul (3.5-10.8)
[2018-06-22 06:26] LABS: EGFR Non-African American 30.9 (>60)
[2018-06-22 06:49] LABS: ABS Basophils 0.1 10^3/ul (0-0.2); ABS Eosinophils 0.4 10^3/ul (0-0.6); ABS Lymphocytes 2.3 10^3/ul (1.0-4.8); ABS Monocytes 1.5 10^3/ul (0-0.8); ABS Neutrophils 19.8 10^3/ul (1.5-7.7); ABS Nucleated RBC 0 10^3/ul; Eosinophil % 1.7 %; Lymphocyte % 9.7 %; Nucleated Red Blood Cells % 0
[2018-06-22] MEDS: Insulin LISPRO* 1 UNITS UNIT SUBCUT SCH ×4 (08:43→21:06)
[2018-06-22] MEDS: metroNIDAZOLE TAB* 250 MG PO SCH ×2 (08:44→21:05)
[2018-06-22] MEDS: Insulin GLARGINE(*) 1 UNITS UNIT SUBCUT SCH (08:44)
[2018-06-22] MEDS: Famotidine TAB* 20 MG PO SCH (08:45)
--- NOTE | 2018-06-22 09:11 | PN ---
Subjective Date of Service: 06/22/18 Interval History: Patient reports he slept well and feels good this morning. He has some "mild tenderness" to RUQ where the drain was replaced but otherwise states he is doing well. Reports noted light brown drainage from bag. Good appetite. Denies any fever/chills. No nausea/vomiting/diarrhea. feels steady on his feet Objective Active Medications: Acetaminophen (Tylenol Tab*) 650 mg PO Q4H PRN PRN Reason: FEVER/PAIN Last Admin: 06/17/18 19:39 Dose: 650 mg Al Hydrox/Mg Hydrox/Simethicone (Maalox Plus*) 30 ml PO Q6H PRN PRN Reason: INDIGESTION Albuterol (Ventolin 2.5 Mg/3 Ml Neb.Freya*) 2.5 mg INH Q4H PRN PRN Reason: SOB/WHEEZING Aspirin (Aspirin 81 Mg Chew Tab*) 81 mg PO EVERY OTHER DAY [facility] Last Admin: 06/21/18 08:41 Dose: 81 mg Dextrose (D50w Syringe 50 Ml*) 12.5 gm IV PUSH .FOR FS < 60 - SS PRN PRN Reason: FS < 60 Famotidine (Pepcid Tab*) 20 mg PO DAILY [facility] Last Admin: 06/22/18 08:45 Dose: 20 mg Cefepime HCl (Maxipime 2 Gm In Dextrose Duplex (*)) 2 gm in 50 mls @ 100 mls/ hr IV Q24H [facility] Last Admin: 06/21/18 11:25 Dose: 100 mls/hr Insulin Glargine (Lantus(*)) 30 units SUBCUT QAM [facility] Last Admin: 06/22/18 08:44 Dose: 30 units Insulin Human Lispro (Humalog*) 0 units SUBCUT FS ACHS ICU [facility]; Protocol Last Admin: 06/22/18 08:43 Dose: 2 unit Magnesium Hydroxide (Milk Of Magnesia Liq*) 30 ml PO Q4H PRN PRN Reason: CONSTIPATION Melatonin (Melatonin) 3 mg PO BEDTIME PRN; Protocol PRN Reason: SLEEP Last Admin: 06/16/18 20:04 Dose: 3 mg Metronidazole (Flagyl Tab*) 500 mg PO BID [facility] Last Admin: 06/22/18 08:44 Dose: 500 mg Ondansetron HCl (Zofran Inj*) 4 mg IV Q6H PRN PRN Reason: NAUSEA/VOMITING Last Admin: 06/13/18 13:29 Dose: 4 mg Vital Signs - 8 hr 06/22/18 06/22/18 06/22/18 03:09 04:25 08:00 Temperature 98.7 F Pulse Rate 76 74 Respiratory 22 16 16 Rate Blood Pressure 145/70 (mmHg) O2 Sat by Pulse 96 100 100 Oximetry 06/22/18 08:06 Temperature 97.3 F Pulse Rate 72 Respiratory 17 Rate Blood Pressure 144/66 (mmHg) O2 Sat by Pulse 98 Oximetry Oxygen Devices in Use Now: None Appearance: 73 yo male A+O x3 in NAD Eyes: No Scleral Icterus, PERRLA Ears/Nose/Mouth/Throat: NL Teeth, Lips, Gums, Mucous Membranes Moist Respiratory: Symmetrical Chest Expansion and Respiratory Effort, Clear to Auscultation Cardiovascular: NL Sounds; No Murmurs; No JVD, RRR, - - trace edema to feet b/l Abdominal: - - obese, round abdomen, drain noted in RUQ draining light brown fluid, no noted blood or exudate. Soft, mild tenderness around drain site. No erythema noted around site. dressing CD+I. Extremities: No Edema, No Clubbing, Cyanosis Neurological: Alert and Oriented x 3, NL Muscle Strength and Tone Lines/Tubes/Other Access: Clean, Dry and Intact Peripheral IV, Clean, Dry and Intact Other Access - GB drain - see above Nutrition: Taking PO's Result Diagrams: 06/22/18 05:40 06/22/18 05:40 Microbiology and Other Data: Microbiology 06/16/18 09:04 Aerobic Blood Culture - Preliminary Blood Venous No Growth Day 3 Anaerobic Blood Culture - Preliminary No Growth Day 3 06/16/18 09:04 Aerobic Blood Culture - Preliminary Blood Venous No Growth Day 3 Anaerobic Blood Culture - Preliminary No Growth Day 3 06/18/18 10:15 Stool Gross Appearance - Final Stool C. difficile DNA Amplification - Final 027 Presumptive NEGATIVE Toxigenic C.diff NEGATIVE Stool Lactoferrin - Final 06/13/18 23:30 Gram Stain - Final Gallbladder Fluid Body Fluid Culture - Final Citrobacter Koseri Enterococcus Faecium Escherichia Coli 06/13/18 05:57 Aerobic Blood Culture - Final Blood Venous Citrobacter Koseri Escherichia Coli Anaerobic Blood Culture - Final Citrobacter Koseri#2 Escherichia Coli 06/13/18 06:10 Aerobic Blood Culture - Final Blood Venous Citrobacter Koseri Escherichia Coli Anaerobic Blood Culture - Final Citrobacter Koseri#2 Escherichia Coli 06/13/18 09:36 Urine Culture - Final Urine No Growth (<1,000 CFU/mL) 06/13/18 20:57 Nasal Screen MRSA (PCR) - Final Nasal Mrsa Not Detected Diagnostic Imaging: Patient Name: MARIELA MICHAUD Medical Record#: [id number] Ordering Physician: Velma Rosas NP Acct.#: [id number] : 1945 Age: 73 Sex: M Location: SURGICAL STAY UNIT Exam Date: 06/20/18 1258 ADM Status: ADM IN Order Information: GALL BLADDER Accession Number: [id number] CPT: 55702 Indication: Leukocytosis. Real-time sonography of the right upper quadrant was performed. The liver is enlarged measuring 22 cm in length. It is diffusely increased in echogenicity consistent with hepatic steatosis. There may be an area of focal fatty sparing adjacent to the gallbladder fossa. The previously identified cholecystostomy tube is now present. The gallbladder demonstrates multiple gallstones with gallbladder wall thickening measuring up to 6 mm. Common duct measures up to 0.4 cm. The right kidney measures 12.8 x 5.5 x 5.6 cm. No hydronephrosis is noted. Evaluation of the pancreas is limited. Aorta and inferior vena cava are otherwise unremarkable. IMPRESSION: Enlarged echogenic liver consistent with hepatic steatosis. There is thickened gallbladder wall with cholelithiasis. Previously identified cholecystostomy tube is not identified. Underlying infection is not excluded. <Electronically signed by Dorota Barriga MD in OV> 06/20/18 1543 Dictated By: Dorota Barriga MD Dictated Date/Time: 06/20/18 1543 Transcribed Date/Time: 06/20/18 1538 Copy to: Assess/Plan/Problems-Billing Assessment: 72y M w/pmhx of DM, Bicuspid aortic valve; presenting to the ER 06/13 by for abd pain x6 days with concurrent nausea/vomiting, diagnosed with acute calculous cholecystitis on CT imaging. Hospital course complicated by fever, tachycardia, hypotension, respiratory distress, started on sepsis protocol, and IV pressors. Percutaneous rene drain placed in 06/13 by IR. Patient now improving. - Patient Problems (1) Acute calculous cholecystitis Comment: - Perc drain placed replaced yesterday by IR - now draining - Surgery and ID following - Will need cholecystectomy in a 6-8 weeks - will need cardiac work-up prior to surgery - Continue cefepime and flagyl as per ID; at dischargeAugmentin 500 BID x 14 days - Pt to f/u in surgical office in 1-2 weeks. (2) Septic shock Comment: - Ecoli and citrobacter bacteremia, now resolved - repeat BC negative - Required pressors in ICU - Subsequent respiratory failure, renal failure and acute heart failure all resolving - DC lasix, patient euvolemic - Now on room air - Continue atbx as per ID (3) JUAN (acute kidney injury) Comment: - In setting of septic shock/hypoperfusion with pulmonary edema - Follow renal function, beginning to trend down - Lasix DCd (4) Diabetes Comment: - Sugars improving - continue lantus, continue lispro SS (5) Full code status (6) DVT prophylaxis Comment: - Continue heparin SQ Status and Disposition: Inpatient, plan for DC to home when clinically stable, tentative plan for DC tomorrow
[2018-06-22] MEDS: Cefepime 2 GM in Dextrose(*) 2 GM/50 ML BAG IV SCH (11:47)
[2018-06-22] MEDS: Heparin VIAL(*) 5000 UNITS/ML VIAL (FIVE THOUSAND) SUBCUT SCH ×2 (12:46→21:07)
[2018-06-23 06:15] LABS: Hematocrit 34 % (42-52); Hemoglobin 11.1 g/dl (14.0-18.0); Mean Corpuscular HGB Conc 33 g/dl (31-36); Mean Corpuscular Hemoglobin 28 pg (27-31); Mean Corpuscular Volume 85 fL (80-94); Mean Platelet Volume 8.3 fL (7.4-10.4); Platelet Count 473 10^3/ul (150-450); Red Blood Count 3.98 10^6/ul (4.00-5.40); Red Cell Distribution Width 14 % (10.5-15); White Blood Count 20.2 10^3/ul (3.5-10.8)
[2018-06-23 06:29] LABS: EGFR Non-African American 35.9 (>60)
[2018-06-23 07:12] LABS: ABS Basophils 0.1 10^3/ul (0-0.2); ABS Eosinophils 0.4 10^3/ul (0-0.6); ABS Lymphocytes 2.1 10^3/ul (1.0-4.8); ABS Monocytes 1.4 10^3/ul (0-0.8); ABS Neutrophils 16.2 10^3/ul (1.5-7.7); ABS Nucleated RBC 0 10^3/ul; Eosinophil % 1.9 %; Lymphocyte % 10.6 %; Nucleated Red Blood Cells % 0
[2018-06-23] MEDS: Famotidine TAB* 20 MG PO SCH (08:35)
[2018-06-23] MEDS: Aspirin 81 mg CHEW TAB* 81 MG TAB.CHEW PO SCH (08:35)
[2018-06-23] MEDS: metroNIDAZOLE TAB* 250 MG PO SCH (08:36)
[2018-06-23] MEDS: Insulin LISPRO* 1 UNITS UNIT SUBCUT SCH ×2 (09:29→13:27)
[2018-06-23] MEDS: Insulin GLARGINE(*) 1 UNITS UNIT SUBCUT SCH (09:30)
[2018-06-23] MEDS: Heparin VIAL(*) 5000 UNITS/ML VIAL (FIVE THOUSAND) SUBCUT SCH (09:31)
--- NOTE | 2018-06-23 12:03 | PN ---
Progress Note - Progress Note Date of Service: 06/23/18 SOAP: Subjective:S/P ultrasound guided percutaneous cholecystostomy for acute calculous cholecystitis with sepsis feels well,wants to go home,no abd pain [] Objective:afeb;VSS;abd:+bs,large,soft;percutaneous drain RUQ patent with clear yellow fluid;nontender [] Assessment:stable for discharge from surgical standpoint [] Plan:pt instructed and is comfortable in method of flushing drain bid;VNS will be involved followup ov 06/29/[address] Griffith discharge per Hospitalist service today;I spoke with YOON Marina []
[2018-06-23] MEDS: Cefepime 2 GM in Dextrose(*) 2 GM/50 ML BAG IV SCH (12:19)
[2018-06-23 12:37] VITALS: BP 133/53
--- NOTE | 2018-06-23 13:14 | DCNOTE ---
Subjective Date of Service: 06/23/18 Interval History: . Patient reports he is ready to go home. He states he feels well. He denies any pain. No fevers or chills. Discussed DC plan. Objective Active Medications: Acetaminophen (Tylenol Tab*) 650 mg PO Q4H PRN PRN Reason: FEVER/PAIN Last Admin: 06/17/18 19:39 Dose: 650 mg Al Hydrox/Mg Hydrox/Simethicone (Maalox Plus*) 30 ml PO Q6H PRN PRN Reason: INDIGESTION Albuterol (Ventolin 2.5 Mg/3 Ml Neb.Freya*) 2.5 mg INH Q4H PRN PRN Reason: SOB/WHEEZING Aspirin (Aspirin 81 Mg Chew Tab*) 81 mg PO EVERY OTHER DAY [facility] Last Admin: 06/23/18 08:35 Dose: 81 mg Dextrose (D50w Syringe 50 Ml*) 12.5 gm IV PUSH .FOR FS < 60 - SS PRN PRN Reason: FS < 60 Famotidine (Pepcid Tab*) 20 mg PO DAILY [facility] Last Admin: 06/23/18 08:35 Dose: 20 mg Heparin Sodium (Porcine) (Heparin Vial(*)) 5,000 units SUBCUT Q12HR [facility] Last Admin: 06/23/18 09:31 Dose: Not Given Cefepime HCl (Maxipime 2 Gm In Dextrose Duplex (*)) 2 gm in 50 mls @ 100 mls/ hr IV Q24H [facility] Last Admin: 06/23/18 12:19 Dose: 100 mls/hr Insulin Glargine (Lantus(*)) 30 units SUBCUT QAM [facility] Last Admin: 06/23/18 09:30 Dose: 30 units Insulin Human Lispro (Humalog*) 0 units SUBCUT FS ACHS ICU [facility]; Protocol Last Admin: 06/23/18 09:29 Dose: 2 unit Magnesium Hydroxide (Milk Of Magnesia Liq*) 30 ml PO Q4H PRN PRN Reason: CONSTIPATION Melatonin (Melatonin) 3 mg PO BEDTIME PRN; Protocol PRN Reason: SLEEP Last Admin: 06/16/18 20:04 Dose: 3 mg Metronidazole (Flagyl Tab*) 500 mg PO BID [facility] Last Admin: 06/23/18 08:36 Dose: 500 mg Ondansetron HCl (Zofran Inj*) 4 mg IV Q6H PRN PRN Reason: NAUSEA/VOMITING Last Admin: 06/13/18 13:29 Dose: 4 mg Vital Signs - 8 hr 06/23/18 06/23/18 06/23/18 07:39 08:00 11:36 Temperature 98.0 F 97.5 F Pulse Rate 72 65 Respiratory 17 17 18 Rate Blood Pressure 140/68 133/53 (mmHg) O2 Sat by Pulse 97 97 99 Oximetry Oxygen Devices in Use Now: None Appearance: 73 yo male sitting up in a chair dressed A+O x3 in NAD Eyes: No Scleral Icterus, PERRLA Ears/Nose/Mouth/Throat: NL Teeth, Lips, Gums, Mucous Membranes Moist Neck: NL Appearance and Movements; NL JVP Respiratory: Symmetrical Chest Expansion and Respiratory Effort, Clear to Auscultation Abdominal: - - obese, soft, drain intact draining straw color fluid - no erythema surround drain insertion site Skin: No Rash or Ulcers, No Nodules or Sclerosis Neurological: Alert and Oriented x 3, NL Muscle Strength and Tone Lines/Tubes/Other Access: Clean, Dry and Intact Peripheral IV Nutrition: Taking PO's Result Diagrams: 06/23/18 05:53 06/23/18 05:53 Microbiology and Other Data: Microbiology 06/16/18 09:04 Aerobic Blood Culture - Preliminary Blood Venous No Growth Day 3 Anaerobic Blood Culture - Preliminary No Growth Day 3 06/16/18 09:04 Aerobic Blood Culture - Preliminary Blood Venous No Growth Day 3 Anaerobic Blood Culture - Preliminary No Growth Day 3 06/18/18 10:15 Stool Gross Appearance - Final Stool C. difficile DNA Amplification - Final 027 Presumptive NEGATIVE Toxigenic C.diff NEGATIVE Stool Lactoferrin - Final 06/13/18 23:30 Gram Stain - Final Gallbladder Fluid Body Fluid Culture - Final Citrobacter Koseri Enterococcus Faecium Escherichia Coli 06/13/18 05:57 Aerobic Blood Culture - Final Blood Venous Citrobacter Koseri Escherichia Coli Anaerobic Blood Culture - Final Citrobacter Koseri#2 Escherichia Coli 06/13/18 06:10 Aerobic Blood Culture - Final Blood Venous Citrobacter Koseri Escherichia Coli Anaerobic Blood Culture - Final Citrobacter Koseri#2 Escherichia Coli 06/13/18 09:36 Urine Culture - Final Urine No Growth (<1,000 CFU/mL) 06/13/18 20:57 Nasal Screen MRSA (PCR) - Final Nasal Mrsa Not Detected Assess/Plan/Problems-Billing Assessment: 72y M w/pmhx of DM, Bicuspid aortic valve; presenting to the ER 06/13 by for abd pain x6 days with concurrent nausea/vomiting, diagnosed with acute calculous cholecystitis on CT imaging. Hospital course complicated by fever, tachycardia, hypotension, respiratory distress, started on sepsis protocol, and IV pressors. Percutaneous rene drain placed in 06/13 by IR, replced on 06/21. Patient now improving and stable to go home. - Patient Problems (1) Acute calculous cholecystitis Comment: - Perc drain placed replaced 06/21 by IR - draining well - Surgery and ID following - surgery gave DC instructions today - will follow up with surgery next week - Will most likely need cholecystectomy in a 6-8 weeks - will need cardiac work-up prior to surgery - Per ID Augmentin 500 BID x 14 days (2) Septic shock Comment: - Ecoli and citrobacter bacteremia, now resolved - repeat BC negative - Required pressors in ICU - Subsequent respiratory failure, renal failure and acute heart failure all resolving - DC lasix, patient euvolemic - Now on room air - Continue atbx as per ID (3) JUAN (acute kidney injury) Comment: - In setting of septic shock/hypoperfusion with pulmonary edema - Follow renal function, beginning to trend down - Lasix DCd (4) Diabetes Comment: - Sugars improving - continue lantus, continue lispro SS (5) Full code status (6) DVT prophylaxis Comment: - Continue heparin SQ Status and Disposition: Inpatient, plan for DC home today
--- NOTE | 2018-06-26 11:11 | DS ---
DISCHARGE SUMMARY: DATE OF ADMISSION: 06/13/18. DATE OF DISCHARGE: 06/23/18 PROVIDER: Tonio Perez NP ATTENDING PHYSICIAN: Dr. Marcos * (report dictated by Eron Perez NP). PRIMARY CARE DOCTOR: No primary care doctor. The patient has been referred to [facility]. CONSULTING SURGEON: Dr. Griffith. CONSULTING PROCUREMENT TECHNICIAN: Dr. Bain. DISCHARGE DIAGNOSES: 1. Septic shock secondary to acute cholecystitis with E. coli and Citrobacter bacteremia requiring IV vasopressors. 2. Status post percutaneous drain placed by Interventional Radiology. 3. Acute hypoxic respiratory failure. 4. Acute renal failure. 5. Acute congestive heart failure. SECONDARY DIAGNOSES: 1. Type 2 diabetes. 2. Bicuspid aortic valve. HISTORY OF PRESENT ILLNESS AND HOSPITAL COURSE: Please see history and physical by Dr. Marcos, for full admission details, but in summary, this is a 72- year-old male with a past medical history of diabetes and bicuspid aortic valve , who stated that on Thanksgiving dinner approximately 5 days ago, he had rolled shrimp, he got sick and threw up 4 to 5 times on the Tuesday after Thanksgiving dinner, but he reports that he did feel recovered. He then went back to the same home to be a guest for another family dinner on Tuesday and ate a rolled shrimp again and noticed since then he has been having abdominal cramping and intractable nausea and vomiting. He reported that he vomited for 2 days and then with dry heaving and came into the emergency department for further evaluation. He also reported he has been having loose bowel movements, but denied diarrhea. He was noted to have acute renal failure on admission, thought to be secondary to dehydration, presenting creatinine of 2.19 on admission. He also noted to have a lactic acid of 2.4 and was found to be hyponatremic with a sodium of 128. He had a C-reactive protein of 370 and a leukocytosis of 18.9. It was thought initially the patient had severe sepsis, likely related to the gastrointestinal infection. On admission, the patient's abdominal tenderness was minimal. On admission CT of the abdomen, it showed a ruptured gallbladder, but thought maybe it was not entirely correct and then gallbladder ultrasound was obtained showing thickened gallbladder wall and gallbladder stones, thought possibly he had cholecystitis, although his liver function tests were not indicative of acute cholecystitis and he again was noted to have minimal tenderness on exam. Surgical consult was placed in which he was seen on the day of admission by JARRED Moreira, who did think that possibly most likely the patient had acute cholecystitis due to the sepsis as well as the patient had a troponin on admission of 0.51. The recommendation was for a percutaneous drain to be placed. The patient was reevaluated by surgeon, Dr. Griffith, the evening on the day of admission. At that point, the patient seemed to improve after initial antibiotics and resuscitation; however, the patient started to clinically deteriorate and Dr. Griffith felt that the patient needed an IR guided percutaneous drain placed, which was done by Dr. Brito, radiologist, in the ICU at the bedside. It was felt that the patient required intubation due to his tenuous respiratory status. The patient required Levophed overnight, however, this was titrated off by the next morning. The patient remained intubated due to metabolic demands and tachypnea and ABG showing more metabolic acidosis with some respiratory compensation. The patient was given fluid resuscitation and broad-spectrum antibiotics. Max temp of 103. Blood culture did result with 2/2 cultures positive for Citrobacter and E. coli. Diaphragm Builder, Dr. Hawkins, took over of the patient's medical care. He was able to be extubated on 06/15/18 and continued to have good clinical improvement. The patient was high flow oxygen for several days; however, this was able to be titrated down. It was felt that the patient's percutaneous drain had been possibly pulled and was out of place as it was noted not be draining. On 06/21/18, he underwent a catheter patency by Dr. Kelvin Vizcarra, interventional radiologist, who pulled the drain and replaced the biliary drain. The patient since has been having small amount of bile- appearing drain. The patient was transferred to the medical floor on 06/19/18 and has done very well with no further fevers. Leukocytosis trending down, today on discharge his white count of 16.9. His creatinine has greatly improved over hospitalization, it peaked at 4.82 and is down to 1.86, which is still above his baseline, but much improved. Clinically, the patient has been doing extremely well. He reports overall, he initially did not even feel that he was that sick and reports that he has not been feeling "that terrible" throughout his hospitalization. He appears nontoxic. He has been ambulating around the unit and has remained hemodynamically stable. He was seen in consultation by Infectious Disease, Dr. Watkins, who recommended discharging home on Augmentin 500 mg p.o. b.i.d. x14 days. Please note, his repeat blood cultures did result as negative. In regards to the patient's acute respiratory failure, he did receive multiple doses of IV Lasix, it is possible there was a combination of some heart failure. He did undergo a transthoracic echocardiogram, which showed conclusion , "mild concentric left ventricular hypertrophy is observed. Mild global hypokinesis of the left ventricle observed. There is mild decreased left ventricular systolic function. The estimated EF is 40% to 45%. There is left ventricular septal wall motion abnormality observed possibly due to the presence of left bundle branch block. The right ventricular chamber size and systolic functions are within normal limits. The aortic valve appears bicuspid. There is no evidence of aortic regurgitation. Mild aortic stenosis. No evidence of mitral regurgitation. Trace tricuspid regurgitation. There is no significant pericardial fusion. Compared to the study of 10/25/14, there is little change. There is concern that the patient initially having elevated an troponin on admission of 0.51, however, within an hour and a half it was down to 0.11, it is possible that the initial one was incorrect. The patient was seen in consultation by manufacturing millwright, Dr. Bain, who felt that the patient should undergo a cardiac nuclear stress test. However, due to his critical state, the patient did not undergo cardiac nuclear stress test throughout his hospitalization and this was recommended that he undergo a cardiac nuclear stress as an outpatient prior to having his gallbladder removed. The patient is to follow up with Dr. Griffith as an outpatient. He was seen by Macey Padilla, Surgical UROLOGY PHYSICIAN, who provided education and teaching regarding the patient going home with percutaneous drain. The patient has a followup appointment on 06/29/[address] Griffith. The patient was instructed to call Dr. Bain's office for followup appointment as he will need a cardiac stress test prior to surgery. This could also be set up by the primary care provider. Due to not having a primary care physician, he has been set up with [facility] for follow up. The [facility] will call him with the date and time. The patient's primary care provider used to be Dr. Papi Kaiser who has recently retired. DISCHARGE MEDICATIONS: 1. Aspirin 81 mg p.o. daily. 2. Metformin 1000 mg p.o. b.i.d. (Please note that this is increased from 500 mg p.o. b.i.d.) 3. Glipizide 5 mg p.o. b.i.d. 4. Pepcid 20 mg p.o. daily. 5. Augmentin 500 mg p.o. b.i.d. x 14 days. DISCHARGE PLAN: 1. [facility] will call the patient for followup appointment. 2. Follow up with Dr. Griffith, [facility], at scheduled appointment time as stated above. 3. The patient will need an outpatient cardiac nuclear stress test to be scheduled prior to surgery. Surgery will be planned for 6 to 8 weeks per [facility]. 4. The patient and his were given instructions for care for the percutaneous drain, which includes normal saline 10 mL flushes up to twice a day. 5. The patient was instructed to return to the emergency department with any further worsening symptoms. TIME SPENT: Approximately 60 minutes were spent on this discharge. ERON PEREZ NP [id number]/[facility] #: [id number] TEJA
== END 2018-06-23 15:00 | disposition home health service (06) | DRG 853 ==
LOC: ED 05:30 → MEDTELE 09:14 → ICU 20:22 → SSU 06-18 21:47
PROVIDERS: ADMIT Internal Medicine; ATTEND Internal Medicine Critical Care Medicine
PROC: 0BH17EZ Insertion of Endotracheal Airway into Trachea, Via Natural or Artificial Opening (ICD-10-PCS; principal; 2018-06-13)
PROC: 3E033XZ Introduction of Vasopressor into Peripheral Vein, Percutaneous Approach (ICD-10-PCS; 2018-06-13)
PROC: 0F9430Z Drainage of Gallbladder with Drainage Device, Percutaneous Approach (ICD-10-PCS; 2018-06-13)
PROC: 5A1945Z Respiratory Ventilation, 24-96 Consecutive Hours (ICD-10-PCS; 2018-06-13)
PROC: 0FP430Z Removal of Drainage Device from Gallbladder, Percutaneous Approach (ICD-10-PCS; 2018-06-16)
PROC: 0BP1XDZ Removal of Intraluminal Device from Trachea, External Approach (ICD-10-PCS; 2018-06-16)
PROC: 5A09357 Assistance with Respiratory Ventilation, Less than 24 Consecutive Hours, Continuous Positive Airway Pressure (ICD-10-PCS; 2018-06-16)
PROC: 0F9430Z Drainage of Gallbladder with Drainage Device, Percutaneous Approach (ICD-10-PCS; 2018-06-21)
DX: A41.81 Sepsis due to Enterococcus (principal); R65.21 Severe sepsis with septic shock; J96.01 Acute respiratory failure with hypoxia; I50.43 Acute on chronic combined systolic (congestive) and diastolic (congestive) heart failure; N17.9 Acute kidney failure, unspecified; E87.1 Hypo-osmolality and hyponatremia; K80.00 Calculus of gallbladder with acute cholecystitis without obstruction; E87.2 Acidosis; K80.51 Calculus of bile duct without cholangitis or cholecystitis with obstruction; J81.1 Chronic pulmonary edema; E11.9 Type 2 diabetes mellitus without complications; E86.0 Dehydration; E83.42 Hypomagnesemia; E66.9 Obesity, unspecified; D69.6 Thrombocytopenia, unspecified; I35.0 Nonrheumatic aortic (valve) stenosis; R40.2414 Glasgow coma scale score 13-15, 24 hours or more after hospital admission; Z82.49 Family history of ischemic heart disease and other diseases of the circulatory system; Z83.3 Family history of diabetes mellitus; Z98.42 Cataract extraction status, left eye; Z98.41 Cataract extraction status, right eye; Z68.36 Body mass index [BMI] 36.0-36.9, adult
CPT/HCPCS: 36415; 36598; 36600; 47533; 49406; 71045; 71046; 74018; 74150; 74176; 76705; 80048; 80053; 80076; 81003; 81015; 82150; 82247; 82248; 82550; 82803; 82947; 83036; 83605; 83630; 83690; 83735; 84484; 85025; 85027; 85060; 85610; 85730; 86140; 87040; 87045; 87046; 87070; 87077; 87086; 87186; 87205; 87493; 87641; 87899; 93005; 93306; 94002; 94003; 94660; 99156; 99157; 99283; A9270-GY; G8978-GP-CI; G8979-GP-CI; G8980-GP-CI; G8987-GO-CI; G8988-GO-CI; G8989-GO-CI; J0330; J0690; J0692; J0696; J0744; J1644; J1940; J2250; J2270; J2405; J2543; J2704; J3010; J3475; J3480; J7060; Q9967

== ENCOUNTER 2018-07-14 12:00 | Observation (INO) | payer MEDICARE ==
[~2018-07-14 12:00] MED LIST: Buffered Lidocaine 0.9% SYRIN* 5 ML/SYR SYRINGE INTRADERM ONE
[2018-07-14] MEDS ORDERED: Lidocaine 2% PF * 5 ML VIAL ONE (13:57)
[2018-07-14] MEDS ORDERED: Rocuronium* 10 MG/ML VIAL ONE (13:57)
[2018-07-14] MEDS ORDERED: Propofol* 10 MG/ML 20 ML BTL ONE (13:57)
[2018-07-14] MEDS ORDERED: Midazolam* 1 MG/ML 2 ML VIAL (2 MG) ONE (13:59)
[2018-07-14] MEDS ORDERED: fentaNYL* 50 MCG/ML 2 ML VIAL (100 MCG VIAL) ONE (13:59)
[2018-07-14] MEDS: Lactated Ringers 1000 ML Bag* 1,000 ML IV SCH ×2 (14:16→18:01)
[2018-07-14] MEDS ORDERED: Levofloxacin 500 MG IVPREMIX(* 500 MG/100 ML BAG IVPB ONE (14:46)
[2018-07-14] MEDS ORDERED: Phenylephrine INJ* 10 MG/ML 1 ML VIAL (10 MG) ONE (15:11)
[2018-07-14] MEDS ORDERED: Dexamethasone IV* 4 MG/ML 1 ML (4 MG) ONE (16:00)
[2018-07-14] MEDS ORDERED: Ketorolac INJ* 30 MG/ML 1 ML VIAL ONE (16:00)
[2018-07-14] MEDS ORDERED: Metoclopramide IV* 5 MG/ML 2 ML VIAL ONE (16:00)
[2018-07-14] MEDS ORDERED: Ondansetron INJ* 2 MG/ML VIAL ONE (16:00)
[2018-07-14] MEDS ORDERED: Glycopyrrolate IV* 0.2 MG/ML 1 ML VIAL ONE (16:18)
[2018-07-14] MEDS ORDERED: Neostigmine Methylsulfate* 1 MG/ML 10 ML VIAL (1 mg/ml) ONE (16:18)
[2018-07-14] MEDS ORDERED: Ondansetron INJ* 2 MG/ML VIAL IV PRN (17:53)
[2018-07-14] MEDS ORDERED: Acetaminophen TAB* 325 MG PO PRN (17:53)
[2018-07-14] MEDS ORDERED: Dextrose 50% Syringe 50 ML* 25 GM/50 ML SYRINGE IV PUSH PRN (17:54)
[2018-07-14 19:16] LABS: ABS Basophils 0.1 10^3/ul (0-0.2); ABS Eosinophils 0.1 10^3/ul (0-0.6); ABS Lymphocytes 0.8 10^3/ul (1.0-4.8); ABS Monocytes 0.3 10^3/ul (0-0.8); ABS Neutrophils 11.9 10^3/ul (1.5-7.7); ABS Nucleated RBC 0 10^3/ul; Eosinophil % 0.4 %; Hematocrit 34 % (42-52); Hemoglobin 11.3 g/dl (14.0-18.0); Lymphocyte % 6.5 %; Mean Corpuscular HGB Conc 34 g/dl (31-36); Mean Corpuscular Hemoglobin 29 pg (27-31); Mean Corpuscular Volume 85 fL (80-94); Mean Platelet Volume 8.4 fL (7.4-10.4); Nucleated Red Blood Cells % 0; Platelet Count 330 10^3/ul (150-450); Red Blood Count 3.95 10^6/ul (4.00-5.40); Red Cell Distribution Width 14 % (10.5-15); White Blood Count 13.1 10^3/ul (3.5-10.8)
[2018-07-14 19:33] LABS: Albumin 3.4 g/dL (3.2-5.2); Albumin/Globulin Ratio 1.1 (1-3); BUN/Creatinine Ratio 16.3 (8-20); C Reactive Protein 14.32 mg/L (<8.01); Calcium 8.9 mg/dL (8.6-10.3); EGFR Non-African American 70.2 (>60); Potassium 4.7 mmol/L (3.5-5.0); Total Bilirubin 0.5 mg/dL (0.2-1.0); Total Protein 6.4 g/dL (6.4-8.9)
[2018-07-14] MEDS ORDERED: Amoxicillin/Clavulanate TAB* 500 MG PO SCH (21:00)
[2018-07-14] MEDS: Heparin VIAL(*) 5000 UNITS/ML VIAL (FIVE THOUSAND) SUBCUT SCH (22:07)
--- NOTE | 2018-07-14 22:17 | HP ---
CC: Dr. Ashly Davenport* [facility] MEDICINE HISTORY AND PHYSICAL: DATE OF ADMISSION: 07/14/18 PRIMARY CARE PHYSICIAN: Ashly Davenport DO ATTENDING PHYSICIAN: Anastacio Marsh MD* (dictation provided by Nohemy Friedman NP) CHIEF COMPLAINT: Status post ERCP. HISTORY OF PRESENT ILLNESS: Mr. Cordero is a 73-year-old male with a past medical history of diabetes, which is [id number], and a recent admission to our hospital with discharge on 06/23/18 after being treated for a septic shock secondary to acute cholecystitis with E. coli and citrobacter bacteremia, status post percutaneous drain placement by Interventional Radiology. At that time, the patient also had acute hypoxic respiratory failure , acute renal failure, and acute congestive heart failure and was in the hospital for a total of 10 days. Mr. Cordero was discharged to home and has been following up with Dr. Lara and Dr. Davenport regarding continued management of his case. The patient saw Dr. Davenport on 07/12/18 at which time he was feeling well and the plans were for him to see Dr. Lara, which was done on 07/13/18 and then plans were made for an ERCP, which is accomplished today, 07/14/18. The patient was noted to have pus in the common bile duct at the time of the stone removal. He continues to have the drain which was placed during the previous hospitalization with very minimal amount of pus noted in the drainage tubing. He has denied any fevers. He states he has been eating and drinking normally, although his appetite has been diminished. He denies any other complaints including chest pain, shortness of breath, nausea, abdominal pain. PAST MEDICAL HISTORY: 1. Admission to hospital with discharge on 06/23/18 after treatment for a septic shock due to cholecystitis and E. coli and citrobacter bacteremia associated with acute hypoxic respiratory failure, acute renal failure, and acute CHF. 2. Type 2 diabetes, [id number]. 3. Bicuspid aortic valve. MEDICATIONS: 1. Flomax 0.4 mg p.o. daily. 2. Metformin 1000 mg p.o. b.i.d. 3. Glipizide 5 mg p.o. b.i.d. 4. Famotidine 20 mg p.o. daily. 5. Aspirin 81 mg p.o. daily. Please note the patient completed his course of Augmentin 4 days ago. ALLERGIES: No known drug allergies. FAMILY HISTORY: The patient states his father of an [place] at age 78 and his mother ; mother had diabetes, but described as due to old age at age 84. SOCIAL HISTORY: No report of alcohol, tobacco, or drug use. The patient lives with his who is his healthcare proxy. REVIEW OF SYSTEMS: A 14-point review of systems was completed with Mr. Cordero and all those not mentioned above were negative. PHYSICAL EXAMINATION GENERAL: Mr. Cordero is lying on the bed with his family at the bedside. He is in no acute distress. VITAL SIGNS: Temperature 97.5, pulse rate 71, respiratory rate 15, O2 saturation 93% on room air, blood pressure 142/79. LUNGS: Clear to auscultation bilaterally with no accessory muscle use and good aeration. HEART: S1, S2. No murmur, rub, or gallop and regular. ABDOMEN: Soft, nontender. There is a percutaneous drain exiting from the right upper quadrant. There is no drainage in the bag, but there is very small amount what appears to be purulent drainage in the tubing. EXTREMITIES: No edema. SKIN: Intact other than the percutaneous drain. NEURO: He is alert. He is oriented x3. He moves all extremities equally. There is no facial asymmetry or focal weakness. Extraocular movements are intact. LABORATORY DATA/DIAGNOSTIC STUDIES: On 07/13/18, the patient's white blood cell count of 13.1. He had a hemoglobin 12.2, hematocrit 37, platelet count 331. Sodium 139, potassium 4.6, chloride 103, serum bicarbonate 27, BUN 19, creatinine 1.04, glucose 223. His AST was 344, ALT 260, alk phos 528. Total bilirubin 1. CRP has not been checked since his previous admission and on , it was 370.72. ASSESSMENT AND PLAN: Mr. Cordero is a 73-year-old male with a past medical history of recent admission to our hospital with discharge on 06/03/18 for which he was treated for septic shock related to cholecystitis requiring intubation for respiratory failure, who presents to the hospital today after an endoscopic retrograde cholangiopancreatography with Dr. Lara during which time there was a purulent drainage found in the common bile duct with concern for cholangitis. Our plans are for observation in the hospital for the followin. Status post endoscopic retrograde cholangiopancreatography with concern for persistent infection: Appreciate consultation with Dr. Lara and he will be seeing the patient again tomorrow. He has recommended that the patient go on Levaquin as he is concerned the patient could have developed Augmentin-related cholestasis. The patient did have elevated liver function tests yesterday, which he had not had during the previous admission. Plan to recheck now and in the a.m. He shows no current signs of sepsis. His vitals are stable. He denies any symptoms whatsoever. The patient continues to have the percutaneous drain. Plans are for consultation with Surgery tomorrow and Dr. Noguera has been contacted by Dr. Lara directly and she will be seeing the patient tomorrow regarding question of timing of removal of his gallbladder. A previous plan had been for the patient to see Dr. Bain on Tuesday for cardiac clearance prior to the cholecystectomy, but there is a concern now that we may need to speed up this time on events. Dr. Lara states that he would like to wait to see the plan from Dr. Noguera before consulting with Cardiology inpatient for cardiac clearance or an evaluation. 2. Type 2 diabetes. Plan to hold glipizide and metformin. The patient will have blood glucoses q.a.c. and a consistent carbohydrate diet. 3. Code status is full code. TIME SPENT: Approximately 60 minutes was spent on the admission of this patient , more than half of the time was spent with the patient at the bedside reviewing the events leading up to this hospitalization, performing the physical examination and reviewing the plan of care. NOHEMY FRIEDMAN, YOON [id number]/CPS #: [id number] TEJA
[2018-07-15] MEDS: Lactated Ringers 1000 ML Bag* 1,000 ML IV SCH ×2 (02:15→10:46)
[2018-07-15] MEDS: Heparin VIAL(*) 5000 UNITS/ML VIAL (FIVE THOUSAND) SUBCUT SCH ×2 (05:30→13:07)
--- NOTE | 2018-07-15 05:31 | PRO ---
DATE: 07/14/18 REFERRING PHYSICIAN: Varghese Griffith MD PROCEDURE: ERCP and sphincterotomy with removal of 4 mm common bile duct stone INDICATION: This 73-year-old burnette comes in for further assessment of an illness beginning a month ago marked by biliary sepsis with shock requiring pressors, intubation and then placement of a cholecystostomy tube - spending two weeks in the hospital. The tube, which was placed around 06/20/18, was replaced on 07/07/18. That replacement included cholangiogram placed through the tube, with the common duct was slender and normal and duodenum visualized, though there was a filling defect at the CBD end suspicious for a common duct stone and this was confirmed by a second radiologist. That tube replacement a week ago seemed to go well, but flushing of the T-tube became difficult on and there is now extreme resistance. No overt yanking or stress occurred with the tube and it has not appeared to dislodge. The patient denies any pain and he has been able to eat. He has been having somewhat of a sense of diaphoresis and chilliness in the evening, but no rigors and no documented fever. When seen in the office yesterday, followup liver function tests showed high elevation of alkaline phosphatase of about 520 and ALT in the 100s. Bilirubin was still 1.0. With the apparent mechanical dysfunction of the tube externally, radiographic appearance of probable stone and cholestatic trend to the LFTs, ERCP was arranged. Informed consent was obtained with the assistance of a diagram and all questions were answered. This was re-reviewed today immediately pre-procedure. ENDOSCOPIST: Dr. Lara MEDICATIONS: General anesthesia per Dr. Carmichael; Levaquin 500 mg pre-procedure FINDINGS: He is a mildly overweight older man, in no overt distress this time. His abdomen is soft. There is a T-tube exiting the right flank. It was positioned in the semi-prone position with slight elevation of the right shoulder. ERCP: Esophagus - 20% views were normal. Stomach - 40% to 50% views, especially of the antrum were normal. Duodenum - normal mucosa and contour and then large diverticula are seen. A 4 o 'clock aspect of the left hand diverticulum had the papilla just slightly projecting inside the diverticulum. Its surface appears normal and a minimal amount of bile was coming through and then wisps of apparent white purulent material. With the sphincterotome, the papilla was teased into a position facing the scope and a gentle curving cannulation was done reaching the bile duct and preliminary injection confirmed placement in the bile duct. Attempting to pass the wire upstream had it becoming jammed in a side branch mid CBD and it was finally decided this was probably the cystic duct. The wire could not negotiate the curve. The cannulating assembly was brought back down distally and the sphincterotome itself just advanced and this provided an alternate route for the wire and free cannulation deep into the liver was obtained. The wire and sphincterotome were positioned down low and sphincterotomy done at a noon orientation. Some increased flow of bile was seen. A 4-mm filling defect that was deep brown color came through. A little bit of grit came through. A small 9 to 12 mm balloon was then placed and brought through at about 10 mm several times and there were no further stones. Some pus was coming out in wisps though there was also clear bile. The bile duct drained readily with each injection independent of balloon sweeps. It, therefore, did not appear necessary to place the stent for effective drainage of the liver, which had not actually been compromised (bilirubin at worst 1.0). An x-ray was done of the T-tube projecting laterally and no obvious kink was seen. IMPRESSION: 1. Duodenal diverticula. 2. Status post endoscopic sphincterotomy - accomplished after cannulation on the first attempt. 3. Common bile duct stone - 4-mm miniscule and of doubtful relationship to any of the acute problems. 4. Purulent common bile duct secretions - suspected to be oozing slowly out of the gallbladder, which would appear to be obstructed as at no time did the cystic duct get fully traversed or opacified. The patient will be admitted, kept on antibiotics for a couple of doses intravenously and Surgery followup obtained tomorrow. [id number]/[facility] #: [id number] [facility] HEALTH SYSTEMJorge Luis
[2018-07-15 05:39] LABS: ABS Basophils 0 10^3/ul (0-0.2); ABS Eosinophils 0 10^3/ul (0-0.6); ABS Lymphocytes 1.4 10^3/ul (1.0-4.8); ABS Neutrophils 8.5 10^3/ul (1.5-7.7); ABS Nucleated RBC 0 10^3/ul; Eosinophil % 0.3 %; Hematocrit 33 % (42-52); Lymphocyte % 12.9 %; Mean Corpuscular HGB Conc 33 g/dl (31-36); Mean Corpuscular Hemoglobin 29 pg (27-31); Mean Corpuscular Volume 86 fL (80-94); Mean Platelet Volume 8.5 fL (7.4-10.4); Nucleated Red Blood Cells % 0; Platelet Count 337 10^3/ul (150-450); Red Blood Count 3.85 10^6/ul (4.00-5.40); Red Cell Distribution Width 14 % (10.5-15)
[2018-07-15] MEDS: Insulin LISPRO* 1 UNITS UNIT SUBCUT SCH ×2 (07:49→12:15)
[2018-07-15 08:24] LABS: Albumin 3.1 g/dL (3.2-5.2); Albumin/Globulin Ratio 1.5 (1-3); BUN/Creatinine Ratio 18.4 (8-20); Calcium 8.6 mg/dL (8.6-10.3); EGFR Non-African American 63.1 (>60); Globulin 2.1 g/dL (2-4); Total Bilirubin 0.4 mg/dL (0.2-1.0); Total Protein 5.2 g/dL (6.4-8.9)
[2018-07-15] MEDS ORDERED: Famotidine TAB* 20 MG PO SCH (09:00)
[2018-07-15] MEDS ORDERED: Tamsulosin CAP* 0.4 MG PO SCH (09:00)
[2018-07-15] MEDS ORDERED: Levofloxacin TAB* 750 MG PO SCH (09:00)
--- NOTE | 2018-07-15 10:45 | PN ---
Progress Note - Progress Note Date of Service: 07/15/18 Note: Surgery Progress Note S: Patient is a 73 yo M with a history of acute cholecystitis s/p placement of a cholecystostomy tube who underwent a prolonged ICU course, improved, was discharged and had tube study done as an outpatient that showed filling of the cystic duct and duodenum and a small filling defect of the CBD. He underwent ERCP yesterday with Dr. Lara. Findings were significant for a 4mm non obstructing stone, and sphincterotomy was done. Filling of the gallbladder was not seen. Today patient is doing well. He has had no abdominal pain. He is doing well at home, tolerating a diet. His cholecystostomy tube has not been flushing well for several days. He is tolerating a diet. Objective: Vital Signs: Temp Pulse Resp BP Pulse Ox 97.4 F 76 20 138/70 98 07/15/18 07:48 07/15/18 07:48 07/15/18 07:48 07/15/18 07:48 07/15/18 07:48 Laboratory Last Values WBC 11.0 10^3/ul (3.5-10.8) H 07/15/18 04:53 RBC 3.85 10^6/ul (4.00-5.40) L 07/15/18 04:53 Hgb 11.0 g/dl (14.0-18.0) L 07/15/18 04:53 Hct 33 % (42-52) L 07/15/18 04:53 MCV 86 fL (80-94) 07/15/18 04:53 MCH 29 pg (27-31) 07/15/18 04:53 MCHC 33 g/dl (31-36) 07/15/18 04:53 RDW 14 % (10.5-15) 07/15/18 04:53 Plt Count 337 10^3/ul (150-450) 07/15/18 04:53 MPV 8.5 fL (7.4-10.4) 07/15/18 04:53 Neut % (Auto) 77.5 % 07/15/18 04:53 Lymph % (Auto) 12.9 % 07/15/18 04:53 [place] % (Auto) 9.0 % 07/15/18 04:53 Eos % (Auto) 0.3 % 07/15/18 04:53 Baso % (Auto) 0.3 % 07/15/18 04:53 Absolute Neuts (auto) 8.5 10^3/ul (1.5-7.7) H 07/15/18 04:53 Absolute Lymphs (auto) 1.4 10^3/ul (1.0-4.8) 07/15/18 04:53 Absolute Monos (auto) 1.0 10^3/ul (0-0.8) H 07/15/18 04:53 Absolute Eos (auto) 0 10^3/ul (0-0.6) 07/15/18 04:53 Absolute Basos (auto) 0 10^3/ul (0-0.2) 07/15/18 04:53 Absolute Nucleated RBC 0 10^3/ul 07/15/18 04:53 Nucleated RBC % 0 07/15/18 04:53 Sodium 139 mmol/L (135-145) 07/15/18 04:53 Potassium 5.0 mmol/L (3.5-5.0) 07/15/18 04:53 Chloride 106 mmol/L (101-111) 07/15/18 04:53 Carbon Dioxide 26 mmol/L (22-32) 07/15/18 04:53 Anion Gap 7 mmol/L (2-11) 07/15/18 04:53 BUN 21 mg/dL (6-24) 07/15/18 04:53 Creatinine 1.14 mg/dL (0.67-1.17) 07/15/18 04:53 Est GFR ( Amer) 76.4 (>60) 07/15/18 04:53 Est GFR (Non-Af Amer) 63.1 (>60) 07/15/18 04:53 BUN/Creatinine Ratio 18.4 (8-20) 07/15/18 04:53 Glucose 168 mg/dL (70-100) H 07/15/18 04:53 POC Glucose (mg/dL) 127 mg/dL (70-100) H 07/15/18 07:38 Calcium 8.6 mg/dL (8.6-10.3) 07/15/18 04:53 Total Bilirubin 0.40 mg/dL (0.2-1.0) 07/15/18 04:53 AST 19 U/L (13-39) 07/15/18 04:53 ALT 86 U/L (7-52) H 07/15/18 04:53 Alkaline Phosphatase 252 U/L (34-104) H 07/15/18 04:53 C-Reactive Protein 14.32 mg/L (<8.01) H 07/14/18 19:07 Total Protein 5.2 g/dL (6.4-8.9) L 07/15/18 04:53 Albumin 3.1 g/dL (3.2-5.2) L 07/15/18 04:53 Globulin 2.1 g/dL (2-4) 07/15/18 04:53 Albumin/Globulin Ratio 1.5 (1-3) 07/15/18 04:53 Intake & Output 07/14/18 07/15/18 07/15/18 22:59 06:59 14:59 Intake Total 800 0 230 Output Total 200 Balance 600 0 230 Weight 229 lb 8 oz Intake: IV Fluids 800 lr 800 Oral 0 0 230 Output: Urine 200 Other: Estimated Void Small # Voids 1 0 Abd: soft, NTND, cholecystostomy tube in place A/P: 73 M with history of cholecystitis sp tube placement, one day post ERCP. - Cholecystostomy tube has not been flushing well or draining. Patient continues to do well, without clinical evidence of recurrent cholecystitis. I have removed the tube today. - Please follow up with Dr. Griffith in 1 week
[2018-07-15 11:38] VITALS: BP 128/67
--- NOTE | 2018-07-16 06:34 | DS ---
Amended report to enter cosigning physician. DISCHARGE SUMMARY: DATE OF ADMISSION: 07/14/18 DATE OF DISCHARGE: 07/15/18 PRIMARY CARE PROVIDER: Dr. Ashly Davenport CONSULTING PHYSICIAN: Dr. Lara ATTENDING PHYSICIAN: Dr. Gimenez* (dictated by Pavan Javier, YOON) PRIMARY DIAGNOSIS: Status post ERCP with concern for cholangitis. SECONDARY DIAGNOSES: 1. Admission to hospital with discharge on 06/23/18 after a treatment for septic shock due to cholecystitis and Escherichia coli and citrobacter bacteremia associated with acute hypoxic respiratory failure, acute renal failure, and acute congestive heart failure. 2. Type 2 diabetes, non-insulin dependent. 3. Bicuspid aortic valve. CONSULTATIONS WHILE IN THE HOSPITAL: Dr. Lara. PROCEDURES WHILE IN THE HOSPITAL: Endoscopic retrograde cholangiopancreatography with Dr. Lara. DISCHARGE HOME MEDICATIONS: New home medications: Cipro 500 mg p.o. b.i.d. x7 days. Continued home medications: 1. Flomax 0.4 mg p.o. daily. 2. Metformin 1000 mg p.o. b.i.d. 3. Glipizide 5 mg p.o. b.i.d. 4. Famotidine 20 mg p.o. daily. 5. Aspirin 81 mg p.o. daily. HISTORY OF PRESENT ILLNESS/HOSPITAL COURSE: Mr. Cordero is a 73-year-old male with a past medical history of septic shock, type 2 diabetes, bicuspid aortic valve; who presented to the hospital today for an endoscopic retrograde cholangiopancreatography. Please see history and physical dictated by Nohemy Friedman for complete summary of the events leading up to this hospitalization, but in short in June patient was treated for septic shock secondary to cholecystitis, at which time he had a percutaneous drain placed by Interventional Radiology. Patient recovered from his septicemia, acute hypoxic respiratory failure, acute renal failure, and acute congestive failure after a 10-day hospital stay. He has been following with Dr. Lara and Dr. Davenport. The patient saw Dr. Davenport on 07/12/18, at which time he was feeling well and the plans were for him to see Dr. Lara, which was done on 07/13/18 and the plans were made for an ERCP, which was completed yesterday 07/04/18. The patient was noted to have pus in his common bile duct at the time of the stone removal. Due to patient's medical history and purulent drainage found in the bile duct, the patient was admitted to the hospital for IV antibiotics and liver function monitoring. During the hospital stay, the patient's vital signs remain stable and he remained free from signs of septicemia. This morning, the patient was seen by Dr. Noguera, who removed the drain and placed the small dressing over site. The patient was also seen by Dr. Lara today and cleared for discharge. Mr. Cordero is stable for discharge. Vital signs as follows: Temp 97.3, HR 79, RR 20, O2 sat 97%, BP 128/67. REVIEW OF SYSTEMS: A 14-point review of systems was completed with the patient and all were negative. PHYSICAL EXAMINATION: General: Mr. Cordero is a 73-year-old male who was sitting in the bed. He is in no acute distress. Appears stated age. He is ready for discharge. is at bedside. HEENT: EOMs intact. PERRLA. Oral mucous membranes are moist without lesions. Tonsils without erythema or exudate. Pharynx clear. Neck: Full range of motion. No lymphadenopathy. Supple. Respiratory: Symmetrical chest expansion. No accessory muscle use. Lungs are clear to auscultation. No rhonchi, wheezes, or rubs. CV: Regular rate and rhythm. S1/S2 present. No murmurs, rubs, or gallops. Extremities: No edema. No clubbing or cyanosis. Pedal pulses 2+ bilaterally. Musculoskeletal: No pain. Full range of motion. Abdomen: Soft, nontender to palpation. Bowel sounds x4. Neuro: Alert, awake, oriented x4. Skin: Grossly intact without lesions. LABORATORY DATA: Obtained 07/15/18, WBC 11, hemoglobin 11, hematocrit 33. Sodium 139, potassium 5, chloride 106, carbon dioxide 26, BUN 21, creatinine 1.14, glucose 168, total bilirubin 0.40. AST 19, ALT 86, alk phos 242, total protein 5.2, albumin 3.1, globulin 2.1, albumin/globulin ratio 1.5. DISCHARGE PLAN/FOLLOWUP: 1. Status post endoscopic sphincterotomy: As previously mentioned, there were purulent secretions noted in the common bile duct. The patient received IV antibiotics here. The patient will be discharged on Cipro 500 mg p.o. b.i.d. x7 days per Dr. Lara's recommendations. The patient has been instructed to follow up with Dr. Griffith in 1 week. 2. Cardiac clearance: The patient has an appointment with Dr. Bain on Tuesday, which he is encouraged to keep for cardiac clearance for surgery with Dr. Griffith. 3. Type 2 diabetes: The patient is to continue home medications as same. 4. Bicuspid aortic valve: The patient is to continue aspirin as previously prescribed. 5. Education: I have discussed signs and symptoms of worsening condition with the patient and when to call 911, return to the emergency department. The patient and stated understanding. This is the summarized report of a complex medical history and hospital stay. For further details, please see the entire medical record. This plan was discussed with my attending, Dr. Gimenez, who agrees with my plan. TIME SPENT: Approximately 45 minutes were spent on this discharge, greater than half that time was spent [id number] with the patient discussing discharge plan and instructions. PAVAN JAVIER, YOON [id number]/[facility] #: [id number] TEJA
[2018-07-16] MEDS ORDERED: Aspirin 81 mg CHEW TAB* 81 MG TAB.CHEW PO SCH (09:00)
== END 2018-07-15 16:00 | disposition home or self-care (01) ==
LOC: OR 12:00 → MED 17:33
PROVIDERS: ADMIT Internal Medicine Gastroenterology; ATTEND Internal Medicine Gastroenterology
DX: A41.51 Sepsis due to Escherichia coli [E. coli] (principal); R65.21 Severe sepsis with septic shock; N17.9 Acute kidney failure, unspecified; J96.01 Acute respiratory failure with hypoxia; I50.9 Heart failure, unspecified; E11.9 Type 2 diabetes mellitus without complications; Q23.1 Congenital insufficiency of aortic valve; Z79.82 Long term (current) use of aspirin
CPT/HCPCS: 36415; 74328; 80053; 85025; 86140; 96372; 96374; 96375; A9270-GY; C1769; G0378; J1100; J1644; J1885; J1956; J2250; J2405; J2704; J2710; J2765; J3010

== ENCOUNTER 2018-07-22 16:16 | Inpatient (IN) | payer MEDICARE ==
--- OUTSIDE RECORDS SUMMARY | 2018-07-22 17:11 | XMS REPORT | Continuity of Care Document ---
:1945 External Reference #:[id number] Author Name Misti Norman Care Team Providers Name Role Phone Mayank Lara MD Care Team Information Instant Print Operator Unavailable Ashly Davenport DO Primary Care Physician Unavailable Payers Type Date Identification Numbers Payment Provider Subscriber Policy Number: [id number] Medicare Blue Ppo Mariela Cordero Group Number: [id number] [address] [address] PayID: [id number] MANUEL Angel [id number] Advance Directives Description No Information Available Problems Date Description Provider Status Onset: 07/13/2018 Acute gangrenous cholecystitis Trang Quintana NP Active Onset: 07/13/2018 Liver function tests abnormal Trang Quintana NP Active Onset: 07/13/2018 Obstruction of biliary tree Trang Quintana NP Active Family History Date Family Member(s) Problem(s) Comments General Diabetes Father due to MA () Mother Diabetes Mother due to Natural Causes () Social History Type Date Description Comments Sex Unknown Marital Status Lives With Spouse Occupation [employer] Use Denies alcohol use Tobacco Use Start: Unknown Patient has never smoked Recreational Drug Use Denies Drug Use Smoking Status Reviewed: 07/19/18 Patient has never smoked Exercise Type/Frequency Does not exercise but he is a [employer]! Allergies, Adverse Reactions, Alerts Description No Known Drug Allergies Medications Medication Date Status Form Strength Qnty SIG Indications Ordering Provider Amoxicillin/C Active Tablets 500-125mg 30tabs 1 by Trang lavulanatmario 018 mouth YOON Quintana Potassium twice a day Sodium Active Solution 0.9% 10ml 10cc Varghese Chloride 018 flush [place], Flush tube , FACS twice a day ( Stop ) Flomax Active Capsules 0.4mg 30caps take one Ashly 018 tab daily Senner, DO Glipizide XL Active Tablets ER 5mg 60tabs 1 tab E11.9 Ashly 018 24HR twice a Senner, DO day Aspirin Adult Active Tablets DR 81mg 1 by Unknown Low Strength 000 mouth every day ( Has not started taking as of 07/19/18 ) Metformin HCL Active Tablets 500mg 1 by Unknown 000 mouth twice a day Famotidine Active Tablets 20mg 30tabs 1 by Trang 000 mouth Quintana, MANAGER OF RADIOLOGY every day Glipizide Hx Tablets 5mg 30tabs take 1 Unknown 000 - tablet twice 018 daily Amoxicillin/C Hx Tablets 500-125mg 1 by Unknown lavulanate 000 mouth Potassium twice a day Immunizations Description No Information Available Vital Signs Date Vital Result Comment 07/19/2018 10:35am Height 72 inches 6'0" Weight 233.00 lb with shoes Heart Rate 88 /min BP Systolic Sitting 150 mmHg Lue reg cuff BP Diastolic Sitting 80 mmHg Lue reg cuff BP Systolic Standing 154 mmHg Lue lg cuff BP Diastolic Standing 80 mmHg Lue lg cuff Respiratory Rate 16 /min BMI (Body Mass Index) 31.6 kg/m2 Ejection Fraction 40-45% date 06/13/18 ECHO 07/13/2018 9:24am Height 72 inches 6'0" Weight 229.50 lb Heart Rate 96 /min BP Systolic 129 mmHg BP Diastolic 73 mmHg Respiratory Rate 20 /min Body Temperature 98.9 F O2 % BldC Oximetry 96 % BMI (Body Mass Index) 31.1 kg/m2 07/12/2018 10:34am Weight 226.00 lb Heart Rate 84 /min BP Systolic 138 mmHg BP Diastolic 76 mmHg Respiratory Rate 16 /min Body Temperature 97.8 F O2 % BldC Oximetry 98 % 07/10/2018 9:59am Heart Rate 86 /min Respiratory Rate 18 /min Body Temperature 96.2 F 07/06/2018 8:40am Heart Rate 80 /min Respiratory Rate 16 /min Body Temperature 97.3 F 06/29/2018 10:55am Height 72 inches 6'0" Weight 236.00 lb Heart Rate 80 /min BP Systolic 138 mmHg BP Diastolic 74 mmHg Respiratory Rate 18 /min Body Temperature 97.1 F BMI (Body Mass Index) 32.0 kg/m2 06/27/2018 10:24am Weight 236.00 lb Heart Rate 84 /min BP Systolic 122 mmHg BP Diastolic 74 mmHg Respiratory Rate 16 /min Body Temperature 97.7 F Pain Level 2 O2 % BldC Oximetry 98 % Results Test Date Facility Test Result H/L Range Note Laboratory test 07/14/2018 [facility] Point of Care 139 mg/dL High 70-[address] [place] [address] [phone] CBC No Diff 07/13/2018 [facility] White Blood 13.1 10^3/uL High 3.5-10.[address] [place] [address] [phone] Red Blood Count 4.32 10^6/uL N 4.00-5.40 Hemoglobin 12.2 g/dL Low 14.0-18.0 Hematocrit 37 % Low 42-52 Mean Corpuscular Volume 86 fL N 80-94 Mean Corpuscular Hemoglobin 28 pg N 27-31 Mean Corpuscular HGB Conc 33 g/dL N 31-36 Red Cell Distribution Width 14 % N 10.5-15 Platelet Count 331 10^3/uL N 150-450 Mean Platelet Volume 9.1 fL N 7.4-10.4 Inr/Protime 07/13/2018 [facility] Inr 1.07 High 0.77-1.[address] [place] [address] [phone] Laboratory test 07/13/2018 [facility] Troponin-I 0.02 <0.04 2 finding 101 (TnI) ng/[place] [address] [phone] Comp Metabolic 07/13/2018 [facility] Sodium 139 N 135-[address] mmol/[place] [address] [phone] Potassium 4.6 mmol/L N 3.5-5.0 Chloride 103 mmol/L N 101-111 Co2 Carbon Dioxide 27 mmol/L N 22-32 Anion Gap 9 mmol/L N 2-11 Glucose 223 mg/dL High 70-100 Blood Urea Nitrogen 19 mg/dL N 6-24 Creatinine 1.04 mg/dL N 0.67-1.17 BUN/Creatinine Ratio 18.3 N 8-20 Calcium 9.6 mg/dL N 8.6-10.3 Total Protein 6.7 g/dL N 6.4-8.9 Albumin 3.8 g/dL N 3.2-5.2 Globulin 2.9 g/dL N 2-4 Albumin/Globulin Ratio 1.3 N 1-3 Total Bilirubin 1.00 mg/dL N 0.2-1.0 Alkaline Phosphatase 528 U/L High 34-104 Alt 260 U/L High 7-52 Ast 344 U/L High 13-39 Egfr Non- 70.2 >60 Egfr 84.9 >60 3 CBC Auto 07/07/2018 [facility] White Blood 11.6 10^3/uL High 3.5-10.[address] [place] [address] [phone] Red Blood Count 4.28 10^6/uL N 4.00-5.40 Hemoglobin 12.4 g/dL Low 14.0-18.0 Hematocrit 37 % Low 42-52 Mean Corpuscular Volume 86 fL N 80-94 Mean Corpuscular Hemoglobin 29 pg N 27-31 Mean Corpuscular HGB Conc 34 g/dL N 31-36 Red Cell Distribution Width 14 % N 10.5-15 Platelet Count 254 10^3/uL N 150-450 Mean Platelet Volume 8.9 fL N 7.4-10.4 Abs Neutrophils 8.9 10^3/uL High 1.5-7.7 Abs Lymphocytes 1.5 10^3/uL N 1.0-4.8 Abs Monocytes 0.8 10^3/uL N 0-0.8 Abs Eosinophils 0.2 10^3/uL N 0-0.6 Abs Basophils 0.1 10^3/uL N 0-0.2 Abs Nucleated RBC 0 10^3/uL Granulocyte % 77.4 % Lymphocyte % 13.2 % Monocyte % 7.3 % Eosinophil % 1.3 % Basophil % 0.8 % Nucleated Red Blood Cells % 0 Basic Metabolic Panel 07/07/2018 [facility] Sodium 139 mmol/L N 135-[address] [place] [address] [phone] Potassium 4.2 mmol/L N 3.5-5.0 Chloride 105 mmol/L N 101-111 Co2 Carbon Dioxide 28 mmol/L N 22-32 Anion Gap 6 mmol/L N 2-11 Glucose 109 mg/dL High 70-100 Blood Urea Nitrogen 22 mg/dL N 6-24 Creatinine 1.12 mg/dL N 0.67-1.17 BUN/Creatinine Ratio 19.6 N 8-20 Calcium 9.4 mg/dL N 8.6-10.3 Egfr Non- 64.4 >60 Egfr 78.0 >60 4 Urinalysis Profile 06/27/2018 [facility] Urine Color Yellow [address] [place] [address] [phone] Urine Appearance Clear Urine Specific [place] 1.009 Low 1.010-1.030 Urine pH 5.0 N 5-9 Urine Urobilinogen Negative Negative Urine Ketones Negative Negative Urine Protein Negative Negative Urine Leukocytes Trace Abnormal Negative Urine Blood 1+ Abnormal Negative Urine Nitrite Negative Negative Urine Bilirubin Negative Negative Urine Glucose 1+(50 mg/dL) Abnormal Negative Urine White Blood Cell 1+(6-10/hpf) Abnormal Absent Urine Red Blood Cell Trace(0-2/hpf) Absent Urine Bacteria Absent Absent Urine Squamous Epithelial Cell Present Abnormal Absent Urine Culture And 06/27/2018 [facility] Urine Culture SEE RESULT [address] [place] [address] [phone] Basic Metabolic 06/27/2018 [facility] Sodium 140 mmol/L N 135- [address] [place] [address] [phone] Chloride 109 mmol/L N 101-111 Co2 Carbon Dioxide 25 mmol/L N 22-32 Glucose 135 mg/dL High 70-100 Blood Urea Nitrogen 28 mg/dL High 6-24 Creatinine 1.38 mg/dL High 0.67-1.17 BUN/Creatinine Ratio 20.3 High 8-20 Calcium 9.1 mg/dL N 8.6-10.3 Egfr Non- 50.6 >60 Egfr 61.3 >60 6 Potassium 5.2 mmol/L High 3.5-5.0 Anion Gap 6 mmol/L N 2-11 CBC Auto 06/27/2018 [facility] White Blood 17.1 10^3/uL High 3.5-10.[address] [place] [address] [phone] Red Blood Count 4.32 10^6/uL N 4.00-5.40 Hemoglobin 12.3 g/dL Low 14.0-18.0 Hematocrit 38 % Low 42-52 Mean Corpuscular Volume 87 fL N 80-94 Mean Corpuscular Hemoglobin 29 pg N 27-31 Mean Corpuscular HGB Conc 33 g/dL N 31-36 Red Cell Distribution Width 14 % N 10.5-15 Platelet Count 490 10^3/uL High 150-450 Mean Platelet Volume 8.6 fL N 7.4-10.4 Abs Neutrophils 13.8 10^3/uL High 1.5-7.7 Abs Lymphocytes 1.8 10^3/uL N 1.0-4.8 Abs Monocytes 1.4 10^3/uL High 0-0.8 Abs Eosinophils 0.1 10^3/uL N 0-0.6 Abs Basophils 0.1 10^3/uL N 0-0.2 Abs Nucleated RBC 0 10^3/uL Granulocyte % 80.3 % Lymphocyte % 10.7 % Monocyte % 7.9 % Eosinophil % 0.4 % Basophil % 0.7 % Nucleated Red Blood Cells % 0 Laboratory test finding 06/27/2018 Commissioning Agent In House Glucose Fingerstick 156 1 Cryogenics Repairer: [id number] 2 Troponin-I testing on Plasma Separator Tubes (PST) has a known false positive rate of 0.20-0.40%. All positive troponins reflex immediate secondary confirmatory testing. 3 Because ethnic data is not always readily available, this report includes an eGFR for both -Americans and non- Americans. The National Kidney Disease Education Program (NKDEP) does not endorse the use of the MDRD equation for patients that are not between the ages of 18 and 70, are , have extremes of body size, muscle mass, or nutritional status, or are non- or non-. According to the National Kidney Foundation, irrespective of diagnosis, the stage of the disease is based on the level of kidney function: Stage Description GFR(mL/min/1.73 m(2)) 1 Kidney damage with normal or decreased GFR 90 2 Kidney damage with mild decrease in GFR 60-89 3 Moderate decrease in GFR 30-59 4 Severe decrease in GFR 15-29 5 Kidney failure <15 (or dialysis) 4 Because ethnic data is not always readily available, this report includes an eGFR for both -Americans and non- Americans. The National Kidney Disease Education Program (NKDEP) does not endorse the use of the MDRD equation for patients that are not between the ages of 18 and 70, are , have extremes of body size, muscle mass, or nutritional status, or are non- or non-. According to the National Kidney Foundation, irrespective of diagnosis, the stage of the disease is based on the level of kidney function: Stage Description GFR(mL/min/1.73 m(2)) 1 Kidney damage with normal or decreased GFR 90 2 Kidney damage with mild decrease in GFR 60-89 3 Moderate decrease in GFR 30-59 4 Severe decrease in GFR 15-29 5 Kidney failure <15 (or dialysis) 5 SEE RESULT BELOW Name: CORDEROMARIELA : [address]: Ashly Davenport DO Acct: [id number] Unit: [id number] AGE: 73 Location: LAB Re06/27/18 SEX: M Status: REG REF SPEC: [id number] MIKA: 06/27/18-[address]: Ashly Davenport DO REQ: [id number] RECD: 06/27/18 STATUS: COMP _ SOURCE: URINE SPDESC: ORDERED: Urine Culture Procedure Result Reported Site Urine Culture Final 06/28/18- 1250 ML No Growth (<1,000 CFU/mL) * ML - Main Lab . END OF REPORT DEPARTMENT OF PATHOLOGY, [address] [place] [address] Venkat Taveras M.D. Director [facility] # [id number] 6 Because ethnic data is not always readily available, this report includes an eGFR for both -Americans and non- Americans. The National Kidney Disease Education Program (NKDEP) does not endorse the use of the MDRD equation for patients that are not between the ages of 18 and 70, are , have extremes of body size, muscle mass, or nutritional status, or are non- or non-. According to the National Kidney Foundation, irrespective of diagnosis, the stage of the disease is based on the level of kidney function: Stage Description GFR(mL/min/1.73 m(2)) 1 Kidney damage with normal or decreased GFR 90 2 Kidney damage with mild decrease in GFR 60-89 3 Moderate decrease in GFR 30-59 4 Severe decrease in GFR 15-29 5 Kidney failure <15 (or dialysis) Procedures Date Code Description Status 07/19/2018 72604 EKG Tracing & Interpretation Completed 06/13/2018 51955 ECHO Transthorasic Realtime 2D W Doppler & Color Flow Hosp Completed 10/25/2014 24199 ECHO Transthoracic, Real-Time 2D With Doppler And Color Completed Flow Encounters Type Date Location Provider Dx Diagnosis Office Visit 07/13/2018 [facility] Gastroenterology Trang Quintana, K80.37 Calculus of bile 9:00a MANAGER OF RADIOLOGY duct w acute and chronic cholangitis w obst K82.A1 Gangrene of gallbladder in cholecystitis Office Visit 07/12/2018 10:00a [facility] Ashly K81.0 Acute cholecystitis [facility] DO Ethel K80.37 Calculus of bile duct w acute and chronic cholangitis w obst Z01.810 Encounter for preprocedural cardiovascular examination N40.0 Benign prostatic hyperplasia without lower urinry tract symp E11.9 Type 2 diabetes mellitus without complications Office Visit 07/10/2018 10:00a Surgical Varghese Griffith K81.0 Acute cholecystitis [facility] K80.50 Calculus of bile duct w/o cholangitis or cholecyst w/o obst Office Visit 07/06/2018 8:30a Surgical Varghese Griffith K81.0 Acute cholecystitis [facility] Office Visit 06/29/2018 11:00a Surgical Dina Truong81.0 Acute cholecystitis [facility] E11.9 Type 2 diabetes mellitus without complications Office Visit 06/23/2018 Surgical Delia Hall K80.00 Calculus of 7:00a [facility] Valerie, MANAGER OF RADIOLOGY gallbladder w acute cholecyst w/o obstruction Office Visit 06/23/2018 [facility] Salas, K80.00 Calculus of 10:03a Assoc,pc MANAGER OF RADIOLOGY gallbladder w Hospitalists acute cholecyst w/o obstruction N17.9 Acute kidney failure, unspecified J96.90 Respiratory failure, unsp, unsp w hypoxia or hypercapnia Office Visit 06/22/2018 [facility] N17.9 Acute kidney 10:03a Assoc,pc Marina, MANAGER OF RADIOLOGY failure, Hospitalists unspecified R65.21 Severe sepsis with septic shock K80.00 Calculus of gallbladder w acute cholecyst w/o obstruction J96.90 Respiratory failure, unsp, unsp w hypoxia or hypercapnia E11.9 Type 2 diabetes mellitus without complications Office Visit 06/21/2018 [facility] K80.00 Calculus of 10:03a Assoc,pc Marina, MANAGER OF RADIOLOGY gallbladder w Hospitalists acute cholecyst w/o obstruction J96.90 Respiratory failure, unsp, unsp w hypoxia or hypercapnia N17.9 Acute kidney failure, unspecified E11.9 Type 2 diabetes mellitus without complications Office Visit 06/21/2018 Surgical Varghese Griffith, K80.00 Calculus of 7:00a [facility] Beata [facility]BY, FACS gallbladder w acute cholecyst w/o obstruction Office Visit 2018 [facility] K80.00 Calculus of 10:02a Assoc,[facility] Doto, gallbladder w Hospitalists MANAGER OF RADIOLOGY acute cholecyst w/o obstruction R65.21 Severe sepsis with septic shock N17.9 Acute kidney failure, unspecified E11.9 Type 2 diabetes mellitus without complications Office Visit 06/19/2018 [facility] Amol Lepe D72.829 Elevated white 12:17p For Infectious Bartolo Hemphill blood cell count, Diseases unspecified R19.7 Diarrhea, unspecified K80.00 Calculus of gallbladder w acute cholecyst w/o obstruction Office Visit 06/19/2018 10:01a [facility] N17.9 Acute kidney Assoc,[facility] Doto, failure, Hospitalists MANAGER OF RADIOLOGY unspecified E11.9 Type 2 diabetes mellitus without complications J96.90 Respiratory failure, unsp, unsp w hypoxia or hypercapnia K80.00 Calculus of gallbladder w acute cholecyst w/o obstruction R65.21 Severe sepsis with septic shock Office Visit 06/18/2018 9:59a Intensivists Jeferson Hawkins, J96.01 Acute respiratory MD failure with hypoxia N17.9 Acute kidney failure, unspecified K80.00 Calculus of gallbladder w acute cholecyst w/o obstruction 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 J81.0 Acute pulmonary edema D69.6 Thrombocytopenia, unspecified B96.29 Oth Escherichia coli as the cause of diseases classd elswhr Office Visit 06/17/2018 9:59a Intensivists Jeferson Hawkins, J96.01 Acute respiratory MD failure with hypoxia N17.9 Acute kidney failure, unspecified K80.00 Calculus of gallbladder w acute cholecyst w/o obstruction 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 J81.0 Acute pulmonary edema D69.6 Thrombocytopenia, unspecified B96.29 Oth Escherichia coli as the cause of diseases classd elswhr Office Visit 06/16/2018 9:58a Intensivists Jeferson Hawkins, K80.00 Calculus of MD gallbladder w acute cholecyst w/o obstruction J96.01 Acute respiratory failure with hypoxia N17.9 Acute kidney failure, unspecified 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 D69.6 Thrombocytopenia, unspecified J81.0 Acute pulmonary edema B96.29 Oth Escherichia coli as the cause of diseases classd elswhr Office Visit 06/16/2018 Surgical Delia Hall K81.0 Acute 7:00a [facility] Beata Padilla MANAGER OF RADIOLOGY cholecystitis Office Visit 06/15/2018 [facility] Jeferson Hawkins, R65.21 Severe sepsis with 9:58a septic shock N17.9 Acute kidney failure, unspecified J96.00 Acute respiratory failure, unsp w hypoxia or hypercapnia B96.29 Oth Escherichia coli as the cause of diseases classd elswhr K80.00 Calculus of gallbladder w acute cholecyst w/o obstruction D69.6 Thrombocytopenia, unspecified E87.2 Acidosis Office Visit 06/14/2018 9:55a Intensivists Jeferson Hawkins, B96.29 Oth Escherichia MD coli as the cause of diseases classd elswhr R65.21 Severe sepsis with septic shock J96.90 Respiratory failure, unsp, unsp w hypoxia or hypercapnia N17.9 Acute kidney failure, unspecified K81.0 Acute cholecystitis D69.6 Thrombocytopenia, unspecified E87.2 Acidosis Office Visit 06/14/2018 7:00a Surgical Varghese Griffith, K81.0 Acute cholecystitis [facility] Commissioning Agent A41.9 Sepsis, unspecified organism Office Visit 06/13/2018 [facility] Yamilex Priti, N17.9 Acute kidney 9:55a lynn Elliott M.D. failure, Hospitalists unspecified E86.0 Dehydration R00.0 Tachycardia, unspecified Office Visit 06/13/2018 [facility] Samson Lepe Z01.810 Encounter for 4:06p Cardiology Of Bartolo Bain preprocedural [facility] cardiovascular examination K81.0 Acute cholecystitis Q23.1 Congenital insufficiency of aortic valve E11.9 Type 2 diabetes mellitus without complications Office Visit 06/13/2018 Surgical Ruben Jewell K81.0 Acute 7:00a [facility] JARRED Noriega cholecystitis [facility] A41.9 Sepsis, unspecified organism Office Visit 06/13/2018 7:00a Surgical Varghese Griffith, K81.0 Acute cholecystitis Associates [facility] MD FACS [facility] A41.9 Sepsis, unspecified organism Plan of Treatment Future Appointment(s):08/02/2018 4:00 pm - Samson Bain M.D. at [facility]07/28/2018 11:00 am - Samson Bain M.D. at [facility]07/26/2018 9:00 am - Dominique Seals MD at [facility] Internal Medicine - [address]07/19/2018 - Samson Bain M.D.K81.0 Acute [id number] Encounter for preprocedural cardiovascular wpugmsydqqsR90.0 Nonrheumatic aortic (valve) rzgdjdorL23.31 Abnormal electrocardiogram [ECG] [EKG]New Orders:Stress Test, Pharmacologic Nuclear (Lexiscan), Scheduled: 07/28/18Follow up:2 weeksRecommendations:No Caffeine 24 hours before stress test
--- OUTSIDE RECORDS SUMMARY | 2018-07-22 17:12 | XMS REPORT | Continuity of Care Document ---
:1945 External Reference #:[id number] Author Name Petra Abdalla Care Team Providers Name Role Phone Mayank Lara MD Care Team Information Reeling Machine Operator Unavailable Ashly Davenport DO Primary Care Physician Unavailable Payers Type Date Identification Numbers Payment Provider Subscriber Policy Number: [id number] Medicare Blue o Mariela Cordero Group Number: [id number] [address] [address] PayID: [id number] [place]EL Angel [address] Advance Directives Description No Information Available Problems Description No Information Family History Date Family Member(s) Problem(s) Comments General Diabetes Father due to [place] () Mother Diabetes Mother due to Natural Causes () Social History Type Date Description Comments Sex Unknown Marital Status Lives With Spouse Occupation [employer] Use Denies alcohol use Tobacco Use Start: Unknown Patient has never smoked Recreational Drug Use Denies Drug Use Smoking Status Reviewed: 07/10/18 Patient has never smoked Exercise Type/Frequency Does not exercise Allergies, Adverse Reactions, Alerts Description No Known Drug Allergies Medications Medication Date Status Form Strength Qnty SIG Indications Ordering Provider Sodium Active Solution 0.9% 10ml 10cc Varghese Chloride 018 flush Mecenas, Flush tube , FACS twice a day Flomax Active Capsules 0.4mg 30caps take one Ashly 018 tab Senner, DO daily Glipizide XL Active Tablets ER 5mg 60tabs 1 tab E11.9 Ashly 018 24HR twice a Senner, DO day Aspirin Adult [address] 81mg 1 by Unknown Low Strength 000 mouth every day Metformin HCL 0 Active Tablets 500mg 1 by Unknown 000 mouth twice a day Famotidine 0 Active Tablets 20mg 1 by Unknown 000 mouth every day Glipizide 0 Hx Tablets 5mg 30tabs take 1 Unknown 000 - tablet twice 018 daily Amoxicillin/C 0 Hx Tablets 500-125mg 1 by Unknown lavulanate 000 mouth Potassium twice a day Immunizations Description No Information Available Vital Signs Date Vital Result Comment 07/10/2018 9:59am Heart Rate 86 /min Respiratory [...] Date Facility Test Result H/L Range Note CBC Auto Diff 07/07/2018 [facility] White Blood 11.6 10^3/uL High 3.5-10.[address] [place] [address] [phone] Red Blood Count 4.28 10^6/uL N 4.00-5.40 [...] Cells % 0 Basic Metabolic Panel 07/07/2018 [facility] Sodium 139 mmol/L N 135-[address] [place] [address] [phone] Potassium 4.2 mmol/L N 3.5-5.0 Chloride 105 mmol/L N 101-111 Co2 Carbon Dioxide 28 mmol/L N 22-32 Anion Gap 6 mmol/L N 2-11 Glucose 109 mg/dL High 70-100 Blood Urea Nitrogen 22 mg/dL N 6-24 Creatinine 1.12 mg/dL N 0.67-1.17 BUN/Creatinine Ratio 19.6 N 8-20 Calcium 9.4 mg/dL N 8.6-10.3 Egfr Non- 64.4 >60 Egfr 78.0 >60 1 Urinalysis Profile 06/27/2018 [facility] Urine Color Yellow [address] [place] [address] [phone] Urine Appearance Clear Urine Specific [place] 1.009 Low 1.010-1.030 Urine pH 5.0 N [...] Present Abnormal Absent Urine Culture And 06/27/2018 [facility] Urine Culture SEE RESULT [address] [place] [address] [phone] Basic Metabolic 06/27/2018 [facility] Sodium 140 mmol/L N 135- [address] [place] [address] [phone] Chloride 109 mmol/L N 101-111 Co2 Carbon Dioxide 25 mmol/L N 22-32 Glucose 135 mg/dL High 70-100 Blood Urea Nitrogen 28 mg/dL High 6-24 Creatinine 1.38 mg/dL High 0.67-1.17 BUN/Creatinine Ratio 20.3 High 8-20 Calcium 9.1 mg/dL N 8.6-10.3 Egfr Non- 50.6 >60 Egfr 61.3 >60 3 Potassium 5.2 mmol/L High 3.5-5.0 Anion Gap 6 mmol/L N 2-11 CBC Auto 06/27/2018 [facility] White Blood 17.1 10^3/uL High 3.5-10.[address] [place] [address] [phone] Red Blood Count 4.32 10^6/uL N 4.00-5.40 [...] Cells % 0 Laboratory test finding 06/27/2018 [facility] Glucose Fingerstick 156 1 Because ethnic data is not always readily [...] 15-29 5 Kidney failure <15 (or dialysis) 2 SEE RESULT BELOW Name: KEILYMARIELA : [address]: Ashly Davenport DO Acct: [id number] Unit: [id number] AGE: 73 Location: LAB Re06/27/18 SEX: M Status: REG REF SPEC: [id number] MIKA: 06/27/18-1215 [facility] DR: Ashly Davenport DO REQ: [id number] RECD: 06/27/18 STATUS: COMP _ SOURCE: URINE SPDESC: ORDERED: Urine Culture Procedure Result Reported Site Urine Culture Final 06/28/18- 1250 ML No Growth (<1,000 CFU/mL) * ML - Main Lab . END OF REPORT DEPARTMENT OF PATHOLOGY, [address] [place] [address] Venkat Taveras M.D. Director [facility] # [id number] 3 Because ethnic data is not always [...] (or dialysis) Procedures Date Code Description Status 06/13/2018 95306 ECHO Transthorasic Realtime 2D W Doppler & Color Flow Hosp Completed 10/25/2014 11242 ECHO Transthoracic, Real-Time 2D With Doppler And Color Completed Flow Encounters Type Date Location Provider Dx Diagnosis Office Visit 06/29/2018 Surgical Varghese Griffith, K81.0 Acute cholecystitis 11:00a [facility] ESAU COSBY E11.9 Type 2 diabetes mellitus without complications Office Visit 06/23/2018 Surgical Delia Hall K80.00 Calculus of 7:00a [facility] Rickirode, SMALL ENGINE TRAINER gallbladder w acute cholecyst w/o obstruction Office Visit 06/23/2018 [facility] Marina, K80.00 Calculus of 10:03a Assoc,pc SMALL ENGINE TRAINER gallbladder w Hospitalists acute cholecyst w/o obstruction N17.9 Acute kidney failure, unspecified J96.90 Respiratory failure, unsp, unsp w hypoxia or hypercapnia Office Visit 06/22/2018 [facility] N17.9 Acute kidney 10:03a Assoc,pc Marina, SMALL ENGINE TRAINER failure, Hospitalists unspecified R65.21 Severe sepsis with septic shock K80.00 Calculus of gallbladder w acute cholecyst w/o obstruction J96.90 Respiratory failure, unsp, unsp w hypoxia or hypercapnia E11.9 Type 2 diabetes mellitus without complications Office Visit 06/21/2018 [facility] K80.00 Calculus of 10:03a Assoc,pc Marina, SMALL ENGINE TRAINER gallbladder w Hospitalists acute cholecyst w/o obstruction J96.90 Respiratory failure, unsp, unsp w hypoxia or hypercapnia N17.9 Acute kidney failure, unspecified E11.9 Type 2 diabetes mellitus without complications Office Visit 06/21/2018 Surgical Varghese Griffith, K80.00 Calculus of 7:00a [facility] ESAU COSBY gallbladder w acute cholecyst w/o obstruction Office Visit 2018 [facility] K80.00 Calculus of 10:02a Assoc,pc Layne Doto, gallbladder w Hospitalists SMALL ENGINE TRAINER acute cholecyst w/o obstruction R65.21 Severe sepsis with septic shock N17.9 Acute kidney failure, unspecified E11.9 Type 2 diabetes mellitus without complications Office Visit 06/19/2018 [facility] Amol Lepe D72.829 Elevated white 12:17p For Infectious Ania Hemphill. blood cell count, Diseases unspecified R19.7 Diarrhea, unspecified K80.00 Calculus of gallbladder w acute cholecyst w/o obstruction Office Visit 06/19/2018 10:01a [facility] N17.9 Acute kidney Assoc,pc Layne Doto, failure, Hospitalists SMALL ENGINE TRAINER unspecified E11.9 Type 2 diabetes mellitus without [...] of diseases classd elswhr Office Visit 06/16/2018 Varun [facility] K81.0 Acute 7:00a [facility] NP cholecystitis Office Visit 06/15/2018 [facility] Jeferson Hawkins R65.21 Severe sepsis with 9:58a MD septic shock N17.9 Acute kidney failure, unspecified J96.00 Acute respiratory failure, unsp w hypoxia or hypercapnia B96.29 Oth Escherichia coli as the cause of diseases classd elsr K80.00 Calculus of gallbladder w acute cholecyst [...] Acidosis Office Visit 06/14/2018 7:00a Surgical Varghese Griffith K81.0 Acute cholecystitis [facility] A41.9 Sepsis, unspecified organism Office Visit 06/13/2018 [facility] Priti, N17.9 Acute kidney 9:55a Asslynn connell M.D. failure, Hospitalists unspecified E86.0 Dehydration R00.0 Tachycardia, unspecified Office Visit 06/13/2018 [place] Samson Lepe Z01.810 Encounter for 4:06p Cardiology Of Bartolo Bain preprocedural [facility] cardiovascular examination K81.0 Acute cholecystitis Q23.1 Congenital insufficiency of aortic valve E11.9 Type 2 diabetes mellitus without complications Office Visit 06/13/2018 Surgical Ruben Jewell K81.0 Acute 7:00a [facility] JARRED Noriega cholecystitis [facility] A41.9 Sepsis, unspecified organism Office Visit 06/13/2018 7:00a Surgical Varghese Griffith K81.0 Acute cholecystitis [facility] A41.9 Sepsis, unspecified organism Plan of Treatment Future Appointment(s):07/20/2018 10:00 am - Varghese Griffith MD, FACS at [facility]07/12/2018 10:00 am - Ashly Davenport DO at [facility]07/26/2018 9:00 am - Dominique Seals MD at [facility] Internal Medicine - [address]07/19/2018 10:45 am - Samson Bain M.D. at [place] [facility]07/10/2018 - Varghese Griffith MD, FACSK81.0 Acute cholecystitisFollow up:7-10 daysRecommendations:continue drain complete Cardiology evaluation as zdimmctwU16.50 Calculus of bile duct without cholangitis or cholecystitis wReferral:Mayank Lara MD, GastroenterologyRecommendations:endoscopic removal of stones (ERCP)
--- OUTSIDE RECORDS SUMMARY | 2018-07-22 17:12 | XMS REPORT | Continuity of Care Document ---
:1945 External Reference #:[id number] Author Name Gayatri Florencia Care Team Providers Name Role Phone Mayank Lara MD Care Team Information On Air Talent Unavailable Ashly Davenport DO Primary Care Physician Unavailable Payers Type Date Identification Numbers Payment Provider Subscriber Policy Number: [id number] Medicare Blue Ppo Mariela Cordero Group Number: [id number] [address] [address] PayID: [id number] [place] [address] Advance Directives Description No Information Available Problems Description No Information Family History Date Family Member(s) Problem(s) Comments General Diabetes Father due to [place] () Mother Diabetes Mother due to Natural Causes () Social History Type Date Description Comments Sex Unknown Marital Status Lives With Spouse Occupation [employer] Use Denies alcohol use Tobacco Use Start: Unknown Patient has never smoked Recreational Drug Use Denies Drug Use Smoking Status Reviewed: 07/13/18 Patient has never smoked Exercise Type/Frequency Does not exercise Allergies, Adverse Reactions, Alerts Description No Known Drug Allergies Medications Medication Date Status Form Strength Qnty SIG Indications Ordering Provider Amoxicillin/C Active Tablets 500-125mg 30tabs 1 by Trang lavulanatmario 018 mouth Quintana, INTERNAL REVIEW AND AUDIT COMPLIANCE Potassium twice a day Sodium Active Solution 0.9% 10ml 10cc Varghese Chloride 018 flush Mecenas, Flush tube , FACS twice a day Flomax Active Capsules 0.4mg 30caps take one Ashly 018 tab Senner, DO daily Glipizide XL Active Tablets ER 5mg 60tabs 1 tab E11.9 Ashly 018 24HR twice a Senner, DO day Aspirin Adult 00/00/[address] 81mg 1 by Unknown Low Strength 000 mouth every day Metformin HCL Active Tablets 500mg 1 by Unknown 000 mouth twice a day Famotidine Active Tablets 20mg 30tabs 1 by Trang 000 mouth YOON Quintana every day Glipizide 0 Hx Tablets 5mg 30tabs take 1 Unknown 000 - tablet twice 018 daily Amoxicillin/C Hx Tablets 500-125mg 1 by Unknown lavulanate 000 mouth Potassium twice a day Immunizations Description No Information Available Vital Signs Date Vital Result Comment 07/13/2018 9:24am Height 72 inches 6'0" Weight [...] H/L Range Note CBC Auto Diff 07/07/2018 [facility] White Blood 11.6 10^3/uL High 3.5-10.[address] [place] [address] [phone] Red Blood Count 4.28 10^6/uL N 4.00-5.40 [...] Cells % 0 Basic Metabolic Panel 07/07/2018 [facility] Sodium 139 mmol/L N 135-145 [address] [place] [address] [phone] Potassium 4.2 mmol/L N 3.5-5.0 Chloride 105 mmol/L N 101-111 Co2 Carbon Dioxide 28 mmol/L N 22-32 Anion Gap 6 mmol/L N 2-11 Glucose 109 mg/dL High 70-100 Blood Urea Nitrogen 22 mg/dL N 6-24 Creatinine 1.12 mg/dL N 0.67-1.17 BUN/Creatinine Ratio 19.6 N 8-20 Calcium 9.4 mg/dL N 8.6-10.3 Egfr Non- 64.4 >60 Egfr 78.0 >60 1 Urinalysis Profile 06/27/2018 [facility] Urine Color Yellow [address] [place] [address] [phone] Urine Appearance Clear Urine Specific [place] 1.009 Low 1.010-1.030 Urine pH 5.0 N [...] Present Abnormal Absent Urine Culture And 06/27/2018 [facility] Urine Culture SEE RESULT [address] [place] [address] [phone] Basic Metabolic 06/27/2018 [facility] Sodium 140 mmol/L N 135- [address] [place] [address] [phone] Chloride 109 mmol/L N 101-111 Co2 Carbon Dioxide 25 mmol/L N 22-32 Glucose 135 mg/dL High 70-100 Blood Urea Nitrogen 28 mg/dL High 6-24 Creatinine 1.38 mg/dL High 0.67-1.17 BUN/Creatinine Ratio 20.3 High 8-20 Calcium 9.1 mg/dL N 8.6-10.3 Egfr Non- 50.6 >60 Egfr 61.3 >60 3 Potassium 5.2 mmol/L High 3.5-5.0 Anion Gap 6 mmol/L N 2-11 CBC Auto 06/27/2018 [facility] White Blood 17.1 10^3/uL High 3.5-10.[address] [place] [address] [phone] Red Blood Count 4.32 10^6/uL N 4.00-5.40 [...] Cells % 0 Laboratory test finding 06/27/2018 [facility] House Glucose Fingerstick 156 1 Because [...] (or dialysis) 2 SEE RESULT BELOW Name: MARIELA CORDERO : [address]: Ashly Davenport DO Acct: [id number] Unit: [id number] AGE: 73 Location: LAB Re06/27/18 SEX: M Status: REG REF SPEC: [id number] MIKA: 06/27/18-[address] [facility] [address]: Ashly Davenport DO REQ: [id number] RECD: 06/27/18 STATUS: COMP _ SOURCE: URINE [facility]: ORDERED: Urine Culture Procedure Result Reported Site Urine Culture Final 06/28/18- 1250 ML No Growth (<1,000 CFU/mL) * ML - Main Lab . END OF REPORT DEPARTMENT OF PATHOLOGY, [address] [place] [address] Venkat Taveras M.D. Director [facility] # [id number] 3 Because ethnic data is not always [...] dialysis) Procedures Date Code Description Status 06/13/2018 31356 ECHO Transthorasic Realtime 2D W Doppler & Color Flow Hosp Completed 10/25/2014 46579 ECHO Transthoracic, Real-Time 2D With Doppler And Color Completed Flow Encounters Type Date Location Provider Dx Diagnosis Office Visit 06/29/2018 Surgical Varghese Griffith, K81.0 Acute cholecystitis 11:00a [facility] COBSY FACS E11.9 Type 2 diabetes mellitus without complications Office Visit 06/23/2018 [facility] Delia Hall K80.00 Calculus of 7:00a [facility] Padilla, INTERNAL REVIEW AND AUDIT COMPLIANCE gallbladder w acute cholecyst w/o obstruction Office Visit 06/23/2018 [facility] Salas K80.00 Calculus of 10:03a Assoc,pc INTERNAL REVIEW AND AUDIT COMPLIANCE gallbladder w Hospitalists acute cholecyst w/o obstruction N17.9 Acute kidney failure, unspecified J96.90 Respiratory failure, unsp, unsp w hypoxia or hypercapnia Office Visit 06/22/2018 [facility] N17.9 Acute kidney 10:03a Assoc,lynn Marina, INTERNAL REVIEW AND AUDIT COMPLIANCE failure, Hospitalists unspecified R65.21 Severe sepsis with septic shock K80.00 Calculus of gallbladder w acute cholecyst w/o obstruction J96.90 Respiratory failure, unsp, unsp w hypoxia or hypercapnia E11.9 Type 2 diabetes mellitus without complications Office Visit 06/21/2018 [facility] K80.00 Calculus of 10:03a Assoc,pc Salas, INTERNAL REVIEW AND AUDIT COMPLIANCE gallbladder w Hospitalists acute cholecyst w/o obstruction J96.90 Respiratory failure, unsp, unsp w hypoxia or hypercapnia N17.9 Acute kidney failure, unspecified E11.9 Type 2 diabetes mellitus without complications Office Visit 06/21/2018 Surgical Varghese Griffith K80.00 Calculus of 7:00a [facility] COSBY FACS gallbladder w acute cholecyst w/o obstruction Office Visit 2018 [facility] K80.00 Calculus of 10:02a Assoc,pc [facility] Doto, gallbladder w Hospitalists INTERNAL REVIEW AND AUDIT COMPLIANCE acute cholecyst w/o obstruction R65.21 Severe sepsis with septic shock N17.9 Acute kidney failure, unspecified E11.9 Type 2 diabetes mellitus without complications Office Visit 06/19/2018 [facility] Amol Lepe D72.829 Elevated white 12:17p For Infectious Bartolo Hemphill blood cell count, Diseases unspecified R19.7 Diarrhea, unspecified K80.00 Calculus of gallbladder w acute cholecyst w/o obstruction Office Visit 06/19/2018 10:01a [facility] N17.9 Acute kidney Assoc,[facility] Doto, failure, Hospitalists INTERNAL REVIEW AND AUDIT COMPLIANCE unspecified E11.9 Type 2 diabetes mellitus without complications J96.90 Respiratory failure, unsp, unsp w hypoxia or hypercapnia K80.00 Calculus of gallbladder w acute cholecyst w/o obstruction R65.21 Severe sepsis with septic shock Office Visit 06/18/2018 9:59a [facility] Jeferson Hawkins J96.01 Acute respiratory MD failure with hypoxia N17.9 Acute kidney failure, unspecified K80.00 Calculus of gallbladder w acute cholecyst w/o obstruction 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 J81.0 Acute pulmonary edema D69.6 Thrombocytopenia, unspecified B96.29 Oth Escherichia coli as the cause of diseases classd elswhr Office Visit 06/17/2018 9:59a [facility] Krupa Bhatti96.01 Acute respiratory MD failure with hypoxia N17.9 Acute kidney failure, unspecified K80.00 Calculus of gallbladder w acute cholecyst w/o obstruction 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 failure, Hospitalists unspecified E86.0 Dehydration R00.0 Tachycardia, unspecified Office Visit 06/13/2018 Danial Lepe Z01.810 Encounter for 4:06p Cardiology Angeles Bain M.D. preprocedural [facility] cardiovascular examination K81.0 Acute cholecystitis Q23.1 Congenital insufficiency of aortic valve E11.9 Type 2 diabetes mellitus without complications Office Visit 06/13/2018 Surgical Ruben Jewell K81.0 Acute 7:00a [facility] J[facility] Noriega cholecystitis Sequins Winder A41.9 Sepsis, unspecified organism Office Visit 06/13/2018 7:00a Surgical Varghese Griffith, K81.0 Acute cholecystitis [facility] Cma A41.9 Sepsis, unspecified organism Plan of Treatment Future Appointment(s):07/20/2018 10:00 am - Varghese Griffith MD, FACS at [facility]07/26/2018 9:00 am - Dominique Seals MD at [facility] Internal Medicine - [address]
--- OUTSIDE RECORDS SUMMARY | 2018-07-22 17:12 | XMS REPORT | Continuity of Care Document ---
:1945 External Reference #:[id number] Author Name Angle Hull Care Team Providers Name Role Phone Papi Kaiser MD Care Team Information Legal Assistant Unavailable Papi Kaiser MD Primary Care Physician Unavailable Payers Type Date Identification Numbers Payment Provider Subscriber Policy Number: [id number] Medicare Blue Ppo Spike Cordero Group Number: [id number] [address] [address] PayID: [id number] [place] [address] Advance Directives Description No Information Available Problems Description No Information Family History Date Family Member(s) Problem(s) Comments Father due to [place] () Mother Diabetes Mother due to Natural Causes () Social History Type Date Description Comments Sex Unknown Marital Status Occupation [employer] Use Denies alcohol use Tobacco Use Start: Unknown Patient has never smoked Smoking Status Reviewed: 06/27/18 Patient has never smoked Allergies, Adverse Reactions, Alerts Description No Known Drug Allergies Medications Medication Date Status Form Strength Qnty SIG Indications Ordering Provider Glipizide XL Active Tablets ER 5mg 60tabs 1 tab E11.9 Ashly 018 24HR twice a Senner, DO day Aspirin Adult [address] 81mg 1 by Unknown Low Strength 000 mouth every day Metformin HCL 0 Active Tablets 500mg 2 by Unknown 000 mouth twice a day Glipizide Active Tablets 5mg 30tabs take 1 Unknown 000 tablet twice daily Famotidine 0 Active Tablets 20mg 1 by Unknown 000 mouth every day Amoxicillin/C 0 Active Tablets 500-125mg 1 by Unknown lavulanate 000 mouth Potassium twice a day Immunizations Description No Information Available Vital Signs Date Vital Result Comment 06/27/2018 10:24am Weight 236.00 lb Heart Rate 84 /min BP Systolic 122 mmHg BP Diastolic 74 mmHg Respiratory Rate 16 /min Body Temperature 97.7 F Pain Level 2 O2 % BldC Oximetry 98 % Results Test Date Facility Test Result H/L Range Note Laboratory test 06/27/2018 [facility] In House Glucose Fingerstick 156 finding Procedures Date Code Description Status 06/13/2018 73629 ECHO Transthorasic Realtime 2D W Doppler & Color Flow Hosp Completed 10/25/2014 45707 ECHO Transthoracic, Real-Time 2D With Doppler And Color Completed Flow Encounters Type Date Location Provider Dx Diagnosis Office Visit 06/16/2018 Surgical Delia Hall K81.0 Acute cholecystitis 7:00a [facility] Eckenrodmario, INSIDE SALES REPRESENTATIVE Office Visit 06/14/2018 Surgical Varghese Griffith K81.0 Acute cholecystitis 7:00a [facility] ESAU COSBY A41.9 Sepsis, unspecified organism Office Visit 06/13/2018 Danial Lepe Z01.810 Encounter for 4:06p Cardiology Of Bartolo Bain preprocedural [facility] cardiovascular examination K81.0 Acute cholecystitis Q23.1 Congenital insufficiency of aortic valve E11.9 Type 2 diabetes mellitus without complications Office Visit 06/13/2018 Surgical Ruben Jewell K81.0 Acute 7:00a [facility] JARRED Noriega cholecystitis [facility] A41.9 Sepsis, unspecified organism Office Visit 06/13/2018 7:00a Surgical Varghese Griffith K81.0 Acute cholecystitis [facility] COSBY [facility] A41.9 Sepsis, unspecified organism Plan of Treatment 06/27/2018 - Ashly Davenport DOK81.0 Acute cholecystitisRecommendations:If the drain stops draining, call Dr. Griffith's office. If you have a fever >101, call Dr. Griffith's office. If it is in the evening and you cannot talk with the doctor application trainer, you should go the ED. Call Ines Mckeon to get scheduled with [facility] Internal Medicine.E11.9 Type 2 diabetes mellitus without complicationsNew Medication:Glipizide XL 5 mg - 1 tab twice a dayRecommendations:go back to metformin 500mg twice a dayZ01.810 Encounter for preprocedural cardiovascular examinationReferral:Samson Bain MD, Cardiovsclr DiseaseRecommendations:You will likely need a stress test before you get your gallbladder out. I am sending you to Dr. Bain for this.
--- OUTSIDE RECORDS SUMMARY | 2018-07-22 17:12 | XMS REPORT | Continuity of Care Document ---
:1945 External Reference #:[id number] Author Name JazDorota dobbins Care Team Providers Name Role Phone Papi Kiaser MD Primary Care Physician Unavailable Payers Type Date Identification Numbers Payment Provider Subscriber Policy Number: [id number] Medicare Blue Ppo Mariela Cordero Group Number: [id number] [address] [address] PayID: [id number] MANUEL Angel [id number] Advance Directives Description No Information Available Problems Description No Information Family History Date Family Member(s) Problem(s) Comments General Diabetes Father due to [place] () Mother Diabetes Mother due to Natural Causes () Social History Type Date Description Comments Sex Unknown Marital Status Lives With Spouse Occupation [employer] Use Denies alcohol use Tobacco Use Start: Unknown Patient has never smoked Recreational Drug Use Denies Drug Use Smoking Status Reviewed: 07/06/18 Patient has never smoked Exercise Type/Frequency Does [...] lavulanate 000 mouth Potassium twice a day Glipizide /0 Hx Tablets 5mg 30tabs take 1 Unknown 000 - tablet twice 018 daily Immunizations Description No Information Available Vital Signs Date Vital Result Comment 07/06/2018 8:40am Heart Rate 80 /min Respiratory [...] Date Facility Test Result H/L Range Note Urinalysis Profile 06/27/2018 [facility] Urine Color Yellow [address] [place] [address] [phone] Urine Appearance Clear Urine Specific [place] 1.009 Low 1.010-1.030 Urine pH 5.0 N [...] Present Abnormal Absent Urine Culture And 06/27/2018 [facility] Urine Culture SEE RESULT [address] [place] [address] [phone] Basic Metabolic 06/27/2018 [facility] Sodium 140 mmol/L N 135- [address] [place] [address] [phone] Chloride 109 mmol/L N 101-111 Co2 Carbon Dioxide 25 mmol/L N 22-32 Glucose 135 mg/dL High 70-100 Blood Urea Nitrogen 28 mg/dL High 6-24 Creatinine 1.38 mg/dL High 0.67-1.17 BUN/Creatinine Ratio 20.3 High 8-20 Calcium 9.1 mg/dL N 8.6-10.3 Egfr Non- 50.6 >60 Egfr 61.3 >60 2 Potassium 5.2 mmol/L High 3.5-5.0 Anion Gap 6 mmol/L N 2-11 CBC Auto 06/27/2018 [facility] White Blood 17.1 10^3/uL High 3.5-10.[address] Count [place], [place] [address] [phone] Red Blood Count 4.32 10^6/uL N 4.00-5.40 [...] Cells % 0 Laboratory test finding 06/27/2018 [facility] In House Glucose Fingerstick 156 1 SEE RESULT BELOW Name: MARIELA CORDERO : [address]: Ashly Davenport DO Acct: [id number] Unit: [id number] AGE: 73 Location: LAB Re06/27/18 SEX: M Status: REG REF SPEC: [id number] MIKA: 06/27/18-[address]: Ashly Davenport DO REQ: [id number] RECD: 06/27/18 STATUS: COMP _ SOURCE: URINE SPDESC: ORDERED: Urine Culture Procedure Result Reported Site Urine Culture Final 06/28/18- 1250 ML No Growth (<1,000 CFU/mL) * ML - Main Lab . END OF REPORT DEPARTMENT OF PATHOLOGY, [address] [place] [address] Venkat Taveras M.D. Director [facility] # [id number] 2 Because ethnic data is not always readily [...] dialysis) Procedures Date Code Description Status 06/13/2018 68542 ECHO Transthorasic Realtime 2D W Doppler & Color Flow Hosp Completed 10/25/2014 84334 ECHO Transthoracic, Real-Time 2D With Doppler And Color Completed Flow Encounters Type Date Location Provider Dx Diagnosis Office Visit 06/29/2018 [facility] Varghese Griffith, K81.0 Acute cholecystitis 11:00a [facility], FACS E11.9 Type 2 diabetes mellitus without complications Office Visit 06/23/2018 [facility] Delia Hall K80.00 Calculus of 7:00a [facility] [employer] MANAGER gallbladder w acute cholecyst w/o obstruction Office Visit 06/23/2018 [facility] Salas, K80.00 Calculus of 10:03a lynn Elliott [employer]PA[employer] MANAGER gallbladder w Hospitalists acute cholecyst w/o obstruction N17.9 Acute kidney failure, unspecified J96.90 Respiratory failure, unsp, unsp w hypoxia or hypercapnia Office Visit 06/22/2018 [facility] N17.9 Acute kidney 10:03a lynn Elliott NP failure, Hospitalists unspecified R65.21 Severe sepsis with septic shock K80.00 Calculus of gallbladder w acute cholecyst w/o obstruction J96.90 Respiratory failure, unsp, unsp w hypoxia or hypercapnia E11.9 Type 2 diabetes mellitus without complications Office Visit 06/21/2018 [facility] K80.00 Calculus of 10:03a Assoc,lynn Marina, INTEGRATED CAMPAIGN MANAGER gallbladder w Hospitalists acute cholecyst w/o obstruction J96.90 Respiratory failure, unsp, unsp w hypoxia or hypercapnia N17.9 Acute kidney failure, unspecified E11.9 Type 2 diabetes mellitus without complications Office Visit 06/21/2018 [facility], K80.00 Calculus of 7:00a [facility], FACS gallbladder w acute cholecyst w/o obstruction Office Visit 2018 [facility] K80.00 Calculus of 10:02a Assoc,lynn PengLayne Doto, gallbladder w Hospitalists INTEGRATED CAMPAIGN MANAGER acute cholecyst w/o obstruction R65.21 Severe sepsis with septic shock N17.9 Acute kidney failure, unspecified E11.9 Type 2 diabetes mellitus without complications Office Visit 06/19/2018 [facility] Amol Lepe D72.829 Elevated white 12:17p For Infectious Bartolo Hemphill blood cell count, Diseases unspecified R19.7 Diarrhea, unspecified K80.00 Calculus of gallbladder w acute cholecyst w/o obstruction Office Visit 06/19/2018 10:01a [facility] N17.9 Acute kidney Assoc, Layne Rosas, failure, Hospitalists INTEGRATED CAMPAIGN MANAGER unspecified E11.9 Type 2 diabetes mellitus without complications J96.90 Respiratory failure, unsp, unsp w hypoxia or hypercapnia K80.00 Calculus of gallbladder w acute cholecyst w/o obstruction R65.21 Severe sepsis with septic shock Office Visit 06/18/2018 9:59a Intensivists Krupa Bhatti96.01 Acute respiratory MD [...] K81.0 Acute cholecystitis [facility] Set Up Person A41.9 Sepsis, unspecified organism Office Visit 06/13/2018 [facility] Yamilex Marcos, N17.9 Acute kidney 9:55a Assoc,lynn MChikaDChika failure, Hospitalists unspecified E86.0 Dehydration R00.0 Tachycardia, unspecified Office Visit 06/13/2018 Danial Lepe Z01.810 Encounter for 4:06p [facility] Bartolo Bain preprocedural [facility] cardiovascular examination K81.0 Acute cholecystitis Q23.1 Congenital insufficiency of aortic valve E11.9 Type 2 diabetes mellitus without complications Office Visit 06/13/2018 [facility] Elmerralph Best K81.0 Acute 7:00a [facility] Noriega cholecystitis [facility] A41.9 Sepsis, unspecified organism Office Visit 06/13/2018 7:00a [facility] Varghese Griffith, K81.0 Acute cholecystitis [facility] , FACS [facility] A41.9 Sepsis, unspecified organism Plan of Treatment Future Appointment(s):07/12/2018 10:00 am - Ashly Davenport DO at [facility]07/26/2018 9:00 am - Dominique Seals MD at [facility] Internal Medicine - [address]07/19/2018 10:45 am - Samson Bain M.D. at [facility]07/06/2018 - Varghese Griffith MD, FACSK81.0 Acute cholecystitisNew Xrays:Fluoroscopy Up To One Hour, Ordered: 07/06/18ollow up: after testing is completed
--- OUTSIDE RECORDS SUMMARY | 2018-07-22 17:12 | XMS REPORT | Continuity of Care Document ---
:1945 External Reference #:[id number] Author Name Petra Abdalla Care Team Providers Name Role Phone Papi Kaiser MD Primary Care Physician Unavailable Payers Type Date Identification Numbers Payment Provider Subscriber Policy Number: [id number] Medicare Blue Ppo Mariela Cordero Group Number: [id number] [address] [address] PayID: [id number] MANUEL Angel [address] Advance Directives Description No Information Available Problems Description No Information Family History Date Family Member(s) Problem(s) Comments General Diabetes Father due to [place] () Mother Diabetes Mother due to Natural Causes () Social History Type Date Description Comments Sex Unknown Marital Status Lives With Spouse Occupation [employer] Use Denies alcohol use Tobacco Use Start: Unknown Patient has never smoked Recreational Drug Use Denies Drug Use Smoking Status Reviewed: 06/29/18 Patient has never smoked Exercise Type/Frequency Does [...] Unknown 000 mouth twice a day Glipizide 0 Active Tablets 5mg 30tabs take 1 Unknown 000 tablet twice daily Famotidine 0 Active Tablets 20mg 1 by Unknown 000 mouth every day Amoxicillin/C 0 Active Tablets 500-125mg 1 by Unknown lavulanate 000 mouth Potassium twice a day Immunizations Description No Information Available Vital Signs Date Vital Result Comment 06/29/2018 10:55am Height 72 inches 6'0" Weight [...] Result H/L Range Note Urinalysis Profile 06/27/2018 [facility] Urine Color Yellow [address] [place] [address] [phone] Urine Appearance Clear Urine Specific [place] 1.009 Low 1.010-1.030 Urine pH 5.0 N [...] Present Abnormal Absent Urine Culture And 06/27/2018 [facility] Urine Culture SEE RESULT [address] [place] [address] [phone] Basic Metabolic 06/27/2018 [facility] Sodium 140 mmol/L N 135- [address] [place] [address] [phone] Chloride 109 mmol/L N 101-111 Co2 Carbon Dioxide 25 mmol/L N 22-32 Glucose 135 mg/dL High 70-100 Blood Urea Nitrogen 28 mg/dL High 6-24 Creatinine 1.38 mg/dL High 0.67-1.17 BUN/Creatinine Ratio 20.3 High 8-20 Calcium 9.1 mg/dL N 8.6-10.3 Egfr Non- 50.6 >60 Egfr 61.3 >60 2 Potassium 5.2 mmol/L High 3.5-5.0 Anion Gap 6 mmol/L N 2-11 CBC Auto 06/27/2018 [facility] White Blood 17.1 10^3/uL High 3.5-10.[address] [place], [place] [id number] [phone] Red Blood Count 4.32 10^6/uL N 4.00-5.40 [...] Cells % 0 Laboratory test finding 06/27/2018 [facility] House Glucose Fingerstick 156 1 SEE RESULT BELOW Name: MARIELA CORDERO : [address]: Ashly Davenport DO Acct: [id number] Unit: [id number] AGE: 73 Location: LAB Re06/27/18 SEX: M Status: REG REF SPEC: [id number] MIKA: 06/27/18-[address]: Ashly Davenport DO REQ: [id number] RECD: 06/27/18 STATUS: COMP _ SOURCE: URINE SPDESC: ORDERED: Urine Culture Procedure Result Reported Site Urine Culture Final 06/28/18- 1250 ML No Growth (<1,000 CFU/mL) * ML - Main Lab . END OF REPORT DEPARTMENT OF PATHOLOGY, [address] [place] [address] Venkat Taveras M.D. Director [facility] # [id number] 2 Because ethnic data is not always [...] dialysis) Procedures Date Code Description Status 06/13/2018 38893 ECHO Transthorasic Realtime 2D W Doppler & Color Flow Hosp Completed 10/25/2014 58542 ECHO Transthoracic, Real-Time 2D With Doppler And Color Completed Flow Encounters Type Date Location Provider Dx Diagnosis Office Visit 06/23/2018 [facility] Salas, K80.00 Calculus of 10:03a Asslynn connell JEWEL BEARING TURNER gallbladder w Hospitalists acute cholecyst w/o obstruction N17.9 Acute kidney failure, unspecified J96.90 Respiratory failure, unsp, unsp w hypoxia or hypercapnia Office Visit 06/22/2018 [facility] N17.9 Acute kidney 10:03a lynn Elliott, YOON failure, Hospitalists unspecified R65.21 Severe sepsis with septic shock K80.00 Calculus of gallbladder w acute cholecyst w/o obstruction J96.90 Respiratory failure, unsp, unsp w hypoxia or hypercapnia E11.9 Type 2 diabetes mellitus without complications Office Visit 06/21/2018 [facility] K80.00 Calculus of 10:03a Asslynn connell, JEWEL BEARING TURNER gallbladder w Hospitalists acute cholecyst w/o obstruction J96.90 Respiratory failure, unsp, unsp w hypoxia or hypercapnia N17.9 Acute kidney failure, unspecified E11.9 Type 2 diabetes mellitus without complications Office Visit 06/21/2018 [facility] V[facility]se [facility], K80.00 Calculus of 7:00a [facility], FACS gallbladder w acute cholecyst w/o obstruction Office Visit 2018 [facility] Velma K80.00 Calculus of 10:02a Assoc,lynn Rosas, gallbladder w Hospitalists JEWEL BEARING TURNER acute cholecyst w/o obstruction R65.21 Severe sepsis with septic shock N17.9 Acute kidney failure, unspecified E11.9 Type 2 diabetes mellitus without complications Office Visit 06/19/2018 [facility] Amol Lepe D72.829 Elevated white 12:17p For Infectious Bartolo Hemphill blood cell count, Diseases unspecified R19.7 Diarrhea, unspecified K80.00 Calculus of gallbladder w acute cholecyst w/o obstruction Office Visit 06/19/2018 10:01a [facility] Velma N17.9 Acute kidney Assoc,[facility] Ralph, failure, Hospitalists JEWEL BEARING TURNER unspecified E11.9 Type 2 diabetes mellitus without complications J96.90 Respiratory failure, unsp, unsp w hypoxia or hypercapnia K80.00 Calculus of gallbladder w acute cholecyst w/o obstruction R65.21 Severe sepsis with septic shock Office Visit 06/16/2018 [facility] Delia Hall K81.0 Acute cholecystitis 7:00a [facility] YOON Padilla [facility] Office Visit 06/14/2018 [facility] Varghese Griffith K81.0 Acute cholecystitis 7:00a [facility] A41.9 Sepsis, unspecified organism Office Visit 06/13/2018 [facility] Yamilex Marcos, N17.9 Acute kidney 9:55a Assoc,lynn Mcfarland failure, Hospitalists unspecified E86.0 Dehydration R00.0 Tachycardia, unspecified Office Visit 06/13/2018 Danial Lepe Z01.810 Encounter for 4:06p [facility] Bartolo Bain preprocedural [facility] cardiovascular examination K81.0 Acute cholecystitis Q23.1 Congenital insufficiency of aortic valve E11.9 Type 2 diabetes mellitus without complications Office Visit 06/13/2018 Surgical Ruben Jewell K81.0 Acute 7:00a [facility] J[facility] Noriega cholecystitis Health Care Administrator A41.9 Sepsis, unspecified organism Office Visit 06/13/2018 7:00a [facility] Varghese Griffith K81.0 Acute cholecystitis [facility] Cma A41.9 Sepsis, unspecified organism Plan of Treatment Future Appointment(s):07/06/2018 8:30 am - Varghese Griffith MD, FACS at [facility]07/26/2018 9:00 am - Dominique Seals MD at [facility] Internal Medicine - [address]07/19/2018 10:45 am - Samson Bain M.D. at [facility]06/29/2018 - Varghese Griffith MD, FACSK81.0 Acute cholecystitisFollow up:7-10 daysInstructions:continue to flush and record drainage. complete antibiotics. for other concerns, contact the [facility] (Dr. Davenport)E11.9 Type 2 diabetes mellitus without complications
[2018-07-22] MEDS ORDERED: Piperacillin/Tazobac ADVAN(*) 3.375 GM in NS 0.9% 100 ML* 100 ML IVPB ONE (17:53)
[2018-07-22] MEDS ORDERED: NS 0.9% 1000 ML*IV.FLUID IV ONE (17:53)
--- NOTE | 2018-07-22 18:07 | ED ---
Sepsis HPI - HPI Summary HPI Summary: Patient is a 73 y/o M with hx type II DM presenting to ED with complaints of fever, N/V/D, chills, and burping today. is present in the room. Pt has hx of cholecystitis since 05/2018 where pt had septic shock, acute renal failure and CHF. Pt's cholecystitis was managed in hospital with cholecystotomy and biliary drain and IV antibiotics. Pt was DC'd home 06/23/18. Patient had ERCP for 4mm CBD stone and spinchterotomy done by Dr. Lara 07/14/18, was admitted overnight after this due to concern for purulent drainage, and the cholecystotomy tube was removed Dr. Noguera on 07/15/18. Patient was discharged to home 07/15/18 with Cipro which he completed this am. Dr. Griffith told patient that he had a gallbladder infection and pt was instructed to come to ED if he had fever, N/V/D, burping, all of which he had today. He notes that he had four bowel movements today, first two were normal, third was loose, fourth was diarrhea. He denies abdominal pain. reports that patient has appeared fatigued. Chest pain, SOB is denied. PMHx of [place] is denied, patient has upcoming stress test this month with Dr. Bain. The original plan was for pt to have full cardiologic evaluation prior to surgery. FMHx of diabetes, cardiac disease , [place], blood clots, breast CA, arthritis, gout, MS. On triage, pain is denied, nothing is noted to aggravate/alleviate Sx. Patient reports he is on Metformin 500 mg 2 tablets, 2 times daily, glipizide 5 mg twice daily, famotidine 20 mg once daily, Flomax .04 mg one per day. Home medications and allergies are reviewed. Allergies Allergy/AdvReac Type Severity Reaction Status Date / Time No Known Allergies Allergy Verified 07/14/18 13:59 - History of Current Complaint Chief Complaint: EDNauseaVomitDiarrh Time Seen by Provider: 07/22/18 17:52 Stated Complaint: FEVER/VOMITING/DIARRHEA Hx Obtained From: Patient, Family/Custodial Foreman - , Medical Records - [facility] Onset/Duration: Started Hours Ago, Still Present Timing: Constant, Lasting Hours Onset Severity: Moderate Current Severity: Moderate Pain Intensity: 0 - no abdominal pain Pain Scale Used: 0-10 Numeric - 0/10 Aggravating Symptom(s): Nothing Alleviating Factor(s): Nothing Associated Signs & Symptoms: Nausea, Vomiting, Chills, Recent Surgery, Other - Fatigue, burping, fever, vomiting, diarrhea endorsed; Abdominal pain, SOB, chest pain denied Similar Episode/Dx as: cholecystitis, sepsis - Additional Pertinent History Primary Care Physician: SNOW - Allergy/Home Medications Allergies/Adverse Reactions: Allergies Allergy/AdvReac Type Severity Reaction Status Date / Time No Known Allergies Allergy Verified 07/14/18 13:59 PMH/Surg Hx/FS Hx/Imm Hx Endocrine/Hematology History: Reports: Hx Diabetes - DM II Cardiovascular History: Reports: Hx Congestive Heart Failure - with sepsis and acute renal failure , Hx Valvular Heart Disease - congenital bicuspid aortic valve Denies: Hx Myocardial Infarction GI History: Reports: Hx Gall Bladder Disease - s/p cholecytitis with cholecystotomy tube and sepsis 05/2018 , Other GI Disorders - s/p ERCP 07/14/18 with 4mm CBD stone removed and spinchterotomy; History: Reports: Hx Acute Renal Failure - with sepsis 05/2018 Sensory History: Reports: Hx Contacts or Glasses - when driving Denies: Hx Hearing Aid Opthamlomology History: Reports: Hx Contacts or Glasses - when driving - Surgical History Surgery Procedure, Year, and Place: cataract surgery. surgery on scrotum, possibly hydrocele. cholecystotomy tube 05/2018, [facility]. ERCP 07/14/18 with CBD stone removal and spincterotomy Infectious Disease History: Yes - septic shock 05/2018 Infectious Disease History: Denies: Traveled Outside the [place] in Last 30 Days - Family History Known Family History: Positive: Cardiac Disease, Diabetes, Blood Disorder - blood clots , Other - breast CA, arthritis, gout, MS - Social History Lives: With Family Alcohol Use: Rare Hx Substance Use: No Substance Use Type: Reports: None Hx Tobacco Use: No Smoking Status (MU): Never Smoked Tobacco Review of Systems Positive: Fever, Chills, Fatigue, Other - burping Negative: Chest Pain Negative: Shortness Of Breath Positive: Vomiting, Diarrhea, Nausea. Negative: Abdominal Pain Positive: no symptoms reported Musculoskeletal: Negative Skin: Negative Neurological: Negative Psychological: Normal All Other Systems Reviewed And Are Negative: Yes Physical Exam - Summary Physical Exam Summary: Appearance: ill-appearing, no pain distress, well-nourished, febrile, meets SIRS criteria Skin: Warm, color reflects adequate perfusion, dry Head: Normal Head/Face inspection, atraumatic Eyes: Conjunctiva clear ENT: Normal inspection Neck: Supple, no nodes, no JVD Respiratory: Decreased breath sounds Cardio: RRR, No murmur, pulses normal, brisk capillary refill Abdomen: Soft, nontender, nondistended, no masses Bowel sounds: Present Musculoskeletal: Strength Intact/ROM intact, no calf tenderness, no edema. Psychological: Normal Neuro: Alert, muscle tone normal, no focal deficit Triage Information Reviewed: Yes Vital Signs On Initial Exam: Initial Vitals Temp Pulse Resp BP Pulse Ox 101.7 F 123 18 160/81 98 07/22/18 16:44 07/22/18 16:44 07/22/18 16:44 07/22/18 16:44 07/22/18 16:44 Vital Signs Reviewed: Yes Diagnostics - Vital Signs Vital Signs Temp Pulse Resp BP Pulse Ox 07/22/18 16:44 101.7 F 123 18 160/81 98 - Laboratory Result Diagrams: 07/28/18 05:45 07/28/18 05:45 Lab Statement: Any lab studies that have been ordered have been reviewed, and results considered in the medical decision making process. - Radiology CXR Radiology Interpretation Completed By: ED Physician Summary of Radiographic Findings: no acute process, pending official report - EKG 1843 Cardiac Rate: NL - rate of 97 BPM EKG Rhythm: Sinus Rhythm ST Segment: Non-Specific Ectopy: None EKG Comparison: No Significant Change - compared to 06/13/18 EKG Summary of EKG Findings: EKG showed sinus rhythm with rate of 97 BPM, nl AV, prolonged IVCT 116, left axis (-36), no acute changes, no significant change compared to 06/13/18 EKG Sepsis Re-assessment - Sepsis Re-Assessment First Eval Re-Evaluation Time: 19:35 - Pt advised that he will be admitted. Remains alert , no abd pain. Patient's Vitals Signs: Vital Signs Temp Pulse Resp BP Pulse Ox 07/22/18 21:00 95 25 93 07/22/18 20:59 94 24 146/72 93 07/22/18 20:29 93 5 140/70 94 07/22/18 20:00 92 35 95 07/22/18 19:59 92 39 144/74 96 07/22/18 19:00 94 29 97 07/22/18 18:59 96 29 159/83 95 07/22/18 18:29 101 29 159/79 95 07/22/18 18:10 94 07/22/18 18:00 106 23 95 07/22/18 17:59 102 26 157/80 95 07/22/18 17:29 107 27 161/79 93 07/22/18 17:00 110 31 95 07/22/18 16:59 111 40 160/77 94 07/22/18 16:44 101.7 F 123 18 160/81 98 Cardiovascular: Pulses are Symmetrical in both Upper and Lower Extremities, Tachycardia, S1, S2 Pulmonary: Other - no SOB Capillary Refill: Less than 3 Seconds Peripheral Pulses Present: Yes Course/Dx - Course Course Of Treatment: Patient is a 73 y/o M with hx DMII, cholecystitis, septic shock, CHF, renal failure s/p cholecystotomy tube 05/2018, presents to ED with complaints of fever, N/V/D, chills, and burping today. is present in the room. Pt was DC'd home 06/23/18. Patient had ERCP done by Dr. Lara 07/14/18, cholecystoomy tube removed 07/15/[address] Noguera. Patient was discharged to home 07/15/18 with Cipro which he completed today. Dr. Griffith told patient that he had a gallbladder infection and pt was instructed to come to ED if he had fever , N/V/D, burping, all of which he had today. He notes that he had four bowel movements today, first two were normal, third was loose, fourth was diarrhea. He denies abdominal pain. reports that patient has appeared fatigued. Chest pain, SOB is denied. PMHx of [place] is denied, patient has upcoming stress test this month with Dr. Bain, planned for prior to surgery. On physical exam , patient is noted to be febile at 101.7, tachycardic, ill-appearing, no pain distress, decreased breath sounds, with soft, nontender, nondistended abdomen. EKG showed sinus rhythm with rate of 97 BPM, nl AV, prolonged IVCT 116, left axis (-36), no acute changes, no significant change compared to 06/13/18 EKG. CXR showed no acute process. GB US ordered, results pending at time of admission. Labs showed WBC 17.7, Hgb 12.3, Hct 38, absolute neuts 16.1, absolute lymphs 0.5, absolute monos 1, INR 1.14, APTT 20.7, glucose 193, AST 8, trop 0.01, lactic acid 1.3, CRP 10.99, BNP 89, total protein 6.2. UA as negative. During ED course, pt was started on sepsis protocol. Patient received 30ml/kg IV fluids, piperacillin sod/tazobactam sod 3.375 gm. 1903 - Dr. Vazquez evaluated patient. Admission recommended and surgery will follow. 1928 - Dr. Chiu, hospitalist, was consulted on patient's case. Dr. Chiu accepts for admission. Dx of cholecytitis, fever, and sepsis. - Differential Dx/Clinical Impression Differential Diagnosis/HQI/PQRI: Metabolic Disorder, Sepsis Provider Diagnosis: Cholecystitis, Sepsis, Fever - Provider Notifications Discussed Care Of Patient With: Donny Vazquez Time Discussed With Above Provider: 19:04 Instructed by Provider To: Admit As Inpatient - 1903 - Dr. Vazquez evaluated patient. Admission recommended. 1928 - Dr. Chiu was consulted on patient's case. Dr. Chiu accepts for admission. Dx of cholecytitis, fever, and sepsis. - Critical Care Time Critical Care Time: 30-74 min - 30mins Discharge - Sign-Out/Discharge Documenting (check all that apply): Patient Departure - admit - Discharge Plan Condition: Good Disposition: ADMITTED TO [facility] - Billing Disposition and Condition Condition: GOOD Disposition: Admitted to [facility] - Attestation Statements Document Initiated by Scribe: Yes Documenting Scribe: DEA JAMISON Provider For Whom Bartolome is Documenting (Include Credential): ROGELIO COHEN MD Scribe Attestation: DEA Ricketts , scribed for ROGELIO COHEN MD on 07/30/18 at 1539. Scribe Documentation Reviewed: Yes Provider Attestation: The documentation as recorded by the DEA bynum accurately reflects the service I personally performed and the decisions made by me, ROGELIO COEHN MD Status of Scribe Document: Viewed
[2018-07-22 18:51] LABS: ABS Basophils 0.1 10^3/ul (0-0.2); ABS Eosinophils 0 10^3/ul (0-0.6); ABS Lymphocytes 0.5 10^3/ul (1.0-4.8); ABS Neutrophils 16.1 10^3/ul (1.5-7.7); ABS Nucleated RBC 0 10^3/ul; Eosinophil % 0.2 %; Hematocrit 38 % (42-52); Hemoglobin 12.3 g/dl (14.0-18.0); Lymphocyte % 3.1 %; Mean Corpuscular HGB Conc 33 g/dl (31-36); Mean Corpuscular Hemoglobin 28 pg (27-31); Mean Corpuscular Volume 86 fL (80-94); Nucleated Red Blood Cells % 0; Platelet Count 251 10^3/ul (150-450); Red Blood Count 4.39 10^6/ul (4.00-5.40); Red Cell Distribution Width 14 % (10.5-15); White Blood Count 17.7 10^3/ul (3.5-10.8)
[2018-07-22 18:58] LABS: Activated Partial Thrombo Time 20.7 seconds (26.0-36.3); INR 1.14 (0.77-1.02)
[2018-07-22 19:10] LABS: Albumin 3.7 g/dL (3.2-5.2); Albumin/Globulin Ratio 1.5 (1-3); BUN/Creatinine Ratio 15.2 (8-20); C Reactive Protein 10.99 mg/L (<8.01); EGFR Non-African American 69.4 (>60); Globulin 2.5 g/dL (2-4); Total Bilirubin 0.4 mg/dL (0.2-1.0); Total Protein 6.2 g/dL (6.4-8.9)
[2018-07-22 19:29] LABS: Erythrocyte Sed Rate 21 mm/Hr (0-40)
[2018-07-22] MEDS ORDERED: Acetaminophen TAB* 325 MG PO ONE (19:30)
[2018-07-22 19:51] LABS: Urine Appearance Clear; Urine Bilirubin Negative (Negative); Urine Blood Negative (Negative); Urine Color Yellow; Urine Glucose Negative (Negative); Urine Ketones Negative (Negative); Urine Nitrite Negative (Negative); Urine Protein Negative (Negative); Urine Urobilinogen Negative (Negative)
--- NOTE | 2018-07-22 21:52 | CONS ---
CC: Dr. Papi Kaiser; Dr. Mayank Lara; [facility] SURGICAL CONSULTATION REPORT: DATE OF CONSULT: 07/22/18 HISTORY OF PRESENT ILLNESS: I was contacted by the emergency room to evaluate Mr. Cordero a 73-year-old gentleman who is known to our service after being diagnosed with acute cholecystitis that was treated non-operatively with percutaneous cholecystotomy drain and IV antibiotics. This treatment option started at the end of May. The patient was hospitalized until 06/23/18, where he went home with a biliary drain. It had been exchanged during his time here. He had improved significantly with regards to patient's confusion and other correlating symptoms that did not seem to include abdominal pain. The patient had done well through mid portion of June and underwent a cholangiogram via the cholecystotomy drain and it was suggestive of a stone at the common bile duct. There were still continued stones in the gallbladder itself, but the cystic duct was patent. The patient then underwent an ERCP on 07/14/[address] Lara as well as sphincterotomy it included removal of 4 mm common bile duct stone. According to the report there was some pus drainage after the sphincterotomy and clearing occurred. No biliary stenting was performed. It was felt by the endoscopist that the common bile duct stone was not related to the patient's acute issues. The patient completed a course of ciprofloxacin after the ERCP procedure which was just completed this morning. Cholecystostomy drain was removed the day after ERCP. He now presents for evaluation and is already admitted to the hospital service due to elevated fever. Temperature this morning was 100 and this is why patient's family brought him in. He denies abdominal pain. Positive nausea, and 1 episode of vomiting. Temperature here in the emergency room is 101.7, also had an elevated white blood cell count of 17.7 with no left shift. PAST MEDICAL HISTORY: Unchanged. PAST SURGICAL HISTORY: Unchanged, please review previous consultation reports. MEDICATIONS: Medication list reviewed and does not include anticoagulants, but he does take 81 mg aspirin. REVIEW OF SYSTEMS: Fevers as described, but no chills. No dizziness, but he is weak. He denies shortness of breath. He denies any abdominal pain. His appetite has been fair up until recently. He is complaining of nausea and has had at least 1 episode of vomiting. The patient describes 4 bowel movements today after 2 days of none. The last two bowel movements were loose with the fourth being especially watery. Urine has been fine. He just was recently started on Flomax and this has been light in color. Labs reviewed; showed normal LFTs, CRP is 11 this is down from 14 from week ago , elevated blood sugar 193. PHYSICAL EXAM: Head, Eyes, Ears, Nose, and Throat: Normocephalic, atraumatic. Sclerae anicteric. Mucous membranes are moist. Neck: No lymphadenopathy. Abdomen is soft, nondistended, and nontender. No cholecystostomy drain at this time and this was removed prior to discharge after the ERCP. No CVA tenderness. Rectal exam not performed. Extremities: Within normal limits. DIAGNOSTIC STUDIES: Chest x-ray shows some haziness, but otherwise clear. There was no radiologic read at this point. Labs described as above. IMPRESSION: A 73-year-old gentleman who recently was treated non-operatively for acute cholecystitis with possibility of obstructive choledocholithiasis, who presents with nausea, vomiting, diarrhea and fevers after multiple courses of antibiotics. This patient may be suffering with acute cholecystitis at this point, but differential diagnosis includes C. diff colitis, PLAN: * IV fluids, admission. * stool samples to rule out C. diff * ultrasound of the gallbladder. * the hospitalist has already admitted him and I will reach out to them to discuss the case * We will follow closely. [id number] #: [id number] MTDD
[2018-07-22] MEDS: NS 0.9% 1000 ML* 1,000 ML IV SCH (22:48)
[2018-07-22] MEDS ORDERED: Insulin GLARGINE(*) 1 UNITS UNIT SUBCUT SCH (23:00)
--- NOTE | 2018-07-22 23:27 | ADMNOTE ---
Subjective Date of Service: 07/22/18 Interval History: HISTORY and PHYSICAL cc: diarrhea HPI: Mr Cordero is a 73 year old man with recent cholelithiasis and cholecystitis who presented to ER tonight with fever to 102 that developed this afternoon, associated with shaking chills. He had some nausea, and vomited once on the way to ER with his . He has no abdominal pain. He has moved his bowels 4 times today, 2 normal BMs, one loose stool, and one episode diarrhea. His recent history includes admssion to this hospital in May, with acute cholecystitis. He had a T-tube placed, was discharged on 06/23. On 07/14 he had the T-tube removed and had ERCP with Dr. Lara In the ER today prior to my assessment he was seen by Dr. Vazquez of general surgery. Family History: Findings - father of MD, mother of Alzheimers, mother and mother's brother had DM2 Social History: Findings - active as [employer], , 4 children, no tobacco, no alcohol, no drug use Past Medical History: Findings - cholelithiasis, Type 2 diabetes, BPH, GERD Review of Systems - Measurements Intake and Output: Intake and Output Last 24 Hours 07/20/18 07/21/18 07/22/18 07/23/18 06:59 06:59 06:59 06:59 Intake Total 3230 Balance 3230 Weight 104.326 kg Intake: IV Fluids 3230 - Review of Systems Constitutional Symptoms: Positive: Fever Negative: Weight Loss Dermatology: Positive: Normal HEENT: Positive: Normal Eyes: Positive: Normal Thyroid: Positive: Normal Pulmonary: Positive: Normal Cardiology: Positive: Normal Gastroenterology: Positive: Nausea, Vomiting, Anorexia, Diarrhea Negative: Abdominal Pain, Constipation Genital - Urinary: Positive: Normal Genitourinary - Male: Positive: Prostatism Endocrinology: Positive: Diabetes Mellitus Neurology: Positive: Normal Psychiatry: Positive: Normal Objective Active Medications: Famotidine (Pepcid Tab*) 20 mg PO DAILY NAVEEN Piperacillin Sod/Tazobactam (Sod 3.375 gm/ Sodium Chloride) 100 mls @ 25 mls/ hr IVPB Q8H [facility]AVEEN Sodium Chloride (Ns 0.9% 1000 Ml*) 1,000 mls @ 125 mls/hr IV PER RATE NAVEEN Insulin Glargine (Lantus(*)) 10 units SUBCUT Q24H [facility] Insulin Human Lispro (Humalog*) 0 units SUBCUT ACHS NAVEEN; Protocol Tamsulosin HCl (Flomax Cap*) 0.4 mg PO QPM [facility] Vital Signs - 8 hr 07/22/18 07/22/18 07/22/18 16:44 16:59 17:00 Temperature 38.7 C Pulse Rate 123 111 110 Respiratory 18 40 31 Rate Blood Pressure 160/81 160/77 (mmHg) O2 Sat by Pulse 98 94 95 Oximetry 07/22/18 07/22/18 07/22/18 17:29 17:59 18:00 Temperature Pulse Rate 107 102 106 Respiratory 27 26 23 Rate Blood Pressure 161/79 157/80 (mmHg) O2 Sat by Pulse 93 95 95 Oximetry 07/22/18 07/22/18 07/22/18 18:10 18:29 18:59 Temperature Pulse Rate 101 96 Respiratory 29 29 Rate Blood Pressure 159/79 159/83 (mmHg) O2 Sat by Pulse 94 95 95 Oximetry 07/22/18 07/22/18 07/22/18 19:00 19:59 20:00 Temperature Pulse Rate 94 92 92 Respiratory 29 39 35 Rate Blood Pressure 144/74 (mmHg) O2 Sat by Pulse 97 96 95 Oximetry 07/22/18 07/22/18 07/22/18 20:29 20:59 21:00 Temperature Pulse Rate 93 94 95 Respiratory 5 24 25 Rate Blood Pressure 140/70 146/72 (mmHg) O2 Sat by Pulse 94 93 93 Oximetry 07/22/18 22:29 Temperature 37.9 C Pulse Rate 78 Respiratory 15 Rate Blood Pressure 124/74 (mmHg) O2 Sat by Pulse 98 Oximetry Oxygen Devices in Use Now: None Appearance: no distress Eyes: No Scleral Icterus Ears/Nose/Mouth/Throat: NL Teeth, Lips, Gums Neck: NL Appearance and Movements; NL JVP Respiratory: Symmetrical Chest Expansion and Respiratory Effort, Clear to Auscultation Cardiovascular: NL Sounds; No Murmurs; No JVD, RRR, No Edema Abdominal: NL Sounds; No Tenderness; No Distention, No Hepatosplenomegaly Lymphatic: No Cervical Adenopathy Extremities: No Edema Skin: No Rash or Ulcers Neurological: Alert and Oriented x 3 Lines/Tubes/Other Access: Clean, Dry and Intact Peripheral IV Nutrition: Taking PO's Result Diagrams: 07/23/18 05:08 07/23/18 05:08 Additional Lab and Data: Laboratory Tests 07/22/18 07/22/18 07/22/18 18:36 18:36 18:36 INR (Anticoag Therapy) 1.14 H APTT 20.7 L Lactic Acid AST 8 L ALT 14 C-Reactive Protein 10.99 H B-Natriuretic Peptide 89 Total Protein 6.2 L Albumin 3.7 Urine Appearance Ur Specific [place] Urine Nitrate Ur Leukocyte Esterase 07/22/18 07/22/18 19:38 21:39 INR (Anticoag Therapy) APTT Lactic Acid 1.3 AST ALT C-Reactive Protein B-Natriuretic Peptide Total Protein Albumin Urine Appearance Clear Ur Specific [place] 1.010 Urine Nitrate Negative Ur Leukocyte Esterase Negative Diagnostic Imaging: RUQ ultrasound shows cholelithiasis, thickened GB wall EKG Data: normal sinus rhythm, normal axis, LVH, no ischemia Assess/Plan/Problems-Billing Assessment: 73 year old man with 6 weeks of symptomatic cholelithiasis and cholecystitis, presenting with sepsis - Patient Problems (1) Acute calculous cholecystitis Current Visit: No Status: Acute Priority: High Code(s): K80.00 - CALCULUS OF GALLBLADDER W ACUTE CHOLECYST W/O OBSTRUCTION SNOMED Code(s): 11998595 Comment: - patient not responding to conservative management of gallbladder disease - will need cholecystectomy once acute infection has improved - will need cardiac work-up prior to surgery - Treated w/ Zosyn (2) Sepsis Current Visit: Yes Status: Acute Priority: High Comment: - source could be gallbladder, or C-diff colitis due to recent antibiotic courses - awaiting stool testing - has had initial fluid resucitation, appears stable - continue Zosyn (3) Type 2 diabetes mellitus Current Visit: Yes Status: Chronic Priority: Medium Comment: - Off metformin due to risk of lactic acidosis and possible need for CT - off sulfonurea due to NPO status, risks of hypoglycemia - will give low-dose lantus and sliding scale humalog to maintain euglycemia (4) DVT prophylaxis Current Visit: No Status: Acute Code(s): [id number] - SNOMED Code(s): 302121289 Comment: - SCDs Status and Disposition: Requires inpatient stay for surgical management
[2018-07-22] MEDS: Piperacillin/Tazobac ADVAN(*) 3.375 GM in NS 0.9% 100 ML* 100 ML IVPB SCH (23:47)
[2018-07-23 05:33] LABS: ABS Basophils 0 10^3/ul (0-0.2); ABS Eosinophils 0 10^3/ul (0-0.6); ABS Lymphocytes 0.9 10^3/ul (1.0-4.8); ABS Monocytes 0.9 10^3/ul (0-0.8); ABS Neutrophils 7.9 10^3/ul (1.5-7.7); ABS Nucleated RBC 0 10^3/ul; Eosinophil % 0.5 %; Hematocrit 32 % (42-52); Hemoglobin 10.8 g/dl (14.0-18.0); Lymphocyte % 9.4 %; Mean Corpuscular HGB Conc 33 g/dl (31-36); Mean Corpuscular Hemoglobin 29 pg (27-31); Mean Corpuscular Volume 86 fL (80-94); Mean Platelet Volume 8.4 fL (7.4-10.4); Nucleated Red Blood Cells % 0; Platelet Count 224 10^3/ul (150-450); Red Blood Count 3.78 10^6/ul (4.00-5.40); Red Cell Distribution Width 14 % (10.5-15); White Blood Count 9.8 10^3/ul (3.5-10.8)
[2018-07-23 05:47] LABS: Albumin 2.9 g/dL (3.2-5.2); Albumin/Globulin Ratio 1.1 (1-3); BUN/Creatinine Ratio 13.1 (8-20); Calcium 8.2 mg/dL (8.6-10.3); EGFR Non-African American 74.3 (>60); Globulin 2.6 g/dL (2-4); Potassium 3.6 mmol/L (3.5-5.0); Total Bilirubin 0.4 mg/dL (0.2-1.0); Total Protein 5.5 g/dL (6.4-8.9)
[2018-07-23] MEDS: Piperacillin/Tazobac ADVAN(*) 3.375 GM in NS 0.9% 100 ML* 100 ML IVPB SCH ×3 (07:25→22:14)
[2018-07-23] MEDS: Insulin LISPRO* 1 UNITS UNIT SUBCUT SCH ×4 (07:29→21:26)
[2018-07-23] MEDS: Famotidine TAB* 20 MG PO SCH (07:45)
--- NOTE | 2018-07-23 09:58 | PN ---
Progress Note - Progress Note Date of Service: 07/23/18 SOAP: Subjective: Pt seen and examined. Feels well, no nausea. pos appetite. no additional BMs Objective: Temp Pulse Resp BP Pulse Ox 98.4 F 74 21 132/69 96 07/23/18 07:52 07/23/18 07:52 07/23/18 07:52 07/23/18 07:52 07/23/18 08:00 Intake & Output 07/22/18 07/23/18 07/23/18 22:59 06:59 14:59 Intake Total 3230 338 Balance 3230 338 Weight 230 lb 235 lb a and o x3, nad abdo: soft/ ND/ NT labs noted US reviewed Assessment: oswaldo acute on chronic cholecystitis Plan: OR for lap rene, early this week Pt was for planned stress test next tuesday. cont abx Po diet for now
[2018-07-23 11:24] LABS: INR 1.21 (0.77-1.02)
[2018-07-23] MEDS: NS 0.9% 1000 ML* 1,000 ML IV SCH ×2 (12:46→21:14)
[2018-07-23] MEDS: Heparin VIAL(*) 5000 UNITS/ML VIAL (FIVE THOUSAND) SUBCUT SCH ×2 (16:07→21:26)
[2018-07-23] MEDS: Tamsulosin CAP* 0.4 MG PO SCH (17:40)
--- NOTE | 2018-07-23 18:07 | PN ---
Subjective Date of Service: 07/23/18 Interval History: Pt seen and examined. Meds and labs reviewed. CC: N/A ROS: Denied ROBERTS/dizziness, F/C, N/V, CP, SOB, increased cough, sputum production , abd pain, diarrhea, constipation, dysuria, myalgias, arthralgias, throat pain , and new skin lesions. The rest of the 14 point ROS are unremarkable. PHYSICAL EXAM: GEN APPEARANCE: Awake, not in acute distress HEENT: NC/AT, PERRLA, moist oral mucosa, (-) throat erythema NECK: Soft, supple, (-) cervical LAD, (-)JVD HEART: S1S2 WNL, RRR, No MRG CHEST: CTA, BL, GAE, No W/R/R ABD: Soft, ND/tender RUQ, (-) [place] sign, NABS 4x Q EXT: No C/C/E SKIN: Warm to touch PSYCH: No active psychosis, hallucinations, depression, SI/HI Family History: Findings - father of [place], mother of Alzheimers, mother and mother's brother had DM2 Social History: Findings - active as burnette, , 4 children, no tobacco, no alcohol, no drug use Past Medical History: Findings - cholelithiasis, Type 2 diabetes, BPH, GERD Objective Active Medications: Famotidine (Pepcid Tab*) 20 mg PO DAILY [facility] Last Admin: 07/23/18 07:45 Dose: Not Given Heparin Sodium (Porcine) (Heparin Vial(*)) 5,000 units SUBCUT Q8HR [facility] Last Admin: 07/23/18 16:07 Dose: 5,000 units Piperacillin Sod/Tazobactam (Sod 3.375 gm/ Sodium Chloride) 100 mls @ 25 mls/ hr IVPB Q8H [facility] Last Admin: 07/23/18 16:30 Dose: 25 mls/hr Sodium Chloride (Ns 0.9% 1000 Ml*) 1,000 mls @ 125 mls/hr IV PER RATE [facility] Last Admin: 07/23/18 12:46 Dose: 125 mls/hr Insulin Glargine (Lantus(*)) 10 units SUBCUT Q24H [facility] Last Admin: 07/23/18 00:14 Dose: 10 unit Insulin Human Lispro (Humalog*) 0 units SUBCUT ACHS [facility]; Protocol Last Admin: 07/23/18 17:40 Dose: 2 units Tamsulosin HCl (Flomax Cap*) 0.4 mg PO QPM [facility] Last Admin: 07/23/18 17:40 Dose: 0.4 mg Vital Signs - 8 hr 07/23/18 07/23/18 11:46 15:38 Temperature 98.4 F 98.3 F Pulse Rate 79 73 Respiratory 20 18 Rate Blood Pressure 126/62 146/70 (mmHg) O2 Sat by Pulse 97 98 Oximetry Oxygen Devices in Use Now: None Result Diagrams: 07/23/18 05:08 07/23/18 05:08 Additional Lab and Data: Laboratory Tests 07/22/18 07/22/18 07/22/18 18:36 18:36 18:36 INR (Anticoag Therapy) 1.14 H APTT 20.7 L Lactic Acid AST 8 L ALT 14 C-Reactive Protein 10.99 H B-Natriuretic Peptide 89 Total Protein 6.2 L Albumin 3.7 Urine Appearance Ur Specific Section Urine Nitrate Ur Leukocyte Esterase 07/22/18 07/22/18 19:38 21:39 INR (Anticoag Therapy) APTT Lactic Acid 1.3 AST ALT C-Reactive Protein B-Natriuretic Peptide Total Protein Albumin Urine Appearance Clear Ur Specific Section 1.010 Urine Nitrate Negative Ur Leukocyte Esterase Negative Diagnostic Imaging: RUQ ultrasound shows cholelithiasis, thickened GB wall EKG Data: normal sinus rhythm, normal axis, LVH, no ischemia Assess/Plan/Problems-Billing Assessment: 73 year old man with 6 weeks of symptomatic cholelithiasis and cholecystitis, presenting with sepsis - Patient Problems (1) Acute calculous cholecystitis Current Visit: No Status: Acute Priority: High Code(s): K80.00 - CALCULUS OF GALLBLADDER W ACUTE CHOLECYST W/O OBSTRUCTION SNOMED Code(s): 98757403 Comment: #with sepsis: -Sepsis improved -Failed conservative management of gallbladder disease -D/W Dr. Vazquez who mentioned he is assembling team for planned lap rene this week -Continue Zosyn (2) Sepsis Current Visit: Yes Status: Acute Priority: High Comment: -As above -Continue Zosyn (3) Type 2 diabetes mellitus Current Visit: Yes Status: Chronic Priority: Medium Comment: - Continue low-dose lantus and sliding scale humalog to maintain euglycemia -Continue to monitor FS (4) DVT prophylaxis Current Visit: No Status: Acute Code(s): AZW1381 - SNOMED Code(s): 741186776 Comment: -Pt high risk and will place pt on Heparin SQ q8H given anticipated Sx that is still being planned -Continue SCDs Status and Disposition: -As above
[2018-07-23] MEDS ORDERED: Dextrose 50% Syringe 50 ML* 25 GM/50 ML SYRINGE IV PUSH PRN (21:51)
[2018-07-23] MEDS: Insulin GLARGINE(*) 1 UNITS UNIT SUBCUT SCH (22:11)
[2018-07-24] MEDS: Heparin VIAL(*) 5000 UNITS/ML VIAL (FIVE THOUSAND) SUBCUT SCH ×4 (05:32→21:29)
[2018-07-24 05:44] LABS: Hematocrit 30 % (42-52); Hemoglobin 10.2 g/dl (14.0-18.0); Mean Corpuscular HGB Conc 34 g/dl (31-36); Mean Corpuscular Hemoglobin 29 pg (27-31); Mean Corpuscular Volume 85 fL (80-94); Mean Platelet Volume 8.4 fL (7.4-10.4); Platelet Count 211 10^3/ul (150-450); Red Blood Count 3.56 10^6/ul (4.00-5.40); Red Cell Distribution Width 14 % (10.5-15); White Blood Count 5.7 10^3/ul (3.5-10.8)
[2018-07-24 06:06] LABS: Albumin 2.7 g/dL (3.2-5.2); Albumin/Globulin Ratio 1.1 (1-3); BUN/Creatinine Ratio 12.9 (8-20); Calcium 7.8 mg/dL (8.6-10.3); EGFR Non-African American 72.6 (>60); Globulin 2.4 g/dL (2-4); Magnesium 1.8 mg/dL (1.9-2.7); Phosphorus 3.4 mg/dL (2.5-5.0); Potassium 3.6 mmol/L (3.5-5.0); Total Bilirubin 0.3 mg/dL (0.2-1.0); Total Protein 5.1 g/dL (6.4-8.9)
[2018-07-24] MEDS: NS 0.9% 1000 ML* 1,000 ML IV SCH (07:29)
[2018-07-24] MEDS: Piperacillin/Tazobac ADVAN(*) 3.375 GM in NS 0.9% 100 ML* 100 ML IVPB SCH ×3 (07:29→23:50)
[2018-07-24] MEDS: Insulin LISPRO* 1 UNITS UNIT SUBCUT SCH ×4 (07:31→21:28)
[2018-07-24] MEDS: Famotidine TAB* 20 MG PO SCH (08:45)
[2018-07-24] MEDS ORDERED: Azithromycin IV(*) 500 MG in NS 0.9% 250 ML* 250 ML IVPB SCH (10:00)
[2018-07-24] MEDS ORDERED: Mometasone/Formoter 200/5 MDI INH SCH (10:00)
--- NOTE | 2018-07-24 12:29 | PN ---
Progress Note - Progress Note Date of Service: 07/24/18 SOAP: Subjective:denies abd pain,ate low fat breakfast,no n/v;urine light yellow; stools loose and brown [] Objective: Vital Signs Temp 98.1 F 07/24/18 07:36 Pulse 69 07/24/18 07:36 Resp 20 07/24/18 08:00 BP 143/70 07/24/18 07:36 Pulse Ox 96 07/24/18 08:00 Intake & Output 07/23/18 07/24/18 07/24/18 18:59 06:59 18:59 Intake Total 2414 1737 Output Total 0 0 Balance 2414 1737 Intake: IV Fluids 1824 1051 ABX - PIPERACILLIN 135 60 NS (0.9%) 1689 991 IVPB 206 ABX - PIPERACILLIN 206 Oral 590 480 Output: Urine 0 0 Other: Estimated Void Medium Date of Last Bowel 07/23/18 Movement # Bowel Movements 0 Estimated Stool Amount Medium # Voids 3 abd:+bs;soft;nondistended;nontender throughout;no guarding;no rebound;negative Mistry's sign skin:no jaundice;HEENT:no scleral icterus [] Assessment:afebrile,pain free,normal white count;normal LFTS;hx of cholecystitis [] Plan:Dr Santos spoke to Dr Bain who recommends nuclear stress test before lap rene;I spoke with Dr Marsh and he will order stress test for tomorrow and lap rene can be planned for Tuesday07/26/18;patient and his updated []
[2018-07-24] MEDS ORDERED: methylPREDNISolone SOD 40 MG* 1 ML VIAL IV SCH (16:00)
[2018-07-24] MEDS ORDERED: Magnesium Sulfate 2 GM IV* 2 GM/50 ML BAG IVPB ONE (17:54)
[2018-07-24] MEDS: Tamsulosin CAP* 0.4 MG PO SCH (18:19)
--- NOTE | 2018-07-24 19:47 | PN ---
Subjective Date of Service: 07/24/18 Interval History: Afebrile, hemodynamically stable. Eating. No abdominal pain/n/v. 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 Past Medical History: Findings - cholelithiasis, Type 2 diabetes, BPH, GERD Objective Active Medications: Dextrose (D50w Syringe 50 Ml*) 25 gm IV PUSH .FOR FS < 60 - SS PRN PRN Reason: FS < 60 Famotidine (Pepcid Tab*) 20 mg PO DAILY [facility] Last Admin: 07/24/18 08:45 Dose: 20 mg Heparin Sodium (Porcine) (Heparin Vial(*)) 5,000 units SUBCUT Q8HR [facility] Last Admin: 07/24/18 13:45 Dose: 5,000 units Piperacillin Sod/Tazobactam (Sod 3.375 gm/ Sodium Chloride) 100 mls @ 25 mls/ hr IVPB Q8H [facility] Last Admin: 07/24/18 15:51 Dose: 25 mls/hr Insulin Glargine (Lantus(*)) 6 units SUBCUT Q24H [facility] Last Admin: 07/23/18 22:11 Dose: 6 unit Insulin Human Lispro (Humalog*) 0 units SUBCUT ACHS [facility]; Protocol Last Admin: 07/24/18 17:40 Dose: Not Given Tamsulosin HCl (Flomax Cap*) 0.4 mg PO QPM [facility] Last Admin: 07/24/18 18:19 Dose: 0.4 mg Vital Signs - 8 hr 07/24/18 07/24/18 11:57 15:17 Temperature 97.3 F 98.3 F Pulse Rate 65 73 Respiratory 20 16 Rate Blood Pressure 139/62 146/88 (mmHg) O2 Sat by Pulse 98 99 Oximetry Oxygen Devices in Use Now: None Appearance: NAD Eyes: No Scleral Icterus, PERRLA Ears/Nose/Mouth/Throat: NL Teeth, Lips, Gums, Mucous Membranes Moist Respiratory: Symmetrical Chest Expansion and Respiratory Effort, Clear to Auscultation Cardiovascular: - - RRR JES no r/g Abdominal: NL Sounds; No Tenderness; No Distention, No Hepatosplenomegaly Lymphatic: No Cervical Adenopathy, No Axillary Adenopathy Extremities: No Edema Skin: No Rash or Ulcers Neurological: Alert and Oriented x 3 Nutrition: Taking PO's Result Diagrams: 07/24/18 05:22 07/24/18 05:22 Additional Lab and Data: Laboratory Results - last 24 hr 07/23/18 07/24/18 07/24/18 21:24 05:22 05:22 WBC 5.7 RBC 3.56 L Hgb 10.2 L Hct 30 L MCV 85 MCH 29 MCHC 34 RDW 14 Plt Count 211 MPV 8.4 Sodium 141 Potassium 3.6 Chloride 112 H Carbon Dioxide 23 Anion Gap 6 BUN 13 Creatinine 1.01 Est GFR ( Amer) 87.9 Est GFR (Non-Af Amer) 72.6 BUN/Creatinine Ratio 12.9 Glucose 109 H POC Glucose (mg/dL) 98 Calcium 7.8 L Phosphorus 3.4 Magnesium 1.8 L Total Bilirubin 0.30 AST 8 L ALT 9 Alkaline Phosphatase 67 Total Protein 5.1 L Albumin 2.7 L Globulin 2.4 Albumin/Globulin Ratio 1.1 07/24/18 07/24/18 07/24/18 06:59 11:59 17:11 WBC RBC Hgb Hct MCV MCH MCHC RDW Plt Count MPV Sodium Potassium Chloride Carbon Dioxide Anion Gap BUN Creatinine Est GFR ( Amer) Est GFR (Non-Af Amer) BUN/Creatinine Ratio Glucose POC Glucose (mg/dL) 122 H 201 H 121 H Calcium Phosphorus Magnesium Total Bilirubin AST ALT Alkaline Phosphatase Total Protein Albumin Globulin Albumin/Globulin Ratio Microbiology and Other Data: Microbiology 07/22/18 18:36 Aerobic Blood Culture - Preliminary Blood Venous No Growth Day 2 Anaerobic Blood Culture - Preliminary No Growth Day 2 07/23/18 19:45 Stool Gross Appearance - Final Stool Stool Occult Blood (REINIER) - Final Cryptosporidium/Giardia - Final Neg Cryptosporidium/Giardia 07/22/18 23:48 Aerobic Blood Culture - Preliminary Blood Venous No Growth Day 1 Anaerobic Blood Culture - Preliminary No Growth Day 1 Diagnostic Imaging: RUQ ultrasound shows cholelithiasis, thickened GB wall EKG Data: normal sinus rhythm, normal axis, LVH, no ischemia Assess/Plan/Problems-Billing Assessment: 73 year old man with 6 weeks on/off of symptomatic cholelithiasis and cholecystitis, presenting with sepsis - Patient Problems (1) Acute calculous cholecystitis Current Visit: No Status: Acute Priority: High Code(s): K80.00 - CALCULUS OF GALLBLADDER W ACUTE CHOLECYST W/O OBSTRUCTION SNOMED Code(s): 18745007 Comment: #with sepsis: -Sepsis resolved -Failed conservative management of gallbladder disease -Dr. Santos plans lap rene likely Tuesday after nuc stress test cardiac clearance Tuesday -Continue Zosyn (2) Sepsis Current Visit: Yes Status: Acute Priority: High Comment: resolved -Continue Zosyn (3) Type 2 diabetes mellitus Current Visit: Yes Status: Chronic Priority: Medium Comment: - Continue low-dose lantus and sliding scale humalog to maintain euglycemia -Continue to monitor FS (4) DVT prophylaxis Current Visit: No Status: Acute Code(s): FPD0847 - SNOMED Code(s): 034102107 Comment: -Pt high risk and will place pt on Heparin SQ q8H given anticipated Sx that is still being planned -Continue SCDs (5) Full code status Current Visit: No Status: Acute Code(s): Z78.9 - OTHER SPECIFIED HEALTH STATUS SNOMED Code(s): 799812203 (6) Systolic CHF Current Visit: Yes Status: Acute Code(s): I50.20 - UNSPECIFIED SYSTOLIC ( CONGESTIVE) HEART FAILURE SNOMED Code(s): 472664201 Comment: ECHO 06/13/18 with EF 40-45%, diastolic dysfunction not in exacerbation Status and Disposition: -As above
[2018-07-24] MEDS: Insulin GLARGINE(*) 1 UNITS UNIT SUBCUT SCH (21:28)
[2018-07-25] MEDS: Heparin VIAL(*) 5000 UNITS/ML VIAL (FIVE THOUSAND) SUBCUT SCH ×3 (05:51→22:36)
[2018-07-25] MEDS ORDERED: Piperacillin/Tazobac ADVAN(*) 3.375 GM in NS 0.9% 100 ML* 100 ML IVPB ONE (07:30)
[2018-07-25] MEDS: Famotidine TAB* 20 MG PO SCH (07:43)
[2018-07-25] MEDS: Insulin LISPRO* 1 UNITS UNIT SUBCUT SCH ×4 (07:47→20:46)
[2018-07-25] MEDS ORDERED: Regadenoson* 0.4 MG/5 ML SYRINGE ONE (10:42)
[2018-07-25] MEDS ORDERED: Aminophylline IV* 25 MG/ML 10 ML VIAL ONE (10:42)
[2018-07-25] MEDS: Piperacillin/Tazobac ADVAN(*) 3.375 GM in NS 0.9% 100 ML* 100 ML IVPB SCH ×4 (12:00→23:49)
[2018-07-25] MEDS ORDERED: ZOSYN 3.375 GM x ONE DOSE over 30 miuntes IVPB ×2 (12:00)
--- NOTE | 2018-07-25 15:26 | PN ---
Subjective Date of Service: 07/25/18 Interval History: Pt is feeling well today. He is happier now that he can eat. He denies any abdominal pain, SOB or CP. Objective Active Medications: Dextrose (D50w Syringe 50 Ml*) 25 gm IV PUSH .FOR FS < 60 - SS PRN PRN Reason: FS < 60 Famotidine (Pepcid Tab*) 20 mg PO DAILY [facility] Last Admin: 07/25/18 07:43 Dose: 20 mg Heparin Sodium (Porcine) (Heparin Vial(*)) 5,000 units SUBCUT Q8HR [facility] Last Admin: 07/25/18 05:51 Dose: 5,000 units Piperacillin Sod/Tazobactam (Sod 3.375 gm/ Sodium Chloride) 100 mls @ 25 mls/ hr IVPB 0000,0800,1600 [facility] Insulin Glargine (Lantus(*)) 6 units SUBCUT Q24H [facility] Last Admin: 07/24/18 21:28 Dose: 6 unit Insulin Human Lispro (Humalog*) 0 units SUBCUT ACHS [facility]; Protocol Last Admin: 07/25/18 12:26 Dose: Not Given Tamsulosin HCl (Flomax Cap*) 0.4 mg PO QPM [facility] Last Admin: 07/24/18 18:19 Dose: 0.4 mg Vital Signs - 8 hr 07/25/18 07:51 Respiratory 16 Rate O2 Sat by Pulse 98 Oximetry Oxygen Devices in Use Now: None Appearance: Elderly male sitting on the edge of the bed, NAD Eyes: No Scleral Icterus Ears/Nose/Mouth/Throat: Mucous Membranes Moist Respiratory: Symmetrical Chest Expansion and Respiratory Effort, Clear to Auscultation Cardiovascular: NL Sounds; No Murmurs; No JVD, RRR, No Edema Abdominal: NL Sounds; No Tenderness; No Distention Extremities: No Clubbing, Cyanosis Skin: No Nodules or Sclerosis Neurological: Alert and Oriented x 3 Result Diagrams: 07/24/18 05:22 07/24/18 05:22 Additional Lab and Data: Laboratory Results - last 24 hr 07/23/18 07/24/18 07/24/18 21:24 05:22 05:22 WBC 5.7 RBC 3.56 L Hgb 10.2 L Hct 30 L MCV 85 MCH 29 MCHC 34 RDW 14 Plt Count 211 MPV 8.4 Sodium 141 Potassium 3.6 Chloride 112 H Carbon Dioxide 23 Anion Gap 6 BUN 13 Creatinine 1.01 Est GFR ( Amer) 87.9 Est GFR (Non-Af Amer) 72.6 BUN/Creatinine Ratio 12.9 Glucose 109 H POC Glucose (mg/dL) 98 Calcium 7.8 L Phosphorus 3.4 Magnesium 1.8 L Total Bilirubin 0.30 AST 8 L ALT 9 Alkaline Phosphatase 67 Total Protein 5.1 L Albumin 2.7 L Globulin 2.4 Albumin/Globulin Ratio 1.1 07/24/18 07/24/18 07/24/18 06:59 11:59 17:11 WBC RBC Hgb Hct MCV MCH MCHC RDW Plt Count MPV Sodium Potassium Chloride Carbon Dioxide Anion Gap BUN Creatinine Est GFR ( Amer) Est GFR (Non-Af Amer) BUN/Creatinine Ratio Glucose POC Glucose (mg/dL) 122 H 201 H 121 H Calcium Phosphorus Magnesium Total Bilirubin AST ALT Alkaline Phosphatase Total Protein Albumin Globulin Albumin/Globulin Ratio Microbiology and Other Data: Microbiology 07/22/18 18:36 Aerobic Blood Culture - Preliminary Blood Venous No Growth Day 2 Anaerobic Blood Culture - Preliminary No Growth Day 2 07/23/18 19:45 Stool Gross Appearance - Final Stool Stool Occult Blood (REINIER) - Final Cryptosporidium/Giardia - Final Neg Cryptosporidium/Giardia 07/22/18 23:48 Aerobic Blood Culture - Preliminary Blood Venous No Growth Day 1 Anaerobic Blood Culture - Preliminary No Growth Day 1 Diagnostic Imaging: RUQ ultrasound shows cholelithiasis, thickened GB wall EKG Data: normal sinus rhythm, normal axis, LVH, no ischemia Assess/Plan/Problems-Billing Mr Cordero is a 73 year old man with 6 weeks on/off of symptomatic cholelithiasis and cholecystitis who presented with sepsis secondary to likely acute cholecystitis. - Patient Problems (1) Abnormal stress test Current Visit: Yes Status: Acute Code(s): R94.39 - ABNORMAL RESULT OF OTHER CARDIOVASCULAR FUNCTION STUDY SNOMED Code(s): 094931195 Comment: Pt with possible inferior wall ischemia. Will continue metoprolol as started by Dr. Bain. Will need to follow up with Dr. Bain in 2-3 weeks post discharge for consideration of cardiac catheterization. (2) Sepsis Current Visit: Yes Status: Acute Comment: Resolved. On zosyn for acute cholecystitis. (3) Acute calculous cholecystitis Current Visit: Yes Status: Acute Priority: High Code(s): K80.00 - CALCULUS OF GALLBLADDER W ACUTE CHOLECYST W/O OBSTRUCTION SNOMED Code(s): 95024603 Comment: Pt remains on zosyn and is pain free. PLan for OR tomorrow. His stress test today showed possible inferior wall ischemia. At this time Dr Bain recommends proceeding to the OR as planned but will need to monitor for chest pain or other signs of cardiac ischemia. (4) Type 2 diabetes mellitus Current Visit: Yes Status: Chronic Comment: Sugars are generally under good control. Continue low dose lantus and lispro sliding scale. (5) DVT prophylaxis Current Visit: Yes Status: Acute Code(s): BVG1491 - SNOMED Code(s): 934069335 Comment: SQ heparin (6) Full code status Current Visit: Yes Status: Acute Code(s): Z78.9 - OTHER SPECIFIED HEALTH STATUS SNOMED Code(s): 875523309 Status and Disposition: -As above
--- NOTE | 2018-07-25 16:44 | CONS ---
CC: Dr. Nick Santos; Dr. Daniella Gimenez FOLLOWUP CONSULTATION: DATE OF CONSULT: 07/25/18 INDICATION FOR CONSULTATION: Cholecystitis, abnormal troponin, abnormal EKG. HISTORY OF PRESENT ILLNESS: The patient is a 73-year-old gentleman, who was originally admitted to the hospital back on 06/13/18 with severe cholecystitis. At that time, he had an abnormal EKG, he had an elevated troponin level of 0.51. An echocardiogram at that time showed mildly reduced LV systolic function , ejection fraction of 45%, no significant valvular abnormalities. At that time , my recommendation was that the patient undergo a stress test prior to going to the operating room. The patient subsequently became much more septic and was admitted to the intensive care unit, was on multiple antibiotics and pressors. Ultimately, he had a drain placed to his gallbladder, which significantly relieved his symptoms. I had seen the patient in my office last week for preparation for surgery. At that time, I recommended the patient undergo a stress test. The patient was readmitted to the hospital this past weekend because of high fevers and high white count. Again, he was placed on antibiotics and his symptoms significantly improved. The patient underwent a chemical nuclear stress test today, which I personally reviewed the images. His images show a potential area of [id number] ischemia to his inferior wall. His perfusion to his anterior septal and lateral bonilla was completely normal. His calculated ejection fraction was 35% with global hypokinesis. His TID was normal at 1.07. In speaking with the patient, again he only complains of his right upper quadrant pain. He has never had any anginal type symptoms. He denies any shortness of breath. He denies any orthopnea or PND. CURRENT MEDICATIONS: 1. Famotidine 20 mg a day. 2. Insulin as directed. 3. Tamsulosin 0.4 mg a day. ALLERGIES: No known drug allergies. PHYSICAL EXAM: Height is 6 feet, weight 235 pounds, temperature 97.5, heart rate is 68, blood pressure 150/75. Sclerae anicteric. Oropharynx is pink without erythema. Carotids are 2+ without bruits. JVD is normal. Thyroid is normal. Cardiac Exam: S1, S2 without any murmurs, rubs, or gallops. Lungs are clear to auscultation. Extremities show no edema. The patient is awake, alert , and oriented. He moves all 4 extremities equally. LABORATORY DATA: His white count is down to 5.7. His chemistries are within normal limits. BUN and creatinine are normal. IMPRESSION AND PLAN: This is a 73-year-old gentleman, who has significant gallbladder disease and is in urgent need for a cholecystectomy. The patient's stress test does show a potential area of ischemia to his inferior wall; however, his anterolateral and septal bonilla show normal perfusion. The patient does have a mildly reduced LV systolic function with an ejection fraction of 45% seen on an echocardiogram back in May. In general, I think the patient should proceed with gallbladder surgery. I think he is at increased risk for cardiac complications, but I think his risk of cholecystitis and sepsis is much higher than his risk of myocardial infarction. The patient will be started on low-dose beta-blockers before going to the operating room. His other medications will remain the same. I will continue to follow the patient. The patient should be seen by me in followup in 2 to 3 weeks. At that time, I will contemplate cardiac catheterization. Tme spent 1:15 hour of which 30 min was face to face with patient and family [id number]/[facility] #: [id number] TEJA
[2018-07-25] MEDS: Tamsulosin CAP* 0.4 MG PO SCH (17:58)
[2018-07-25] MEDS: Metoprolol Tartrate TAB* 25 MG PO SCH (20:46)
[2018-07-25] MEDS: Insulin GLARGINE(*) 1 UNITS UNIT SUBCUT SCH (20:47)
[2018-07-26] MEDS: Insulin LISPRO* 1 UNITS UNIT SUBCUT SCH ×4 (07:35→21:24)
[2018-07-26] MEDS: Lactated Ringers 1000 ML Bag* 1,000 ML IV SCH ×2 (08:43→20:39)
[2018-07-26] MEDS: Piperacillin/Tazobac ADVAN(*) 3.375 GM in NS 0.9% 100 ML* 100 ML IVPB SCH ×2 (08:43→20:56)
[2018-07-26] MEDS: Metoprolol Tartrate TAB* 25 MG PO SCH ×2 (08:44→21:25)
[2018-07-26] MEDS: Famotidine TAB* 20 MG PO SCH (08:44)
[2018-07-26] MEDS ORDERED: fentaNYL* 50 MCG/ML 2 ML VIAL (100 MCG VIAL) ONE ×4 (13:45→18:29)
[2018-07-26] MEDS ORDERED: Midazolam* 1 MG/ML 2 ML VIAL (2 MG) ONE (13:46)
--- NOTE | 2018-07-26 14:10 | PN ---
Subjective Date of Service: 07/26/18 Interval History: Patient seen and examined. Pending surgery today, add on for 3-5pm. Denies fever or chills, no abdominal pain, no n/v. Denies chest pain or SOB. Family History: Findings - father of [place], mother of Alzheimers, mother and mother's brother had DM2 Social History: Findings - active as burnette, , 4 children, no tobacco, no alcohol, no drug use Past Medical History: Findings - cholelithiasis, Type 2 diabetes, BPH, GERD Objective Active Medications: Dextrose (D50w Syringe 50 Ml*) 25 gm IV PUSH .FOR FS < 60 - SS PRN PRN Reason: FS < 60 Famotidine (Pepcid Tab*) 20 mg PO DAILY [facility] Last Admin: 07/26/18 08:44 Dose: 20 mg Piperacillin Sod/Tazobactam (Sod 3.375 gm/ Sodium Chloride) 100 mls @ 25 mls/ hr IVPB 0000,0800,1600 [facility] Last Admin: 07/26/18 08:43 Dose: 25 mls/hr Lactated Ringer's (Lactated Ringers 1000 Ml Bag*) 1,000 mls @ 125 mls/hr IV PER RATE [facility] Last Admin: 07/26/18 08:43 Dose: 125 mls/hr Insulin Glargine (Lantus(*)) 6 units SUBCUT Q24H [facility] Last Admin: 07/25/18 20:47 Dose: 6 unit Insulin Human Lispro (Humalog*) 0 units SUBCUT ACHS [facility]; Protocol Last Admin: 07/26/18 12:09 Dose: Not Given Metoprolol Tartrate (Lopressor Tab*) 25 mg PO BID [facility] Last Admin: 07/26/18 08:44 Dose: 25 mg Tamsulosin HCl (Flomax Cap*) 0.4 mg PO QPM [facility] Last Admin: 07/25/18 17:58 Dose: 0.4 mg Vital Signs - 8 hr 07/26/18 07/26/18 07:39 11:01 Temperature 96.9 F 97.9 F Pulse Rate 87 66 Respiratory 16 16 Rate Blood Pressure 138/84 156/74 (mmHg) O2 Sat by Pulse 97 100 Oximetry Oxygen Devices in Use Now: None Appearance: alert, NAD Eyes: No Scleral Icterus, PERRLA Ears/Nose/Mouth/Throat: NL Teeth, Lips, Gums, Mucous Membranes Moist Neck: NL Appearance and Movements; NL JVP, Trachea Midline Respiratory: Symmetrical Chest Expansion and Respiratory Effort, Clear to Auscultation Cardiovascular: NL Sounds; No Murmurs; No JVD, RRR, No Edema Abdominal: NL Sounds; No Tenderness; No Distention Extremities: No Edema, No Clubbing, Cyanosis Skin: No Rash or Ulcers, No Nodules or Sclerosis Neurological: Alert and Oriented x 3, NL Sensation, NL Gait Nutrition: - - NPO Result Diagrams: 07/24/18 05:22 07/24/18 05:22 Additional Lab and Data: Laboratory Results - last 24 hr 07/23/18 07/24/18 07/24/18 21:24 05:22 05:22 WBC 5.7 RBC 3.56 L Hgb 10.2 L Hct 30 L MCV 85 MCH 29 MCHC 34 RDW 14 Plt Count 211 MPV 8.4 Sodium 141 Potassium 3.6 Chloride 112 H Carbon Dioxide 23 Anion Gap 6 BUN 13 Creatinine 1.01 Est GFR ( Amer) 87.9 Est GFR (Non-Af Amer) 72.6 BUN/Creatinine Ratio 12.9 Glucose 109 H POC Glucose (mg/dL) 98 Calcium 7.8 L Phosphorus 3.4 Magnesium 1.8 L Total Bilirubin 0.30 AST 8 L ALT 9 Alkaline Phosphatase 67 Total Protein 5.1 L Albumin 2.7 L Globulin 2.4 Albumin/Globulin Ratio 1.1 07/24/18 07/24/18 07/24/18 06:59 11:59 17:11 WBC RBC Hgb Hct MCV MCH MCHC RDW Plt Count MPV Sodium Potassium Chloride Carbon Dioxide Anion Gap BUN Creatinine Est GFR ( Amer) Est GFR (Non-Af Amer) BUN/Creatinine Ratio Glucose POC Glucose (mg/dL) 122 H 201 H 121 H Calcium Phosphorus Magnesium Total Bilirubin AST ALT Alkaline Phosphatase Total Protein Albumin Globulin Albumin/Globulin Ratio Microbiology and Other Data: Microbiology 07/22/18 18:36 Aerobic Blood Culture - Preliminary Blood Venous No Growth Day 2 Anaerobic Blood Culture - Preliminary No Growth Day 2 07/23/18 19:45 Stool Gross Appearance - Final Stool Stool Occult Blood (REINIER) - Final Cryptosporidium/Giardia - Final Neg Cryptosporidium/Giardia 07/22/18 23:48 Aerobic Blood Culture - Preliminary Blood Venous No Growth Day 1 Anaerobic Blood Culture - Preliminary No Growth Day 1 Diagnostic Imaging: RUQ ultrasound shows cholelithiasis, thickened GB wall EKG Data: normal sinus rhythm, normal axis, LVH, no ischemia Assess/Plan/Problems-Billing Assessment: Mr Cordero is a 73 year old man with 6 weeks on/off of symptomatic cholelithiasis and cholecystitis who presented with sepsis secondary to likely acute cholecystitis, pending cholecystectomy today. - Patient Problems (1) Sepsis Comment: - 2/2 acute rene - Resolved - Hemodynamically stable for cholecystectomy (2) Abnormal stress test Code(s): R94.39 - ABNORMAL RESULT OF OTHER CARDIOVASCULAR FUNCTION STUDY SNOMED Code(s): 771652070 Comment: - Cleared by Dr. Bain yesterday for procedure - Will need outpatient cardio follow up and consider diagnostic cath after healed from surgery (3) Acute calculous cholecystitis Code(s): K80.00 - CALCULUS OF GALLBLADDER W ACUTE CHOLECYST W/O OBSTRUCTION SNOMED Code(s): 73829315 Comment: - Surgery following, plan for OR today, cleared by cardiology for procedure, please see note from Dr. Bain. - Remain on zosyn, no pain today (4) DVT prophylaxis Code(s): EER2608 - SNOMED Code(s): 293674756 Comment: - SQ heparin (5) Full code status Code(s): Z78.9 - OTHER SPECIFIED HEALTH STATUS SNOMED Code(s): 604205320 Status and Disposition: Dispo TBD, likely DC home when medically stable in 1-2 days.
[2018-07-26] MEDS ORDERED: Piperacillin/Tazobactam VIAL*) 3.375 GM VIAL (COMPD & OVERRIDE) IVPB ONE (14:28)
[2018-07-26] MEDS ORDERED: Bupivacaine 0.25% W/EPI* 10 ML SDV ONE (14:29)
[2018-07-26] MEDS ORDERED: Famotidine IV* 10 MG/ML 2 ML (20 mg) ONE (14:42)
[2018-07-26] MEDS ORDERED: Propofol* 10 MG/ML 20 ML BTL ONE (14:47)
[2018-07-26] MEDS ORDERED: Succinylcholine* 20 MG/ML 10 ML VIAL ONE (14:47)
[2018-07-26] MEDS ORDERED: Dexamethasone IV* 4 MG/ML 1 ML (4 MG) ONE (14:47)
[2018-07-26] MEDS ORDERED: Lidocaine 2% PF * 5 ML VIAL ONE (14:48)
[2018-07-26] MEDS ORDERED: Cisatracurium* 2 MG/ML MDV 5 ML ONE ×2 (14:54→16:17)
[2018-07-26] MEDS ORDERED: ZOSYN 3.375 GM x ONE DOSE over 30 miuntes IVPB ×2 (15:00)
[2018-07-26] MEDS ORDERED: Metoprolol Tartrate IV* 1 MG/ML 5 ML VIAL ONE (15:35)
[2018-07-26] MEDS ORDERED: PROCHLORPERAZINE INJ 5 MG/ML 2 ML VIAL IV PRN (15:59)
[2018-07-26] MEDS ORDERED: Ondansetron INJ* 2 MG/ML VIAL IV PRN (15:59)
[2018-07-26] MEDS ORDERED: Acetaminophen IV 1GM/100ML * 1,000 MG/100 ML VIAL IVPB ONE (15:59)
[2018-07-26] MEDS ORDERED: DiMENhydriNATE IV* 50 MG/ML VIAL IV PUSH PRN (15:59)
[2018-07-26] MEDS ORDERED: diPHENhydraMINE IV* 50 MG/ML 1 ml VIAL (BENADRYL) IV PRN (15:59)
[2018-07-26] MEDS ORDERED: Naloxone* 0.4 MG/ML 1 ML VIAL IV PRN (15:59)
[2018-07-26] MEDS ORDERED: Iohexol 180 (CONTRAST) 10 ML SDV IV ONE (16:49)
[2018-07-26] MEDS ORDERED: Phenylephrine INJ* 10 MG/ML 1 ML VIAL (10 MG) ONE (17:27)
[2018-07-26] MEDS ORDERED: Ondansetron INJ* 2 MG/ML VIAL ONE (17:49)
[2018-07-26] MEDS ORDERED: Glycopyrrolate IV* 0.2 MG/ML 1 ML VIAL ONE (17:59)
[2018-07-26] MEDS ORDERED: Neostigmine Methylsulfate* 1 MG/ML 10 ML VIAL (1 mg/ml) ONE (17:59)
--- NOTE | 2018-07-26 18:00 | BRIEFOPN ---
Brief Operative Note - Surgery Procedures: Procedures Pre-OP Diagnoses: acute on chronic cholecystitis Post-op Diagnosis: same Procedure: Laparoscopic cholecystectomy Surgeon: George Asst: Hari Anethesia: ANASTASIIA Daniels EBL: 300cc IVF: 1400cc Specimen: gallbladder Drains: #10 TANESHA
[2018-07-26] MEDS ORDERED: Acetaminophen IV 1GM/100ML * 100 ML ONE (18:29)
[2018-07-26] MEDS: fentaNYL* 50 MCG/ML 2 ML VIAL (100 MCG VIAL) IV PRN ×2 (18:31→18:59)
[2018-07-26] MEDS ORDERED: Morphine VIAL* 10 MG/ML 1 ML VIAL IV PRN (18:39)
[2018-07-26] MEDS ORDERED: HYDROcodone/ACETAMIN 5-325 MG* 1 TAB PO PRN (18:39)
[2018-07-26] MEDS ORDERED: Acetaminophen TAB* 325 MG PO PRN (18:39)
[2018-07-26] MEDS ORDERED: Insulin LISPRO* 1 UNITS UNIT SUBCUT ONE (18:43)
[2018-07-26] MEDS ORDERED: HYDROcodone/ACETAMIN 5-325 MG* 1 TAB ONE (19:26)
[2018-07-26] MEDS ORDERED: Morphine VIAL* 4 MG/ML VIAL (1 ml vial) IV PRN (20:21)
[2018-07-26] MEDS: Tamsulosin CAP* 0.4 MG PO SCH (20:47)
[2018-07-26] MEDS: Insulin GLARGINE(*) 1 UNITS UNIT SUBCUT SCH (21:25)
[2018-07-26 22:12] LABS: ABS Basophils 0.1 10^3/ul (0-0.2); ABS Eosinophils 0 10^3/ul (0-0.6); ABS Lymphocytes 0.7 10^3/ul (1.0-4.8); ABS Monocytes 0.9 10^3/ul (0-0.8); ABS Neutrophils 19.2 10^3/ul (1.5-7.7); ABS Nucleated RBC 0 10^3/ul; Eosinophil % 0 %; Hematocrit 34 % (42-52); Hemoglobin 11.2 g/dl (14.0-18.0); Lymphocyte % 3.4 %; Mean Corpuscular HGB Conc 33 g/dl (31-36); Mean Corpuscular Hemoglobin 28 pg (27-31); Mean Corpuscular Volume 86 fL (80-94); Mean Platelet Volume 8.4 fL (7.4-10.4); Nucleated Red Blood Cells % 0; Platelet Count 284 10^3/ul (150-450); Red Blood Count 3.97 10^6/ul (4.00-5.40); Red Cell Distribution Width 14 % (10.5-15); White Blood Count 20.9 10^3/ul (3.5-10.8)
--- NOTE | 2018-07-26 23:18 | OP ---
CC: Dr. Samson Bain; Dr. Chacho Chiu * DATE OF OPERATION: 07/26/18 - ROOM #ICU-13 DATE OF : 47 SURGEON: Donny Vazquez MD PAPER CONSERVATOR: JARRED Irene ANESTHESIOLOGIST: Dr. Daniels. ANESTHESIA: General. PRE-OP DIAGNOSIS: Acute on chronic cholecystitis. POST-OP DIAGNOSIS: Acute on chronic cholecystitis. OPERATIVE PROCEDURE: Laparoscopic cholecystectomy. ESTIMATED BLOOD LOSS: 300 cc. SPECIMENS: Gallbladder. FLUIDS: 1800 cc of crystalloid fluid given. INDICATIONS: Mr. Cordero is a 73-year-old gentleman known to me after a recent consultation. He had been treated nonoperatively for acute cholecystitis and was for planned outpatient cholecystectomy when he spiked a fever and presented to the emergency room where he was evaluated and admitted with antibiotics due to recurrent acute cholecystitis. The patient was worked up by Cardiology, felt to be moderate to high risk for intervention. He was improving with antibiotics; however, I felt the patient would best be served with laparoscopic cholecystectomy since he had ongoing signs of SIRS and recurrent disease. I outlined the details of the procedure going over the risks, benefits, and alternatives to him and his . We spoke of the possible complications which include but are not limited to bleeding, infection, bile leak, common bile duct or bowel injury, bleeding, infection, need for additional procedures, need for open procedures. The patient understood, he did not wish for additional watchful waiting at this point and antibiotics and wanted to be treated in the operating room knowing the risks. DESCRIPTION OF PROCEDURE: Consent was signed knowingly and the patient was marked. He was brought to the operating room, placed on the operating room table in supine position. Preoperative antibiotics were given. Sequential devices were placed on bilateral lower extremities. General anesthesia was induced. The patient's abdomen was clipped of hair and then prepped and draped in the standard surgical fashion. A time-out was performed. Folds of the umbilicus were elevated anteriorly and a Veress needle inserted into the abdominal cavity which was then allowed to insufflate to a pressure of 15 mmHg. The patient tolerated the insufflation well. A periumbilical incision was made and a 12-mm trocar inserted through this. Laparoscope was inserted and there was no evidence of injury from the trocar insertion or the Veress needle which was then removed. Review of the abdomen showed adhesions to the liver both at the inferior edge on the right and also additional trocars at the following position; at 12 mm in the subxiphoid and two 5 mm along the right costal margin. Blunt and sharp dissection was carried out taking the adhesions from the liver off the anterior abdominal wall. We felt what appeared to be tract of the previous cholecystostomy drain. We did not take this out at this point, but it was ultimately taken down later when we could not fully retract the gallbladder. Next, both blunt and sharp dissection was used to identify the face of the gallbladder. We took down a lesser omentum and duodenum off of this site until we could see the face of the gallbladder and the body. We then were able to grasp the gallbladder at its fundus and retracted anteriorly and continued our blunt dissection until we could expose the more infundibular region. It was significantly inflamed mostly chronically and we had a difficult time grasping the infundibular region. We continued with additional sharp and cautery dissection at this point both laterally and medially. We did enter into the gallbladder and pus was drained. I did not take a culture; however. The dissection continued inferiorly freeing up the rind of the proximal portion of the gallbladder. I did see a lymph node that I felt it was a sick node, but we never did get a critical view. I isolated what I felt to be the cystic duct and isolated what appeared to be the cystic artery. The cystic artery was doubly clipped and I ligated above it, but there was no significant back bleeding. At this point, I tried to continue to peel posteriorly without taking what appeared to be the cystic duct, not having seen the critical view at this point. Blunt dissection posteriorly led to avulsion of vessel that crossed a fair amount of rapid bleeding. I placed a gauze in this to pack this site. This packed well without additional bleeding was brisk. My decision was to turn to the mid portion of the gallbladder and let the packing take care of the bleeding portion of it. I knew this was in the posterior aspect, just inferior to what I was considering the cystic duct. Next, we continued our dissection along the medial aspect of the peritoneum until we can come over the top of the gallbladder. Once we were in the appropriate plane, we just had a purulent appearing back wall at the gallbladder that was able to be bluntly dissected and we were able to take it from the top down at this point. Indeed, it still did have some openings through the gallbladder, but these were able to be bluntly dissected along with the top down and continued to take the gallbladder proper. We did spill a fair amount of stones during this time, but I felt confident we were getting down into the infundibular region. Once we were down low, review of what appeared to be the cystic duct was not quite clear and I did not wish to continue dissection at this site. The gallbladder was removed and placed in an endoscopic retrieval bag. It was cut through the infundibular body region with scissors and it was at this point I saw back bile. It was unclear if the back bile was only within the mucosa of the gallbladder or not and we made attempt at cholangiogram. His cholangiogram supplies are being gathered. We then lifted off the gauze at the site of previous bleeding. This bleeding had stopped and hemostasis achieved. However, in additional dissection to try to isolate the posterior aspect of what was unclear if it was the peel of the gallbladder or something else, we caused the rebleeding at this site which now appeared to be arterial. We were able to clamp it with [place] and gain hemostasis. However, I did not feel comfortable placing a clip at this point. Therefore, we placed additional gauze and applied pressure again; at this time over Surgicel. Next, the cholangiogram was attempted. I could not cannulate the area where the black bile was noted and after multiple attempts and passing it through different vectors, I could not advance this. Again, I did not want to do the cholangiogram through what I initially thought was a cystic duct as at this point I was not entirely sure what this structure was. Again, it still appeared to be cystic duct but it was unclear since I did not want to lift up posteriorly to isolate this portion from the peel because of the bleeding that we had encountered. Next, we lifted off the gauze from the bleeding area and again hemostasis was assured. During lot of the observation, we were able to irrigate significantly utilizing almost about 7 L of warm saline and removing the small debris and stones as we found them. It cleared up nice and hemostasis was achieved, but my decision was made to let the continuos bile leak because of a concern for the possible avulsion of the common bile duct versus cystic duct. Since I could not be clear without additional dissection and concern for bleeding at the posterior aspect of the structure, I placed a TANESHA drain #10 into the abdominal cavity and I placed it at the site of the leak and extended it towards the lateral aspect of the abdominal wall. This was brought out to the right lateral most port site and sutured to the skin with 3-0 Prolene sutures. Next, we closed two 12-mm trocars and it should be noted that during the dissection, I did add an additional 12-mm trocar to the left upper quadrant for the placement of a 12-mm Fan retractor. This helped us to view as best we could and continue our dissection earlier. I closed the fascia at this site with 0-Vicryl stitch using an Endoclose device and did a similar closure at the periumbilical incision site. Lap pad count and instrument count was checked and it was correct. Specimen was off. Review of the gallbladder fossa showed no bleeding. The bile that we had seen did not appear brisk and was not persistent unless we looked closely, but it was certainly there. TANESHA drain was draped in this area and we placed the patient back into a neutral position and allowed the abdomen to collapse and the additional trocar was removed under direct vision and all additional skin incisions were closed with 4-0 Monocryl subcuticular sutures followed by Steri- Strips and sterile dressing. The patient was woken up and transferred to the PACU. This patient had much longer than our anticipated gallbladder case taking over two and a half hours. [id number]/CPS #: [id number] TEJA
[2018-07-27] MEDS: Morphine VIAL* 4 MG/ML VIAL (1 ml vial) IV PRN ×3 (00:34→06:53)
[2018-07-27] MEDS: Piperacillin/Tazobac ADVAN(*) 3.375 GM in NS 0.9% 100 ML* 100 ML IVPB SCH ×4 (03:49→20:53)
[2018-07-27] MEDS: Lactated Ringers 1000 ML Bag* 1,000 ML IV SCH ×3 (04:43→23:38)
[2018-07-27 06:55] LABS: ABS Basophils 0.1 10^3/ul (0-0.2); ABS Eosinophils 0 10^3/ul (0-0.6); ABS Lymphocytes 1.3 10^3/ul (1.0-4.8); ABS Neutrophils 11.8 10^3/ul (1.5-7.7); ABS Nucleated RBC 0 10^3/ul; Eosinophil % 0 %; Hematocrit 30 % (42-52); Hemoglobin 9.7 g/dl (14.0-18.0); Lymphocyte % 9.3 %; Mean Corpuscular HGB Conc 33 g/dl (31-36); Mean Corpuscular Hemoglobin 28 pg (27-31); Mean Corpuscular Volume 85 fL (80-94); Mean Platelet Volume 8.6 fL (7.4-10.4); Nucleated Red Blood Cells % 0; Platelet Count 243 10^3/ul (150-450); Red Blood Count 3.46 10^6/ul (4.00-5.40); Red Cell Distribution Width 14 % (10.5-15); White Blood Count 14.1 10^3/ul (3.5-10.8)
[2018-07-27 07:13] LABS: Albumin 2.6 g/dL (3.2-5.2); Albumin/Globulin Ratio 1.1 (1-3); BUN/Creatinine Ratio 13.6 (8-20); Calcium 8.2 mg/dL (8.6-10.3); EGFR Non-African American 65.8 (>60); Globulin 2.4 g/dL (2-4); Total Bilirubin 0.5 mg/dL (0.2-1.0)
--- NOTE | 2018-07-27 08:12 | PN ---
Subjective Date of Service: 07/27/18 Interval History: status post cholecystectomy. Doing well, having some soreness, bloody drainage noted at the TANESHA drain, remains NPO, for MRCP later today. Family History: Findings - father of [place], mother of Alzheimers, mother and mother's brother had DM2 Social History: Findings - active as burnette, , 4 children, no tobacco, no alcohol, no drug use Past Medical History: Findings - cholelithiasis, Type 2 diabetes, BPH, GERD Objective Active Medications: Acetaminophen (Tylenol Tab*) 650 mg PO Q4H PRN PRN Reason: PAIN - MILD Hydrocodone Bitart/Acetaminophen ([place] 5-325 Tab*) 1 tab PO Q4H PRN PRN Reason: PAIN - MODERATE Dextrose (D50w Syringe 50 Ml*) 25 gm IV PUSH .FOR FS < 60 - SS PRN PRN Reason: FS < 60 Famotidine (Pepcid Tab*) 20 mg PO DAILY [facility] Last Admin: 07/26/18 08:44 Dose: 20 mg Lactated Ringer's (Lactated Ringers 1000 Ml Bag*) 1,000 mls @ 125 mls/hr IV PER RATE [facility] Last Admin: 07/27/18 04:43 Dose: 125 mls/hr Piperacillin Sod/Tazobactam (Sod 3.375 gm/ Sodium Chloride) 100 mls @ 25 mls/ hr IVPB 0400,1200,2000 [facility] Last Admin: 07/27/18 03:49 Dose: 25 mls/hr Insulin Glargine (Lantus(*)) 6 units SUBCUT Q24H [facility] Last Admin: 07/26/18 21:25 Dose: 6 unit Insulin Human Lispro (Humalog*) 0 units SUBCUT ACHS [facility]; Protocol Last Admin: 07/26/18 21:24 Dose: 4 units Metoprolol Tartrate (Lopressor Tab*) 25 mg PO BID [facility] Last Admin: 07/26/18 21:25 Dose: 25 mg Morphine Sulfate (Morphine Vial*) 3 mg IV Q2H PRN PRN Reason: PAIN - MODERATE Last Admin: 07/27/18 06:53 Dose: 3 mg Morphine Sulfate (Morphine Vial*) 5 mg IV Q2H PRN PRN Reason: PAIN - MODERATE TO SEVERE Tamsulosin HCl (Flomax Cap*) 0.4 mg PO QPM [facility] Last Admin: 07/26/18 20:47 Dose: 0.4 mg Vital Signs - 8 hr 07/27/18 07/27/18 07/27/18 00:15 00:30 00:34 Temperature Pulse Rate 76 72 Respiratory 17 27 20 Rate Blood Pressure 124/65 123/62 (mmHg) O2 Sat by Pulse 92 93 Oximetry 07/27/18 07/27/18 07/27/18 00:37 00:43 00:46 Temperature Pulse Rate 78 93 Respiratory 14 28 18 Rate Blood Pressure (mmHg) O2 Sat by Pulse 93 94 97 Oximetry 07/27/18 07/27/18 07/27/18 00:54 01:00 01:15 Temperature Pulse Rate 72 76 74 Respiratory 20 24 18 Rate Blood Pressure 132/79 142/71 140/71 (mmHg) O2 Sat by Pulse 93 92 92 Oximetry 07/27/18 07/27/18 07/27/18 01:30 01:45 02:00 Temperature Pulse Rate 76 77 76 Respiratory 17 26 17 Rate Blood Pressure 136/70 138/69 136/72 (mmHg) O2 Sat by Pulse 92 92 95 Oximetry 07/27/18 07/27/18 07/27/18 02:15 02:30 02:45 Temperature Pulse Rate 72 72 73 Respiratory 18 24 21 Rate Blood Pressure 133/67 136/67 130/68 (mmHg) O2 Sat by Pulse 93 92 91 Oximetry 07/27/18 07/27/18 07/27/18 03:00 03:15 03:37 Temperature Pulse Rate 74 74 Respiratory 21 21 27 Rate Blood Pressure 135/71 136/66 (mmHg) O2 Sat by Pulse 92 91 Oximetry 07/27/18 07/27/18 07/27/18 03:45 03:57 04:00 Temperature 100.3 F Pulse Rate 75 76 Respiratory 21 21 20 Rate Blood Pressure 137/70 135/70 (mmHg) O2 Sat by Pulse 90 89 Oximetry 07/27/18 07/27/18 07/27/18 04:15 04:30 04:45 Temperature Pulse Rate 78 76 75 Respiratory 22 17 12 Rate Blood Pressure 136/72 136/65 119/51 (mmHg) O2 Sat by Pulse 90 92 93 Oximetry 07/27/18 07/27/18 07/27/18 05:00 05:15 05:30 Temperature Pulse Rate 73 70 67 Respiratory 16 15 24 Rate Blood Pressure 121/50 117/55 131/58 (mmHg) O2 Sat by Pulse 93 90 92 Oximetry 07/27/18 07/27/18 07/27/18 05:45 06:00 06:15 Temperature Pulse Rate 73 71 72 Respiratory 20 23 18 Rate Blood Pressure 142/68 126/63 120/61 (mmHg) O2 Sat by Pulse 94 90 92 Oximetry 07/27/18 07/27/18 07/27/18 06:30 06:46 06:53 Temperature Pulse Rate 75 75 Respiratory 23 20 35 Rate Blood Pressure 132/66 162/76 (mmHg) O2 Sat by Pulse 92 95 Oximetry 07/27/18 07/27/18 07:00 07:15 Temperature Pulse Rate 72 71 Respiratory 26 20 Rate Blood Pressure 123/67 114/59 (mmHg) O2 Sat by Pulse 92 90 Oximetry Oxygen Devices in Use Now: None Appearance: Elderly male sitting on chair, not in distress, was reading a book when I entered Eyes: PERRLA Respiratory: Clear to Auscultation Cardiovascular: RRR, - - 3/6 systolic murmur best heard at the RUSB Abdominal: - - Bowel sounds normoactive, abdomen soft, mildly tender, TANESHA drain w / bloody collection, other dressings are intact. Extremities: No Edema Neurological: Alert and Oriented x 3 Result Diagrams: 07/27/18 06:35 07/27/18 06:35 Additional Lab and Data: Laboratory Results - last 24 hr 07/23/18 07/24/18 07/24/18 21:24 05:22 05:22 WBC 5.7 RBC 3.56 L Hgb 10.2 L Hct 30 L MCV 85 MCH 29 MCHC 34 RDW 14 Plt Count 211 MPV 8.4 Sodium 141 Potassium 3.6 Chloride 112 H Carbon Dioxide 23 Anion Gap 6 BUN 13 Creatinine 1.01 Est GFR ( Amer) 87.9 Est GFR (Non-Af Amer) 72.6 BUN/Creatinine Ratio 12.9 Glucose 109 H POC Glucose (mg/dL) 98 Calcium 7.8 L Phosphorus 3.4 Magnesium 1.8 L Total Bilirubin 0.30 AST 8 L ALT 9 Alkaline Phosphatase 67 Total Protein 5.1 L Albumin 2.7 L Globulin 2.4 Albumin/Globulin Ratio 1.1 07/24/18 07/24/18 07/24/18 06:59 11:59 17:11 WBC RBC Hgb Hct MCV MCH MCHC RDW Plt Count MPV Sodium Potassium Chloride Carbon Dioxide Anion Gap BUN Creatinine Est GFR ( Amer) Est GFR (Non-Af Amer) BUN/Creatinine Ratio Glucose POC Glucose (mg/dL) 122 H 201 H 121 H Calcium Phosphorus Magnesium Total Bilirubin AST ALT Alkaline Phosphatase Total Protein Albumin Globulin Albumin/Globulin Ratio Microbiology and Other Data: Microbiology 07/22/18 18:36 Aerobic Blood Culture - Preliminary Blood Venous No Growth Day 2 Anaerobic Blood Culture - Preliminary No Growth Day 2 07/23/18 19:45 Stool Gross Appearance - Final Stool Stool Occult Blood (REINIER) - Final Cryptosporidium/Giardia - Final Neg Cryptosporidium/Giardia 07/22/18 23:48 Aerobic Blood Culture - Preliminary Blood Venous No Growth Day 1 Anaerobic Blood Culture - Preliminary No Growth Day 1 Diagnostic Imaging: RUQ ultrasound shows cholelithiasis, thickened GB wall EKG Data: normal sinus rhythm, normal axis, LVH, no ischemia Assess/Plan/Problems-Billing Assessment: Mr Cordero is a 73 year old man with 6 weeks on/off of symptomatic cholelithiasis and cholecystitis who presented with sepsis secondary to likely acute cholecystitis, POD # 1 for cholecystectomy. - Patient Problems (1) Acute calculous cholecystitis Current Visit: Yes Status: Acute Priority: High Code(s): K80.00 - CALCULUS OF GALLBLADDER W ACUTE CHOLECYST W/O OBSTRUCTION SNOMED Code(s): 04631344 Comment: Status post cholecystectomy POD # 1. Continue zosyn, for now NPO, pending MRCP later today. Pain control (2) Abnormal stress test Current Visit: Yes Status: Acute Code(s): R94.39 - ABNORMAL RESULT OF OTHER CARDIOVASCULAR FUNCTION STUDY SNOMED Code(s): 614469472 Comment: Was cleared by cardiology for procedure Will need outpatient cardio follow up and consider diagnostic cath after healed from surgery Continue metoprolol. (3) DVT prophylaxis Current Visit: Yes Status: Acute Code(s): PVC3708 - SNOMED Code(s): 044862489 Comment: SCD for now, post op day 1. (4) Full code status Current Visit: Yes Status: Acute Code(s): Z78.9 - OTHER SPECIFIED HEALTH STATUS SNOMED Code(s): 708855712 (5) Type 2 diabetes mellitus Current Visit: Yes Status: Chronic Comment: Continue low dose lantus and lispro sliding scale. Status and Disposition: Dispo TBD, likely DC home when medically stable in 1-2 days.
[2018-07-27] MEDS: Famotidine TAB* 20 MG PO SCH (08:41)
[2018-07-27] MEDS: Metoprolol Tartrate TAB* 25 MG PO SCH ×2 (08:41→21:12)
[2018-07-27] MEDS: Insulin LISPRO* 1 UNITS UNIT SUBCUT SCH ×4 (09:11→21:13)
[2018-07-27 10:19] LABS: Magnesium 1.9 mg/dL (1.9-2.7)
--- NOTE | 2018-07-27 14:27 | PN ---
Progress Note - Progress Note Date of Service: 07/27/18 SOAP: Subjective: Pt seen and examined. Feeling well. good appetite. No nausea. Pos abdo pain Objective: Temp Pulse Resp BP Pulse Ox 98.1 F 73 20 142/75 94 07/27/18 12:00 07/27/18 13:15 07/27/18 13:15 07/27/18 13:15 07/27/18 13:15 UO good abdo: soft/ ND/ incisional tenderness TANESHA serosang labs noted MRCP noted Assessment: POD 1 lap rene Concern for bile leak discussed with pt and questions answered Plan: transfer to floor continue TANESHA, TANESHA drain teaching possible d/c home in 1 -2 days
[2018-07-27] MEDS: Tamsulosin CAP* 0.4 MG PO SCH (18:26)
[2018-07-27] MEDS: Insulin GLARGINE(*) 1 UNITS UNIT SUBCUT SCH (21:13)
[2018-07-28] MEDS: Piperacillin/Tazobac ADVAN(*) 3.375 GM in NS 0.9% 100 ML* 100 ML IVPB SCH ×3 (05:06→10:54)
[2018-07-28 06:20] LABS: ABS Basophils 0.1 10^3/ul (0-0.2); ABS Eosinophils 0.1 10^3/ul (0-0.6); ABS Lymphocytes 1.5 10^3/ul (1.0-4.8); ABS Monocytes 0.9 10^3/ul (0-0.8); ABS Neutrophils 9.7 10^3/ul (1.5-7.7); ABS Nucleated RBC 0 10^3/ul; Eosinophil % 0.7 %; Hematocrit 28 % (42-52); Hemoglobin 9.4 g/dl (14.0-18.0); Lymphocyte % 12.6 %; Mean Corpuscular HGB Conc 33 g/dl (31-36); Mean Corpuscular Hemoglobin 28 pg (27-31); Mean Corpuscular Volume 85 fL (80-94); Mean Platelet Volume 8.8 fL (7.4-10.4); Nucleated Red Blood Cells % 0; Platelet Count 224 10^3/ul (150-450); Red Blood Count 3.32 10^6/ul (4.00-5.40); Red Cell Distribution Width 14 % (10.5-15); White Blood Count 12.3 10^3/ul (3.5-10.8)
[2018-07-28 06:40] LABS: Albumin 2.7 g/dL (3.2-5.2); Albumin/Globulin Ratio 1.1 (1-3); BUN/Creatinine Ratio 11.7 (8-20); Calcium 8.4 mg/dL (8.6-10.3); Globulin 2.4 g/dL (2-4); Magnesium 1.8 mg/dL (1.9-2.7); Phosphorus 2.1 mg/dL (2.5-5.0); Potassium 3.7 mmol/L (3.5-5.0); Total Bilirubin 0.6 mg/dL (0.2-1.0); Total Protein 5.1 g/dL (6.4-8.9)
[2018-07-28] MEDS: Famotidine TAB* 20 MG PO SCH (09:30)
[2018-07-28] MEDS: Metoprolol Tartrate TAB* 25 MG PO SCH (09:30)
[2018-07-28] MEDS: Insulin LISPRO* 1 UNITS UNIT SUBCUT SCH ×2 (09:30→12:39)
--- NOTE | 2018-07-28 10:26 | PN ---
Progress Note - Progress Note Date of Service: 07/28/18 Note: S: POD #2. Some pain, but using limited amt of morphine. Anat diet well. No BM. Ambulating. No SOB. O: Vital Signs - 8 hr 07/28/18 07/28/18 07/28/18 03:21 07:36 08:00 Temperature 99.7 F 97.5 F Pulse Rate 81 89 Respiratory 20 14 18 Rate Blood Pressure 149/69 150/72 (mmHg) O2 Sat by Pulse 94 95 Oximetry Intake and Output Last 24 Hours 07/26/18 07/27/18 07/28/18 07/29/18 06:59 06:59 06:59 06:59 Intake Total 610 4441 2480 950 Output Total 935 2210 500 Balance 610 3506 270 450 Weight 233 lb 7.512 oz 233 lb 7.512 oz Intake: IV Fluids 30 3486 1847 950 ABX - PIPERACILLIN 30 15 105 LR 3447 1699 950 NS (0.9%) 24 43 IVPB 200 355 93 ABX - PIPERACILLIN 200 355 93 Oral 380 600 540 Output: TANESHA #1 60 160 Urine 575 2050 500 Estimated Blood Loss 300 Other: Estimated Void Medium # Bowel Movements 0 0 # Voids 0 2 1 Gen: WN, comfortable up in chair Heart: reg w/ murmur Lungs: clear; sl reduced at both bases Abd: TANESHA: serosang (no bile); some drainage around TANESHA site; other lap sites ok; soft; mild incisional tenderness Labs: Laboratory Tests 07/28/18 07/28/18 05:45 05:45 WBC 12.3 H Hgb 9.4 L Phosphorus 2.1 L Magnesium 1.8 L Total Bilirubin 0.60 ALT 18 Alkaline Phosphatase 54 gluc: 139- 234 A: s/p lap rene, improving P: consider d/c home today w/ drain (on abx?); Dr. Vazquez to see
--- NOTE | 2018-07-28 12:28 | PN ---
Subjective Date of Service: 07/28/18 Interval History: Doing well, tolearting diet, walking without issues. minimal abdominal soreness Family History: Findings - father of [place], mother of Alzheimers, mother and mother's brother had DM2 Social History: Findings - active as [employer], , 4 children, no tobacco, no alcohol, no drug use Past Medical History: Findings - cholelithiasis, Type 2 diabetes, BPH, GERD Objective Active Medications: Acetaminophen (Tylenol Tab*) 650 mg PO Q4H PRN PRN Reason: PAIN - MILD Hydrocodone Bitart/Acetaminophen ([place] 5-325 Tab*) 1 tab PO Q4H PRN PRN Reason: PAIN - MODERATE Dextrose (D50w Syringe 50 Ml*) 25 gm IV PUSH .FOR FS < 60 - SS PRN PRN Reason: FS < 60 Famotidine (Pepcid Tab*) 20 mg PO DAILY [facility] Last Admin: 07/28/18 09:30 Dose: 20 mg Lactated Ringer's (Lactated Ringers 1000 Ml Bag*) 1,000 mls @ 125 mls/hr IV PER RATE [facility] Last Admin: 07/27/18 23:38 Dose: 125 mls/hr Piperacillin Sod/Tazobactam (Sod 3.375 gm/ Sodium Chloride) 100 mls @ 200 mls/ hr IVPB Q6H [facility] Last Admin: 07/28/18 10:54 Dose: 200 mls/hr Insulin Glargine (Lantus(*)) 6 units SUBCUT Q24H [facility] Last Admin: 07/27/18 21:13 Dose: 6 unit Insulin Human Lispro (Humalog*) 0 units SUBCUT ACHS [facility]; Protocol Last Admin: 07/28/18 09:30 Dose: 1 units Metoprolol Tartrate (Lopressor Tab*) 25 mg PO BID [facility] Last Admin: 07/28/18 09:30 Dose: 25 mg Morphine Sulfate (Morphine Vial*) 3 mg IV Q2H PRN PRN Reason: PAIN - MODERATE Last Admin: 07/27/18 06:53 Dose: 3 mg Morphine Sulfate (Morphine Vial*) 5 mg IV Q2H PRN PRN Reason: PAIN - MODERATE TO SEVERE Tamsulosin HCl (Flomax Cap*) 0.4 mg PO QPM [facility] Last Admin: 07/27/18 18:26 Dose: 0.4 mg Vital Signs - 8 hr 07/28/18 07/28/18 07:36 08:00 Temperature 97.5 F Pulse Rate 89 Respiratory 14 18 Rate Blood Pressure 150/72 (mmHg) O2 Sat by Pulse 95 Oximetry Oxygen Devices in Use Now: None Appearance: Elderly male lying in bed, not in distress Eyes: PERRLA Respiratory: Clear to Auscultation Cardiovascular: RRR Abdominal: - - TANESHA drain with some drainage noted. other dressings are clean and dry Result Diagrams: 07/28/18 05:45 07/28/18 05:45 Additional Lab and Data: Laboratory Results - last 24 hr 07/23/18 07/24/18 07/24/18 21:24 05:22 05:22 WBC 5.7 RBC 3.56 L Hgb 10.2 L Hct 30 L MCV 85 MCH 29 MCHC 34 RDW 14 Plt Count 211 MPV 8.4 Sodium 141 Potassium 3.6 Chloride 112 H Carbon Dioxide 23 Anion Gap 6 BUN 13 Creatinine 1.01 Est GFR ( Amer) 87.9 Est GFR (Non-Af Amer) 72.6 BUN/Creatinine Ratio 12.9 Glucose 109 H POC Glucose (mg/dL) 98 Calcium 7.8 L Phosphorus 3.4 Magnesium 1.8 L Total Bilirubin 0.30 AST 8 L ALT 9 Alkaline Phosphatase 67 Total Protein 5.1 L Albumin 2.7 L Globulin 2.4 Albumin/Globulin Ratio 1.1 07/24/18 07/24/18 07/24/18 06:59 11:59 17:11 WBC RBC Hgb Hct MCV MCH MCHC RDW Plt Count MPV Sodium Potassium Chloride Carbon Dioxide Anion Gap BUN Creatinine Est GFR ( Amer) Est GFR (Non-Af Amer) BUN/Creatinine Ratio Glucose POC Glucose (mg/dL) 122 H 201 H 121 H Calcium Phosphorus Magnesium Total Bilirubin AST ALT Alkaline Phosphatase Total Protein Albumin Globulin Albumin/Globulin Ratio Microbiology and Other Data: Microbiology 07/22/18 18:36 Aerobic Blood Culture - Preliminary Blood Venous No Growth Day 2 Anaerobic Blood Culture - Preliminary No Growth Day 2 07/23/18 19:45 Stool Gross Appearance - Final Stool Stool Occult Blood (REINIER) - Final Cryptosporidium/Giardia - Final Neg Cryptosporidium/Giardia 07/22/18 23:48 Aerobic Blood Culture - Preliminary Blood Venous No Growth Day 1 Anaerobic Blood Culture - Preliminary No Growth Day 1 Diagnostic Imaging: RUQ ultrasound shows cholelithiasis, thickened GB wall EKG Data: normal sinus rhythm, normal axis, LVH, no ischemia Assess/Plan/Problems-Billing Assessment: Mr Cordero is a 73 year old man with 6 weeks on/off of symptomatic cholelithiasis and cholecystitis who presented with sepsis secondary to likely acute cholecystitis, POD # 1 for cholecystectomy. - Patient Problems (1) Acute calculous cholecystitis Current Visit: Yes Status: Acute Priority: High Code(s): K80.00 - CALCULUS OF GALLBLADDER W ACUTE CHOLECYST W/O OBSTRUCTION SNOMED Code(s): 29149755 Comment: Status post cholecystectomy POD # 2. Continue zosyn, Doing well, tolearing diet, seen by surgery: okay for discharge (2) Abnormal stress test Current Visit: Yes Status: Acute Code(s): R94.39 - ABNORMAL RESULT OF OTHER CARDIOVASCULAR FUNCTION STUDY SNOMED Code(s): 831167260 Comment: Will need outpatient cardio follow up and consider diagnostic cath after healed from surgery Continue metoprolol. (3) DVT prophylaxis Current Visit: Yes Status: Acute Code(s): IFJ4386 - SNOMED Code(s): 712284282 Comment: SCD for now, for discharge today. (4) Full code status Current Visit: Yes Status: Acute Code(s): Z78.9 - OTHER SPECIFIED HEALTH STATUS SNOMED Code(s): 126927337 (5) Type 2 diabetes mellitus Current Visit: Yes Status: Chronic Comment: Continue low dose lantus and lispro sliding scale while in hospital. at home resume metformin and glimiperide Status and Disposition: Discharge later today.
[2018-07-28 13:31] VITALS: BP 143/66
--- NOTE | 2018-07-28 15:17 | DS ---
ADDENDUM TO DISCHARGE SUMMARY: DATE OF ADMISSION: 07/22/2018. DATE OF DISCHARGE: 07/28/2018. DISCHARGE DIAGNOSES: 1. Acute cholecystitis. 2. Abnormal stress test. 3. Type 2 diabetes. [id number]/[facility] #: [id number] MTDD
--- NOTE | 2018-07-28 20:35 | DS ---
CC: Dr. Ashly Davenport; Dr. Bain; Dr. Vazquez. DISCHARGE SUMMARY: DATE OF ADMISSION: 07/14/18 DATE OF DISCHARGE: 07/28/18 REASON FOR ADMISSION: Status post ERCP and having issues. PRIMARY CARE PROVIDER: Dr. Ashly Davenport. TEMPLATE LAYOUT WORKER: Dr. Samson Bain. SURGEON: Dr. Vazquez. HOSPITAL COURSE: This is a 73-year-old male with past medical history of recent diagnosis of cholecystitis, was in our hospital in May 2018, required intubation for respiratory failure, who was brought into the hospital after having an ERCP. ERCP showed purulent drainage from the common bile duct with concern of cholangitis, so the patient was sent to the hospital for further care. For this, the patient was admitted to the hospital. IV fluids, antibiotics were started with Zosyn. Cardiology consultation was obtained and surgical consultation was also obtained. The patient underwent a nuclear stress test, which was abnormal stress test, it showed fixed defect involving the inferior myocardium, slightly exacerbated on stress images, ejection fraction of 35%. The patient was seen by the packer denture and was okayed for surgery. The patient underwent a cholecystectomy on 05/26/18. Subsequently, also had an MRCP which did not show any acute issues, the patient had a TANESHA drain in place and will continue to have a TANESHA drain in place and will go home on a TANESHA drain. Was seen by Surgery. Okay for discharge. The patient has been tolerating diet and has been walking around. The patient to be discharged home with the TANESHA drain, has been taught on how to take care of the TANESHA drain and was referred with the visiting nurse services. The patient to follow up with Dr. Samson Bain, packer denture, on 08/16/18 at [address] as well as Dr. Ashly Davenport, primary care provider. The patient to resume regular diet. The patient to follow up with Surgery as well. Instructions were given by Surgery regarding the instructions. DISCHARGE MEDICATIONS: Include: 1. Amoxicillin and clavulanate 875 mg/125 mg twice a day for the next 7 days. 2. To go on metoprolol 25 mg twice a day. New prescription was given for this as well as Augmentin. 3. Metformin 1000 mg twice a day. 4. Glipizide 5 mg b.i.d. PHYSICAL EXAMINATION: For my physical examination, see my progress note. DISCHARGE INSTRUCTIONS: The patient to return to the emergency room for any concerns, any issues that arise. Return to the emergency room with fevers, chills, or if any new complaints come up. [id number] #: [id number] MTDD
== END 2018-07-28 14:16 | disposition home health service (06) | DRG 854 ==
LOC: ED 16:16 → MEDTELE 21:12 → ICU 07-26 20:02 → SSU 07-27 13:20
PROVIDERS: ADMIT Internal Medicine; ATTEND Internal Medicine
PROC: 0FT44ZZ Resection of Gallbladder, Percutaneous Endoscopic Approach (ICD-10-PCS; principal; 2018-07-26 15:00)
DX: A41.9 Sepsis, unspecified organism (principal); K80.00 Calculus of gallbladder with acute cholecystitis without obstruction; E11.9 Type 2 diabetes mellitus without complications; N40.0 Benign prostatic hyperplasia without lower urinary tract symptoms; K21.9 Gastro-esophageal reflux disease without esophagitis; Z82.49 Family history of ischemic heart disease and other diseases of the circulatory system; Z83.3 Family history of diabetes mellitus; Z80.3 Family history of malignant neoplasm of breast
CPT/HCPCS: 36415; 70030; 71045; 74181; 76376; 76705; 78452; 80053; 81003; 82272; 82550; 83036; 83605; 83735; 83880; 84100; 84484; 85025; 85027; 85610; 85652; 85730; 86140; 86850; 86900; 86901; 86922; 87040; 87045; 87046; 87328; 87329; 87641; 87899; 88304; 93005; 93017; 99284; A9270-GY; A9502; J0280; J0330; J1100; J1644; J2250; J2270; J2405; J2543; J2704; J2710; J2785; J3010; J3475; J3490

== ENCOUNTER 2021-09-17 17:42 | Inpatient (IN) ==
[2021-09-17 19:53] LABS: ABS Lymphocytes 0.5 10^3/ul (1.0-4.8); ABS Monocytes 0.5 10^3/ul (0-0.8); ABS Neutrophils 4.1 10^3/ul (1.5-7.7); Hematocrit 38 % (42-52); Lymphocyte % 10.1 %; Mean Corpuscular HGB Conc 34 g/dL (31-36); Mean Corpuscular Hemoglobin 28 pg (27-31); Mean Corpuscular Volume 83 fL (80-94); Mean Platelet Volume 9.3 fL (7.4-10.4); Platelet Count 188 10^3/uL (150-450); Red Blood Count 4.64 10^6 /uL (4.18-5.48); Red Cell Distribution Width 13 % (10-15)
[2021-09-17 20:09] LABS: INR 1.13 (0.86-1.15)
[2021-09-17 20:20] LABS: Troponin I 0.05 ng/mL (<0.03)
[2021-09-17 20:31] LABS: ALT 56 U/L (7-52); AST 71 U/L (13-39); Albumin 3.4 g/dL (3.2-5.2); Albumin/Globulin Ratio 1.5 (1-3); Alkaline Phosphatase 55 U/L (35-149); Anion Gap 7 mmol/L (2-11); Blood Urea Nitrogen 20 mg/dL (6-24); C Reactive Protein 50.58 mg/L (<8.01); CO2 Carbon Dioxide 26 mmol/L (22-32); Chloride 100 mmol/L (101-111); Globulin 2.3 g/dL (2-4); Glucose 201 mg/dL (70-100); Potassium 4.3 mmol/L (3.5-5.0); Sodium 133 mmol/L (135-145); Total Protein 5.7 g/dL (6.4-8.9); eGFR CKD-EPI 67.8 (>60)
[2021-09-17] MEDS ORDERED: Iodixanol (CONTRAST) 320 MG/ML 100 ML SDV IV ONE (21:08)
[2021-09-18] MEDS ORDERED: Dextrose 50% Syringe 50 ml 25 GM/50 ML SYRINGE IV PUSH PRN (00:51)
[2021-09-18] MEDS ORDERED: Azithromycin 500 MG IV - ED ONCE IVPB ONE (01:00)
[2021-09-18 02:34] LABS: Troponin I 0.06 ng/mL (<0.03)
[2021-09-18] MEDS: Remdesivir 100 mg Vial 200 MG in NS 0.9% 250 ml 210 ML IV ONE ×2 (03:54→04:55)
[2021-09-18 04:55] LABS: ABS Lymphocytes 0.4 10^3/ul (1.0-4.8); ABS Monocytes 0.3 10^3/ul (0-0.8); ABS Neutrophils 3.5 10^3/ul (1.5-7.7); Hematocrit 38 % (42-52); Hemoglobin 12.7 g/dL (14.0-18.0); Lymphocyte % 8.4 %; Mean Corpuscular HGB Conc 34 g/dL (31-36); Mean Corpuscular Hemoglobin 28 pg (27-31); Mean Corpuscular Volume 84 fL (80-94); Mean Platelet Volume 9.3 fL (7.4-10.4); Platelet Count 184 10^3/uL (150-450); Red Blood Count 4.52 10^6 /uL (4.18-5.48); Red Cell Distribution Width 14 % (10-15); White Blood Count 4.2 10^3/uL (3.5-10.8)
[2021-09-18 05:03] LABS: INR 1.2 (0.86-1.15)
[2021-09-18 05:28] LABS: Troponin I 0.05 ng/mL (<0.03)
[2021-09-18 05:33] LABS: Anion Gap 8 mmol/L (2-11); Blood Urea Nitrogen 21 mg/dL (6-24); CO2 Carbon Dioxide 22 mmol/L (22-32); Calcium 7.6 mg/dL (8.6-10.3); Chloride 104 mmol/L (101-111); Glucose 239 mg/dL (70-100); Potassium 4.7 mmol/L (3.5-5.0); Sodium 134 mmol/L (135-145); eGFR CKD-EPI 79.4 (>60)
[2021-09-18] MEDS: Heparin 5000 UNITS/ML 1 mL VIAL SUBCUT SCH ×3 (06:31→20:40)
[2021-09-18] MEDS: Aspirin EC 81 mg TAB.EC (enteric coated) PO SCH (08:22)
[2021-09-18] MEDS ORDERED: Insulin GLARGINE 100 un/ml 10 ml VIAL SUBCUT SCH (21:00)
[2021-09-19] MEDS ORDERED: Azithromycin 500 mg/250 ml NS 500 MG/250 ML BAG IVPB SCH (01:00)
[2021-09-19] MEDS ORDERED: cefTRIAXone 1 gm/50 mL NS BAG 1 GM/50 ML BAG IVPB SCH (01:00)
[2021-09-19] MEDS: Heparin 5000 UNITS/ML 1 mL VIAL SUBCUT SCH ×3 (05:27→21:25)
[2021-09-19 07:28] LABS: ABS Lymphocytes 0.6 10^3/ul (1.0-4.8); ABS Monocytes 0.7 10^3/ul (0-0.8); ABS Neutrophils 7.5 10^3/ul (1.5-7.7); Hematocrit 38 % (42-52); Hemoglobin 12.9 g/dL (14.0-18.0); Lymphocyte % 6.6 %; Mean Corpuscular HGB Conc 34 g/dL (31-36); Mean Corpuscular Hemoglobin 28 pg (27-31); Mean Corpuscular Volume 83 fL (80-94); Mean Platelet Volume 9.1 fL (7.4-10.4); Platelet Count 250 10^3/uL (150-450); Red Blood Count 4.54 10^6 /uL (4.18-5.48); Red Cell Distribution Width 13 % (10-15); White Blood Count 8.8 10^3/uL (3.5-10.8)
[2021-09-19 07:37] LABS: INR 1.21 (0.86-1.15)
[2021-09-19 07:44] LABS: Albumin/Globulin Ratio 1.2 (1-3); Calcium 8.1 mg/dL (8.6-10.3); Globulin 2.5 g/dL (2-4); Potassium 4.4 mmol/L (3.5-5.0); Total Bilirubin 0.8 mg/dL (0.2-1.0); Total Protein 5.5 g/dL (6.4-8.9); eGFR CKD-EPI 74.9 (>60)
[2021-09-19] MEDS: Remdesivir 100 mg Vial 100 MG in NS 0.9% 250 ml 230 ML IV SCH ×2 (08:42→17:35)
[2021-09-19] MEDS: Insulin GLARGINE 100 un/ml 10 ml VIAL SUBCUT SCH (21:24)
[2021-09-20] MEDS: Heparin 5000 UNITS/ML 1 mL VIAL SUBCUT SCH ×3 (05:48→20:42)
[2021-09-20 06:10] LABS: ABS Lymphocytes 0.6 10^3/ul (1.0-4.8); ABS Monocytes 0.8 10^3/ul (0-0.8); ABS Neutrophils 5.1 10^3/ul (1.5-7.7); Hematocrit 38 % (42-52); Hemoglobin 12.6 g/dL (14.0-18.0); Lymphocyte % 9.1 %; Mean Corpuscular HGB Conc 34 g/dL (31-36); Mean Corpuscular Hemoglobin 28 pg (27-31); Mean Corpuscular Volume 84 fL (80-94); Mean Platelet Volume 9.4 fL (7.4-10.4); Platelet Count 254 10^3/uL (150-450); Red Blood Count 4.49 10^6 /uL (4.18-5.48); Red Cell Distribution Width 14 % (10-15); White Blood Count 6.6 10^3/uL (3.5-10.8)
[2021-09-20 06:19] LABS: INR 1.15 (0.86-1.15)
[2021-09-20 06:45] LABS: Albumin 2.7 g/dL (3.2-5.2); Calcium 7.9 mg/dL (8.6-10.3); Potassium 4.4 mmol/L (3.5-5.0); Total Bilirubin 0.7 mg/dL (0.2-1.0)
[2021-09-20 06:51] LABS: Albumin/Globulin Ratio 1.2 (1-3); Globulin 2.3 g/dL (2-4); eGFR CKD-EPI 89.1 (>60)
[2021-09-20] MEDS: Aspirin EC 81 mg TAB.EC (enteric coated) PO SCH (08:23)
[2021-09-20] MEDS ORDERED: Remdesivir 100 mg Vial 100 MG in NS 0.9% 250 ml 230 ML IV SCH ×2 (13:30→21:00)
[2021-09-20] MEDS: Remdesivir 100 mg Vial 100 MG in NS 0.9% 250 ml 230 ML IV SCH (13:45)
[2021-09-20] MEDS: Insulin GLARGINE 100 un/ml 10 ml VIAL SUBCUT SCH (20:43)
[2021-09-21] MEDS: Heparin 5000 UNITS/ML 1 mL VIAL SUBCUT SCH (05:37)
[2021-09-21 06:00] LABS: ABS Monocytes 0.9 10^3/ul (0-0.8); ABS Neutrophils 5.1 10^3/ul (1.5-7.7); Eosinophil % 0.2 %; Hematocrit 37 % (42-52); Hemoglobin 12.6 g/dL (14.0-18.0); Lymphocyte % 14.2 %; Mean Corpuscular HGB Conc 34 g/dL (31-36); Mean Corpuscular Hemoglobin 28 pg (27-31); Mean Corpuscular Volume 83 fL (80-94); Mean Platelet Volume 9.2 fL (7.4-10.4); Platelet Count 282 10^3/uL (150-450); Red Blood Count 4.46 10^6 /uL (4.18-5.48); Red Cell Distribution Width 14 % (10-15)
[2021-09-21 06:07] LABS: INR 1.16 (0.86-1.15)
[2021-09-21 06:23] LABS: Albumin 2.7 g/dL (3.2-5.2); Albumin/Globulin Ratio 1.2 (1-3); Calcium 8.1 mg/dL (8.6-10.3); Globulin 2.2 g/dL (2-4); Potassium 4.5 mmol/L (3.5-5.0); Total Bilirubin 0.7 mg/dL (0.2-1.0); Total Protein 4.9 g/dL (6.4-8.9); eGFR CKD-EPI 89.4 (>60)
[2021-09-21] MEDS: Remdesivir 100 mg Vial 100 MG in NS 0.9% 250 ml 230 ML IV SCH (08:44)
[2021-09-21] MEDS ORDERED: Remdesivir 100 mg Vial 100 MG in NS 0.9% 250 ml 230 ML IV SCH (09:00)
[2021-09-21 09:02] VITALS: BP 156/70
== END 2021-09-21 13:05 | disposition home or self-care (01) | DRG 177 ==
LOC: ED 17:42 → SUATTDRO 09-18 00:46 → EDHOLD 09-18 00:46 → MED 09-18 03:06
PROVIDERS: ADMIT Hospitalist; ATTEND Internal Medicine